=== PATIENT | female | born 1980 | race Caucasian/White ===

== ENCOUNTER 2020-03-08 01:44 | Emergency (ER) | payer MEDICARE, MEDICAID, SELFPAY ==
[2020-03-08 01:52] VITALS: BP 148/106; PULSE 117; RESP 20; TEMP 37.2; O2SAT 100; BMI 27.6
[2020-03-08 02:11] VITALS: BP 152/99; PULSE 105; RESP 18; O2SAT 98
--- NOTE | 2020-03-08 02:19 | ED.GENADULT ---
HPI - General Adult General Chief complaint: Anxiety Stated complaint: ANXIETY Time Seen by Provider: 03/08/20 02:15 Source: patient Mode of arrival: ambulatory Limitations: no limitations History of Present Illness HPI narrative: Patient comes to the emergency room complaining of anxiety. Patient was started on citalopram 3 days ago and Ativan for sleep. Patient states she has been doing well, however today she woke up clammy, feeling anxious. Patient is diabetic, checked her blood sugar and it was 80. Patient states her baseline is approximately 200. Patient drank orange juice, started feeling better and came to the emergency room. At this moment, patient states she still feels anxious, however she feels much better than at home. MD complaint: Anxiety, hypoglycemia Onset (ago): minute(s) Related Data Allergies Allergy/AdvReac Type Severity Reaction Status Date / Time No Known Allergies Allergy Verified 03/08/20 01:57 [No Known Allergies*] Review of Systems Review of Systems: Constitutional : No Weight loss, No Fever, No Chills, No Night Sweats, No Fatigue, No Malaise ENT/Mouth : No Hearing loss, No Ear Pain, No Nasal Congestion, No Sinus Pain, No Hoarseness, No sore throat, No Rhinorrhea, No Swallowing Difficulty Eyes: No Eye Pain, No Swelling, No Redness, No Foreign Body, No Discharge, No Vision Changes Cardiovascular : No Chest Pain, No SOB, No Dyspnea on Exertion, No Orthopnea, No Edema, No Palpitations Respiratory : No Cough, No Sputum, No Wheezing, No Smoke Exposure, No Dyspnea Gastrointestinal : No Nausea, No Vomiting, No Diarrhea, No Constipation, No abdominal Pain, No Hematochezia, No Melena Genitourinary : no irregular bleeding, No Dysuria, No Urinary Frequency, No Hematuria, No Urinary Incontinence, No Urgency, No Flank Pain, No Urinary Flow Changes, No Hesitancy Musculoskeletal : No joint pain, No Myalgias, No Joint Swelling Skin : No Skin Lesions, No rash Neuro : No Weakness, No Numbness, No Paresthesias, No Loss of Consciousness, No Dizziness, No Headache Psych : mild Anxiety/Panic, No Depression, No SI/HI/AH/VH, No Social Issues, Heme/Lymph: No Bruising, No Bleeding,No Lymphadenopathy Endocrine : No Polyuria, No Polydipsia, No Temperature Intolerance PMFSH Past Medical History Medical History Anxiety Depression Diabetes HTN (hypertension) Surgical History History of Hx of cholecystectomy Social History Social History Advance Directives: No Advance Directives Information Provided: No Physical Exam Vital Signs: Vital Signs: Vital Signs Temp Pulse Resp BP Pulse Ox 03/08/20 02:11 105 H 18 152/99 H 98 03/08/20 01:52 99.0 F 117 H 20 148/106 H 100 Body Mass Index 27.6 Appearance: Alert. Oriented X3. No acute distress. Eyes: Pupils equal, round and reactive to light. ENT: Pharynx normal. Neck: Normal inspection. Neck supple. No lymph nodes noted. No crepitus CVS: Normal heart rate and rhythm. Pulses normal. Normal S1 and S2 Respiratory: No respiratory distress. Breath sounds normal. No Wheezing. No rales Abdomen: Soft and nontender. No rigidity. No distention. good BS x4 Skin: Skin warm and dry. Normal skin color. Normal skin turgor. Extremities: No lower extremity edema. No lower extremity edema. No Lacerations. No Rash Neuro: Oriented X 3. No motor deficit. No sensory deficit. Moving all extermities. No slurred speech. Course Course Course Narrative: patient continues to be anxious, but doing better than at home. Patient drove herself to the emergency room, patient instructed to take 2 tablets of Ativan when she gets home. Patient was offered a prescription to replace the 2 tablets of Ativan, patient states that she will be okay, she will contact her PCP tomorrow Medical Decision Making MDM Narrative Medical decision making narrative: patient's blood glucose in the 150s, patient not having hypoglycemic symptoms. Lab Data Labs: Lab Results 03/08/20 03/08/20 Range/Units 02:46 03:06 POC Glucose 136 H 153 H (60-115) mg/dL Discharge Plan Discharge Clinical Impression: Acute anxiety Patient Disposition: Home, Self-Care Instructions: Anxiety (ED) Additional Instructions: when you get home, please take 2 mg of Ativan Please follow-up with your primary care physician tomorrow. If you have any worsening or new symptoms, please return to the emergency room or call 911
[2020-03-08 02:50] LABS: Glucose, Whole Blood 136 mg/dL (60-115)
[2020-03-08 03:11] LABS: Glucose, Whole Blood 153 mg/dL (60-115)
[2020-03-08 07:23] LABS: Glucose, Whole Blood 141 mg/dL (60-115)
[2020-03-08 07:30] LABS: Glucose, Whole Blood 141 mg/dL (60-115)
== END 2020-03-08 04:28 | disposition home or self-care (01) ==
PROVIDERS: Emergency Provider Emergency Medicine; PCP Nurse Practitioner Family
DX: F41.9 Anxiety disorder, unspecified (principal); I10 Essential (primary) hypertension; E11.9 Type 2 diabetes mellitus without complications; Z79.899 Other long term (current) drug therapy
CPT/HCPCS: 82947; 99283; 99284

== ENCOUNTER 2020-03-14 01:53 | Emergency (ER) | payer MEDICARE, MEDICAID, SELFPAY ==
[2020-03-14 02:01] VITALS: BP 135/86; PULSE 96; RESP 16; TEMP 35.9; O2SAT 100; BMI 27.9
[2020-03-14 02:11] LABS: Glucose, Whole Blood 112 mg/dL (60-115)
--- NOTE | 2020-03-14 02:45 | ED_ITS ---
HPI - General Adult General Chief complaint: General Medical Stated complaint: Low Blood Sugar Time Seen by Provider: 03/14/20 02:45 Source: patient Mode of arrival: ambulatory Limitations: no limitations History of Present Illness HPI narrative: This is a 40-year-old female who presents after awaking in the middle the night drenched in sweat and checking her sugar and finding that it was 62. she uses metformin, regular insulin, as well as Lantus for glucose control. She states she was seen here 4 days ago for panic attack and at that time had been prescribed some lorazepam. She is somewhat concerned that this medication may be contributing to her having a few episodes lower sugar levels. Otherwise, she denies any fevers, chills, sore throat, cough, GI symptoms, or symptoms. Currently, she endorses that she feels much better. Related Data Previous Rx's Medication Instructions Recorded nitrofurantoin monohyd/m-cryst 100 mg PO Q12H 5 Days #10 cap 03/14/20 [Macrobid] Allergies Allergy/AdvReac Type Severity Reaction Status Date / Time No Known Allergies Allergy Verified 03/14/20 02:00 [No Known Allergies*] Review of Systems Review of Systems: pertinent positives and negatives as stated in HPI 10 point review of systems is otherwise negative. PMFSH Past Medical History Source: nursing notes reviewed Medical History Anxiety Depression Diabetes HTN (hypertension) Surgical History History of Hx of cholecystectomy Social History Social History Smoked in Last 30 Days: No Use of substances other than those prescribed or required for medical reasons: No Advance Directives: No Advance Directives Information Provided: No Physical Exam Vital Signs: Vital Signs: Vital Signs Temp Pulse Resp BP Pulse Ox 03/14/20 02:01 96.6 F L 96 16 135/86 100 Body Mass Index 27.9 VITAL SIGNS: Reviewed. GENERAL: Well developed, well nourished, in no acute distress. HEAD: Normocephalic/atraumatic, EYES: PERRLA, EOMI intact without pain, no nystagmus/pallor/icterus noted EARS: Ext canals without abnormality, TMs non-bulging and non-erythematous NOSE: Nares patent bilateral OROPHARYNX: no oral lesions noted, posterior pharynx clear and non-erythematous without noted tonsillar enlargement/erythema/exudates NECK: Supple, no adenopathy LUNGS: Normal breath sounds. No adventitious sounds or accessory muscle use. SpO2<100> CARDIOVASCULAR: Regular rate and rhythm without noted murmurs, no JVD or lower extremity edema. ABDOMEN: Soft, non-tender, non-distended with bowel sounds. No rigidity. No guarding. No palpable masses or hernias noted MUSCULOSKELETAL: No tenderness, deformities, or effusions noted on gross inspection. EXTREMITIES: No cyanosis, clubbing or edema. SKIN: Inspection of the skin reveals no rashes, ulcerations, jaundice, pallor, or petechiae. NEUROLOGIC: Alert and oriented x 4. Strength and sensation to light touch were grossly intact x 4. Course Course Course Narrative: This is a 40-year-old female with history and clinical presentation consistent with mild episode of hypoglycemia and we will evaluate with labs as well as continuing to check her glucose levels to ascertain that they are stable prior to discharging to home with Express instructions to follow-up with her primary care provider for adjustments on her evening insulin regimen. A review of all investigations there is no systemic evidence of infection and there is a noted anemia which patient is asymptomatic for and she will be instructed to follow-up with her primary care provider. Otherwise there is no evidence of electrolyte abnormalities, DKA, HHS. Urinalysis is positive for infection and patient will receive initial antibiotics here in the emergency department and then be discharged with a prescription for the remainder. All results and findings were discussed with the patient at bedside and she was strongly encouraged to follow-up with her primary care provider by calling the office today to set up an appointment. Medical Decision Making Lab Data Result diagrams: 03/14/20 04:14 03/14/20 04:14 Labs: Lab Results 03/14/20 03/14/20 03/14/20 Range/Units 01:59 03:22 04:13 WBC (4.8-10.8) X10*3/uL RBC (4.20-5.50) X10*6/uL Hgb (12.0-16.0) g/dl Hct (37-47) % MCV (80-98) fL MCH (27.0-33.0) pg MCHC (31.0-35.0) g/dl RDW (11.0-16.0) % Plt Count (160-400) X10*3/uL MPV (9.4-12.3) fL Immature Gran % (Auto) (0.0-0.4) % Neut % (Auto) (45-73) % Lymph % (Auto) (20-40) % [place] % (Auto) (2-11) % Eos % (Auto) (0-4) % Baso % (Auto) (0-2) % Lymph # (Auto) (1.2-4.9) X10*3/uL [place] # (Auto) (0.1-1.2) X10*3/uL Eos # (Auto) (0.0-0.4) X10*3/uL Baso # (Auto) (0.0-0.2) X10*3/uL Abs Immat Gran (auto) (0.00-0.03) X10*3/uL Absolute Neuts (auto) (2.0-8.3) X10*3/uL Absolute Nucleated RBC (0.0-0.012) X10*3/uL Nucleated RBC % (auto) (0.0-0.2) /100WBC Sodium (135-145) mmol/L Potassium (3.3-5.1) mmol/l Chloride (96-108) mmol/L Carbon Dioxide (22-29) mmol/L Anion Gap (12-20) BUN (9-16) mg/dL Creatinine (0.5-1.4) mg/dL Estim Creat Clear Calc Estimated GFR POC Glucose 112 168 H (60-115) mg/dL Random Glucose (60-115) mg/dL Calcium (8.4-10.2) mg/dL Total Bilirubin (0.0-1.0) mg/dL AST (5-31) U/L ALT (0-31) U/L Alkaline Phosphatase (39-117) U/L Total Protein (6.5-8.0) g/dL Albumin (3.5-5.0) g/dL Urine Color Urine Appearance Urine pH (5.0-8.0) Ur Specific [place] (1.005-1.025) Urine Protein (NEG-TRACE) MG/DL Urine Glucose (UA) (NEG) MG/DL Urine Ketones (NEG) MG/DL Urine Blood (NEG) Urine Nitrite (NEG) Ur Leukocyte Esterase (NEG) Urine RBC (0) /HPF Urine WBC (0-4) /HPF Ur Squamous Epith Cells /LPF Urine Bacteria /LPF Urine Opiates Screen Not Detected (Not Detect) Ur Barbiturates Screen Not Detected (Not Detect) Ur Phencyclidine Scrn Not Detected (Not Detect) Ur Amphetamines Screen Not Detected (Not Detect) U Benzodiazepines Scrn POSITIVE H (Not Detect) Urine Cocaine Screen Not Detected (Not Detect) U Marijuana (THC) Screen POSITIVE H (Not Detect) Ethyl Alcohol mg/dL 03/14/20 03/14/20 03/14/20 Range/Units 04:14 04:14 04:14 WBC 10.2 (4.8-10.8) X10*3/uL RBC 4.52 (4.20-5.50) X10*6/uL Hgb 10.5 L (12.0-16.0) g/dl Hct 34.3 L (37-47) % MCV 75.9 L (80-98) fL MCH 23.2 L (27.0-33.0) pg MCHC 30.6 L (31.0-35.0) g/dl RDW 16.2 H (11.0-16.0) % Plt Count 319 (160-400) X10*3/uL MPV 9.6 (9.4-12.3) fL Immature Gran % (Auto) 0.4 (0.0-0.4) % Neut % (Auto) 72.7 (45-73) % Lymph % (Auto) 19.0 L (20-40) % [place] % (Auto) 6.8 (2-11) % Eos % (Auto) 0.9 (0-4) % Baso % (Auto) 0.2 (0-2) % Lymph # (Auto) 2.0 (1.2-4.9) X10*3/uL [place] # (Auto) 0.7 (0.1-1.2) X10*3/uL Eos # (Auto) 0.1 (0.0-0.4) X10*3/uL Baso # (Auto) 0.0 (0.0-0.2) X10*3/uL Abs Immat Gran (auto) 0.04 H (0.00-0.03) X10*3/uL Absolute Neuts (auto) 7.4 (2.0-8.3) X10*3/uL Absolute Nucleated RBC 0.000 (0.0-0.012) X10*3/uL Nucleated RBC % (auto) 0.0 (0.0-0.2) /100WBC Sodium 138 (135-145) mmol/L Potassium 3.7 (3.3-5.1) mmol/l Chloride 100 (96-108) mmol/L Carbon Dioxide 26 (22-29) mmol/L Anion Gap 16 (12-20) BUN 10 (9-16) mg/dL Creatinine 0.72 (0.5-1.4) mg/dL Estim Creat Clear Calc 125.4 Estimated GFR > 60 POC Glucose (60-115) mg/dL Random Glucose 184 H (60-115) mg/dL Calcium 9.4 (8.4-10.2) mg/dL Total Bilirubin 0.2 (0.0-1.0) mg/dL AST 45 H (5-31) U/L ALT 85 H (0-31) U/L Alkaline Phosphatase 48 (39-117) U/L Total Protein 6.8 (6.5-8.0) g/dL Albumin 4.4 (3.5-5.0) g/dL Urine Color Urine Appearance Urine pH (5.0-8.0) Ur Specific [place] (1.005-1.025) Urine Protein (NEG-TRACE) MG/DL Urine Glucose (UA) (NEG) MG/DL Urine Ketones (NEG) MG/DL Urine Blood (NEG) Urine Nitrite (NEG) Ur Leukocyte Esterase (NEG) Urine RBC (0) /HPF Urine WBC (0-4) /HPF Ur Squamous Epith Cells /LPF Urine Bacteria /LPF Urine Opiates Screen (Not Detect) Ur Barbiturates Screen (Not Detect) Ur Phencyclidine Scrn (Not Detect) Ur Amphetamines Screen (Not Detect) U Benzodiazepines Scrn (Not Detect) Urine Cocaine Screen (Not Detect) U Marijuana (THC) Screen (Not Detect) Ethyl Alcohol < 10 mg/dL 10/21/20 Range/Units 04:14 WBC (4.8-10.8) X10*3/uL RBC (4.20-5.50) X10*6/uL Hgb (12.0-16.0) g/dl Hct (37-47) % MCV (80-98) fL MCH (27.0-33.0) pg MCHC (31.0-35.0) g/dl RDW (11.0-16.0) % Plt Count (160-400) X10*3/uL MPV (9.4-12.3) fL Immature Gran % (Auto) (0.0-0.4) % Neut % (Auto) (45-73) % Lymph % (Auto) (20-40) % [place] % (Auto) (2-11) % Eos % (Auto) (0-4) % Baso % (Auto) (0-2) % Lymph # (Auto) (1.2-4.9) X10*3/uL [place] # (Auto) (0.1-1.2) X10*3/uL Eos # (Auto) (0.0-0.4) X10*3/uL Baso # (Auto) (0.0-0.2) X10*3/uL Abs Immat Gran (auto) (0.00-0.03) X10*3/uL Absolute Neuts (auto) (2.0-8.3) X10*3/uL Absolute Nucleated RBC (0.0-0.012) X10*3/uL Nucleated RBC % (auto) (0.0-0.2) /100WBC Sodium (135-145) mmol/L Potassium (3.3-5.1) mmol/l Chloride (96-108) mmol/L Carbon Dioxide (22-29) mmol/L Anion Gap (12-20) BUN (9-16) mg/dL Creatinine (0.5-1.4) mg/dL Estim Creat Clear Calc Estimated GFR POC Glucose (60-115) mg/dL Random Glucose (60-115) mg/dL Calcium (8.4-10.2) mg/dL Total Bilirubin (0.0-1.0) mg/dL AST (5-31) U/L ALT (0-31) U/L Alkaline Phosphatase (39-117) U/L Total Protein (6.5-8.0) g/dL Albumin (3.5-5.0) g/dL Urine Color YELLOW Urine Appearance CLEAR Urine pH 6.0 (5.0-8.0) Ur Specific [place] 1.010 (1.005-1.025) Urine Protein TRACE (NEG-TRACE) MG/DL Urine Glucose (UA) NEG (NEG) MG/DL Urine Ketones NEG (NEG) MG/DL Urine Blood 1+ H (NEG) Urine Nitrite NEG (NEG) Ur Leukocyte Esterase 1+ H (NEG) Urine RBC 1-4 (0) /HPF Urine WBC 15-29 H (0-4) /HPF Ur Squamous Epith Cells 1+ /LPF Urine Bacteria 2+ /LPF Urine Opiates Screen (Not Detect) Ur Barbiturates Screen (Not Detect) Ur Phencyclidine Scrn (Not Detect) Ur Amphetamines Screen (Not Detect) U Benzodiazepines Scrn (Not Detect) Urine Cocaine Screen (Not Detect) U Marijuana (THC) Screen (Not Detect) Ethyl Alcohol mg/dL Discharge Plan Discharge Clinical Impression: UTI (urinary tract infection) Qualifiers: Urinary tract infection type: acute cystitis Hematuria presence: with hematuria Qualified Code(s): N30.01 - Acute cystitis with hematuria Patient Disposition: Home, Self-Care Instructions: Urinary Tract Infection in Women (ED) Additional Instructions: 1. Increase your fluid hydration, especially water. 2. Please call the office of your primary care provider to set up an appointment today. The patient and/or family acknowledge understanding of results (as applicable), diagnosis, treatment plan, need for follow up, and symptoms that should prompt a return to the emergency room. Prescriptions: New nitrofurantoin monohyd/m-cryst [Macrobid] 100 mg capsule 100 mg PO Q12H 5 Days Qty: 10 RF: 0 Referrals: Marly Mcdaniel, LUBRICATION SUPERVISOR [Nurse Practitioner] - 2 days ( discuss adjustment of your insulin regimen)
[2020-03-14 03:25] LABS: Glucose, Whole Blood 168 mg/dL (60-115)
--- NOTE | 2020-03-14 03:40 | PC.NURSE ---
PT DENIES ANY COMPLAINTS AT THIS TIME. REPEAT BS 168. PT DENIES ANY COMPLAINTS AT THIS TIME. PT ALERT, RESPIRATIONS EASY, N/L. SKIN W/D. WILL CONTINUE TO MONITOR PT.
[2020-03-14 04:00] VITALS: BP 128/68; PULSE 81; RESP 16; O2SAT 98
[2020-03-14 04:25] LABS: MANUAL DIFF FLAG NO
[2020-03-14 04:26] LABS: Basophils Percent Auto 0.2 % (0-2); Eosinophils Absolute Auto 0.1 X10*3/uL (0.0-0.4); Eosinophils Percent Auto 0.9 % (0-4); Hematocrit 34.3 % (37-47); Hemoglobin 10.5 g/dl (12.0-16.0); Imm Gran Abs Auto 0.04 X10*3/uL (0.00-0.03); Imm Gran Pct Auto 0.4 % (0.0-0.4); Mean Corpuscular HGB Conc 30.6 g/dl (31.0-35.0); Mean Corpuscular Hemoglobin 23.2 pg (27.0-33.0); Mean Corpuscular Volume 75.9 fL (80-98); Mean Platelet Volume 9.6 fL (9.4-12.3); Monocytes Absolute Auto 0.7 X10*3/uL (0.1-1.2); Monocytes Percent Auto 6.8 % (2-11); Neutrophils Absolute Auto 7.4 X10*3/uL (2.0-8.3); Neutrophils Percent Auto 72.7 % (45-73); Platelet Count 319 X10*3/uL (160-400); Red Blood Count 4.52 X10*6/uL (4.20-5.50); Red Cell Distribution Width 16.2 % (11.0-16.0); White Blood Count 10.2 X10*3/uL (4.8-10.8)
[2020-03-14 04:30] LABS: Glucose Urine UA NEG (NEG); Leukocyte Esterase Urine 1+ (NEG); Nitrite Urine NEG (NEG); Urine Blood 1+ (NEG); Urine Ketones NEG (NEG); Urine Protein TRACE MG/DL (NEG-TRACE)
[2020-03-14 04:32] LABS: Appearance Urine CLEAR; Color Urine YELLOW
[2020-03-14 04:39] LABS: Bacteria Urine 2+ /LPF; Squamous Epithelial Cell Urine 1+ /LPF
[2020-03-14 04:52] LABS: Ethanol < 10 mg/dL
[2020-03-14 04:54] LABS: Alanine Aminotransferase 85 U/L (0-31); Albumin Level 4.4 g/dL (3.5-5.0); Alkaline Phosphatase 48 U/L (39-117); Anion Gap 16 (12-20); Aspartate Amino Transferase 45 U/L (5-31); Bilirubin Total 0.2 mg/dL (0.0-1.0); Blood Urea Nitrogen 10 mg/dL (9-16); Calcium 9.4 mg/dL (8.4-10.2); Carbon Dioxide 26 mmol/L (22-29); Chloride 100 mmol/L (96-108); Creatinine Clr Calc Pharmacy 125.4; Estimated Glomerular Filt Rate > 60; Glucose Random 184 mg/dL (60-115); Potassium 3.7 mmol/l (3.3-5.1); Sodium 138 mmol/L (135-145); Total Protein 6.8 g/dL (6.5-8.0)
[2020-03-14 05:01] LABS: Amphetamine Screen Urine Not Detected (Not Detect); Barbiturates, Urine Not Detected (Not Detect); Benzodiazepines Screen Urine POSITIVE (Not Detect); Cannabinoid Screen Urine POSITIVE (Not Detect); Cocaine Screen Urine Not Detected (Not Detect); Opiate Screen Urine Not Detected (Not Detect); Phencyclidine Screen Urine Not Detected (Not Detect)
[2020-03-14 05:14] LABS: Glucose, Whole Blood 203 mg/dL (60-115)
[2020-03-14] MEDS: Nitrofurantoin Monohyd/M-Cryst 100 MG CAPSULE PO (05:47)
== END 2020-03-14 05:50 | disposition home or self-care (01) ==
PROVIDERS: Emergency Provider Student in an Organized Health Care Education/Training Program
DX: N30.01 Acute cystitis with hematuria (principal); E11.9 Type 2 diabetes mellitus without complications; I10 Essential (primary) hypertension; Z79.4 Long term (current) use of insulin
CPT/HCPCS: 36415; 80053; 80307; 80320; 81001; 82947; 85025; 87086; 87088; 87186; 99283; 99284

== ENCOUNTER 2020-04-24 04:39 | Emergency (ER) | payer MEDICARE, MEDICAID, SELFPAY ==
[2020-04-24 04:41] VITALS: BP 144/82; PULSE 94; RESP 20; TEMP 36.3; O2SAT 100; BMI 29.0
--- NOTE | 2020-04-24 05:48 | ECG_ITS ---
Test Reason : CHEST WALL PAIN Blood Pressure : / mmHG Vent. Rate : 084 BPM Atrial Rate : 084 BPM P-R Int : 164 ms QRS Dur : 080 ms QT Int : 398 ms P-R-T Axes : 066 051 029 degrees QTc Int : 470 ms Poor data quality, interpretation may be adversely affected Normal sinus rhythm Normal ECG When compared with ECG of 03-JUN-2018 08:56, No significant change was found Referred By: Lexi Conley Electronically Signed By:ROSALINDA MEEHAN MD
[2020-04-24] MEDS: hydrOXYzine HCL 50 MG TABLET PO (05:54)
--- NOTE | 2020-04-24 05:57 | ED.ANXIETY ---
HPI - Anxiety General Chief Complaint: Anxiety Stated Complaint: Panic/anxiety attack Time Seen by Provider: 04/24/20 05:48 Source: patient Mode of arrival: ambulatory Limitations: no limitations History of Present Illness HPI narrative: This is a 40-year-old female who presents with concerns regarding persistent anxiety symptoms for the past week and half that are not new but have flared up again and she states that this evening despite using her breathing techniques she began to become very concerned regarding her glucose levels and she is feeling impending doom , clammy skin, palpitations, chest tightness with numbness and tingling in her fingertips on bilateral hands. Otherwise, she denies fevers, chills, GI symptoms, symptoms. Related Data Previous Rx's Medication Instructions Recorded nitrofurantoin monohyd/m-cryst 100 mg PO Q12H 5 Days #10 cap 03/14/20 [Macrobid] hydroxyzine HCl 25 mg PO TID PRN #10 tab 04/24/20 Allergies Allergy/AdvReac Type Severity Reaction Status Date / Time No Known Allergies Allergy Verified 04/24/20 04:46 [No Known Allergies*] Review of Systems Review of Systems: Pertinent positives and negatives as stated in HPI 10 point review of systems is otherwise negative. PMFSH Past Medical History Source: nursing notes reviewed Medical History Anxiety Depression Diabetes HTN (hypertension) Surgical History History of Hx of cholecystectomy Social History Social History Advance Directives: No Advance Directives Information Provided: No Physical Exam Vital Signs: Vital Signs: Last Vital Signs Temp 97.3 F 04/24/20 04:41 Pulse 98 04/24/20 06:50 Resp 16 04/24/20 06:50 BP 154/91 H 04/24/20 06:50 Pulse Ox 100 04/24/20 06:50 Body Mass Index 29.0 VITAL SIGNS: Reviewed. GENERAL: Well developed, well nourished, in no acute distress. HEAD: Normocephalic/atraumatic, EYES: PERRLA, EOMI intact without pain, no nystagmus/pallor/icterus noted EARS: Ext canals without abnormality, TMs non-bulging and non-erythematous NOSE: Nares patent bilateral OROPHARYNX: no oral lesions noted, posterior pharynx clear and non-erythematous without noted tonsillar enlargement/erythema/exudates NECK: Supple, no adenopathy LUNGS: Normal breath sounds. No adventitious sounds or accessory muscle use. SpO2<100> CARDIOVASCULAR: Regular rate and rhythm without noted murmurs, no JVD or lower extremity edema. ABDOMEN: Soft, non-tender, non-distended with bowel sounds. No rigidity. No guarding. No palpable masses or hernias noted MUSCULOSKELETAL: No tenderness, deformities, or effusions noted on gross inspection. EXTREMITIES: No cyanosis, clubbing or edema. SKIN: Inspection of the skin reveals no rashes, ulcerations, jaundice, pallor, or petechiae. NEUROLOGIC: Alert and oriented x 4. Strength and sensation to light touch were grossly intact x 4. Course Course Course Narrative: This is a 40-year-old female with history and clinical presentation most consistent with anxiety with mild panic attack that has overall resolved since arrival to the emergency department. On review of EKG there are no acute findings to suggest alternative etiologies and patient had improvement with hydroxyzine. All results and findings were discussed with the patient at bedside and she was strongly encouraged to follow up with primary care provider will be discharged with a prescription for hydroxyzine. MDM - Anxiety ECG Data Attestation: I personally reviewed and interpreted this ECG as follows: Interpretation: normal sinus rhythm, HR - 83, no evidence of acute ischemia, no abnormal arrhythmia, FL/QRS/ QTC are within normal limits. Discharge Plan Discharge Clinical Impression: Acute anxiety, Panic attack Patient Disposition: Home, Self-Care Instructions: Anxiety (ED), Panic Attack (ED) Additional Instructions: 1. Please follow up with the primary care provider by calling the office today and requesting further evaluation and alternative medication as indicated. The patient and/or family acknowledge understanding of results (as applicable), diagnosis, treatment plan, need for follow up, and symptoms that should prompt a return to the emergency room. Prescriptions: New hydroxyzine HCl 25 mg tablet 25 mg PO TID PRN (Reason: anxiety) Qty: 10 RF: 0 No Action nitrofurantoin monohyd/m-cryst [Macrobid] 100 mg capsule 100 mg PO Q12H 5 Days Qty: 10 RF: 0 Referrals: Viele,Marly, STAFF RESEARCH SCIENTIST [Primary Care Provider] - 2 days ( For re-evaluation management anxiety and mild panic attack.)
--- NOTE | 2020-04-24 06:49 | PC.NURSE ---
pt reports feeling increased anxiety, hot and nauseous following hydroxyzine.
[2020-04-24 06:50] VITALS: BP 154/91; PULSE 98; RESP 16; O2SAT 100
== END 2020-04-24 07:08 | disposition home or self-care (01) ==
PROVIDERS: Emergency Provider Student in an Organized Health Care Education/Training Program; PCP Nurse Practitioner Family
DX: F41.9 Anxiety disorder, unspecified (principal); F41.0 Panic disorder [episodic paroxysmal anxiety]; I10 Essential (primary) hypertension; E11.9 Type 2 diabetes mellitus without complications
CPT/HCPCS: 93005; 99283; 99284

== ENCOUNTER 2020-09-07 12:38 | Outpatient (REF) | payer MEDICARE, MEDICAID, SELFPAY | END 2020-09-07 12:39 | disposition home or self-care (01) | LOC: HO.LAB 12:38 | PROVIDERS: Visit Provider Internal Medicine | DX: Z20.822 Contact with and (suspected) exposure to COVID-19 (principal) | CPT/HCPCS: C9803; U0003; U0005 ==

== ENCOUNTER 2020-11-24 00:04 | Emergency (ER) | payer MEDICARE, MEDICAID, SELFPAY ==
--- NOTE | ~2020-11-24 | XR_ITS ---
EXAMINATION: XR CHEST, 2 VIEWS CLINICAL INFORMATION: Chest wall pain, right COMPARISON: 06/03/2018 TECHNIQUE: PA and lateral views of the chest were obtained. FINDINGS: Lungs are clear. No consolidation, pneumothorax, or pleural effusion. Cardiac and mediastinal contours are normal. Pulmonary vasculature is unremarkable. Trachea is midline. Osseous structures are unremarkable. XR/XR chest 2V IMPRESSION: Normal chest radiographs.
--- NOTE | ~2020-11-24 | CT_ITS ---
EXAMINATION: CT ABDOMEN AND PELVIS WITH CONTRAST CLINICAL INFORMATION: Bilateral flank pain. Nausea. Fever. COMPARISON: Abdominal ultrasound dated 03/14/2014. TECHNIQUE: Multidetector volumetric images were obtained from the superior aspect of the liver through the pubic symphysis following administration 85 mL of Omnipaque 350 intravenous contrast. Sagittal and coronal reformatted images were obtained on the technologist's workstation. Oral contrast: None This CT examination was performed using dose optimization techniques as appropriate, variously including the following: *Automated exposure control *Adjustment of mA and/or kV according to patient size (this includes techniques or standardized protocols for targeted exams where dose is matched to indication/reason for exam; i.e. extremities or head) *Use of iterative reconstruction technique DLP: 738 mGy-cm FINDINGS: LUNG BASES: The visualized lung bases are unremarkable. LIVER, GALLBLADDER, AND BILIARY TREE: The liver is normal in size, shape, and attenuation. Near the falciform ligament at the junction of hepatic segments 4A and 2, there is a 2.2 cm focus of hypoattenuation which likely corresponds to aberrant venous inflow or focal fatty infiltration. No biliary ductal dilatation. Surgical clips from prior cholecystectomy are evident at the gallbladder fossa. PANCREAS: Unremarkable. SPLEEN: Unremarkable. ADRENAL GLANDS: Unremarkable. KIDNEYS AND URETERS: The numerous simple appearing bilateral renal cysts are identified. The largest of these are the 5.5 cm cyst at the right lower renal pole (8 Hounsfield units) and the 3.3 cm cyst at the left upper renal pole (8 Hounsfield units). There is a 1 cm intermediate density (30 Hounsfield units) cystic focus at the lateral margin of the right lower renal pole which is indeterminate. Kidneys are normal in size, shape, and attenuation. No hydronephrosis, hydroureter, or calculi seen. No perinephric stranding. BLADDER: Unremarkable. GASTROINTESTINAL TRACT: Stomach, small bowel, and colon are normal in caliber. No bowel wall thickening or surrounding inflammatory changes. Appendix is normal. Trace intraperitoneal free fluid. No free air. ABDOMINAL WALL: No significant hernia is appreciated. LYMPH NODES: Normal. VASCULAR: Atherosclerotic calcifications are present in the abdominal aorta and iliac arteries. No aneurysmal dilatation. Retroaortic left renal vein. PELVIC VISCERA: The uterus is enlarged with a 6.5 cm fibroid at the left posterior aspect of the body. A probable 1 cm submucosal fibroid is suspected near the uterine fundus. There is a 1.5 cm right corpus luteum. No suspicious adnexal abnormalities. OSSEOUS STRUCTURES: Mild degenerative disc disease at T11-T12. No acute osseous findings. CT/CT abdomen pelvis w con IMPRESSION: 1. No acute intra-abdominal or intrapelvic abnormalities. 2. Enlarged, leiomyomatous uterus. 3. Numerous bilateral simple appearing renal cysts. There is a 1 cm intermediate density, complex renal cyst in the right lower renal pole. Consider follow-up renal mass protocol MRI with and without contrast for more definitive characterization of these cysts on a nonemergent basis. 4. Mild focal degenerative disc disease at T11-T12. No appreciable disc bulges on these images.
[2020-11-24 00:17] VITALS: BP 147/103; PULSE 123; RESP 18; TEMP 37.4; O2SAT 100; BMI 28.4
--- NOTE | 2020-11-24 01:25 | PC.NURSE ---
PT TO ROOM WITH C/O BODYACHES TO BACK AND UPPER ABD AREA. PT CHG INTO GOWN AND AWAITING FOR MD'S EVAL. URINE SENT TO LAB FOR EVAL.
--- NOTE | 2020-11-24 01:45 | PC.NURSE ---
AT BEDSIDE. IV PLACED TO LAC, LABS AND BC X 2 OBTAINED TO LAB. NS UP AND RUNNING W/O WITHOUT DIFFICULTY, SITE INTACT. PT MEDICATED FOR PAIN. WILL CONTINUE TO MONITOR PT.
[2020-11-24] MEDS: Ketorolac Tromethamine 15 MG/ML VIAL IVPUSH (01:59)
[2020-11-24] MEDS: 0.9 % Sodium Chloride 2,000 ML 999 ML IV (01:59)
--- NOTE | 2020-11-24 01:59 | ED_ITS ---
HPI - Female Genitourinary General Chief complaint: Urogenital-Female Stated complaint: flu symptoms Time Seen by Provider: 11/24/20 01:39 Source: patient Mode of arrival: ambulatory History of Present Illness HPI Narrative: 40-year-old female with history of diabetes presents with onset of fever, chills, nausea without vomiting as well as bilateral flank pain and suprapubic discomfort but denies any abdominal pain or diarrhea. In addition, patient states she has had increased coughing but denies any sore throat or ear pain. Related Data Previous Rx's Medication Instructions Recorded nitrofurantoin monohyd/m-cryst 100 mg PO Q12H 5 Days #10 cap 03/14/20 [Macrobid] hydroxyzine HCl 25 mg PO TID PRN #10 tab 04/24/20 cefixime 400 mg PO DAILY 7 Days #7 cap 11/24/20 Allergies Allergy/AdvReac Type Severity Reaction Status Date / Time Unable to Assess Allergy Verified 11/24/20 00:17 Review of Systems Review of Systems: Pertinent positives and negatives as stated in HPI 10 point review of systems is otherwise negative. PMFSH Past Medical History Source: nursing notes reviewed Medical History Anxiety Depression Diabetes HTN (hypertension) Surgical History History of Hx of cholecystectomy Social History Social History Advance Directives: No Advance Directives Information Provided: No Physical Exam Vital Signs: Vital Signs: Last Vital Signs Temp 99.3 F 11/24/20 00:17 Pulse 84 11/24/20 04:00 Resp 16 11/24/20 04:00 BP 118/74 11/24/20 04:00 Pulse Ox 98 11/24/20 04:00 Body Mass Index 28.4 VITAL SIGNS: Reviewed. GENERAL: Well developed, well nourished, in no acute distress. HEAD: Normocephalic/atraumatic EYES: PERRLA, EOMI intact without pain, no nystagmus EARS: Ext canals without abnormality, TMs non-bulging and non-erythematous NOSE: Nares patent bilateral OROPHARYNX: no oral lesions noted, posterior pharynx clear and non-erythematous without noted tonsillar enlargement/erythema/exudates NECK: Supple, no adenopathy LUNGS: Normal breath sounds. No adventitious sounds or accessory muscle use. SpO2<100> CARDIOVASCULAR: Regular rate and rhythm without noted murmurs, no JVD or lower extremity edema. ABDOMEN: Soft, tenderness and palpation over the right upper quadrant without rebound, non-distended with bowel sounds, right-sided CVA tenderness present SKIN: Inspection of the skin reveals no rashes NEUROLOGIC: Alert and oriented x 4. Course Course Course Narrative: 40-year-old female with history and clinical presentation suggestive of possible cholecystitis, pyelonephritis, but doubt pneumonia or pancreatitis. Review of all investigations consistent with UTI/pyelonephritis and patient received initial antibiotics here in the emergency room as well as IV fluid resuscitation and combination analgesics for pain control. Patient was informed of all results and will be discharged on remaining course of antibiotics. [facility] - Female Genitourinary Lab Data Result diagrams: 11/24/20 02:02 11/24/20 02:02 Labs: Lab Results 11/24/20 11/24/20 11/24/20 Range/Units 02:02 02:02 02:02 WBC 6.4 (4.8-10.8) X10*3/uL RBC 4.93 (4.20-5.50) X10*6/uL Hgb 11.4 L (12.0-16.0) g/dl Hct 36.6 L (37-47) % MCV 74.2 L (80-98) fL MCH 23.1 L (27.0-33.0) pg MCHC 31.1 (31.0-35.0) g/dl RDW 16.5 H (11.0-16.0) % Plt Count 279 (160-400) X10*3/uL MPV 10.3 (9.4-12.3) fL Immature Gran % (Auto) 0.3 (0.0-0.4) % Neut % (Auto) 74.9 H (45-73) % Lymph % (Auto) 14.2 L (20-40) % [place] % (Auto) 10.1 (2-11) % Eos % (Auto) 0.3 (0-4) % Baso % (Auto) 0.2 (0-2) % Lymph # (Auto) 0.9 L (1.2-4.9) X10*3/uL [place] # (Auto) 0.7 (0.1-1.2) X10*3/uL Eos # (Auto) 0.0 (0.0-0.4) X10*3/uL Baso # (Auto) 0.0 (0.0-0.2) X10*3/uL Abs Immat Gran (auto) 0.02 (0.00-0.03) X10*3/uL Absolute Neuts (auto) 4.8 (2.0-8.3) X10*3/uL Absolute Nucleated RBC 0.000 (0.0-0.012) X10*3/uL Nucleated RBC % (auto) 0.0 (0.0-0.2) /100WBC Sodium (135-145) mmol/L Potassium (3.3-5.1) mmol/L Chloride (96-108) mmol/L Carbon Dioxide (22-29) mmol/L Anion Gap (12-20) BUN (9-16) mg/dL Creatinine (0.5-1.4) mg/dL Estim Creat Clear Calc Estimated GFR Random Glucose (60-115) mg/dL Lactic Acid (0.5-2.0) mmol/L Calcium (8.4-10.2) mg/dL Total Bilirubin (0.0-1.0) mg/dL AST (5-31) U/L ALT (0-31) U/L Alkaline Phosphatase (39-117) U/L Total Protein (6.5-8.0) g/dL Albumin (3.5-5.0) g/dL Lipase (8-78) U/L Urine Color YELLOW Urine Appearance HAZY Urine pH 6.0 (5.0-8.0) Ur Specific [place] 1.025 (1.005-1.025) Urine Protein TRACE (NEG-TRACE) MG/DL Urine Glucose (UA) 500 H (NEG) MG/DL Urine Ketones >=80 (NEG) MG/DL Urine Blood TRACE (NEG) Urine Nitrite POS H (NEG) Ur Leukocyte Esterase 1+ H (NEG) Urine RBC 0-2 (0) /HPF Urine WBC 15-29 H (0-4) /HPF Ur Squamous Epith Cells 2+ /LPF Urine Bacteria 1+ /LPF Urine Mucus 3+ /LPF Urine Test NEGATIVE (NEGATIVE) 11/24/20 11/24/20 Range/Units 02:02 02:02 WBC (4.8-10.8) X10*3/uL RBC (4.20-5.50) X10*6/uL Hgb (12.0-16.0) g/dl Hct (37-47) % MCV (80-98) fL MCH (27.0-33.0) pg MCHC (31.0-35.0) g/dl RDW (11.0-16.0) % Plt Count (160-400) X10*3/uL MPV (9.4-12.3) fL Immature Gran % (Auto) (0.0-0.4) % Neut % (Auto) (45-73) % Lymph % (Auto) (20-40) % [place] % (Auto) (2-11) % Eos % (Auto) (0-4) % Baso % (Auto) (0-2) % Lymph # (Auto) (1.2-4.9) X10*3/uL [place] # (Auto) (0.1-1.2) X10*3/uL Eos # (Auto) (0.0-0.4) X10*3/uL Baso # (Auto) (0.0-0.2) X10*3/uL Abs Immat Gran (auto) (0.00-0.03) X10*3/uL Absolute Neuts (auto) (2.0-8.3) X10*3/uL Absolute Nucleated RBC (0.0-0.012) X10*3/uL Nucleated RBC % (auto) (0.0-0.2) /100WBC Sodium 133 L (135-145) mmol/L Potassium 3.7 (3.3-5.1) mmol/L Chloride 104 (96-108) mmol/L Carbon Dioxide 18 L (22-29) mmol/L Anion Gap 15 (12-20) BUN 10 (9-16) mg/dL Creatinine 0.81 (0.5-1.4) mg/dL Estim Creat Clear Calc 112.2 Estimated GFR > 60 Random Glucose 225 H (60-115) mg/dL Lactic Acid 1.3 (0.5-2.0) mmol/L Calcium 9.0 (8.4-10.2) mg/dL Total Bilirubin 0.4 (0.0-1.0) mg/dL AST 16 D (5-31) U/L ALT 19 (0-31) U/L Alkaline Phosphatase 62 D (39-117) U/L Total Protein 7.2 (6.5-8.0) g/dL Albumin 4.4 (3.5-5.0) g/dL Lipase 20 (8-78) U/L Urine Color Urine Appearance Urine pH (5.0-8.0) Ur Specific [place] (1.005-1.025) Urine Protein (NEG-TRACE) MG/DL Urine Glucose (UA) (NEG) MG/DL Urine Ketones (NEG) MG/DL Urine Blood (NEG) Urine Nitrite (NEG) Ur Leukocyte Esterase (NEG) Urine RBC (0) /HPF Urine WBC (0-4) /HPF Ur Squamous Epith Cells /LPF Urine Bacteria /LPF Urine Mucus /LPF Urine Test (NEGATIVE) Discharge Plan Discharge Clinical Impression: Pyelonephritis Patient Disposition: Home, Self-Care Instructions: Kidney Infection (ED) Additional Instructions: 1. Resume all home medications as prescribed. 2. Please follow-up with your primary care provider in the next 2-3 days for re- evaluation and further outpatient management. Return to the ER for acute worsening of your symptoms. Prescriptions: New cefixime 400 mg capsule 400 mg PO DAILY 7 Days Qty: 7 RF: 0 No Action nitrofurantoin monohyd/m-cryst [Macrobid] 100 mg capsule 100 mg PO Q12H 5 Days Qty: 10 RF: 0 hydroxyzine HCl 25 mg tablet 25 mg PO TID PRN (Reason: anxiety) Qty: 10 RF: 0 Referrals: Physician,Unknown [Primary Care Provider] - 2 days
[2020-11-24 02:00] VITALS: BP 120/78; PULSE 86; RESP 16; O2SAT 99
[2020-11-24 02:20] LABS: MANUAL DIFF FLAG NO
[2020-11-24 02:25] LABS: Basophils Percent Auto 0.2 % (0-2); Eosinophils Percent Auto 0.3 % (0-4); Hematocrit 36.6 % (37-47); Hemoglobin 11.4 g/dl (12.0-16.0); Imm Gran Abs Auto 0.02 X10*3/uL (0.00-0.03); Imm Gran Pct Auto 0.3 % (0.0-0.4); Lymphocytes Absolute Auto 0.9 X10*3/uL (1.2-4.9); Lymphocytes Percent Auto 14.2 % (20-40); Mean Corpuscular HGB Conc 31.1 g/dl (31.0-35.0); Mean Corpuscular Hemoglobin 23.1 pg (27.0-33.0); Mean Corpuscular Volume 74.2 fL (80-98); Mean Platelet Volume 10.3 fL (9.4-12.3); Monocytes Absolute Auto 0.7 X10*3/uL (0.1-1.2); Monocytes Percent Auto 10.1 % (2-11); Neutrophils Absolute Auto 4.8 X10*3/uL (2.0-8.3); Neutrophils Percent Auto 74.9 % (45-73); Platelet Count 279 X10*3/uL (160-400); Red Blood Count 4.93 X10*6/uL (4.20-5.50); Red Cell Distribution Width 16.5 % (11.0-16.0); White Blood Count 6.4 X10*3/uL (4.8-10.8)
[2020-11-24 02:28] LABS: Glucose Urine UA 500 MG/DL (NEG); Leukocyte Esterase Urine 1+ (NEG); Nitrite Urine POS (NEG); Specific Gravity - Urine 1.025 (1.005-1.025); UACC Culture Trigger YES; Urine Blood TRACE (NEG); Urine Ketones >=80 MG/DL (NEG); Urine Protein TRACE MG/DL (NEG-TRACE)
[2020-11-24 02:33] LABS: Appearance Urine HAZY; Color Urine YELLOW
[2020-11-24 02:39] LABS: Lactic Acid 1.3 mmol/L (0.5-2.0)
[2020-11-24 02:44] LABS: Alanine Aminotransferase 19 U/L (0-31); Albumin Level 4.4 g/dL (3.5-5.0); Alkaline Phosphatase 62 U/L (39-117); Anion Gap 15 (12-20); Aspartate Amino Transferase 16 U/L (5-31); Bacteria Urine 1+ /LPF; Bilirubin Total 0.4 mg/dL (0.0-1.0); Blood Urea Nitrogen 10 mg/dL (9-16); Carbon Dioxide 18 mmol/L (22-29); Chloride 104 mmol/L (96-108); Creatinine Clr Calc Pharmacy 112.2; Estimated Glomerular Filt Rate > 60; Glucose Random 225 mg/dL (60-115); Lipase 20 U/L (8-78); Mucus Urine 3+ /LPF; Potassium 3.7 mmol/L (3.3-5.1); RBC Urine 0-2 /HPF (0); Sodium 133 mmol/L (135-145); Squamous Epithelial Cell Urine 2+ /LPF; Total Protein 7.2 g/dL (6.5-8.0); UACC CULT YES; UPreg QC Valid YES; Urine Pregnancy NEGATIVE (NEGATIVE)
--- NOTE | 2020-11-24 03:00 | PC.NURSE ---
PT TO CT.
[2020-11-24] MEDS: cefTRIAXone sodium 1 GM in 0.9 % Sodium Chloride 50 ML IV (03:11)
[2020-11-24 04:00] VITALS: BP 118/74; PULSE 84; RESP 16; O2SAT 98
--- NOTE | 2020-11-24 04:30 | PC.NURSE ---
PT STATES IM FEELING MUCH BETTER PT UP AND AMBULATES TO RESTROOM W/O DIFFICULTY, STEADY, EVEN GAIT. PT AWAITING FOR DISPO.
== END 2020-11-24 06:37 | disposition home or self-care (01) ==
PROVIDERS: Emergency Provider Student in an Organized Health Care Education/Training Program
DX: N12 Tubulo-interstitial nephritis, not specified as acute or chronic (principal); R50.9 Fever, unspecified; E11.9 Type 2 diabetes mellitus without complications; I10 Essential (primary) hypertension; Z90.49 Acquired absence of other specified parts of digestive tract
CPT/HCPCS: 36415; 71046; 74177; 80053; 81001; 81025; 83605; 83690; 85025; 87040; 87086; 87088; 87186; 96361; 96365; 96375; 99284; J0696; J1885

== ENCOUNTER 2021-01-02 13:46 | Outpatient (REF) | payer MEDICARE, MEDICAID, SELFPAY | END 2021-01-02 13:47 | disposition home or self-care (01) | LOC: HO.LAB 13:46 | PROVIDERS: PCP Nurse Practitioner Family; Visit Provider Internal Medicine | DX: Z20.822 Contact with and (suspected) exposure to COVID-19 (principal) | CPT/HCPCS: C9803; U0003; U0005 ==

== ENCOUNTER 2021-03-16 21:19 | Emergency (ER) | payer MEDICARE, MEDICAID, SELFPAY ==
--- NOTE | 2021-03-16 | ECG_ITS ---
Test Reason : CP Blood Pressure : / mmHG Vent. Rate : 090 BPM Atrial Rate : 090 BPM P-R Int : 186 ms QRS Dur : 078 ms QT Int : 374 ms P-R-T Axes : 072 059 029 degrees QTc Int : 457 ms Normal sinus rhythm Nonspecific ST abnormality Inferior leads Borderline ECG No significant changes seen Referred By: Generic ED Physician Electronically Signed By:DIANA AVALOS MD
[2021-03-16 21:22] VITALS: BP 149/87; PULSE 93; RESP 16; TEMP 36.2; O2SAT 100; BMI 25.8
--- NOTE | 2021-03-16 21:35 | PC.NURSE ---
EKG obtained in Triage.
--- NOTE | 2021-03-16 21:45 | ED.CHESTPAIN ---
HPI - Chest Pain General Chief Complaint: Chest Pain Stated Complaint: Chest pain Time Seen by Provider: 03/16/21 21:41 Source: patient Mode of arrival: ambulatory Limitations: no limitations History of Present Illness HPI narrative: Patient comes to the emergency room complaining of chest discomfort for 3 days. It started when patient was in bed sleeping, woke up with palpitations, feeling anxious, diaphoretic. Patient states it feels like she has air bubbles on the whole chest on both sides of her back. Patient denies shortness of breath. Patient states she has been diagnosed with anxiety, states that the chest discomfort that she is feeling is not typical for her for anxiety. Patient has been taking Atarax for the last few days, states it is not helping much. Related Data Previous Rx's Medication Instructions Recorded nitrofurantoin 100 mg PO Q12H 5 Days #10 cap 03/14/20 monohydrate/macrocrystals 100 mg capsule (Macrobid) hydroxyzine HCl 25 mg tablet 25 mg PO TID PRN #10 tab 04/24/20 cefixime 400 mg capsule 400 mg PO DAILY 7 Days #7 cap 11/24/20 Allergies Allergy/AdvReac Type Severity Reaction Status Date / Time No Known Allergies Allergy Verified 03/16/21 21:29 Review of Systems Review of Systems: Constitutional : No Weight loss, No Fever, No Chills, No Night Sweats, No Fatigue, No Malaise ENT/Mouth : No Hearing loss, No Ear Pain, No Nasal Congestion, No Sinus Pain, No Hoarseness, No sore throat, No Rhinorrhea, No Swallowing Difficulty Eyes: No Eye Pain, No Swelling, No Redness, No Foreign Body, No Discharge, No Vision Changes Cardiovascular : Complaining of chest discomfort for 3 days, No SOB, No Dyspnea on Exertion, No Orthopnea, No Edema, No Palpitations Respiratory : No Cough, No Sputum, No Wheezing, No Smoke Exposure, No Dyspnea Gastrointestinal : No Nausea, No Vomiting, No Diarrhea, No Constipation, No abdominal Pain, No Hematochezia, No Melena Genitourinary : no irregular bleeding, No Dysuria, No Urinary Frequency, No Hematuria, No Urinary Incontinence, No Urgency, No Flank Pain, No Urinary Flow Changes, No Hesitancy Musculoskeletal : No joint pain, No Myalgias, No Joint Swelling Skin : No Skin Lesions, No rash Neuro : No Weakness, No Numbness, No Paresthesias, No Loss of Consciousness, No Dizziness, No Headache Psych : No Anxiety/Panic, No Depression, No SI/HI/AH/VH, No Social Issues, Heme/Lymph: No Bruising, No Bleeding,No Lymphadenopathy Endocrine : No Polyuria, No Polydipsia, No Temperature Intolerance PMFSH Past Medical History Medical History Anxiety Depression Diabetes HTN (hypertension) Surgical History History of Hx of cholecystectomy Social History Social History Advance Directives: No Advance Directives Information Provided: No Patient : No Physical Exam Vital Signs: Vital Signs: Last Vital Signs Temp 98.4 F 03/16/21 22:00 Pulse 81 03/16/21 22:00 Resp 18 03/16/21 22:00 BP 118/66 03/16/21 22:00 Pulse Ox 97 03/16/21 22:00 Body Mass Index 25.8 Const: Other: Appearance: Alert. Oriented X3. No acute distress. Eyes: Pupils equal, round and reactive to light. ENT: Pharynx normal. Neck: Normal inspection. Neck supple. No lymph nodes noted. No crepitus CVS: Normal heart rate and rhythm. Pulses normal. Normal S1 and S2 Respiratory: No respiratory distress. Breath sounds normal. No Wheezing. No rales Abdomen: Soft and nontender. No rigidity. No distention. Skin: Skin warm and dry. Normal skin color. Normal skin turgor. Extremities: No lower extremity edema. No lower extremity edema. No Lacerations. No Rash Neuro: Oriented X 3. No motor deficit. No sensory deficit. Moving all extermities. No slurred speech. Course Course Course Narrative: I discussed the labs with the patient, no acute findings. I discussed with the patient that she would likely benefit from Holter monitor evaluation. Patient states that her primary care physician has already suggested that, she will follow-up with her PCP on Thursday. MDM - Chest Pain Lab Data Result diagrams: 03/16/21 22:02 03/16/21 22:02 Labs: Lab Results 03/16/21 03/16/21 03/16/21 Range/Units 22:02 22:02 22:02 WBC 7.9 (4.8-10.8) X10*3/uL RBC 4.32 (4.20-5.50) X10*6/uL Hgb 11.8 L (12.0-16.0) g/dl Hct 35.4 L (37-47) % MCV 81.9 (80-98) fL MCH 27.3 (27.0-33.0) pg MCHC 33.3 (31.0-35.0) g/dl RDW 17.5 H (11.0-16.0) % Plt Count 281 (160-400) X10*3/uL MPV 9.2 L (9.4-12.3) fL Immature Gran % (Auto) 0.3 (0.0-0.4) % Neut % (Auto) 59.9 (45-73) % Lymph % (Auto) 30.6 (20-40) % [place] % (Auto) 6.6 (2-11) % Eos % (Auto) 2.3 (0-4) % Baso % (Auto) 0.3 (0-2) % Lymph # (Auto) 2.4 (1.2-4.9) X10*3/uL [place] # (Auto) 0.5 (0.1-1.2) X10*3/uL Eos # (Auto) 0.2 (0.0-0.4) X10*3/uL Baso # (Auto) 0.0 (0.0-0.2) X10*3/uL Abs Immat Gran (auto) 0.02 (0.00-0.03) X10*3/uL Absolute Neuts (auto) 4.8 (2.0-8.3) X10*3/uL Absolute Nucleated RBC 0.000 (0.0-0.012) X10*3/uL Nucleated RBC % (auto) 0.0 (0.0-0.2) /100WBC Sodium 137 (135-145) mmol/L Potassium 3.5 (3.3-5.1) mmol/L Chloride 105 (96-108) mmol/L Carbon Dioxide 24 (22-29) mmol/L Anion Gap 12 (12-20) BUN 20 H D (9-16) mg/dL Creatinine 0.74 (0.5-1.4) mg/dL Estim Creat Clear Calc 104.6 Estimated GFR > 60 Random Glucose 103 (60-115) mg/dL Calcium 9.4 (8.4-10.2) mg/dL Troponin I High Sens < 3.5 (<3.5-17.0) ng/L ECG Data ECG #1: Attestation: I personally reviewed and interpreted this ECG as follows: (Heart rate 90, sinus rhythm, no ST segment depression or elevation, no T-wave inversion, QTC 457) Discharge Plan Discharge Clinical Impression: Atypical chest pain Patient Disposition: Home, Self-Care Instructions: Chest Pain (ED) Additional Instructions: Please follow-up with your primary care physician tomorrow. If you have any worsening or new symptoms, please return to the emergency room or call 911 Prescriptions: No Action nitrofurantoin monohyd/m-cryst [Macrobid] 100 mg capsule 100 mg PO Q12H 5 Days Qty: 10 RF: 0 hydroxyzine HCl 25 mg tablet 25 mg PO TID PRN (Reason: anxiety) Qty: 10 RF: 0 cefixime 400 mg capsule 400 mg PO DAILY 7 Days Qty: 7 RF: 0
[2021-03-16 22:00] VITALS: BP 118/66; PULSE 81; RESP 18; TEMP 36.9; O2SAT 97
[2021-03-16 22:05] LABS: MANUAL DIFF FLAG NO
[2021-03-16 22:08] LABS: Basophils Percent Auto 0.3 % (0-2); Eosinophils Absolute Auto 0.2 X10*3/uL (0.0-0.4); Eosinophils Percent Auto 2.3 % (0-4); Hematocrit 35.4 % (37-47); Hemoglobin 11.8 g/dl (12.0-16.0); Imm Gran Abs Auto 0.02 X10*3/uL (0.00-0.03); Imm Gran Pct Auto 0.3 % (0.0-0.4); Lymphocytes Absolute Auto 2.4 X10*3/uL (1.2-4.9); Lymphocytes Percent Auto 30.6 % (20-40); Mean Corpuscular HGB Conc 33.3 g/dl (31.0-35.0); Mean Corpuscular Hemoglobin 27.3 pg (27.0-33.0); Mean Corpuscular Volume 81.9 fL (80-98); Mean Platelet Volume 9.2 fL (9.4-12.3); Monocytes Absolute Auto 0.5 X10*3/uL (0.1-1.2); Monocytes Percent Auto 6.6 % (2-11); Neutrophils Absolute Auto 4.8 X10*3/uL (2.0-8.3); Neutrophils Percent Auto 59.9 % (45-73); Platelet Count 281 X10*3/uL (160-400); Red Blood Count 4.32 X10*6/uL (4.20-5.50); Red Cell Distribution Width 17.5 % (11.0-16.0); White Blood Count 7.9 X10*3/uL (4.8-10.8)
[2021-03-16 22:26] LABS: Anion Gap 12 (12-20); Blood Urea Nitrogen 20 mg/dL (9-16); Calcium 9.4 mg/dL (8.4-10.2); Carbon Dioxide 24 mmol/L (22-29); Chloride 105 mmol/L (96-108); Creatinine Clr Calc Pharmacy 104.6; Estimated Glomerular Filt Rate > 60; Glucose Random 103 mg/dL (60-115); Potassium 3.5 mmol/L (3.3-5.1); Sodium 137 mmol/L (135-145)
[2021-03-16 22:27] LABS: Troponin-I High Sensitivity < 3.5 ng/L (<3.5-17.0)
== END 2021-03-16 23:42 | disposition home or self-care (01) ==
PROVIDERS: Emergency Provider Emergency Medicine; PCP Nurse Practitioner Family
DX: R07.89 Other chest pain (principal); Z79.899 Other long term (current) drug therapy
CPT/HCPCS: 36415; 80048; 84484; 85025; 93005; 99283; 99284

== ENCOUNTER → 2021-04-17 13:26 | Outpatient (BNVA) | payer MEDICARE, MEDICAID, SELFPAY | PROVIDERS: PCP Nurse Practitioner Family; Visit Provider Internal Medicine | DX: R07.2 Precordial pain (principal); I25.10 Atherosclerotic heart disease of native coronary artery without angina pectoris; I10 Essential (primary) hypertension; I44.1 Atrioventricular block, second degree; E11.8 Type 2 diabetes mellitus with unspecified complications | CPT/HCPCS: 99212 ==

== ENCOUNTER 2021-09-06 11:21 | Outpatient (REF) | payer MEDICARE, MEDICAID, SELFPAY ==
[2021-09-06 12:36] LABS: COVID-19 Test Negative (Negative)
== END 2021-09-06 11:22 | disposition home or self-care (01) ==
LOC: HO.LAB 11:21
PROVIDERS: Visit Provider Internal Medicine
DX: Z20.822 Contact with and (suspected) exposure to COVID-19 (principal)
CPT/HCPCS: 87635; C9803

== ENCOUNTER 2021-11-09 08:59 | Emergency (ER) | payer MEDICARE, MEDICAID, SELFPAY ==
--- NOTE | ~2021-11-09 | CT_ITS ---
EXAMINATION: CT HEAD WITHOUT CONTRAST CLINICAL INFORMATION: Left-sided weakness. Resolved. COMPARISON: CT head dated 06/30/2013. TECHNIQUE: Contiguous axial imaging was performed from the skull base to vertex without intravenous administration of contrast. This CT examination was performed using dose optimization techniques as appropriate, variously including the following: *Automated exposure control *Adjustment of mA and/or kV according to patient size (this includes techniques or standardized protocols for targeted exams where dose is matched to indication/reason for exam; i.e. extremities or head) *Use of iterative reconstruction technique DLP: 668 mGy-cm FINDINGS: There is no evidence of acute intracranial hemorrhage or territorial infarction. No abnormal mass effect or midline shift is seen. Gruber to white matter differentiation is well preserved. No extra-axial fluid collections are identified. The ventricles are normal in size. There is no abnormal attenuation within the brain parenchyma. The osseous structures and soft tissues are normal. The mastoid air cells and visualized portions of the paranasal sinuses are well aerated. CT/CT head/brain wo con IMPRESSION: No acute intracranial hemorrhage or mass effect.
[2021-11-09 09:03] VITALS: BP 183/104; PULSE 115; RESP 19; O2SAT 98; BMI 22.4
--- NOTE | 2021-11-09 09:20 | ED.GENADULT ---
HPI - General Adult General Chief complaint: General Medical Stated complaint: L hand numb/headaches/anxiety Time Seen by Provider: 11/09/21 09:20 Source: patient Mode of arrival: ambulatory Limitations: no limitations History of Present Illness HPI narrative: Patient is a 41 year old female presenting to the emergency department today with a headache. Patient states that for the last 4 days she has had a headache. Patient states that she had a brief moment of numbness and cold feeling in her left arm and lower leg. Patient denies any dizziness, lightheadedness, abdominal pain, nausea, vomiting, fever, chills, blurry vision, double vision, loss of vision, chest pain, difficulty breathing, shortness of breath, back pain, night sweats, pain with urination, increased urinary frequency, increased urinary urgency, blood in her urine or stool, syncope or a near syncopal episode, recent trauma or falls, bowel incontinence, bladder incontinence, bowel retention, bladder retention, or any other complaints at this time. Onset (ago): day(s) (4) Location: head Radiation: non-radiation Severity: mild Severity scale (1-10): 4 Quality: dull Pain Consistency: constant Relieving factors: none Exacerbating factors: none Associated symptoms: denies other symptoms Treatments prior to arrival: none Related Data Home Medications Medication Instructions Recorded Confirmed albuterol sulfate 90 mcg/actuation 2 puff PO Q4-6H PRN 04/17/21 04/17/21 aerosol inhaler (Ventolin HFA) atorvastatin 80 mg tablet 80 mg PO DAILY 04/17/21 04/17/21 cholecalciferol (vitamin D3) 50 50 mcg PO DAILY 04/17/21 04/17/21 mcg (2,000 unit) capsule dulaglutide 1.5 mg/0.5 mL mg subcut 04/17/21 04/17/21 subcutaneous pen injector (Trulicity) insulin glargine 100 unit/mL (3 45 unit subcut BEDTIME 04/17/21 04/17/21 mL) subcutaneous pen (Lantus Solostar U-100 Insulin) insulin lispro 100 unit/mL subcut 04/17/21 04/17/21 subcutaneous pen (Humalog KwikPen (U-100) Insulin) lisinopril 20 2 tab PO QAM 04/17/21 04/17/21 mg-hydrochlorothiazide 12.5 mg tablet sertraline 50 mg tablet 75 mg PO DAILY 04/17/21 04/17/21 Previous Rx's Medication Instructions Recorded hydroxyzine HCl 25 mg tablet 25 mg PO TID PRN anxiety #10 tabs 04/24/20 Allergies Allergy/AdvReac Type Severity Reaction Status Date / Time No Known Allergies Allergy Verified 04/17/21 13:38 Review of Systems Constitutional: Constitutional: Reports no additional constitutional complaints, Denies chills, Denies fever(s), Reports headache(s) and Denies night sweats Eyes: Eyes: Reports no additional eye complaints, Denies blurry vision, Denies change in vision, Denies diplopia, Denies eye discharge, Denies loss of vision and Denies eye pain ENT: Denies dizziness and Reports headache(s) Cardiovascular: Cardiovascular: Reports no additional cardiovascular complaints, Denies chest pain, Denies lightheadedness, Denies Loss of Consciousness and Denies dyspnea Respiratory: Respiratory: Reports no additional respiratory complaints and Denies dyspnea Gastrointestinal: Gastrointestinal: Reports no additional gastrointestinal complaints, Denies abdominal pain, Denies melena, Denies hematochezia, Denies change in bowel habits and Denies change in stool character Genitourinary: Genitourinary: Denies hematuria, Denies urinary frequency, Denies dysuria, Denies urinary incontinence, Denies urinary hesitancy and Denies urinary urgency Musculoskeletal: Musculoskeletal: Reports no additional musculoskeletal complaints, Denies numbness and Denies tingling Neurologic: Denies dizziness, Reports headache(s), Denies loss of vision, Denies numbness and Denies tingling Psychiatric: Psychiatric: Reports no additional psychiatric complaints Endocrine: Endocrine: Reports no additional endocrine complaints Hematologic/Lymphatic: Hematologic/Lymphatic: Reports no additional hematologic/lymphatic complaints Allergic/Immunologic: Allergic/Immunologic: Reports no additional allergic/immunologic complaints ON LICENSE OF [facility] Past Medical History Attestation statement: The following information was validated with the patient. Source: old records reviewed Medical History Anxiety Depression Diabetes HTN (hypertension) Surgical History History of Hx of cholecystectomy Social History Social History Patient Tobacco Use Status: Never used Tobacco Advance Directives: No Advance Directives Information Provided: No Physical Exam ED Vital Signs: Vital Signs - 24 hr 11/09/21 09:03 11/09/21 09:47 11/09/21 10:38 Pulse Rate 115 H 88 83 Respiratory Rate 19 18 18 Blood Pressure 183/104 H 152/98 H 139/87 Pulse Oximetry 98 100 100 Oxygen Delivery Method Room Air Room Air Room Air BMI result Body Mass Index 22.4 Const General: cooperative, no acute distress, alert and awake Nutritional Appearance: well nourished Orientation/consciousness: patient oriented x3 Limitations: no limitations HENMT Head: Yes normal to inspection and Yes atraumatic Ears: hearing grossly normal bilaterally and external ears normal General nose exam: Normal external nose present, no nasal discharge noted and no epistaxis Face and sinus: Yes normal facial exam, No abrasion and No laceration Mouth: Normal oral and palatal mucosa present, no drooling and no muffled voice Eyes General: appearance normal, both eyes and all related structures Periorbital: periorbital findings normal Eyelids: Yes eyelids normal Conjunctivae: conjunctivae normal Pupils: Equal, round and reactive pupils present EOM: EOMs intact bilaterally Neck Neck: Yes normal visual inspection, Yes full ROM and Yes no lymphadenopathy Chest Chest palpation & inspection: normal inspection of the chest Resp Effort & Inspection: normal respiratory effort and able to speak in complete sentences Auscultation: clear to auscultation bilaterally Cardio Rate: regular rate Rhythm: regular rhythm GI Inspection: Yes normal to inspection Neuro General: patient oriented x3 and moves all extremities Cranial nerves: Yes Equal, round and reactive pupils present Cognition (Neuro): normal cognition Motor exam (neuro): 5/5 motor strength present throughout Sensory Exam: Normal double simultaneous stimulation for sensation Coordination: [id number] test normal Extrem General: Yes normal to inspection, Yes full ROM and Yes capillary refill normal Psych Appearance: grossly normal Mental Status: mental status grossly normal Affect: normal affect Attitude: cooperative Thought process: Normal thought process present Thought content: Normal thought content present Insight: Good insight present (Psych) NIH Stroke Scale Internal: Initial- Upon Arrival Time: 09:20 Level of Consciousness: Alert Level of Consciousness Questions: Answers both questions correctly Level of Consciousness Commands: Performs both tasks correctly Best Gaze: Normal Visual: No visual loss Facial Palsy: Normal Motor Arm (Right): No drift Motor Arm (Left): No drift Motor Leg (Right): No drift Motor Leg (Left): No drift Limb Ataxia: Absent Sensory: Normal Best Language: No aphasia Dysarthia: Normal Extinction and Inattention: No abnormality Score: 0 Medical Decision Making MDM Narrative Medical decision making narrative: Patient is a 41 year old female with a history of migraines and diabetes presenting to the emergency department today with a headache. Patient's physical exam was unremarkable. Patient's blood work was unremarkable. Patient's urine showed no acute process. Patient's EKG was unremarkable. Patient's head CT showed no acute process. I explained my physical exam findings as well as all test results to the patient. I answered all questions asked by the patient. Patient received IM Toradol which she stated helped her symptoms significantly. I stressed the importance of the patient taking her medication as prescribed. I stressed the importance of the patient following up with her primary care provider. I stressed the importance of the patient returning to the emergency department immediately if her symptoms were to worsen or if she were to develop any dizziness, shortness of breath, difficulty breathing, chest pain, blurry vision, loss of vision, nausea, vomiting, abdominal pain, fever, chills, back pain, or any other complaints. Patient verbalized agreement and understanding with this treatment plan and discharge. Differential Diagnosis Differential Diagnosis: Complex migraine, headache Medical Records Medical records reviewed: Yes I reviewed the patient's medical records. Lab Data Lab results reviewed: Yes I reviewed the patient's lab results. Result diagrams: 11/09/21 10:00 11/09/21 10:00 Labs: Lab Results 11/09/21 11/09/21 11/09/21 Range/Units 10:00 10:00 10:00 WBC 6.1 (4.8-10.8) X10*3/uL RBC 4.42 (4.20-5.50) X10*6/uL Hgb 11.8 L (12.0-16.0) g/dl Hct 37.0 (37.0-47.0) % MCV 83.7 (80.0-98.0) fL MCH 26.7 L (27.0-33.0) pg MCHC 31.9 (31.0-35.0) g/dl RDW 15.1 (11.0-16.0) % Plt Count 284 (160-400) X10*3/uL MPV 9.6 (9.4-12.3) fL Immature Gran % (Auto) 0.3 (0.0-0.4) % Neut % (Auto) 70.6 (45-73) % Lymph % (Auto) 21.2 (20-40) % Collier % (Auto) 5.8 (2-11) % Eos % (Auto) 1.8 (0-4) % Baso % (Auto) 0.3 (0-2) % Lymph # (Auto) 1.3 (1.2-4.9) X10*3/uL Collier # (Auto) 0.4 (0.1-1.2) X10*3/uL Eos # (Auto) 0.1 (0.0-0.4) X10*3/uL Baso # (Auto) 0.0 (0.0-0.2) X10*3/uL Abs Immat Gran (auto) 0.02 (0.00-0.03) X10*3/uL Absolute Neuts (auto) 4.3 (2.0-8.3) x10*3/uL Absolute Nucleated RBC 0.000 (0.0-0.012) X10*3/uL Nucleated RBC % (auto) 0.0 (0.0-0.2) /100WBC Sodium 137 (135-145) mmol/L Potassium 4.4 D (3.3-5.1) mmol/L Chloride 107 (96-108) mmol/L Carbon Dioxide 24 (22-29) mmol/L Anion Gap 10 L (12-20) BUN 5 L (9-16) mg/dL Creatinine 0.75 (0.5-1.4) mg/dL Estim Creat Clear Calc 106.7 Estimated GFR > 60 Random Glucose 165 H (60-115) mg/dL Calcium 8.7 D (8.4-10.2) mg/dL Magnesium 1.8 (1.6-2.6) mg/dL Total Bilirubin 0.2 (0.0-1.0) mg/dL AST 12 (5-31) U/L ALT 9 (0-31) U/L Alkaline Phosphatase 53 (39-117) U/L Troponin I High Sens < 3.5 (<3.5-17.0) ng/L Total Protein 6.7 (6.5-8.0) g/dL Albumin 4.3 (3.5-5.0) g/dL Urine Color Urine Appearance Urine pH (5.0-8.0) Ur Specific [place] (1.005-1.025) Urine Protein (NEG-TRACE) MG/DL Urine Glucose (UA) (NEG) MG/DL Urine Ketones (NEG) MG/DL Urine Blood (NEG) Urine Nitrite (NEG) Ur Leukocyte Esterase (NEG) 11/09/21 Range/Units 10:00 WBC (4.8-10.8) X10*3/uL RBC (4.20-5.50) X10*6/uL Hgb (12.0-16.0) g/dl Hct (37.0-47.0) % MCV (80.0-98.0) fL MCH (27.0-33.0) pg MCHC (31.0-35.0) g/dl RDW (11.0-16.0) % Plt Count (160-400) X10*3/uL MPV (9.4-12.3) fL Immature Gran % (Auto) (0.0-0.4) % Neut % (Auto) (45-73) % Lymph % (Auto) (20-40) % Collier % (Auto) (2-11) % Eos % (Auto) (0-4) % Baso % (Auto) (0-2) % Lymph # (Auto) (1.2-4.9) X10*3/uL Collier # (Auto) (0.1-1.2) X10*3/uL Eos # (Auto) (0.0-0.4) X10*3/uL Baso # (Auto) (0.0-0.2) X10*3/uL Abs Immat Gran (auto) (0.00-0.03) X10*3/uL Absolute Neuts (auto) (2.0-8.3) x10*3/uL Absolute Nucleated RBC (0.0-0.012) X10*3/uL Nucleated RBC % (auto) (0.0-0.2) /100WBC Sodium (135-145) mmol/L Potassium (3.3-5.1) mmol/L Chloride (96-108) mmol/L Carbon Dioxide (22-29) mmol/L Anion Gap (12-20) BUN (9-16) mg/dL Creatinine (0.5-1.4) mg/dL Estim Creat Clear Calc Estimated GFR Random Glucose (60-115) mg/dL Calcium (8.4-10.2) mg/dL Magnesium (1.6-2.6) mg/dL Total Bilirubin (0.0-1.0) mg/dL AST (5-31) U/L ALT (0-31) U/L Alkaline Phosphatase (39-117) U/L Troponin I High Sens (<3.5-17.0) ng/L Total Protein (6.5-8.0) g/dL Albumin (3.5-5.0) g/dL Urine Color YELLOW Urine Appearance CLEAR Urine pH 6.0 (5.0-8.0) Ur Specific [place] 1.025 (1.005-1.025) Urine Protein TRACE (NEG-TRACE) MG/DL Urine Glucose (UA) 500 H (NEG) MG/DL Urine Ketones NEG (NEG) MG/DL Urine Blood NEG (NEG) Urine Nitrite NEG (NEG) Ur Leukocyte Esterase NEG (NEG) Imaging Data CT scan - head: Attestation: I personally reviewed and interpreted this imaging study as follows: My impression: No acute process. Radiologist's impression: EXAMINATION: CT HEAD WITHOUT CONTRAST CLINICAL INFORMATION: Left-sided weakness. Resolved.? COMPARISON: CT head dated 06/30/2013. TECHNIQUE: Contiguous axial imaging was performed from the skull base to vertex without intravenous administration of contrast. This CT examination was performed using dose optimization techniques as appropriate, variously including the following: *Automated exposure control *Adjustment of mA and/or kV according to patient size (this includes techniques or standardized protocols for targeted exams where dose is matched to indication/reason for exam; i.e. extremities or head) *Use of iterative reconstruction technique DLP: 668 mGy-cm FINDINGS: There is no evidence of acute intracranial hemorrhage or territorial infarction. No abnormal mass effect or midline shift is seen. Gruber to white matter differentiation is well preserved. No extra-axial fluid collections are identified. The ventricles are normal in size. There is no abnormal attenuation within the brain parenchyma. The osseous structures and soft tissues are normal. The mastoid air cells and visualized portions of the paranasal sinuses are well aerated. ? CT/CT head/brain wo con IMPRESSION: No acute intracranial hemorrhage or mass effect. Dictated By: Yordy Negro MD Signed By: Electronically signed by Yordy Negro MD 11/09/21 0924 ECG Data Attestation: I personally reviewed and interpreted this ECG as follows: Prior ECG tracings: available for review Interpretation: Vent. Rate: 091 BPM ? ? Atrial Rate: 091 BPM P-R Int: 174 ms? QRS Dur: 078 ms QT Int: 368 ms ? ? ? P-R-T Axes: 071 046 032 degrees QTc Int: 452 ms ? Normal sinus rhythm Normal ECG When compared with ECG of 16-MAR-2021 21:36, No significant change was found DD/ [id number] Discharge Plan Discharge Clinical Impression: Migraine Patient Disposition: Home, Self-Care Instructions: Migraine Headache (ED) Additional Instructions: Follow up with your primary care provider. Return to the emergency department immediately if your symptoms worsen or if you develop any dizziness, shortness of breath, difficulty breathing, chest pain, blurry vision, loss of vision, nausea, vomiting, abdominal pain, fever, chills, back pain, or any other complaints. Prescriptions: No Action hydroxyzine HCl 25 mg tablet 25 mg PO TID PRN (Reason: anxiety) Qty: 10 0RF Lantus Solostar U-100 Insulin 100 unit/mL (3 mL) insulin pen 45 unit subcut BEDTIME sertraline 50 mg tablet 75 mg PO DAILY insulin lispro [Humalog KwikPen Insulin] 100 unit/mL insulin pen subcut Trulicity 1.5 mg/0.5 mL pen injector subcut cholecalciferol (vitamin D3) 50 mcg (2,000 unit) capsule 50 mcg PO DAILY albuterol sulfate [Ventolin HFA] 90 mcg/actuation HFA aerosol inhaler 2 puff PO Q4-6H PRN atorvastatin 80 mg tablet 80 mg PO DAILY lisinopril-hydrochlorothiazide 20-12.5 mg tablet 2 tab PO QAM Referrals: Ember Burks MD [Primary Care Provider] - Interventions: ED Discharge Assessment Last Done: 11/09/21 10:57 Discharge Date/Time: 11/09/21 10:57 Print Language: Spanish
--- NOTE | 2021-11-09 09:27 | ECG_ITS ---
Test Reason : WEAKNESS Blood Pressure : / mmHG Vent. Rate : 091 BPM Atrial Rate : 091 BPM P-R Int : 174 ms QRS Dur : 078 ms QT Int : 368 ms P-R-T Axes : 071 046 032 degrees QTc Int : 452 ms Normal sinus rhythm Normal ECG When compared with ECG of 16-MAR-2021 21:36, No significant change was found Referred By: Desiree Cameron Electronically Signed By:Anirudh Ohara
[2021-11-09] MEDS: LORazepam 1 MG TABLET 2 MG PO (09:43)
[2021-11-09 09:47] VITALS: BP 152/98; PULSE 88; RESP 18; O2SAT 100
[2021-11-09 10:05] LABS: MANUAL DIFF FLAG NO
[2021-11-09 10:06] LABS: Appearance Urine CLEAR; Color Urine YELLOW; Glucose Urine UA 500 MG/DL (NEG); Leukocyte Esterase Urine NEG (NEG); Nitrite Urine NEG (NEG); Specific Gravity - Urine 1.025 (1.005-1.025); Urine Blood NEG (NEG); Urine Ketones NEG (NEG); Urine Protein TRACE MG/DL (NEG-TRACE)
[2021-11-09 10:07] LABS: Basophils Percent Auto 0.3 % (0-2); Eosinophils Absolute Auto 0.1 X10*3/uL (0.0-0.4); Eosinophils Percent Auto 1.8 % (0-4); Hemoglobin 11.8 g/dl (12.0-16.0); Imm Gran Abs Auto 0.02 X10*3/uL (0.00-0.03); Imm Gran Pct Auto 0.3 % (0.0-0.4); Lymphocytes Absolute Auto 1.3 X10*3/uL (1.2-4.9); Lymphocytes Percent Auto 21.2 % (20-40); Mean Corpuscular HGB Conc 31.9 g/dl (31.0-35.0); Mean Corpuscular Hemoglobin 26.7 pg (27.0-33.0); Mean Corpuscular Volume 83.7 fL (80.0-98.0); Mean Platelet Volume 9.6 fL (9.4-12.3); Monocytes Absolute Auto 0.4 X10*3/uL (0.1-1.2); Monocytes Percent Auto 5.8 % (2-11); Neutrophils Absolute Auto 4.3 x10*3/uL (2.0-8.3); Neutrophils Percent Auto 70.6 % (45-73); Platelet Count 284 X10*3/uL (160-400); Red Blood Count 4.42 X10*6/uL (4.20-5.50); Red Cell Distribution Width 15.1 % (11.0-16.0); White Blood Count 6.1 X10*3/uL (4.8-10.8)
[2021-11-09 10:21] LABS: Alanine Aminotransferase 9 U/L (0-31); Albumin Level 4.3 g/dL (3.5-5.0); Alkaline Phosphatase 53 U/L (39-117); Anion Gap 10 (12-20); Aspartate Amino Transferase 12 U/L (5-31); Bilirubin Total 0.2 mg/dL (0.0-1.0); Blood Urea Nitrogen 5 mg/dL (9-16); Calcium 8.7 mg/dL (8.4-10.2); Carbon Dioxide 24 mmol/L (22-29); Chloride 107 mmol/L (96-108); Creatinine Clr Calc Pharmacy 106.7; Estimated Glomerular Filt Rate > 60; Glucose Random 165 mg/dL (60-115); Magnesium 1.8 mg/dL (1.6-2.6); Potassium 4.4 mmol/L (3.3-5.1); Sodium 137 mmol/L (135-145); Total Protein 6.7 g/dL (6.5-8.0)
[2021-11-09 10:28] LABS: Troponin-I High Sensitivity < 3.5 ng/L (<3.5-17.0)
[2021-11-09 10:38] VITALS: BP 139/87; PULSE 83; RESP 18; O2SAT 100
[2021-11-09] MEDS: Ketorolac Tromethamine 15 MG/ML VIAL IM (10:46)
[2021-11-09] MEDS: lisinopriL 20 MG TABLET PO (10:46)
== END 2021-11-09 10:57 | disposition home or self-care (01) ==
PROVIDERS: Physician Assistant Medical; Emergency Provider Student in an Organized Health Care Education/Training Program; PCP Family Medicine
DX: G43.909 Migraine, unspecified, not intractable, without status migrainosus (principal); R53.1 Weakness; R20.0 Anesthesia of skin; M79.642 Pain in left hand; Z79.899 Other long term (current) drug therapy
CPT/HCPCS: 36415; 70450; 80053; 81003; 83735; 84484; 85025; 93005; 96372; 99284; J1885

== ENCOUNTER 2021-11-12 07:52 | Emergency (ER) | payer MEDICARE, MEDICAID, SELFPAY ==
--- NOTE | ~2021-11-12 | CT_ITS ---
EXAMINATION: CT ABDOMEN AND PELVIS WITHOUT CONTRAST CLINICAL INFORMATION: Left-sided costovertebral angle tenderness. Urinary tract infection. COMPARISON: 11/24/2020 TECHNIQUE: Multidetector volumetric imaging was performed from the superior aspect of the liver through the pubic symphysis. Sagittal and coronal reformatted images were obtained on the technologist's workstation. This CT examination was performed using dose optimization techniques as appropriate, variously including the following: *Automated exposure control *Adjustment of mA and/or kV according to patient size (this includes techniques or standardized protocols for targeted exams where dose is matched to indication/reason for exam; i.e. extremities or head) *Use of iterative reconstruction technique DLP: 491 mGy-cm FINDINGS: LUNG BASES: Normal. No pulmonary consolidation or pleural effusion at either lung base. LIVER: The liver has normal size, shape, and attenuation. No evidence of liver mass. GALLBLADDER AND BILIARY TREE: Gallbladder is without radiopaque stones, wall thickening or pericholecystic fluid. No dilated bile ducts. PANCREAS: Normal. No edema, pancreatic ductal dilatation or mass. SPLEEN: Normal. ADRENAL GLANDS: Normal. KIDNEYS AND URETERS: Kidneys are normal in size. Mild nonspecific perinephric edema anterior to the [id number] pole of the left kidney. Again noted are multiple simple cysts of both kidneys. No suspicious renal lesion is detected on this noncontrast examination. No renal imaging follow-up recommended. There is a punctate calyceal stone of the left lower pole (image 372, series 4). No large stones. No hydronephrosis. The ureters are unremarkable. BLADDER: Normal. No calculi or wall thickening. BOWEL AND PERITONEUM: Stomach is unremarkable. No dilated loops of bowel. The appendix is normal. No overt bowel wall thickening or mesenteric fat stranding. No ascites or pneumoperitoneum. ABDOMINAL WALL: Unremarkable. VASCULATURE: Atherosclerotic calcification of the abdominal aorta without aneurysm. LYMPH NODES: No pathologic sized lymph nodes in the abdomen or pelvis. No inguinal lymphadenopathy. PELVIC VISCERA: Again noted is a leiomyomatous uterus. A leiomyoma of the posterior uterine body and fundus measures up to approximately 5 cm maximum dimension. No adnexal mass. Small amount of simple appearing free fluid is present in the pelvis. This could be secondary to recent rupture of an ovarian follicle. SKELETAL: No suspicious bone lesions. Mild anterior disc space narrowing and anterior vertebral osteophyte formation at T11-T12. CT/CT abdomen pelvis wo con IMPRESSION: * Multiple bilateral renal cysts have a simple appearance on this noncontrast examination. No imaging follow-up is recommended for simple cysts. * Punctate stone of the lower pole of the left kidney. No large renal calculi. No hydroureteronephrosis. * Mild nonspecific perinephric edema is observed anterior to the upper pole of the left kidney. There is no periureteral or overt perivesical fat stranding. No imaging findings of cystitis. Since a history of urinary tract infection is provided, the perinephric edema adjacent to the left upper pole might be related to infection. A mild pyelonephritis is possible. Note that pyelonephritis might be visible on a contrast-enhanced CT exam, but can be undetected on imaging tests, particularly a noncontrast exam. There is no perirenal abscess. * Leiomyomatous uterus.
--- NOTE | ~2021-11-12 | XR_ITS ---
EXAMINATION: XR CHEST CLINICAL INFORMATION: Cough. COMPARISON: 11/24/2020 chest radiographs. TECHNIQUE: 2 views of the chest were obtained. FINDINGS: No significant abnormality is noted involving the heart, lungs, mediastinum, bony thorax or soft tissues. XR/XR chest 2V IMPRESSION: No acute cardiopulmonary process.
[2021-11-12 07:53] VITALS: BP 144/100; PULSE 102; RESP 18; TEMP 37.1; O2SAT 100; BMI 20.9
[2021-11-12 08:23] VITALS: BP 146/88; PULSE 98; RESP 16; TEMP 37.3; O2SAT 99
[2021-11-12 08:24] LABS: IDNOW Serial# 9DB6401D; Influenza A Negative (Negative); Influenza B2 Negative (Negative)
[2021-11-12 08:25] LABS: COVID-19 Test Negative (Negative)
[2021-11-12] MEDS: diphenhydrAMINE HCL 25 MG TABLET PO (09:14)
[2021-11-12] MEDS: Ketorolac Tromethamine 30 MG/ML VIAL IM (09:14)
[2021-11-12] MEDS: Metoclopramide HCl 10 MG TABLET PO (09:14)
[2021-11-12] MEDS: Ondansetron ODT 4 MG TAB.RAPDIS TRANSLINGU (09:14)
[2021-11-12 09:16] LABS: MANUAL DIFF FLAG NO
[2021-11-12 09:18] LABS: Appearance Urine HAZY; Color Urine YELLOW; Glucose Urine UA NEG (NEG); Leukocyte Esterase Urine TRACE (NEG); Nitrite Urine POS (NEG); UACC Culture Trigger YES; Urine Blood 2+ (NEG); Urine Ketones NEG (NEG); Urine Protein NEG (NEG-TRACE)
[2021-11-12 09:28] LABS: Bacteria Urine 3+ /LPF; Basophils Percent Auto 0.2 % (0-2); Eosinophils Percent Auto 0.3 % (0-4); Hematocrit 38.5 % (37.0-47.0); Hemoglobin 12.5 g/dl (12.0-16.0); Imm Gran Abs Auto 0.07 X10*3/uL (0.00-0.03); Imm Gran Pct Auto 0.5 % (0.0-0.4); Lymphocytes Absolute Auto 0.8 X10*3/uL (1.2-4.9); Lymphocytes Percent Auto 5.2 % (20-40); Mean Corpuscular HGB Conc 32.5 g/dl (31.0-35.0); Mean Corpuscular Hemoglobin 26.6 pg (27.0-33.0); Mean Corpuscular Volume 81.9 fL (80.0-98.0); Mean Platelet Volume 10.2 fL (9.4-12.3); Monocytes Percent Auto 6.9 % (2-11); Mucus Urine 2+ /LPF; Neutrophils Absolute Auto 12.8 x10*3/uL (2.0-8.3); Neutrophils Percent Auto 86.9 % (45-73); Platelet Count 285 X10*3/uL (160-400); Red Cell Distribution Width 15.1 % (11.0-16.0); Squamous Epithelial Cell Urine 2+ /LPF; White Blood Count 14.7 X10*3/uL (4.8-10.8)
[2021-11-12] MEDS: Albuterol Sulfate 90 MCG 8 GM INHALER 2 PUFF INHALE (09:31)
[2021-11-12 09:33] VITALS: PULSE 96; RESP 13; O2SAT 100
[2021-11-12 09:35] LABS: Alanine Aminotransferase 9 U/L (0-31); Albumin Level 4.4 g/dL (3.5-5.0); Alkaline Phosphatase 56 U/L (39-117); Anion Gap 11 (12-20); Aspartate Amino Transferase 11 U/L (5-31); Bilirubin Total 0.5 mg/dL (0.0-1.0); Blood Urea Nitrogen 9 mg/dL (9-16); Carbon Dioxide 24 mmol/L (22-29); Chloride 105 mmol/L (96-108); Creatinine Clr Calc Pharmacy 100.6; Estimated Glomerular Filt Rate > 60; Glucose Random 145 mg/dL (60-115); Potassium 3.7 mmol/L (3.3-5.1); Sodium 136 mmol/L (135-145); Total Protein 7.1 g/dL (6.5-8.0)
--- NOTE | 2021-11-12 10:05 | ED.GENADULT ---
HPI - General Adult General Chief complaint: General Medical Stated complaint: HIGH FEVER, HEADACHE Time Seen by Provider: 11/12/21 08:20 Source: patient Mode of arrival: ambulatory Limitations: no limitations History of Present Illness HPI narrative: 41-year-old female presents for a fever last night, headache on the left side of her face, nausea, increased urinary frequency, and a dry cough that started today. Patient is being treated for AA dental crown, and last week she went to have the cap put on, but she had a headache on the left side of her head, they tooth that is her in her left lower jaw, and the dentist found she had an infection, and put her on amoxicillin, and delayed crown placement. Patient was seen November 09 for migraine here in the emergency room, she had a negative head CT at that time. At that time patient endorsed left arm numbness and left leg tingling, that is since resolved. Starting yesterday, patient has had worsening body aches, with back pain, a fever last night of 99.9. Patient still has a gradual onset headache on the left side of her face, with pain behind her eye. She is photophobic, the pain is a 7/10, she is nauseous. Patient does have a history of migraines. Patient has not had dysuria, but endorses urinary frequency, she has a past history of frequent UTIs. Related Data Home Medications Medication Instructions Recorded Confirmed albuterol sulfate 90 mcg/actuation 2 puff PO Q4-6H PRN 04/17/21 04/17/21 aerosol inhaler (Ventolin HFA) atorvastatin 80 mg tablet 80 mg PO DAILY 04/17/21 04/17/21 cholecalciferol (vitamin D3) 50 50 mcg PO DAILY 04/17/21 04/17/21 mcg (2,000 unit) capsule dulaglutide 1.5 mg/0.5 mL mg subcut 04/17/21 04/17/21 subcutaneous pen injector (Trulicity) insulin glargine 100 unit/mL (3 45 unit subcut BEDTIME 04/17/21 04/17/21 mL) subcutaneous pen (Lantus Solostar U-100 Insulin) insulin lispro 100 unit/mL subcut 04/17/21 04/17/21 subcutaneous pen (Humalog KwikPen (U-100) Insulin) lisinopril 20 2 tab PO QAM 04/17/21 04/17/21 mg-hydrochlorothiazide 12.5 mg tablet sertraline 50 mg tablet 75 mg PO DAILY 04/17/21 04/17/21 Previous Rx's Medication Instructions Recorded hydroxyzine HCl 25 mg tablet 25 mg PO TID PRN anxiety #10 tabs 04/24/20 ciprofloxacin HCl 500 mg tablet 500 mg PO BID 7 days #14 tabs 11/12/21 (Cipro) dexamethasone 6 mg tablet 6 mg PO DAILY 3 days #3 tabs 11/12/21 ketorolac 10 mg tablet 10 mg PO TID 3 days #9 tabs 11/12/21 Allergies Allergy/AdvReac Type Severity Reaction Status Date / Time No Known Allergies Allergy Verified 04/17/21 13:38 Review of Systems Constitutional: Constitutional: Reports body ache(s), Denies chills, Reports fatigue, Reports fever(s), Reports headache(s), Denies malaise and Denies weakness Eyes: Eyes: Denies blurry vision, Denies change in vision, Denies diplopia, Denies loss of vision, Reports photophobia, Denies spots in vision and Denies tunnel vision ENT: Reports Normal hearing present, Reports dental pain, Denies vertigo, Denies dizziness, Denies otalgia, Reports headache(s), Denies mouth pain, Denies post nasal drip, Denies sinus pain, Denies sinus pressure, Denies sore throat and Denies throat swelling Cardiovascular: Cardiovascular: Denies chest pain, Denies syncope, Denies leg edema, Denies lightheadedness, Denies Loss of Consciousness, Denies palpitations and Denies dyspnea Respiratory: Respiratory: Denies chest congestion, Reports cough and Denies dyspnea Gastrointestinal: Gastrointestinal: Denies abdominal pain, Denies hematochezia, Denies constipation, Denies diarrhea, Reports nausea and Denies vomiting Musculoskeletal: Musculoskeletal: Reports back pain, Reports myalgias, Denies numbness and Denies tingling Integumentary/Breasts: Skin/Breast: Denies rash Neurologic: Reports Normal hearing present, Denies Abnormal speech present, Denies confusion, Denies vertigo, Denies dizziness, Denies syncope, Reports headache(s), Denies loss of vision, Denies numbness, Denies Sensory deficit (Neuro), Denies tingling, Denies paresthesias and Denies weakness Psychiatric: Psychiatric: Denies anxiety, Denies confusion and Denies depression Endocrine: Endocrine: Reports fatigue and Denies palpitations Allergic/Immunologic: Allergic/Immunologic: Denies throat swelling PMFSH Past Medical History Medical History Anxiety Depression Diabetes HTN (hypertension) Surgical History History of Hx of cholecystectomy Social History Social History Patient Tobacco Use Status: Never used Tobacco Advance Directives: No Advance Directives Information Provided: No Physical Exam ED Vital Signs: Vital Signs - 24 hr 11/12/21 07:53 11/12/21 08:23 11/12/21 09:33 Temperature 98.7 F 99.2 F Pulse Rate 102 H 98 96 Respiratory Rate 18 16 13 Blood Pressure 144/100 H 146/88 H Pulse Oximetry 100 99 Oxygen Delivery Method Room Air Room Air 11/12/21 10:09 11/12/21 10:39 Temperature 98.9 F Pulse Rate 91 98 Respiratory Rate 15 18 Blood Pressure 131/81 126/80 Pulse Oximetry 100 98 Oxygen Delivery Method Room Air Room Air BMI result Body Mass Index 20.9 Const General: No confusion Nutritional Appearance: well nourished Orientation/consciousness: patient oriented x3 and No confusion Limitations: no limitations HENMT Head: Yes normal to inspection, Yes normocephalic and Yes atraumatic Ears: hearing grossly normal bilaterally, external ears normal, TM's normal bilaterally and EAC's normal General nose exam: Normal external nose present Face and sinus: Yes normal facial exam and Yes sinuses nontender Mouth: Normal oral and palatal mucosa present Teeth image: 1. crown preparation, nub of tooth Throat: Yes posterior oropharynx normal Eyes Conjunctivae: conjunctivae normal Pupils: Equal, round and reactive pupils present EOM: EOMs intact bilaterally Direct Ophthalmoscopy: photophobia Neck Neck: Yes full ROM, Yes no lymphadenopathy, Yes no meningeal signs and Yes supple Resp Effort & Inspection: normal respiratory effort and able to speak in complete sentences Auscultation: clear to auscultation bilaterally, no crackles, no rales, no rhonchi and no wheezes Cardio Rate: regular rate Rhythm: regular rhythm Heart sounds: S1 normal heart sound present and S2 normal heart sound present GI Inspection: Yes normal to inspection Palpation (GI): Soft to palpation, nontender, no guarding and not rigid Percussion: Yes normal to percussion Auscultation: normal bowel sounds General: Yes CVA tenderness on the left Back/Spine/Pelvis Back: CVA tenderness Skin General skin exam: no rashes or lesions noted Neuro General: patient oriented x3, gait normal, tone normal, Normal light touch and pain sensation, no meningeal signs, no focal motor deficits and No confusion Cranial nerves: Yes CN's II-XII intact bilaterally, Yes Facial sensation intact/muscles of mastication intact, Yes Equal, round and reactive pupils present, Yes Bilaterally intact EOM present, Yes Nystagmus not present, Yes Normal facial strength present, Yes Midline tongue present, Yes Normal hearing present, Yes Ability to bilaterally rotate head present and Yes Ability to bilaterally elevate shoulders present Cognition (Neuro): normal cognition Speech: No Abnormal speech present Gait exam (Neuro): Normal gait present Motor exam (neuro): 5/5 motor strength present throughout and Pronator motor function not present Sensory Exam: No Sensory deficit (Neuro) Deep tendon reflexes (DTR's): Right patellar reflex intensity grade: 1+ and Left patellar reflex intensity grade: 1+ Coordination: [id number] test normal and [id number] test normal Romberg Test: Negative Pupils: Normal pupillary reactivity/response: bilateral Extrem General: Yes normal to inspection and Yes full ROM Psych Appearance: grossly normal Affect: normal affect Attitude: cooperative Thought process: Normal thought process present Course Course Course Narrative: 41-year-old female presents with symptoms of fever, increased urinary frequency, left-sided headache, and left-sided toothache, and body aches On exam, patient has normal vitals, is afebrile. Normotensive, satting 100% on room air, not tachycardic patient has of normal neurological exam, she had a negative head CT just 3 days ago. She has a history of migraines. Oropharynx shows tooth nub on left lower jaw, patient is not tender, there is no abscess inside the patient's mouth, no gingival erythema or cellulitis patient has suprapubic tenderness, and left-sided CVA tenderness ordered urine, chest x-ray, COVID, flu, labs. Will get CT abdomen to rule out pyelonephritis, patient has history. Patient has left CVA tenderness and fever, increased urinary frequency. Will give albuterol, ketorolac, Reglan, Zofran, to treat headache Reevaluation(s) Reevaluation #1: patient is COVID and influenza negative. Patient has an elevated white blood cell count of 14.7. Patient has infected urine with positive nitrites, trace leukocyte esterase, and 10-14 white blood cells. Patient's headache is mostly resolved now, states she feels much better, headache is 2/10. Will get CT abdomen pelvis to rule out pyelonephritis. Will get blood cultures and lactate. Will give dexamethasone so patient does not have rebound headache. Anticipate discharge home with antibiotics lactate 1.1. CT abdomen pelvis shows mild pyelonephritis. Will treat with fluoroquinolone. Will have patient follow-up for fibroid uterus and bilateral renal cysts with PCP will treat migraine with ketorolac and dexamethasone to patient's pharmacy gave return precautions of worsening fever, worsening back pain, nausea vomiting, return to emergency room Reevaluation #2: CXR FINDINGS: No significant abnormality is noted involving the heart, lungs, mediastinum, bony thorax or soft tissues. XR/XR chest 2V IMPRESSION: No acute cardiopulmonary process. CT/CT abdomen pelvis wo con IMPRESSION: *? Multiple bilateral renal cysts have a simple appearance on this noncontrast examination. No imaging follow-up is recommended for simple cysts. *? Punctate stone of the lower pole of the left kidney. No large renal calculi. No hydroureteronephrosis. *? Mild nonspecific perinephric edema is observed anterior to the upper pole of the left kidney. There is no periureteral or overt perivesical fat stranding. No imaging findings of cystitis. Since a history of urinary tract infection is provided, the perinephric edema adjacent to the left upper pole might be related to infection. A mild pyelonephritis is possible. Note that pyelonephritis might be visible on a contrast-enhanced CT exam, but can be undetected on imaging tests, particularly a noncontrast exam. There is no perirenal abscess. *? Leiomyomatous uterus. Medical Decision Making Lab Data Result diagrams: 11/12/21 09:10 11/12/21 09:10 Labs: Lab Results 11/12/21 11/12/21 11/12/21 Range/Units 07:57 07:57 09:10 WBC 14.7 H (4.8-10.8) X10*3/uL RBC 4.70 (4.20-5.50) X10*6/uL Hgb 12.5 (12.0-16.0) g/dl Hct 38.5 (37.0-47.0) % MCV 81.9 (80.0-98.0) fL MCH 26.6 L (27.0-33.0) pg MCHC 32.5 (31.0-35.0) g/dl RDW 15.1 (11.0-16.0) % Plt Count 285 (160-400) X10*3/uL MPV 10.2 (9.4-12.3) fL Immature Gran % (Auto) 0.5 H (0.0-0.4) % Neut % (Auto) 86.9 H (45-73) % Lymph % (Auto) 5.2 L (20-40) % Oliver % (Auto) 6.9 (2-11) % Eos % (Auto) 0.3 (0-4) % Baso % (Auto) 0.2 (0-2) % Lymph # (Auto) 0.8 L (1.2-4.9) X10*3/uL Oliver # (Auto) 1.0 (0.1-1.2) X10*3/uL Eos # (Auto) 0.0 (0.0-0.4) X10*3/uL Baso # (Auto) 0.0 (0.0-0.2) X10*3/uL Abs Immat Gran (auto) 0.07 H (0.00-0.03) X10*3/uL Absolute Neuts (auto) 12.8 H (2.0-8.3) x10*3/uL Absolute Nucleated RBC 0.000 (0.0-0.012) X10*3/uL Nucleated RBC % (auto) 0.0 (0.0-0.2) /100WBC Sodium (135-145) mmol/L Potassium (3.3-5.1) mmol/L Chloride (96-108) mmol/L Carbon Dioxide (22-29) mmol/L Anion Gap (12-20) BUN (9-16) mg/dL Creatinine (0.5-1.4) mg/dL Estim Creat Clear Calc Estimated GFR Random Glucose (60-115) mg/dL Lactic Acid (0.5-2.0) mmol/L Calcium (8.4-10.2) mg/dL Total Bilirubin (0.0-1.0) mg/dL AST (5-31) U/L ALT (0-31) U/L Alkaline Phosphatase (39-117) U/L Total Protein (6.5-8.0) g/dL Albumin (3.5-5.0) g/dL Urine Color Urine Appearance Urine pH (5.0-8.0) Ur Specific [place] (1.005-1.025) Urine Protein (NEG-TRACE) MG/DL Urine Glucose (UA) (NEG) MG/DL Urine Ketones (NEG) MG/DL Urine Blood (NEG) Urine Nitrite (NEG) Ur Leukocyte Esterase (NEG) Urine RBC (0) /HPF Urine WBC (0-4) /HPF Ur Squamous Epith Cells /LPF Urine Bacteria /LPF Urine Mucus /LPF Urine Test (NEGATIVE) COVID-19 (NENA) Negative (Negative) COVID-19 Clin Com See Note Influenza Type A (EMIR) Negative (Negative) Influenza Type B (EMIR) Negative (Negative) Influenza A & B Note See Note 11/12/21 11/12/21 11/12/21 Range/Units 09:10 09:10 09:10 WBC (4.8-10.8) X10*3/uL RBC (4.20-5.50) X10*6/uL Hgb (12.0-16.0) g/dl Hct (37.0-47.0) % MCV (80.0-98.0) fL MCH (27.0-33.0) pg MCHC (31.0-35.0) g/dl RDW (11.0-16.0) % Plt Count (160-400) X10*3/uL MPV (9.4-12.3) fL Immature Gran % (Auto) (0.0-0.4) % Neut % (Auto) (45-73) % Lymph % (Auto) (20-40) % Oliver % (Auto) (2-11) % Eos % (Auto) (0-4) % Baso % (Auto) (0-2) % Lymph # (Auto) (1.2-4.9) X10*3/uL Oliver # (Auto) (0.1-1.2) X10*3/uL Eos # (Auto) (0.0-0.4) X10*3/uL Baso # (Auto) (0.0-0.2) X10*3/uL Abs Immat Gran (auto) (0.00-0.03) X10*3/uL Absolute Neuts (auto) (2.0-8.3) x10*3/uL Absolute Nucleated RBC (0.0-0.012) X10*3/uL Nucleated RBC % (auto) (0.0-0.2) /100WBC Sodium 136 (135-145) mmol/L Potassium 3.7 (3.3-5.1) mmol/L Chloride 105 (96-108) mmol/L Carbon Dioxide 24 (22-29) mmol/L Anion Gap 11 L (12-20) BUN 9 D (9-16) mg/dL Creatinine 0.79 (0.5-1.4) mg/dL Estim Creat Clear Calc 100.6 Estimated GFR > 60 Random Glucose 145 H (60-115) mg/dL Lactic Acid (0.5-2.0) mmol/L Calcium 9.0 (8.4-10.2) mg/dL Total Bilirubin 0.5 (0.0-1.0) mg/dL AST 11 (5-31) U/L ALT 9 (0-31) U/L Alkaline Phosphatase 56 (39-117) U/L Total Protein 7.1 (6.5-8.0) g/dL Albumin 4.4 (3.5-5.0) g/dL Urine Color YELLOW Urine Appearance HAZY Urine pH 6.0 (5.0-8.0) Ur Specific [place] 1.020 (1.005-1.025) Urine Protein NEG (NEG-TRACE) MG/DL Urine Glucose (UA) NEG (NEG) MG/DL Urine Ketones NEG (NEG) MG/DL Urine Blood 2+ H (NEG) Urine Nitrite POS H (NEG) Ur Leukocyte Esterase TRACE H (NEG) Urine RBC 15-29 H (0) /HPF Urine WBC 10-14 H (0-4) /HPF Ur Squamous Epith Cells 2+ /LPF Urine Bacteria 3+ /LPF Urine Mucus 2+ /LPF Urine Test NEGATIVE (NEGATIVE) COVID-19 (NENA) (Negative) COVID-19 Clin Com Influenza Type A (EMIR) (Negative) Influenza Type B (EMIR) (Negative) Influenza A & B Note 11/12/21 Range/Units 10:32 WBC (4.8-10.8) X10*3/uL RBC (4.20-5.50) X10*6/uL Hgb (12.0-16.0) g/dl Hct (37.0-47.0) % MCV (80.0-98.0) fL MCH (27.0-33.0) pg MCHC (31.0-35.0) g/dl RDW (11.0-16.0) % Plt Count (160-400) X10*3/uL MPV (9.4-12.3) fL Immature Gran % (Auto) (0.0-0.4) % Neut % (Auto) (45-73) % Lymph % (Auto) (20-40) % Oliver % (Auto) (2-11) % Eos % (Auto) (0-4) % Baso % (Auto) (0-2) % Lymph # (Auto) (1.2-4.9) X10*3/uL Oliver # (Auto) (0.1-1.2) X10*3/uL Eos # (Auto) (0.0-0.4) X10*3/uL Baso # (Auto) (0.0-0.2) X10*3/uL Abs Immat Gran (auto) (0.00-0.03) X10*3/uL Absolute Neuts (auto) (2.0-8.3) x10*3/uL Absolute Nucleated RBC (0.0-0.012) X10*3/uL Nucleated RBC % (auto) (0.0-0.2) /100WBC Sodium (135-145) mmol/L Potassium (3.3-5.1) mmol/L Chloride (96-108) mmol/L Carbon Dioxide (22-29) mmol/L Anion Gap (12-20) BUN (9-16) mg/dL Creatinine (0.5-1.4) mg/dL Estim Creat Clear Calc Estimated GFR Random Glucose (60-115) mg/dL Lactic Acid 1.1 (0.5-2.0) mmol/L Calcium (8.4-10.2) mg/dL Total Bilirubin (0.0-1.0) mg/dL AST (5-31) U/L ALT (0-31) U/L Alkaline Phosphatase (39-117) U/L Total Protein (6.5-8.0) g/dL Albumin (3.5-5.0) g/dL Urine Color Urine Appearance Urine pH (5.0-8.0) Ur Specific [place] (1.005-1.025) Urine Protein (NEG-TRACE) MG/DL Urine Glucose (UA) (NEG) MG/DL Urine Ketones (NEG) MG/DL Urine Blood (NEG) Urine Nitrite (NEG) Ur Leukocyte Esterase (NEG) Urine RBC (0) /HPF Urine WBC (0-4) /HPF Ur Squamous Epith Cells /LPF Urine Bacteria /LPF Urine Mucus /LPF Urine Test (NEGATIVE) COVID-19 (NENA) (Negative) COVID-19 Clin Com Influenza Type A (EMIR) (Negative) Influenza Type B (EMIR) (Negative) Influenza A & B Note Discharge Plan Discharge Clinical Impression: Pyelonephritis, Migraine Patient Disposition: Home, Self-Care Additional Instructions: please take ciprofloxacin twice a day for the next 7 days. This will treat your urinary tract infection and your mild kidney infection. Please do not take any hydroxyzine wire taking this medication. For your migraine, we will continue ketorolac for 3 days. Do not take any ibuprofen containing products while you are taking this medication. You may take Tylenol, but nothing containing ibuprofen. I have also prescribed dexamethasone, this is to stop your headache from rebounding now that it is better. Start the dexamethasone tomorrow, your given your dose today. Please follow-up with your primary care provider for the fibroid in her uterus and for your bilateral kidney cysts. Please return to emergency room if you have worsening fever, worsening back pain, nausea, vomiting. Prescriptions: New ciprofloxacin HCl [Cipro] 500 mg tablet 500 mg PO BID 7 Days Qty: 14 0RF dexamethasone 6 mg tablet 6 mg PO DAILY 3 Days Qty: 3 0RF ketorolac 10 mg tablet 10 mg PO TID 3 Days Qty: 9 0RF No Action hydroxyzine HCl 25 mg tablet 25 mg PO TID PRN (Reason: anxiety) Qty: 10 0RF Lantus Solostar U-100 Insulin 100 unit/mL (3 mL) insulin pen 45 unit subcut BEDTIME sertraline 50 mg tablet 75 mg PO DAILY insulin lispro [Humalog KwikPen Insulin] 100 unit/mL insulin pen subcut Trulicity 1.5 mg/0.5 mL pen injector subcut cholecalciferol (vitamin D3) 50 mcg (2,000 unit) capsule 50 mcg PO DAILY albuterol sulfate [Ventolin HFA] 90 mcg/actuation HFA aerosol inhaler 2 puff PO Q4-6H PRN atorvastatin 80 mg tablet 80 mg PO DAILY lisinopril-hydrochlorothiazide 20-12.5 mg tablet 2 tab PO QAM
[2021-11-12 10:09] VITALS: BP 131/81; PULSE 91; RESP 15; TEMP 37.2; O2SAT 100
[2021-11-12 10:32] LABS: UPreg QC Valid YES; Urine Pregnancy NEGATIVE (NEGATIVE)
[2021-11-12 10:39] VITALS: BP 126/80; PULSE 98; RESP 18; O2SAT 98
[2021-11-12] MEDS: dexAMETHasone 6 MG TABLET PO (10:39)
[2021-11-12 10:54] LABS: Lactic Acid 1.1 mmol/L (0.5-2.0)
== END 2021-11-12 13:08 | disposition home or self-care (01) ==
PROVIDERS: Physician Assistant; Emergency Provider Emergency Medicine
DX: N12 Tubulo-interstitial nephritis, not specified as acute or chronic (principal); G43.909 Migraine, unspecified, not intractable, without status migrainosus; R05.9 Cough, unspecified; R50.9 Fever, unspecified; R35.0 Frequency of micturition; Z20.822 Contact with and (suspected) exposure to COVID-19; Z79.899 Other long term (current) drug therapy
CPT/HCPCS: 36415; 71046; 74176; 80053; 81001; 81025; 83605; 85025; 87040; 87086; 87088; 87186; 87502; 87635; 94640; 96372; 99284; J1885; J8540; Q0163

== ENCOUNTER → 2022-04-21 09:09 | Outpatient (BNVA) | payer MEDICARE, MEDICAID, SELFPAY | PROVIDERS: Visit Provider Internal Medicine | DX: R07.2 Precordial pain (principal); I25.10 Atherosclerotic heart disease of native coronary artery without angina pectoris; I10 Essential (primary) hypertension; E11.8 Type 2 diabetes mellitus with unspecified complications | CPT/HCPCS: 93005; 99212 ==

== ENCOUNTER 2022-06-28 10:26 | Outpatient (REF) | payer MEDICARE, MEDICAID, SELFPAY ==
[2022-06-28 12:31] LABS: Anion Gap 15 (12-20); Blood Urea Nitrogen 13 mg/dL (9-16); Calcium 9.4 mg/dL (8.4-10.2); Carbon Dioxide 23 mmol/L (22-29); Chloride 107 mmol/L (96-108); Estimated Glomerular Filt Rate > 60; Glucose Random 169 mg/dL (60-115); Potassium 4.5 mmol/L (3.3-5.1); Sodium 140 mmol/L (135-145)
== END 2022-06-28 10:27 | disposition home or self-care (01) ==
LOC: HO.LAB 10:26
PROVIDERS: Visit Provider Internal Medicine
DX: R07.2 Precordial pain (principal)
CPT/HCPCS: 36415; 80048

== ENCOUNTER 2022-08-25 12:08 | Outpatient (REF) | payer MEDICARE, MEDICAID, SELFPAY ==
[2022-08-25 14:33] LABS: Anion Gap 13 (12-20); Blood Urea Nitrogen 9 mg/dL (9-16); Calcium 8.8 mg/dL (8.4-10.2); Carbon Dioxide 23 mmol/L (22-29); Chloride 106 mmol/L (96-108); Estimated Glomerular Filt Rate > 60; Glucose Random 121 mg/dL (60-115); Potassium 4.3 mmol/L (3.3-5.1); Sodium 138 mmol/L (135-145)
== END 2022-08-25 12:09 | disposition home or self-care (01) ==
LOC: HO.LAB 12:08
PROVIDERS: Visit Provider Internal Medicine
DX: Z01.812 Encounter for preprocedural laboratory examination (principal)
CPT/HCPCS: 36415; 80048

== ENCOUNTER 2024-01-13 06:30 | Inpatient (IN) | payer MEDICARE, MEDICAID, SELFPAY ==
[2024-01-13] VITALS (7 sets, daily range): BP systolic 125–149; BP diastolic 76–106; PULSE 87–130; RESP 16–20; TEMP 36.4–37.1; O2SAT 98–100; BMI 21.8; BMI 22.3
--- NOTE | 2024-01-13 | ECG_ITS ---
Test Reason : CHEST PAIN Blood Pressure : / mmHG Vent. Rate : 134 BPM Atrial Rate : 134 BPM P-R Int : 112 ms QRS Dur : 068 ms QT Int : 390 ms P-R-T Axes : 081 059 137 degrees QTc Int : 582 ms Sinus tachycardia Marked ST abnormality, possible inferior subendocardial injury Marked ST abnormality, possible anterolateral subendocardial injury Abnormal ECG When compared with ECG of 09-NOV-2021 09:34, ST now depressed in Inferior leads ST now depressed in Anterolateral leads T wave inversion now evident in Anterolateral leads Referred By: Generic ED Physician Electronically Signed By:PAT AVILA
--- NOTE | ~2024-01-13 | XR_ITS ---
EXAMINATION: XR CHEST CLINICAL INFORMATION: Inspiratory chest pain COMPARISON: None available. TECHNIQUE: Frontal view of the chest was obtained. FINDINGS: HEART & VASCULARITY: There are normal cardiac size and pulmonary vascularity. LUNGS: Lungs are clear. No pneumothorax is seen. BONES: Bony skeleton is intact. XR/XR chest 1V IMPRESSION: Unchanged Normal chest x-ray. Electronically signed by: Josselin Bishop MD 01/13/2024 08:05 AM EDT
--- NOTE | 2024-01-13 06:45 | ED_ITS ---
HPI - General Adult General Chief complaint: Chest Pain Stated complaint: chest pain Time Seen by Provider: 01/13/24 06:45 History of Present Illness ED Provider: Cherrie ORTIZ narrative: The patient is a 44-year-old female who has a history of type 2 diabetes and hypertension who has felt unwell with chest discomfort and left arm discomfort for 3 or 4 days. Two days ago on Thursday she went to an urgent care center where she was found to have an abnormal EKG. She was sent to [facility] emergency room where she was evaluated and discharged. Yesterday she follow up with the primary care doctor at [facility] and was advised to return to an emergency room if she felt significantly worse. Related Data Home Medications ?Medication ?Instructions ?Recorded ?Confirmed albuterol sulfate 90 mcg/actuation 2 puff PO Q4-6H PRN Shortness Of 04/17/21 01/13/24 aerosol inhaler (Ventolin HFA) Breath Or Wheezing dulaglutide 1.5 mg/0.5 mL 1.5 mg subcut TU 04/21/22 01/13/24 subcutaneous pen injector (Trulicity) insulin glargine 100 unit/mL (3 15 unit subcut BEDTIME 04/21/22 01/13/24 mL) subcutaneous pen (Lantus Solostar U-100 Insulin) hydroxyzine HCl 25 mg tablet 50 mg PO TID PRN anxiety 01/13/24 01/13/24 insulin lispro 100 unit/mL 10 unit subcut TIDAC 01/13/24 01/13/24 subcutaneous pen (Humalog KwikPen (U-100) Insulin) lisinopril 20 2 tab PO DAILY 01/13/24 01/13/24 mg-hydrochlorothiazide 12.5 mg tablet omega 0-zrz-[id number]-fish oil 1,000 mg 1 cap PO DAILY 01/13/24 01/13/24 (120 mg-180 mg) capsule (Fish Oil) Allergies Allergy/AdvReac Type Severity Reaction Status Date / Time No Known Allergies Allergy Verified 01/13/24 06:49 Review of Systems 2 Review of Systems: Yes all other systems are reviewed and are negative PMFSH Past Medical History Medical History Anxiety Atherosclerotic cardiovascular disease Depression Diabetes HTN (hypertension) Surgical History History of Hx of cholecystectomy Social History Social History Patient Tobacco Use Status: Never used Tobacco Smoked in Last 30 Days: No Use of substances other than those prescribed or required for medical reasons: No Advance Directives: No Do you have a plan to hurt others: No Plan Physical Exam ED Vital Signs: Vital Signs - 24 hr 01/13/24 06:46 01/13/24 07:33 01/13/24 10:00 Temperature 97.5 F Pulse Rate 130 H 113 H 100 Respiratory Rate 19 18 20 Blood Pressure 149/106 H 135/94 H 143/94 H Pulse Oximetry 98 100 100 Oxygen Delivery Method Room Air Room Air Room Air 01/13/24 12:00 Temperature 97.5 F Pulse Rate 99 Respiratory Rate 16 Blood Pressure 142/89 H Pulse Oximetry 99 Oxygen Delivery Method Room Air BMI result Body Mass Index 21.8 Const Other: The patient is awake and alert. She is pleasant and cooperative. She appeared somewhat anxious but not in acute distress. No obvious increased work of breathing. She does not appear obviously uncomfortable. She looked apprehensive. HENMT Other: Face is symmetrical. Mucous membranes moist. Posterior pharynx is normal. Eyes Other: Pupils are round equal, conjunctivae are clear, extraocular movements intact General: appearance normal, both eyes and all related structures Neck Neck: Yes full ROM, Yes no lymphadenopathy, Yes supple and Yes no JVD Chest Other: There was some chest wall tenderness present Resp Effort & Inspection: normal respiratory effort Auscultation: clear to auscultation bilaterally Cardio Rate: tachycardic Rhythm: regular rhythm Heart sounds: S1 normal heart sound present and S2 normal heart sound present GI Other: Abdomen was flat, soft, and without significant tenderness. Skin General skin exam: no rashes or lesions noted Neuro Other: The patient is awake and alert. Cranial nerves are grossly intact. She moves her extremities normally. She seems grossly neurologically intact. Extrem Other: No calf swelling or tenderness, conjunctivae are clear, extraocular movements are intact Medications Administered Generic Name Dose Route Start Last Admin Trade Name Freq PRN Reason Stop Dose Admin Enoxaparin Sodium 40 mg 01/13/24 14:00 01/13/24 14:25 Enoxaparin Sodium 40 Mg/0.4 Ml Syringe SUBCUT 40 mg Q24H GENEVA Administration Metoprolol Tartrate 25 mg 01/13/24 10:15 01/13/24 10:40 Metoprolol Tartrate 25 Mg Tablet PO 25 mg BID GENEVA Administration Protocol Discontinued Medications Generic Name Dose Route Start Last Admin Trade Name Phill PRN Reason Stop Dose Admin Diphenhydramine HCl 12.5 mg 01/13/24 08:02 01/13/24 08:19 Diphenhydramine Hcl 50 Mg/Ml Vial IVPUSH 01/13/24 08:03 12.5 mg ONCE ONE Administration Famotidine 20 mg 01/13/24 08:02 01/13/24 08:19 Famotidine/Pf 20 Mg/2 Ml Vial IVPUSH 01/13/24 08:03 20 mg ONCE ONE Administration Lactated Ringer's 1,000 mls @ 999 mls/hr 01/13/24 07:30 01/13/24 09:09 Lr IV 01/13/24 08:30 Infused .Q1H1M GENEVA Infusion Lactated Ringer's 1,000 mls @ 999 mls/hr 01/13/24 08:45 01/13/24 11:11 Lr IV 01/13/24 09:45 Infused .Q1H1M GENEVA Infusion Lactated Ringer's 1,000 mls @ 999 mls/hr 01/13/24 11:30 01/13/24 14:03 Lr IV 01/13/24 12:30 Infused .Q1H1M GENEVA Infusion Metoclopramide HCl 10 mg 01/13/24 08:05 01/13/24 08:20 Metoclopramide Hcl 10 Mg/2 Ml Vial IVPUSH 01/13/24 08:06 10 mg ONCE ONE Administration Medical Decision Making Medical Decision Making [facility] Narrative: The patient is a 44-year-old woman with a history of hypertension and type 2 diabetes who presents with chest discomfort and shortness of breath as well as arm discomfort. She was quite tachycardic. An initial EKG showed a heart rate in the 130s with a lot of ST segment depressions in the chest leads. It was an ischemic looking EKG. The patient's oxygenation level was good. She does not appear acutely uncomfortable and her history was not entirely consistent with an acute coronary syndrome. She was observed and labs were done. Her hemoglobin is significantly higher than when last checked suggesting dehydration and hemo concentration. Her initial troponin was 16. His 2nd troponin was 23. Her heart rate improved with hydration. Ultimately a 2nd EKG was done as a screening EKG. She was actually feeling better. The 2nd EKG showed a better heart rate, she was no longer tachycardic, however her T-wave inversions seemed more pronounced on the 2nd EKG. At that point a 3rd troponin was ordered and this came back at 24.6. The lack of any significant troponin elevation would argue against an acute coronary syndrome but the patient is very ischemic looking EKGs are very concerning. Cardiology was consulted and the patient will be admitted for further evaluation. Lab Data 01/13/24 06:56 01/13/24 06:56 Labs: Lab Results 01/13/24 01/13/24 01/13/24 Range/Units 06:56 08:33 09:50 WBC 10.0 (4.8-10.8) X10*3/uL RBC 5.82 H D (4.20-5.50) X10*6/uL Hgb 14.8 (12.0-16.0) g/dl Hct 45.8 (37.0-47.0) % MCV 78.7 L (80.0-98.0) fL MCH 25.4 L (27.0-33.0) pg MCHC 32.3 (31.0-35.0) g/dl RDW 16.9 H (11.0-16.0) % Plt Count 549 H D (160-400) X10*3/uL MPV 9.9 (9.4-12.3) fL Immature Gran % (Auto) 0.3 (0.0-0.4) % Neut % (Auto) 59.6 (45-73) % Lymph % (Auto) 29.6 (20-40) % [place] % (Auto) 9.2 (2-11) % Eos % (Auto) 0.9 (0-4) % Baso % (Auto) 0.4 (0-2) % Lymph # (Auto) 3.0 (1.2-4.9) X10*3/uL [place] # (Auto) 0.9 (0.1-1.2) X10*3/uL Eos # (Auto) 0.1 (0.0-0.4) X10*3/uL Baso # (Auto) 0.0 (0.0-0.2) X10*3/uL Abs Immat Gran (auto) 0.03 (0.00-0.03) X10*3/uL Absolute Neuts (auto) 6.0 (2.0-8.3) x10*3/uL Absolute Nucleated RBC 0.000 (0.0-0.012) X10*3/uL Nucleated RBC % (auto) 0.0 (0.0-0.2) /100WBC D-Dimer High Sensitivty < 150 NG/ML Sodium 137 (135-145) mmol/L Potassium 4.2 (3.3-5.1) mmol/L Chloride 101 (96-108) mmol/L Carbon Dioxide 19 L (22-29) mmol/L Anion Gap 21 H (12-20) BUN 15 (9-16) mg/dL Creatinine 1.05 (0.5-1.4) mg/dL Estim Creat Clear Calc 73.9 Estimated GFR 57 Random Glucose 199 H (60-115) mg/dL Calcium 10.6 H D (8.4-10.2) mg/dL Magnesium 2.0 (1.6-2.6) mg/dL Total Bilirubin 0.6 (0.0-1.0) mg/dL Direct Bilirubin 0.2 (0.0-0.5) mg/dL AST 19 (5-31) U/L ALT 17 (0-31) U/L Alkaline Phosphatase 72 (39-117) U/L Troponin I High Sens 16.3 23.1 H (<3.5-17.0) ng/L C-Reactive Protein 0.23 (< or = 0.50) mg/dL B-Natriuretic Peptide 22 (<100) pg/mL Total Protein 9.0 H (6.5-8.0) g/dL Albumin 5.2 H (3.5-5.0) g/dL Lipase 27 (8-78) U/L TSH 0.64 (0.32-4.0) uIU/mL Beta HCG, Quant < 2 mIU/mL Urine Color Yellow Urine Appearance Clear Urine pH 5.5 (5.0-9.0) Ur Specific [place] 1.020 (1.005-1.025) Urine Protein 30 (1+) H (Neg-Trace) mg/dL Urine Glucose (UA) 100 H (Negative) mg/dL Urine Ketones >=160 (Negative) mg/dL Urine Blood Large (3+) H (Negative) Urine Nitrite Negative (Negative) Ur Leukocyte Esterase Negative (Negative) Urine RBC 3-5 H (0-2) /HPF Urine WBC 0-5 (0-5) /HPF Ur Squamous Epith Cells 3-5 (0-2) /HPF Urine Bacteria None Seen (None Seen) Hyaline Casts 3-5 (0-2) /LPF 01/13/24 Range/Units 11:41 WBC (4.8-10.8) X10*3/uL RBC (4.20-5.50) X10*6/uL Hgb (12.0-16.0) g/dl Hct (37.0-47.0) % MCV (80.0-98.0) fL MCH (27.0-33.0) pg MCHC (31.0-35.0) g/dl RDW (11.0-16.0) % Plt Count (160-400) X10*3/uL MPV (9.4-12.3) fL Immature Gran % (Auto) (0.0-0.4) % Neut % (Auto) (45-73) % Lymph % (Auto) (20-40) % [place] % (Auto) (2-11) % Eos % (Auto) (0-4) % Baso % (Auto) (0-2) % Lymph # (Auto) (1.2-4.9) X10*3/uL [place] # (Auto) (0.1-1.2) X10*3/uL Eos # (Auto) (0.0-0.4) X10*3/uL Baso # (Auto) (0.0-0.2) X10*3/uL Abs Immat Gran (auto) (0.00-0.03) X10*3/uL Absolute Neuts (auto) (2.0-8.3) x10*3/uL Absolute Nucleated RBC (0.0-0.012) X10*3/uL Nucleated RBC % (auto) (0.0-0.2) /100WBC D-Dimer High Sensitivty NG/ML Sodium (135-145) mmol/L Potassium (3.3-5.1) mmol/L Chloride (96-108) mmol/L Carbon Dioxide (22-29) mmol/L Anion Gap (12-20) BUN (9-16) mg/dL Creatinine (0.5-1.4) mg/dL Estim Creat Clear Calc Estimated GFR Random Glucose (60-115) mg/dL Calcium (8.4-10.2) mg/dL Magnesium (1.6-2.6) mg/dL Total Bilirubin (0.0-1.0) mg/dL Direct Bilirubin (0.0-0.5) mg/dL AST (5-31) U/L ALT (0-31) U/L Alkaline Phosphatase (39-117) U/L Troponin I High Sens 24.6 H (<3.5-17.0) ng/L C-Reactive Protein (< or = 0.50) mg/dL B-Natriuretic Peptide (<100) pg/mL Total Protein (6.5-8.0) g/dL Albumin (3.5-5.0) g/dL Lipase (8-78) U/L TSH (0.32-4.0) uIU/mL Beta HCG, Quant mIU/mL Urine Color Urine Appearance Urine pH (5.0-9.0) Ur Specific [place] (1.005-1.025) Urine Protein (Neg-Trace) mg/dL Urine Glucose (UA) (Negative) mg/dL Urine Ketones (Negative) mg/dL Urine Blood (Negative) Urine Nitrite (Negative) Ur Leukocyte Esterase (Negative) Urine RBC (0-2) /HPF Urine WBC (0-5) /HPF Ur Squamous Epith Cells (0-2) /HPF Urine Bacteria (None Seen) Hyaline Casts (0-2) /LPF Discharge Plan Discharge Clinical Impression: Chest pain, Abnormal EKG, Tachycardia, Dehydration Patient Disposition: Admitted As Inpatient
--- NOTE | 2024-01-13 07:00 | CA_ITS ---
Transthoracic Echocardiogram Patient (Last, First, Middle): Christine Shah, Gender: Female Date of : 1980 Age: 44 Procedure Date: 01/13/2024 Procedure Type: Transthoracic Echocardiogram Location: ER Height: 177.8 cm Weight: 68.95 kg BSA: 1.86 m2 Heart Rate: bpm BP: 129 / 89 mmHg Agriculture Consultant: SB Referring MD: Wally Grier MD Symptoms: Tachycardia, abnormal EKG Study Quality: Adequate Conclusions: - Normal left ventricular size and systolic function. There is mildly increased left ventricular wall thickness. The visually estimated ejection fraction is between 60-65%. There is no evidence of regional wall motion abnormalities. Diastolic function is normal for age. - Normal right ventricular cavity size and systolic function. Findings Left Ventricle Normal left ventricular size and systolic function. There is mildly increased left ventricular wall thickness. The visually estimated ejection fraction is between 60-65%. There is no evidence of regional wall motion abnormalities. Diastolic function is normal for age. Right Ventricle Normal right ventricular cavity size and systolic function. Atria The left atrium is normal in size. Aortic Valve Normal aortic valve structure and function. There is no aortic valve stenosis. There is no aortic valve regurgitation. Mitral Valve The mitral valve appears normal. There is no mitral valve regurgitation. There is no mitral valve stenosis. Pulmonic Valve The pulmonic valve is normal. There is trace pulmonic valve regurgitation. Tricuspid Valve Normal tricuspid valve structure. There is no tricuspid valve regurgitation. Tricuspid regurgitation envelope is inadequate for calculation of right ventricular systolic pressure. Normal right atrial pressure. Great Vessels The visualized portions of the pulmonary artery and branches are normal. Venous The inferior vena cava is normal in size and collapses greater than 50% with inspiration. Pericardium/Pleural There is no evidence of pericardial effusion. Prior Study Comparison No significant change compared to prior study dated: 06/07/2018. Measurements 2D Linear Measurements IVSd: 1.34 0.6-0.9/0.6-1.0 cm LVIDd: 4.27 3.9-5.3/4.2-5.9 cm LVIDd Index: 2.30 2.4-3.2/2.2-3.1 cm/m2 LVIDs: 2.83 2.0-3.6 cm LVPWd: 1.08 0.7-1.1 cm LA Diam: 3.20 2.7-3.8/3.0-4.0 cm LAIDs Index: 1.72 1.5-2.3 cm/m2 LV Mass: 230.43 67-162/88-224 g LV Mass Index: 123.89 43-95/49-115 g/m2 LVOT Diam: 2.00 3.0+(-)1.3 cm 2D Systolic Function EF 4C: 59.30 >55% EF 2C: 52.20 >55% EF BiP: 54.90 >55% Mitral Valve MV Pk E: 0.59 MV PK A: 0.75 MV Decel Time: 171.00 E/A: 0.80 E'Lateral: 9.24 E'Medial: 5.56 E/E' Med: 10.70 E/E' Lat: 6.40 PHT: 50.00 MVA PHT: 4.40 Decel [place]: 3.48 Aortic Valve AoV Pk Carmelo: 1.36 AoV Pk Grad: 7.00 LVOT LVOT Pk Carmelo: 1.03 LVOT Mn Carmelo: 0.67 LVOT VTI: 0.17 LVOT Pk Grad: 4.00 LVOT Mn Grad: 2.00 LVOT Diam: 2.00 LVOT Area: 3.14 Diastolic Function MV Pk E: 0.59 MV Pk A: 0.75 E/A: 0.80 E'Medial: 5.56 E/E' Med: 10.70 E' Laterial: 9.24 E/E' Lat: 6.40 Right Ventricle TAPSE (mm): 16.30 TVS' Carmelo: 10.90 Great Vessels Aorta Sinus of Valsalva: 2.60 2.0-3.5 cm Ao Asc: 2.40 2.1-3.4 cm Pulmonary Valve PV Pk Carmelo: 0.86 Peak PV Grad: 3.00 Updated in Other Vendor System with Status of Final Anirudh Ohara MD electronically signed on 01/13/2024 3:35:32 PM with status of Final
[2024-01-13 07:04] LABS: MANUAL DIFF FLAG NO
[2024-01-13 07:08] LABS: Basophils Percent Auto 0.4 % (0-2); Eosinophils Absolute Auto 0.1 X10*3/uL (0.0-0.4); Eosinophils Percent Auto 0.9 % (0-4); Hematocrit 45.8 % (37.0-47.0); Hemoglobin 14.8 g/dl (12.0-16.0); Imm Gran Abs Auto 0.03 X10*3/uL (0.00-0.03); Imm Gran Pct Auto 0.3 % (0.0-0.4); Lymphocytes Percent Auto 29.6 % (20-40); Mean Corpuscular HGB Conc 32.3 g/dl (31.0-35.0); Mean Corpuscular Hemoglobin 25.4 pg (27.0-33.0); Mean Corpuscular Volume 78.7 fL (80.0-98.0); Mean Platelet Volume 9.9 fL (9.4-12.3); Monocytes Absolute Auto 0.9 X10*3/uL (0.1-1.2); Monocytes Percent Auto 9.2 % (2-11); Neutrophils Percent Auto 59.6 % (45-73); Platelet Count 549 X10*3/uL (160-400); Red Blood Count 5.82 X10*6/uL (4.20-5.50); Red Cell Distribution Width 16.9 % (11.0-16.0)
[2024-01-13 07:25] LABS: D Dimer High Sensitivity < 150 NG/ML
[2024-01-13] MEDS: Lactated Ringers 1,000 ML 999 ML IV ×3 (07:28→12:10)
[2024-01-13 07:32] LABS: B Type Natriuretic Peptide 22 pg/mL (<100)
[2024-01-13 07:35] LABS: Anion Gap 21 (12-20); Blood Urea Nitrogen 15 mg/dL (9-16); Calcium 10.6 mg/dL (8.4-10.2); Carbon Dioxide 19 mmol/L (22-29); Chloride 101 mmol/L (96-108); Creatinine Clr Calc Pharmacy 73.9; Estimated Glomerular Filt Rate 57; Glucose Random 199 mg/dL (60-115); Potassium 4.2 mmol/L (3.3-5.1); Sodium 137 mmol/L (135-145)
[2024-01-13 07:38] LABS: Alanine Aminotransferase 17 U/L (0-31); Albumin Level 5.2 g/dL (3.5-5.0); Alkaline Phosphatase 72 U/L (39-117); Aspartate Amino Transferase 19 U/L (5-31); Bilirubin Direct 0.2 mg/dL (0.0-0.5); Bilirubin Total 0.6 mg/dL (0.0-1.0); C Reactive Protein 0.23 mg/dL (< or = 0.50); Lipase 27 U/L (8-78)
[2024-01-13 07:39] LABS: Troponin-I High Sensitivity 16.3 ng/L (<3.5-17.0)
[2024-01-13 07:40] LABS: HCG Quantitative < 2 mIU/mL
[2024-01-13] MEDS: diphenhydrAMINE HCL 50 MG/ML VIAL 12.5 MG IVPUSH (08:19)
[2024-01-13] MEDS: Famotidine/PF 20 MG/2 ML VIAL IVPUSH (08:19)
[2024-01-13] MEDS: Metoclopramide HCl 10 MG/2 ML VIAL IVPUSH (08:20)
--- OUTSIDE RECORDS SUMMARY | 2024-01-13 08:24 | XMS_ITS | Continuity of Care Document ---
Author Organization [facility] Address [address] [place] [address]- Care Team Providers Care Reception Centre Manager Name Role Phone Brigida Sellers Primary Care Physician [place] [facility] [place] 12/09/22 - 01/08/23 [facility] [address] [place], [place] [address] Allergies, Adverse Reactions, Alerts No Known Medication Allergies Medications Fish Oil 1000 mg oral capsule 1 capsule = 1,000 mg, By Mouth, 2 times a day, 0 Refills, Maintenance, 10/22/18 7:41:03 EDT Start Date: 10/22/18 Status: Ordered glipiZIDE 5 mg oral tablet 5 mg, 1, tablet, By Mouth, 2 times a day, # 90 tablet, Refills 0, Maintenance, 10/22/18 7:40:51 EDT Start Date: 10/22/18 Status: Ordered hydrochlorothiazide-lisinopril 12.5 mg-20 mg oral tablet 1 tablet, By Mouth, Daily, # 30 tablet, 0 Refills, Maintenance, 10/22/18 7:40:30 EDT, Tablet Start Date: 10/22/18 Status: Ordered metFORMIN 500 mg oral tablet 2 tablet = 1,000 mg, By Mouth, 2 times a day, # 180 tablet, 0 Refills, Maintenance, 10/22/18 7:39:28 EDT, Tablet Start Date: 10/22/18 Status: Ordered simvastatin 40 mg oral tablet 40 mg, 1, tablet, By Mouth, Daily at bedtime, # 30 tablet, Refills 0, Maintenance, 10/22/18 7:40:39EDT Start Date: 10/22/18 Status: Ordered Trulicity Pen 0.75 mg/0.5 mL subcutaneous solution 0.5 mL = 0.75 mg, Subcutaneous Injection, Every week, rotate injection sites, # 2 mL, 0 Refills, Maintenance, 08/27/22 6:15:00 EDT, Solution, Partial fill upon patient request if the prescription is for a schedule II opioid drug. Start Date: 08/27/22 Status: Ordered Patient Care team information Care Team Personnel Name: Brigida Sellers Position: Reference Physician Member Role: PCP Address: Address: [address] [place] [address]- Care Team Related Persons Name: ZEINA PIEDRA Address: home [address] [place] [id number]
--- OUTSIDE RECORDS SUMMARY | 2024-01-13 08:24 | XMS_ITS | Continuity of Care Document ---
Author Organization [facility] Address [address] [place] [address]- Care Team Providers Care Spud Driller Name Role Phone Violeta CUMMINGS, Marly Primary Care Physician [phone] [place] [facility] [place] - 08/15/[address] [address] Attending Physician: Petar Lucero MD Admitting Physician: Petar Lucero MD Referring Physician: Petar Lucero MD Medications Fish Oil 1000 mg oral capsule [...] 10/22/18 7:40:39EDT Start Date: 10/22/18 Status: Ordered Patient Care team information Care Team Personnel Name: Marly Mcdaniel NP Position: [facility] Outreach Member Role: PCP Address: Address: [address] [place] [address]- Care Team Related Persons Name: ZEINA PIEDRA Address: home [address] [place] [id number]
--- OUTSIDE RECORDS SUMMARY | 2024-01-13 08:24 | XMS_ITS | Continuity of Care Document ---
Author Organization [facility] Address [address], [address], [place] [address]- Care Team Providers Care Die Press Operator Name Role Phone Brigida Sellers Primary Care Physician [place] [facility] [place] 07/[place]/23 [facility] [address], [address] [place], [place] [address] Attending Physician: Rosette Marie Admitting Physician: Rosette Marie Referring Physician: AdmtrRosette Allergies, Adverse Reactions, Alerts No Known Medication Allergies Medications Fish Oil 1000 mg oral capsule 1 capsule = 1,000 mg, By Mouth, 2 times a day, 0 Refills, Maintenance, 10/22/18 7:41:03 EDT Start Date: 10/22/18 Status: Ordered fluconazole 150 mg oral tablet 1 tablet = 150 mg, By Mouth, Once, 1 tablet by mouth post intercourse as needed, # 30 tablet, 1 Refills, Soft Stop, 04/15/23 9:56:00 EST, Tablet, [id number], Partial fill upon patient request if the prescription is for a schedule II o... Start Date: 04/15/23 Status: Ordered hydrochlorothiazide-lisinopril 12.5 mg-20 mg oral tablet 1 tablet, By Mouth, Daily, # 30 tablet, 0 Refills, Maintenance, 10/22/18 7:40:30 EDT, Tablet Start Date: 10/22/18 Status: Ordered metFORMIN 500 mg oral tablet 2 tablet = 1,000 mg, By Mouth, 2 times a day, # 180 tablet, 0 Refills, Maintenance, 10/22/18 7:39:28 EDT, Tablet Start Date: 10/22/18 Status: Ordered nitrofurantoin macrocrystals 100 mg oral capsule See Instructions, 1 capsule By Mouth post coital as needed, # 30 capsule, 1 Refills, Maintenance, 04/10/23 13:41:00 EST, Capsule, [id number], Partial fill upon patient request if the prescription is for a schedule II opioid drug., 72, kg, 03/25... Start Date: 04/10/23 Status: Ordered simvastatin 40 mg oral tablet [...] opioid drug. Start Date: 08/27/22 Status: Ordered Problem List Condition Confirmation Course Effective Dates Status Health St atus Informant Anxiety Confirmed Active Depression Confirmed Active Diabetes Confirmed Active High cholesterol Confirmed Active High blood pressure Confirmed Active Migraines Confirmed Active Social History Social History Type Response Smoking Status Never (less than 100 in lifetime) entered on: 04/10/23 Sex Patient Care team information Care Team Personnel Name: Brigida Sellers Position: Reference Physician Member Role: PCP Address: Address: [address] [place] [address]- Care Team Related Persons Name: ZEINA PIEDRA Address: home [address] [place] [id number]
--- OUTSIDE RECORDS SUMMARY | 2024-01-13 08:24 | XMS_ITS | Continuity of Care Document ---
Author Organization [facility] Address [address] [place] [address]- Care Team Providers Care Concrete Spreader Name Role Phone Brigida Sellers Primary Care Physician [place] [facility] [place] [id number] Date(s): 04/10/23 - 05/10/23 [facility] [address] [place], [place] [address] Attending Physician: Rosette Marie Admitting Physician: [...] Refills, Soft Stop, 04/15/23 9:56:00 EST, Tablet, [facility][id number], Partial fill upon patient request if the [...] Reference Physician Member Role: PCP Address: Address: [address] [place] [address]- Care Team Related Persons Name: ZEINA PIEDRA Address: home [address] [place] [id number]
--- OUTSIDE RECORDS SUMMARY | 2024-01-13 08:24 | XMS_ITS | Continuity of Care Document ---
Author Organization [facility] Address [address] [place] [address]- Care Team Providers Care Sports Writer Name Role Phone Brigida Sellers [id number] 04/17/23 [facility] [address] [place] [address]- Attending Physician: Chayito Us NP Referring Physician: Brigida Sellers Allergies, Adverse Reactions, Alerts No Known Medication [...] Refills, Soft Stop, 04/15/23 9:56:00 EST, Tablet, [id number], Partial fill upon patient request if the [...] Refills, Maintenance, 04/10/23 13:41:00 EST, Capsule, [id number], Partial fill upon patient request if the [...] blood pressure Confirmed Active Migraines Confirmed Active Procedures Procedure Date Related Diagnosis Body Site Status Cholecystectomy 05/25/18 Completed section 05/25/02 Complete d section 05/25/99 Complete d Vital Signs Most recent to oldest [Reference Range]: 1 Weight 72.0 kg (04/10/23 1:17 PM) Blood Pressure [90-138/55-84 mm Hg] 132/ 74mm Hg (04/10/23 1:17 PM) Blood pressure sites Arm, left (04/10/23 1:17 PM) Dry Weight 72.0 kg (04/10/23 1:17 PM) Weight Obtained Via Standing scale (04/10/23 1:17 PM) Dry Weight Obtained Via Standing scale (04/10/23 1:17 PM) Social History Social History Type Response Smoking Status Never (less than 100 in lifetime) entered on: 04/10/23 Sex Patient Care team information Care Team Personnel Name: Brigida Sellers Position: Reference Physician Member Role: PCP Address: Address: [address] [place] [address] Care Team Related Persons Name: ZEINA PIEDRA Address: home [address] [place] [address]
--- OUTSIDE RECORDS SUMMARY | 2024-01-13 08:24 | XMS_ITS | Continuity of Care Document ---
[facility] Address [address] [facility], [address] [place] [address]- Care Team Providers Care Kaiawhina Name Role Phone Brigida Sellers Primary Care Physician [place] [facility] [place] [facility] [address] [facility] [place], [place] [address] Attending Physician: Lorin Son MD Referring Physician: Brigida Sellers Allergies, Adverse Reactions, [...] Refills, Soft Stop, 04/15/23 9:56:00 EST, Tablet, [facility][id number], Partial fill upon patient request if the [...] Reference Physician Member Role: PCP Address: Address: [address] [place] [address]- Care Team Related Persons Name: ZEINA PIEDRA Address: home [address] [place] [id number]
--- OUTSIDE RECORDS SUMMARY | 2024-01-13 08:24 | XMS_ITS | Continuity of Care Document ---
Author Organization [facility] Address [address] [place] [address]- Care Team Providers Care Principal Mechanical Engineer Name Role Phone Brigida Sellers Primary Care Physician Encounter [facility] Date(s): 04/13/23 - 05/13/23 [facility] [address] [place], [place] [address] Allergies, Adverse Reactions, Alerts No Known Medication [...] Refills, Soft Stop, 04/15/23 9:56:00 EST, Tablet, [facility] #[id number], Partial fill upon patient request if the [...] Reference Physician Member Role: PCP Address: Address: [address] [place] [id number]- Care Team Related Persons Name: ZEINA PIEDRA Address: home [address] [place] [id number]
[2024-01-13 09:17] LABS: Troponin-I High Sensitivity 23.1 ng/L (<3.5-17.0)
[2024-01-13 09:59] LABS: Appearance Urine Clear; Color Urine Yellow; Glucose Urine UA 100 mg/dL (Negative); Leukocyte Esterase Urine Negative (Negative); Nitrite Urine Negative (Negative); PH 5.5 (5.0-9.0); UMIC TRIGGER UACC YES; Urine Blood Large (3+) (Negative); Urine Ketones >=160 mg/dL (Negative); Urine Protein 30 (1+) mg/dL (Neg-Trace)
--- NOTE | 2024-01-13 10:05 | PM.CNCAR ---
History of Present Illness History of Present Illness Date of Service: 01/13/24 Requesting physician: Wally Grier Chief complaint: Chest discomfort, EKG changes Narrative: [age] year female presenting with pressure-like feeling in her chest off and on. She is a diabetic and has background of hypertension. She previously had coronary CTA done sometime ago which showed mild coronary disease. She has seen our office in the past 2. She is saying she is feeling somewhat hot/sweaty and was also quite tachycardic when she came to the emergency department. Her ECG showed diffuse ST depressions. She was felt to be little dehydrated and was given IV fluids and was also given some beta-blockers to slow the heart as her blood pressure was elevated. Subsequent EKGs showing diffuse precordial T-wave inversions. She had echocardiography already done which we will review. She is a diabetic. No bleeding concerns currently. She has been started on a heparin drip at this stage. [facility] Past Medical History Medical History Anxiety Atherosclerotic cardiovascular disease Depression Diabetes HTN (hypertension) Surgical History Surgical History History of Hx of cholecystectomy Social History Social History Patient Tobacco Use Status: Never used Tobacco Smoked in Last 30 Days: No Use of substances other than those prescribed or required for medical reasons: No Advance Directives: No Do you have a plan to hurt others: No Plan Meds Allergies Allergy/AdvReac Type Severity Reaction Status Date / Time No Known Allergies Allergy Verified 01/13/24 06:49 Home Medications ?Medication ?Instructions ?Recorded ?Confirmed ?Last Taken ?Type albuterol sulfate 90 mcg/actuation 2 puff PO Q4-6H PRN Shortness Of 04/17/21 01/13/24 01/12/24 History aerosol inhaler (Ventolin HFA) Breath Or Wheezing dulaglutide 1.5 mg/0.5 mL 1.5 mg subcut TU 04/21/22 01/13/24 01/05/24 History subcutaneous pen injector (Trulicity) insulin glargine 100 unit/mL (3 15 unit subcut BEDTIME 04/21/22 01/13/24 01/12/24 History mL) subcutaneous pen (Lantus Solostar U-100 Insulin) hydroxyzine HCl 25 mg tablet 50 mg PO TID PRN anxiety 01/13/24 01/13/24 01/12/24 History insulin lispro 100 unit/mL 10 unit subcut TIDAC 01/13/24 01/13/24 01/12/24 History subcutaneous pen (Humalog KwikPen (U-100) Insulin) lisinopril 20 2 tab PO DAILY 01/13/24 01/13/24 01/12/24 History mg-hydrochlorothiazide 12.5 mg tablet omega 4-kaa-cqq-fish oil 1,000 mg 1 cap PO DAILY 01/13/24 01/13/24 01/12/24 History (120 mg-180 mg) capsule (Fish Oil) Physical Exam Vital Signs: Vital Signs: Last Vital Signs Temp 97.5 F 01/13/24 06:46 Pulse 113 H 01/13/24 07:33 Resp 18 01/13/24 07:33 BP 135/94 H 01/13/24 07:33 Pulse Ox 100 01/13/24 07:33 O2 Del Method Room Air 01/13/24 07:33 BMI result Body Mass Index 21.8 GENERAL APPEARANCE: in no acute distress, pleasant. NECK: no carotid bruit, no jugular venous distention. SKIN: no suspicious lesions, warm and dry. HEART: no murmurs, regular rate and rhythm. LUNGS: clear to auscultation bilaterally. ABDOMEN: soft, nontender. EXTREMITIES: no edema. PERIPHERAL PULSES: equal. NEUROLOGIC: No gross deficits, AAO X 3 Objective Labs and Meds 01/13/24 06:56 01/13/24 06:56 Lab results: Laboratory Results - last 24 hr 01/13/24 01/13/24 01/13/24 06:56 08:33 09:50 WBC 10.0 RBC 5.82 H D Hgb 14.8 Hct 45.8 MCV 78.7 L MCH 25.4 L MCHC 32.3 RDW 16.9 H Plt Count 549 H D MPV 9.9 Immature Gran % (Auto) 0.3 Neut % (Auto) 59.6 Lymph % (Auto) 29.6 [place] % (Auto) 9.2 Eos % (Auto) 0.9 Baso % (Auto) 0.4 Lymph # (Auto) 3.0 [place] # (Auto) 0.9 Eos # (Auto) 0.1 Baso # (Auto) 0.0 Abs Immat Gran (auto) 0.03 Absolute Neuts (auto) 6.0 Absolute Nucleated RBC 0.000 Nucleated RBC % (auto) 0.0 D-Dimer High Sensitivty < 150 Sodium 137 Potassium 4.2 Chloride 101 Carbon Dioxide 19 L Anion Gap 21 H BUN 15 Creatinine 1.05 Estim Creat Clear Calc 73.9 Estimated GFR 57 Random Glucose 199 H Calcium 10.6 H D Magnesium 2.0 Total Bilirubin 0.6 Direct Bilirubin 0.2 AST 19 ALT 17 Alkaline Phosphatase 72 Troponin I High Sens 16.3 23.1 H C-Reactive Protein 0.23 B-Natriuretic Peptide 22 Total Protein 9.0 H Albumin 5.2 H Lipase 27 Beta HCG, Quant < 2 Urine Color Yellow Urine Appearance Clear Urine pH 5.5 Ur Specific [place] 1.020 Urine Protein 30 (1+) H Urine Glucose (UA) 100 H Urine Ketones >=160 Urine Blood Large (3+) H Urine Nitrite Negative Ur Leukocyte Esterase Negative Imaging Radiologist's impression: Impressions Chest X-Ray 01/13/24 06:35 IMPRESSION: Unchanged Normal chest x-ray. Electronically signed by: Josselin Bishop MD 01/13/2024 08:05 AM EDT RP Assessment and Plan (1) NSTEMI (non-ST elevated myocardial infarction): Status: Acute Plan Very pleasant 44-year-old female with background history of diabetes and hypertension presenting with pressure-like feeling in her chest and dynamic EKG changes. ECG had sinus tachycardia with diffuse ST depressions. Initially she was felt to be dehydrated and was given IV fluids and beta-blockers but her ECG has evolved into diffuse T-wave inversions in the precordial leads. This is quite concerning for ischemia until proven otherwise. She is a known diabetic. Continue metoprolol 25 mg twice a day. She should be on baby aspirin. Atorvastatin 80 mg daily. Heparin drip. We will transfer to [facility] for potential cardiac catheterization tomorrow. If she has worsening chest discomfort then she may need cardiac catheterization tonight. Thank you for allowing me to participate in the care of your patient. Please feel free to contact me if you have any questions. Procedures Date of Service Date of Service: 01/13/24
[2024-01-13 10:11] LABS: Bacteria Urine None Seen (None Seen); WBC Urine 0-5 /HPF (0-5)
--- NOTE | 2024-01-13 10:35 | PHA.MEDREC ---
Addendum entered by Kimberly Heck [facility] 01/13/24 11:34: reviewed Original Note: Pharmacy Consult ? Medication Reconciliation Pharmacy has completed the medication reconciliation. Spoke to patient at bedside, she was able to tell me which meds she takes. Confirmed that she takes the dulaglutide on Tuesdays and did not take it yesterday. States she takes 15 units of insulin glargine at bedtime, not 20. Also states she is still taking the Lisinopril-HCTZ 20 mg - 12.5mg 2 tablets daily despite no fill history since 2022. Will add to med list with updated insulin dose.
[2024-01-13] MEDS: Metoprolol Tartrate 25 MG TABLET PO (10:40)
[2024-01-13 11:15] LABS: Thyroid Stimulating Hormone 0.64 uIU/mL (0.32-4.0)
--- NOTE | 2024-01-13 11:20 | ECG_ITS ---
Test Reason : TACHYCARDIA Blood Pressure : / mmHG Vent. Rate : 095 BPM Atrial Rate : 095 BPM P-R Int : 148 ms QRS Dur : 074 ms QT Int : 402 ms P-R-T Axes : 076 044 241 degrees QTc Int : 505 ms Normal sinus rhythm ST & T wave abnormality, consider inferior ischemia ST & T wave abnormality, consider anterolateral ischemia Prolonged QT Abnormal ECG When compared with ECG of 13-JAN-2024 06:33, ST no longer depressed in Inferior leads ST no longer depressed in Lateral leads T wave inversion now evident in Inferior leads Referred By: Wally Grier Electronically Signed By:PAT AVILA
--- NOTE | 2024-01-13 11:56 | PM.IMHP ---
History of Present Illness Date of Service: 01/13/24 Attending physician on admission: Chandana Booker Chief Complaint: Chest Pain Pt is a 44-year-old female with a PMH significant for?HTN, insulin-dependent type 2 diabetes, mild intermittent asthma, and anxiety who presents to the ED with?chest discomfort x3 days. Pt reports symptoms began on Thursday when she experienced chest discomfort that she denies is a pain, but reports feels more like ?there is something there in her chest. Describes it as a tightness and central, substernal pressure that comes and goes. Will last a few minutes at a time and occur a couple of times every hour. Yesterday experienced numbness and tingling in her right arm that began in the thumb and radiate up to elbow, as well as numbness and tingling on face and forehead. Has also been having nausea, vomiting, and loose stools x1 daily. Limited p.o. intake. No abdominal pain. Patient initially presented on Thursday to an urgent care where she was noted to have an abnormal EKG and sent to [facility] ED where she was eventually discharged after negative workup. Saw her PCP yesterday who told her to come to the emergency room if she felt worse. Today patient felt short of breath, weak, hot/sweaty, and with palpitations which prompted her visit to the ED today. Of note, patient reports paternal cardiac history on her father and 2 of his brothers all having heart attacks. Mother with hx of CVA. Patient previously has had coronary CTA which coronary disease. In the ED pt was tachycardic up to 180 and hypertensive to 149/106. Labs were significant for elevated creatinine of 1.05 (up from 0.68 on 08/25/2022), and initial troponin 16.3 with repeat flat at 23.1. D-dimer negative. No leukocytosis. Stable H&H. No significant electrolyte abnormalities. Hepatic function WNL. BNP negative. TSH WNL. UA negative for UTI. CXR was negative for acute cardiopulmonary disease. Initial EKG showed sinus tachycardia of [address] depressions in inferior and anterior lateral leads, with T-wave inversions in the anterior lateral leads. Repeat EKG with normal sinus rhythm with prolonged QTc of 505 and T-wave inversions in anterior lateral and inferior leads, and improved ST depressions anterior leads. Pt was treated with 2L IVF, famotidine, diphenhydramine, metoclopramide, and metoprolol 25 mg p.o. Pt will be admitted to the hospital for treatment and further evaluation of chest discomfort/pressure with EKG ischemic changes concerning for NSTEMI. Review of Systems Review of Systems: Chest discomfort, tightness, pressure Left arm and face numbness and tingling Palpitations SOB N/V/D Weakness No abd pain PMFSH Medical History Atherosclerotic cardiovascular disease Depression Anxiety HTN (hypertension) Diabetes Surgical History History of Hx of cholecystectomy Social History Patient Tobacco Use Status: Never used Tobacco Meds Allergies Allergy/AdvReac Type Severity Reaction Status Date / Time No Known Allergies Allergy Verified 01/13/24 06:49 Active Medications: Current Medications Lactated Ringer's (Lr) 1,000 mls @ 999 mls/hr IV .Q1H1M GENEVA Stop: 01/13/24 12:30 Metoprolol Tartrate (Metoprolol Tartrate 25 Mg Tablet) 25 mg PO BID GENEVA; Protocol Last Admin: 01/13/24 10:40 Dose: 25 mg Home Medications ?Medication ?Instructions ?Recorded ?Confirmed ?Last Taken ?Type albuterol sulfate 90 mcg/actuation 2 puff PO Q4-6H PRN Shortness Of 04/17/21 01/13/24 01/12/24 History aerosol inhaler (Ventolin HFA) Breath Or Wheezing dulaglutide 1.5 mg/0.5 mL 1.5 mg subcut TU 04/21/22 01/13/24 01/05/24 History subcutaneous pen injector (Trulicity) insulin glargine 100 unit/mL (3 15 unit subcut BEDTIME 04/21/22 01/13/24 01/12/24 History mL) subcutaneous pen (Lantus Solostar U-100 Insulin) hydroxyzine HCl 25 mg tablet 50 mg PO TID PRN anxiety 01/13/24 01/13/24 01/12/24 History insulin lispro 100 unit/mL 10 unit subcut TIDAC 01/13/24 01/13/24 01/12/24 History subcutaneous pen (Humalog KwikPen (U-100) Insulin) lisinopril 20 2 tab PO DAILY 01/13/24 01/13/24 01/12/24 History mg-hydrochlorothiazide 12.5 mg tablet omega 6-loh-pvv-fish oil 1,000 mg 1 cap PO DAILY 01/13/24 01/13/24 01/12/24 History (120 mg-180 mg) capsule (Fish Oil) Physical Exam Vital Signs and Narrative: Vital Signs: Last Vital Signs Temp 97.5 F 01/13/24 06:46 Pulse 100 01/13/24 10:00 Resp 20 01/13/24 10:00 BP 143/94 H 01/13/24 10:00 Pulse Ox 100 01/13/24 10:00 O2 Del Method Room Air 01/13/24 10:00 BMI result Body Mass Index 21.8 Constitutional: Alert, in no acute distress. Mental Status: Oriented to person, place and time. Eyes: Pupils are equal, round, and reactive to light. Ear, Nose, and Throat: Oropharynx clear, mucous membranes moist. Ears and nose without deformities. Trachea midline. Respiratory: Clear to auscultation bilaterally. No wheezing, rales, or rhonchi. Cardiovascular: S1, S2 regular. No murmurs, rubs, or gallops. Gastrointestinal: Abdomen soft, non-tender, non-distended. Normal bowel sounds. Neurologic: Cranial nerves II-XII are grossly intact bilaterally. No focal neurological deficits. Moves all extremities spontaneously. Skin: Warm, dry. Musculoskeletal: No cyanosis or clubbing. Extremities: No edema. Psychiatric: Normal mood and affect. Results Labs 01/13/24 06:56 01/13/24 06:56 Labs: Laboratory Results - last 24 hr 01/13/24 01/13/24 01/13/24 06:56 08:33 09:50 MCV 78.7 L MCH 25.4 L MCHC 32.3 RDW 16.9 H Plt Count 549 H D MPV 9.9 Immature Gran % (Auto) 0.3 Neut % (Auto) 59.6 Lymph % (Auto) 29.6 [place] % (Auto) 9.2 Eos % (Auto) 0.9 Baso % (Auto) 0.4 Lymph # (Auto) 3.0 [place] # (Auto) 0.9 Eos # (Auto) 0.1 Baso # (Auto) 0.0 Abs Immat Gran (auto) 0.03 Absolute Neuts (auto) 6.0 Absolute Nucleated RBC 0.000 Nucleated RBC % (auto) 0.0 D-Dimer High Sensitivty < 150 Anion Gap 21 H Estim Creat Clear Calc 73.9 Estimated GFR 57 Random Glucose 199 H Calcium 10.6 H D Magnesium 2.0 Total Bilirubin 0.6 Direct Bilirubin 0.2 AST 19 ALT 17 Alkaline Phosphatase 72 Troponin I High Sens 16.3 23.1 H C-Reactive Protein 0.23 B-Natriuretic Peptide 22 Total Protein 9.0 H Albumin 5.2 H Lipase 27 TSH 0.64 Beta HCG, Quant < 2 Urine Color Yellow Urine Appearance Clear Urine pH 5.5 Ur Specific [place] 1.020 Urine Protein 30 (1+) H Urine Glucose (UA) 100 H Urine Ketones >=160 Urine Blood Large (3+) H Urine Nitrite Negative Ur Leukocyte Esterase Negative Urine RBC 3-5 H Urine WBC 0-5 Ur Squamous Epith Cells 3-5 Urine Bacteria None Seen Hyaline Casts 3-5 Imaging Radiologist's Impressions: Impressions Chest X-Ray 01/13/24 06:35 IMPRESSION: Unchanged Normal chest x-ray. Electronically signed by: Josselin Bishop MD 01/13/2024 08:05 AM EDT RP Assessment and Plan (1) NSTEMI (non-ST elevated myocardial infarction): Status: Acute (2) SHIV (acute kidney injury): Status: Acute Plan Pt is a 44-year-old female with a PMH significant for?HTN, insulin-dependent type 2 diabetes, mild intermittent asthma, and anxiety who presents to the ED with?chest discomfort x3 days. Pt will be admitted to the hospital for treatment and further evaluation of chest discomfort/pressure with EKG ischemic changes concerning for NSTEMI. Chest discomfort/pressure Initial EKG showing sinus tachycardia with diffuse ST depressions with repeat evolve into diffuse T-wave inversions in precordial leads Concerning for ischemia until proven otherwise Troponins flat at 16.3 -> 23.1 -> 24.6 Patient given metoprolol 25 mg p.o. b.i.d. for tachycardia We will give aspirin 324 mg x1 dose, then start on aspirin 81 mg daily Atorvastatin 80 mg bedtime Will start on heparin drip Patient will be transferred to [facility] tomorrow for cardiac catheterization If patient's symptoms worsen, consider transfer to [facility] tonight Monitor on telemetry SHIV Creatinine 1.05 at time of presentation, up from 0.68 on 08/25/2022 Likely secondary to dehydration from GI losses Patient given 2 L IVF in the ED Follow BMP HTN Hold lisinopril due to SHIV Continue hydrochlorothiazide, metoprolol Insulin-dependent type 2 diabetes Sliding-scale insulin, Lantus Diabetic diet Mild intermittent asthma In acute exacerbation Continue home inhalers Anxiety Continue hydroxyzine Full Code Attending:?Dr. Booker DVT Prophylaxis: Lovenox Pt will require a hospitalization of at least two nights for treatment of?chest discomfort/pressure concerning for NSTEMI that requires continuous cardiac monitoring and being placed on a heparin drip. Patient will be stabilized and monitored until she can be transferred to [facility] for coronary catheterization in the morning. Quality Stroke Does the patient have a stroke diagnosis?: No VTE Prior VTE?: No VTE Risk Level:: Medical - moderate - high VTE Device Contraindication: Treatment Not Indicated VTE Drug Contraindication: N/A - Med Ordered
[2024-01-13 12:05] LABS: Troponin-I High Sensitivity 24.6 ng/L (<3.5-17.0)
[2024-01-13] MEDS: Enoxaparin Sodium 40 MG/0.4 ML SYRINGE SUBCUT (14:25)
[2024-01-13] MEDS: Aspirin 81 MG TAB.CHEW 324 MG PO (16:29)
[2024-01-13] MEDS: Nitroglycerin 2 % Oint 1 GM Packet 0.5 INCH TRANSDERMA (16:30)
[2024-01-13 17:32] LABS: INTERNATIONAL NORM RATIO 1.1 (0.9-1.1); Prothrombin Time 13.2 SEC (11.1-13.3)
[2024-01-13 17:34] LABS: PTT Heparin Drip 37.9 SEC (53-77.9)
--- NOTE | 2024-01-13 17:56 | PC.NURSE ---
per Jesus Pharmacist, heparin drip is to start at 2200 due to Lovenox admin earlier this afternoon. No bolus when heparin drip is started.
[2024-01-13] MEDS: 0.9 % Sodium Chloride Flush 3 ML SYRINGE IVFLUSH (17:57)
[2024-01-13 18:20] LABS: Glucose, Whole Blood 122 mg/dL (60-115)
--- NOTE | 2024-01-13 18:56 | PC.NURSE ---
pt reporting little to no chest pain. she describes it as pressure when it is there, but at rest she is not having any pain.
--- NOTE | 2024-01-13 20:33 | PC.NURSE ---
report given to Laura BARBER at [place] [id number]
--- NOTE | 2024-01-13 21:08 | PC.NURSE ---
per David Nunes, pt is Oked for transfer to [facility]. pt departed with [facility] after report was given
--- NOTE | 2024-01-14 11:29 | P.DS_ITS ---
DS: Providers Provider Date of Service: 01/13/24 Date of admission: 01/13/24 12:58 Primary care physician: ALEJO Villatoro Consults: 01/13/24 13:03 Consult to Cardiology Routine Consulting Provider: [facility] Reason for consultation: Chest discomfort, tachycardia, EKG changes DS: Transfer Hospital Acceptance Reason for Transfer: Patient needs higher level acute care. Patient will undergo cardiac catheterization at [facility] which is unavailable here at our facility. Name of Facility: [facility] DS: Diagnosis Discharge Diagnosis (1) NSTEMI (non-ST elevated myocardial infarction): Status: Acute (2) SHIV (acute kidney injury): Status: Acute DS: Summary Hospital Course Hospital Course: From admission H&P: Pt is a 44-year-old female with a PMH significant for?HTN, insulin-dependent type 2 diabetes, mild intermittent asthma, and anxiety who presents to the ED with?chest discomfort x3 days. Pt reports symptoms began on Thursday when she experienced chest discomfort that she denies is a pain, but reports feels more like ?there is something there in her chest. Describes it as a tightness and central, substernal pressure that comes and goes. Will last a few minutes at a time and occur a couple of times every hour. Yesterday experienced numbness and tingling in her right arm that began in the thumb and radiate up to elbow, as well as numbness and tingling on face and forehead. Has also been having nausea, vomiting, and loose stools x1 daily. Limited p.o. intake. No abdominal pain. Patient initially presented on Thursday to an urgent care where she was noted to have an abnormal EKG and sent to [facility] ED where she was eventually discharged after negative workup. Saw her PCP yesterday who told her to come to the emergency room if she felt worse. Today patient felt short of breath, weak, hot/sweaty, and with palpitations which prompted her visit to the ED today. Of note, patient reports paternal cardiac history on her father and 2 of his brothers all having heart attacks. Mother with hx of CVA. Patient previously has had coronary CTA which coronary disease. In the ED pt was tachycardic up to 180 and hypertensive to 149/106. Labs were significant for elevated creatinine of 1.05 (up from 0.68 on 08/25/2022), and initial troponin 16.3 with repeat flat at 23.1. D-dimer negative. No leukocytosis. Stable H&H. No significant electrolyte abnormalities. Hepatic function WNL. BNP negative. TSH WNL. UA negative for UTI. CXR was negative for acute cardiopulmonary disease. Initial EKG showed sinus tachycardia of [address] depressions in inferior and anterior lateral leads, with T-wave inversions in the anterior lateral leads. Repeat EKG with normal sinus rhythm with prolonged QTc of 505 and T-wave inversions in anterior lateral and inferior leads, and improved ST depressions anterior leads. Pt was treated with 2L IVF, famotidine, diphenhydramine, metoclopramide, and metoprolol 25 mg p.o. Pt will be admitted to the hospital for treatment and further evaluation of chest discomfort/pressure with EKG ischemic changes concerning for NSTEMI. Patient was seen and evaluated by Cardiology who felt that despite negative troponins the ischemic changes on her EKGs were concerning enough for transfer to [facility] for cardiac catheterization. Patient was given full-dose aspirin 324 mg x 1 dose, then started on aspirin 81 mg daily. Also started on atorvastatin 80 mg at bedtime and metoprolol 25 mg p.o. b.i.d.. Patient was given nitro paste 0.5 in for chest discomfort/pain. Patient was given enoxaparin 40 mg subQ at 14:25. Cardiology wish to place patient on a heparin drip, which was set to be started 22:00 per pharmacy recommendations given previous Lovenox dose. Patient herself reported feeling better prior to transfer. Patient originally intended for transferred to [facility] on morning of 01/14/2024, however contacted by [facility] that patient had a room on 01/13/2024 and she was discharged there at approximately 21:00. For asthma patient has albuterol inhaler was continued. For insulin- dependent diabetes home medications were continued, for hypertension her lisinopril-hydrochlorothiazide as was held due to SHIV and set to resume once kidney function improved. Time Attestation Discharge Coordination Time (in mins): 36 Quality: Safe Use of Opioids Does Pt have an Active Cancer Diagnosis on the Problem List?: No Quality: Stroke Does the patient have a stroke diagnosis?: No Physical Exam Vital Signs: Vital Signs: Last Vital Signs Temp 97.9 F 01/13/24 20:47 Pulse 87 01/13/24 20:47 Resp 16 01/13/24 20:47 BP 125/76 01/13/24 20:47 Pulse Ox 99 01/13/24 20:47 O2 Del Method Room Air 01/13/24 20:47 BMI result Body Mass Index 22.3 General: AOx3, no acute distress Resp: CTA bilaterally CVS: S1, S2, RRR GI: +BS, NT, no distention Skin: Warm, dry Neuro: Cranial nerves II-XII grossly intact bilaterally. Motor grossly intact bilaterally Extremities: No edema Psych: Appropriate affect DS: Data Data Completed and Pending Labs on day of discharge: Laboratory Results - last 24 hr 01/13/24 01/13/24 01/13/24 11:41 17:17 18:16 PT 13.2 INR 1.1 aPTT Heparin Protocol 37.9 L POC Glucose 122 H Troponin I High Sens 24.6 H Discharge Plan Discharge Anticipated Discharge Date/Time: 01/13/24 21:00 Patient Disposition: Xfer Acute Care Hospital Discharge Diagnosis: NSTEMI Referrals: Brigida Webb PA [Primary Care Provider] - 1 Week Discharge Medications: Continued insulin lispro [Humalog KwikPen Insulin] 100 unit/mL insulin pen 10 unit subcut TIDAC hydroxyzine HCl 25 mg tablet 50 mg PO TID PRN (Reason: anxiety) lisinopril-hydrochlorothiazide 20-12.5 mg tablet 2 tab PO DAILY omega 2-vyz-csw-fish oil [Fish Oil] 1,000 mg (120 mg-180 mg) Capsule 1 cap PO DAILY albuterol sulfate [Ventolin HFA] 90 mcg/actuation HFA aerosol inhaler 2 puff PO Q4-6H PRN (Reason: Shortness Of Breath Or Wheezing) Trulicity 1.5 mg/0.5 mL pen injector 1.5 mg subcut Rx Instructions: patient takes on Tuesdays Lantus Solostar U-100 Insulin 100 unit/mL (3 mL) insulin pen 15 unit subcut BEDTIME Discharge Orders: Discharge Order (Routine); Ordered 01/14/24 Ordered By: David Hamilton Activity on Discharge: As tolerated Stand Alone Forms: Patient Portal Discharge page Print Language: Slovenian Care Plan Goals: Pt will be transferred to [facility] for cardiac catheterization in the morning Health Concerns: Worsening NSTEMI Monitor for chest pain, SOB Plan of Treatment: Pt received Lovenox 40mg at 14:25, was set to start heparin drip at 22:00 per pharmacy Continue nitropaste Continue atorvastatin 80mg daily, aspirin 81mg daily, and metoprolol 25 mg bid Assessment: See discharge summary
== END 2024-01-14 12:11 | disposition short-term general hospital (02) | DRG 281 ==
LOC: HO.ED 10:05 → HO.EDOVER 13:06
PROVIDERS: Admitting Provider Student in an Organized Health Care Education/Training Program; Emergency Provider Emergency Medicine; PCP Physician Assistant; Visit Provider Family Medicine
DX: I21.4 Non-ST elevation (NSTEMI) myocardial infarction (principal); N17.9 Acute kidney failure, unspecified; I25.10 Atherosclerotic heart disease of native coronary artery without angina pectoris; J45.20 Mild intermittent asthma, uncomplicated; E86.0 Dehydration; R00.0 Tachycardia, unspecified; F41.9 Anxiety disorder, unspecified; I10 Essential (primary) hypertension; E11.9 Type 2 diabetes mellitus without complications; Z79.4 Long term (current) use of insulin; Z79.85 Long-term (current) use of injectable non-insulin antidiabetic drugs; Z79.899 Other long term (current) drug therapy
CPT/HCPCS: 36415; 71045; 80048; 80076; 81001; 82947; 83690; 83735; 83880; 84443; 84484; 84702; 85025; 85379; 85610; 85730; 86140; 93005; 93306; 96361; 96372; 96374; 96375; 99285; J1200; J1650; J2765; J7120

== ENCOUNTER → 2024-01-13 12:58 | Outpatient (BNV) | payer MEDICARE, MEDICAID, SELFPAY | PROVIDERS: Admitting Provider Student in an Organized Health Care Education/Training Program; Emergency Provider Emergency Medicine; PCP Physician Assistant; Visit Provider Internal Medicine Cardiovascular Disease | DX: I21.4 Non-ST elevation (NSTEMI) myocardial infarction (principal); R94.31 Abnormal electrocardiogram [ECG] [EKG] | CPT/HCPCS: 93306; 99223 ==

== ENCOUNTER → 2024-01-13 12:58 | Outpatient (BNV) | payer MEDICARE, MEDICAID, SELFPAY | PROVIDERS: Admitting Provider Student in an Organized Health Care Education/Training Program; Emergency Provider Emergency Medicine; PCP Physician Assistant; Visit Provider Student in an Organized Health Care Education/Training Program | DX: I21.4 Non-ST elevation (NSTEMI) myocardial infarction (principal); N17.9 Acute kidney failure, unspecified | CPT/HCPCS: 99223; 99239 ==

== ENCOUNTER → 2024-01-14 23:59 | Outpatient (BNV) | payer MEDICARE, MEDICAID, SELFPAY | PROVIDERS: PCP Physician Assistant; Visit Provider Internal Medicine Cardiovascular Disease | DX: R93.1 Abnormal findings on diagnostic imaging of heart and coronary circulation (principal) | CPT/HCPCS: 93458; 99152 ==

== ENCOUNTER 2024-01-25 13:52 | Emergency (ER) | payer MEDICARE, MEDICAID, SELFPAY ==
--- NOTE | ~2024-01-25 | XR_ITS ---
EXAMINATION: XR CHEST CLINICAL INFORMATION: Right-sided chest pain COMPARISON: Chest x-ray on 01/13/2024 TECHNIQUE: 2 views of the chest were obtained. FINDINGS: No significant abnormality is noted involving the heart, lungs, mediastinum, bony thorax or soft tissues. XR/XR chest 2V IMPRESSION: Unremarkable examination. Electronically signed by: Effie Hanna MD 01/25/2024 02:23 PM EDT RP
--- NOTE | 2024-01-25 13:53 | ECG_ITS ---
Test Reason : CHEST PAIN Blood Pressure : / mmHG Vent. Rate : 119 BPM Atrial Rate : 119 BPM P-R Int : 132 ms QRS Dur : 076 ms QT Int : 334 ms P-R-T Axes : 069 037 017 degrees QTc Int : 469 ms Sinus tachycardia Nonspecific ST abnormality Abnormal ECG When compared with ECG of 13-JAN-2024 11:27, T wave inversion less evident in Inferior leads T wave inversion no longer evident in Anterolateral leads QT has shortened Heart rate has increased Referred By: Jo Ann Santiago Electronically Signed By:PAT AVILA
[2024-01-25 14:01] VITALS: BP 180/119; PULSE 129; RESP 18; TEMP 37.1; O2SAT 100; BMI 22.1
--- NOTE | 2024-01-25 14:02 | ED.CHESTPAIN ---
HPI - Chest Pain General Chief Complaint: Chest Pain Stated Complaint: Chest discomfort L arm numbness Time Seen by Provider: 01/25/24 19:54 History of Present Illness ED Provider: Cherrie ORTIZ narrative: The patient is a 44-year-old woman with a history of type 2 diabetes. She was seen here 2 weeks ago with chest pain. She had an ischemic looking EKG and some mildly abnormal troponins. She was hospitalized. She had an echocardiogram that did not show wall motion abnormalities but given her EKG changes she ultimately transferred to [facility] where she underwent a cardiac catheterization. Cardiac catheterization showed no evidence of coronary artery disease. Following the cardiac catheterization a CT pulmonary angiogram was done which was negative. She was discharged on metoprolol. The patient says that since then she continues to have chest pain and also back pain. Today she had some numbness in her left arm that made her anxious and she came to the emergency room. She has pain across her mid back that she says is worse with movements. No fever, sweats, chills. Related Data Home Medications ?Medication ?Instructions ?Recorded ?Confirmed albuterol sulfate 90 mcg/actuation 2 puff PO Q4-6H PRN Shortness Of 04/17/21 01/13/24 aerosol inhaler (Ventolin HFA) Breath Or Wheezing dulaglutide 1.5 mg/0.5 mL 1.5 mg subcut TU 04/21/22 01/13/24 subcutaneous pen injector (Trulicity) insulin glargine 100 unit/mL (3 15 unit subcut BEDTIME 04/21/22 01/13/24 mL) subcutaneous pen (Lantus Solostar U-100 Insulin) hydroxyzine HCl 25 mg tablet 50 mg PO TID PRN anxiety 01/13/24 01/13/24 insulin lispro 100 unit/mL 10 unit subcut TIDAC 01/13/24 01/13/24 subcutaneous pen (Humalog KwikPen (U-100) Insulin) lisinopril 20 2 tab PO DAILY 01/13/24 01/13/24 mg-hydrochlorothiazide 12.5 mg tablet omega 8-qhj-yim-fish oil 1,000 mg 1 cap PO DAILY 01/13/24 01/13/24 (120 mg-180 mg) capsule (Fish Oil) Allergies Allergy/AdvReac Type Severity Reaction Status Date / Time No Known Allergies Allergy Verified 01/25/24 14:05 Review of Systems Review of Systems: Yes all other systems are reviewed and are negative [facility] Past Medical History Medical History Atherosclerotic cardiovascular disease Depression Anxiety HTN (hypertension) Diabetes Surgical History History of Hx of cholecystectomy Social History Social History Patient Tobacco Use Status: Never used Tobacco Smoked in Last 30 Days: No Use of substances other than those prescribed or required for medical reasons: No Advance Directives: Yes Advance Directives Information Provided: No Advance Directives on File: No Do you have a plan to hurt others: No Plan Patient : No Physical Exam Vital Signs: Vital Signs: Last Vital Signs Temp 98.8 F 01/25/24 21:32 Pulse 93 01/25/24 21:32 Resp 14 01/25/24 21:32 BP 152/99 H 01/25/24 21:32 Pulse Ox 97 01/25/24 21:32 O2 Del Method Room Air 01/25/24 21:32 BMI result Body Mass Index 22.1 Const: Other: The patient is awake and alert. A triage the patient has been tachycardic with a heart rate of 129. When I saw the patient her heart rate was around 100. She was awake, alert, and did not appear in obvious distress or seem obviously acutely ill. She was pleasant and cooperative.. HEENT: Other: Face is symmetrical. Mucous membranes moist. Eyes: Other: Pupils are round equal, conjunctivae clear Neck: Neck: Yes no JVD Resp: Effort & Inspection: normal respiratory effort Auscultation: clear to auscultation bilaterally Cardio: Rate: regular rate Rhythm: regular rhythm Heart sounds: S1 normal heart sound present and S2 normal heart sound present GI: Other: The abdomen is soft and nontender. There is no upper abdominal tenderness. No Tsang's sign. Back/Spine/Pelvis: Other: The patient has paraspinous tenderness bilaterally at around the level of T10-T12. Skin: Other: Skin is dry and unremarkable Neuro: Other: The patient is awake and alert with a normal mental status. Cranial nerves are grossly intact. She moves her extremities normally and appropriately. She seems grossly neurologically intact Extrem: Other: No peripheral edema. Course Course Course Narrative: This is a Rapid Medical Examination (RME) performed by Joshua Santiago PA-C in triage. Full HPI, ROS, assessment and treatment plan per primary provider in the Main ED. 44 yo female hx DM, HTN, and NSTEMI (01/13/24) here with chest discomfort, fatigue, sob x yesterday. reports numbness/ discomfort down left arm. recently seen at [facility] on 01/13/24, ekg w/ diffuse st depressions, transfered to [facility] for cardiac cath. patient reports being discharged home with minimal resolution of symptoms up until yest. Took 1 nitro this morning with minimal relief. + hypertensive and tachy. not diaporetic Plan: labs, ekg, cxr, dimer Medications Administered Discontinued Medications Generic Name Dose Route Start Last Admin Trade Name Freq PRN Reason Stop Dose Admin Acetaminophen 650 mg 01/25/24 18:01 01/25/24 18:03 Acetaminophen 325 Mg Tablet PO 01/25/24 18:02 650 mg ONCE ONE Administration Ketorolac Tromethamine 30 mg 01/25/24 20:09 01/25/24 20:16 Ketorolac Tromethamine 30 Mg/Ml Vial IM 01/25/24 20:10 30 mg ONCE ONE Administration Medical Decision Making Medical Decision Making [facility] Narrative: The patient is a 44-year-old woman with a history of type 2 diabetes who was seen here a little over a week ago for chest discomfort and an abnormal EKG. She had some minimally abnormal troponins that were difficult to explain. Ultimately she was sent to [facility] and had a negative cardiac catheterization and also a negative CT pulmonary angiogram. She has been started on metoprolol. She returns today because she had a sense of numbness in her left arm that frightened her. She arrived tachycardic and hypertensive. Clinically she did not look particularly unwell. Her EKG did not look as abnormal as her last EKG when she was here a little over a week ago. Given that she had a cardiac catheterization that showed clean coronaries only and that she had negative CT pulmonary angiogram my suspicion for an acute process today was low. Her troponins are negative today. Her D-dimer remains undetectable. Chest x-ray is negative. Clinically I think her back pain is musculoskeletal back pain. She was given a dose of ketorolac IM. She was observed. She seemed to be feeling better. Her tachycardia resolved. Her blood pressure improved. I think she may be discharged to follow up with the regular providers. Lab Data 01/25/24 15:10 01/25/24 15:10 Labs: Lab Results 01/25/24 01/25/24 01/25/24 Range/Units 15:10 20:15 21:24 WBC 6.4 (4.8-10.8) X10*3/uL RBC 4.47 D (4.20-5.50) X10*6/uL Hgb 11.5 L D (12.0-16.0) g/dl Hct 35.2 L D (37.0-47.0) % MCV 78.7 L (80.0-98.0) fL MCH 25.7 L (27.0-33.0) pg MCHC 32.7 (31.0-35.0) g/dl RDW 15.4 (11.0-16.0) % Plt Count 281 D (160-400) X10*3/uL MPV 10.0 (9.4-12.3) fL Immature Gran % (Auto) 0.5 H (0.0-0.4) % Neut % (Auto) 78.3 H (45-73) % Lymph % (Auto) 9.7 L (20-40) % [place] % (Auto) 10.6 (2-11) % Eos % (Auto) 0.6 (0-4) % Baso % (Auto) 0.3 (0-2) % Lymph # (Auto) 0.6 L (1.2-4.9) X10*3/uL [place] # (Auto) 0.7 (0.1-1.2) X10*3/uL Eos # (Auto) 0.0 (0.0-0.4) X10*3/uL Baso # (Auto) 0.0 (0.0-0.2) X10*3/uL Abs Immat Gran (auto) 0.03 (0.00-0.03) X10*3/uL Absolute Neuts (auto) 5.0 (2.0-8.3) x10*3/uL Absolute Nucleated RBC 0.000 (0.0-0.012) X10*3/uL Nucleated RBC % (auto) 0.0 (0.0-0.2) /100WBC D-Dimer High Sensitivty < 150 NG/ML Sodium 139 (135-145) mmol/L Potassium 3.6 (3.3-5.1) mmol/L Chloride 108 (96-108) mmol/L Carbon Dioxide 22 (22-29) mmol/L Anion Gap 13 (12-20) BUN 10 (9-16) mg/dL Creatinine 0.80 (0.5-1.4) mg/dL Estim Creat Clear Calc 97.0 Estimated GFR > 60 Random Glucose 149 H (60-115) mg/dL Calcium 9.7 D (8.4-10.2) mg/dL Magnesium 2.0 (1.6-2.6) mg/dL Total Bilirubin 0.2 (0.0-1.0) mg/dL AST 15 (5-31) U/L ALT 13 (0-31) U/L Alkaline Phosphatase 58 (39-117) U/L Troponin I High Sens < 2.7 D < 2.7 (<3.5-17.0) ng/L Total Protein 7.7 (6.5-8.0) g/dL Albumin 4.7 (3.5-5.0) g/dL Urine Color Yellow Urine Appearance Clear Urine pH 6.0 (5.0-9.0) Ur Specific [place] 1.015 (1.005-1.025) Urine Protein Negative (Neg-Trace) mg/dL Urine Glucose (UA) 500 H (Negative) mg/dL Urine Ketones Negative (Negative) mg/dL Urine Blood Trace H (Negative) Urine Nitrite Positive H (Negative) Ur Leukocyte Esterase Trace H (Negative) Urine RBC 0-2 (0-2) /HPF Urine WBC 0-5 (0-5) /HPF Ur Squamous Epith Cells 3-5 (0-2) /HPF Urine Bacteria 4+ (None Seen) Hyaline Casts 0-2 (0-2) /LPF Urine Opiates Screen Not Detected (Not Detect) Ur Buprenorphine Scrn Not Detected (Not Detect) ng/mL Ur Oxycodone Screen Not Detected (Not Detect) ng/mL Urine Methadone Screen Not Detected (Not Detect) ng/mL Urine Fentanyl Screen Not Detected (Not Detect) Ur Barbiturates Screen Not Detected (Not Detect) Ur Phencyclidine Scrn Not Detected (Not Detect) Ur Amphetamines Screen Not Detected (Not Detect) U Benzodiazepines Scrn Not Detected (Not Detect) Urine Cocaine Screen Not Detected (Not Detect) U Marijuana (THC) Screen POSITIVE H (Not Detect) Independent Interpretation I performed an independent interpretation of an: EKG Interpretation: EKG at 13:51 shows sinus tachycardia at 119 beats per minute. Nonspecific ST and T-wave changes in multiple leads. EKG appears less ischemic than her last EKG. Discharge Plan Discharge Clinical Impression: Chest pain, Tachycardia, Back pain, Hypertension Patient Disposition: Home, Self-Care Additional Instructions: Your testing in the emergency room today is reassuring. Please continue your regular medications including her metoprolol. You may use acetaminophen and ibuprofen as needed for pain. Please follow up soon with both your regular doctor and your senior clinical data analyst. Return to the emergency room if worse. Prescriptions: No Action insulin lispro [Humalog KwikPen Insulin] 100 unit/mL insulin pen 10 unit subcut TIDAC hydroxyzine HCl 25 mg tablet 50 mg PO TID PRN (Reason: anxiety) lisinopril-hydrochlorothiazide 20-12.5 mg tablet 2 tab PO DAILY omega 8-qno-roh-fish oil [Fish Oil] 1,000 mg (120 mg-180 mg) Capsule 1 cap PO DAILY albuterol sulfate [Ventolin HFA] 90 mcg/actuation HFA aerosol inhaler 2 puff PO Q4-6H PRN (Reason: Shortness Of Breath Or Wheezing) Trulicity 1.5 mg/0.5 mL pen injector 1.5 mg subcut Rx Instructions: patient takes on Tuesdays Lantus Solostar U-100 Insulin 100 unit/mL (3 mL) insulin pen 15 unit subcut BEDTIME Referrals: Anirudh Ohara MD [Physician] - Maggie Garcia MD [Physician] - Interventions: ED Discharge Assessment Last Done: 01/25/24 21:32 Discharge Date/Time: 01/25/24 21:33 Print Language: Danish
[2024-01-25 15:31] LABS: Basophils Percent Auto 0.3 % (0-2); Eosinophils Percent Auto 0.6 % (0-4); Hematocrit 35.2 % (37.0-47.0); Hemoglobin 11.5 g/dl (12.0-16.0); Imm Gran Abs Auto 0.03 X10*3/uL (0.00-0.03); Imm Gran Pct Auto 0.5 % (0.0-0.4); Lymphocytes Absolute Auto 0.6 X10*3/uL (1.2-4.9); Lymphocytes Percent Auto 9.7 % (20-40); MANUAL DIFF FLAG NO; Mean Corpuscular HGB Conc 32.7 g/dl (31.0-35.0); Mean Corpuscular Hemoglobin 25.7 pg (27.0-33.0); Mean Corpuscular Volume 78.7 fL (80.0-98.0); Monocytes Absolute Auto 0.7 X10*3/uL (0.1-1.2); Monocytes Percent Auto 10.6 % (2-11); Neutrophils Percent Auto 78.3 % (45-73); Platelet Count 281 X10*3/uL (160-400); Red Blood Count 4.47 X10*6/uL (4.20-5.50); Red Cell Distribution Width 15.4 % (11.0-16.0); White Blood Count 6.4 X10*3/uL (4.8-10.8)
[2024-01-25 15:59] LABS: Alanine Aminotransferase 13 U/L (0-31); Albumin Level 4.7 g/dL (3.5-5.0); Alkaline Phosphatase 58 U/L (39-117); Anion Gap 13 (12-20); Aspartate Amino Transferase 15 U/L (5-31); Bilirubin Total 0.2 mg/dL (0.0-1.0); Blood Urea Nitrogen 10 mg/dL (9-16); Calcium 9.7 mg/dL (8.4-10.2); Carbon Dioxide 22 mmol/L (22-29); Chloride 108 mmol/L (96-108); Estimated Glomerular Filt Rate > 60; Glucose Random 149 mg/dL (60-115); Potassium 3.6 mmol/L (3.3-5.1); Sodium 139 mmol/L (135-145); Total Protein 7.7 g/dL (6.5-8.0)
[2024-01-25 16:19] LABS: Troponin-I High Sensitivity < 2.7 ng/L (<3.5-17.0)
[2024-01-25 16:30] LABS: D Dimer High Sensitivity < 150 NG/ML
[2024-01-25 17:57] VITALS: BP 166/99; PULSE 121; RESP 18; TEMP 37.4; O2SAT 100
[2024-01-25] MEDS: Acetaminophen 325 MG TABLET 650 MG PO (18:03)
[2024-01-25 19:50] VITALS: BP 177/104; PULSE 96; RESP 12; TEMP 37.1; O2SAT 97
[2024-01-25 19:51] VITALS: BP 163/104; PULSE 93; RESP 14; O2SAT 97
[2024-01-25 19:56] VITALS: PULSE 105
[2024-01-25] MEDS: Ketorolac Tromethamine 30 MG/ML VIAL IM (20:16)
--- OUTSIDE RECORDS SUMMARY | 2024-01-25 20:21 | XMS_ITS | Continuity of Care Document ---
Author Organization [facility] ter Address [address] [place] [id number]- Care Team Providers Care Rehanger Name Role Phone Brigida Sellers Primary Care Physician Encounter [facility] Date(s): 01/13/24 - 01/15/[address] [id number] Discharge Disposition: A-D/C Home Attending Physician: Kuldeep Keating MD Admitting Physician: Dale Spear MD Referring Physician: Not on Staff, Referring MD Allergies, Adverse Reactions, Alerts No Known Medication Allergies Medications Albuterol (Eqv-Ventolin HFA) 90 mcg/inh inhalation aerosol 2 puffs, Inhalation, Every 6 hours, 0 Refills, Maintenance, 01/13/24 22:46:00 EDT, Partial fill upon patient request if the prescription is for a schedule II opioid drug. Start Date: 01/13/24 Status: Ordered aspirin 81 mg oral delayed release tablet 81 mg, By Mouth, Daily, # 30 tablet, Refills 0, Tot. Refills 0, Maintenance, 01/15/24 12:54:00 EDT,Route to Pharmacy Electronically, [facility], Partial fill upon patient request if the prescription is for a schedule II opioid drug., 17... Start Date: 01/15/24 Status: Ordered Humalog 100 u/ml subcutaneous injection See Instructions, Subcutaneous Injection, Use as directed for Diabetes mellitus type 1. (Max Dose =50 units/day). 10 mL vials, 5 Refills, Maintenance, 01/13/24 22:46:00 EDT, Partial fill upon patient request if the prescription is for a schedule II... Start Date: 01/13/24 Stop Date: 02/12/24 Status: Ordered lisinopril 20 mg oral tablet 20 mg, By Mouth, Daily, # 30 tablet, Refills 0, Tot. Refills 0, Maintenance, 01/15/24 12:54:00 EDT,Route to Pharmacy Electronically, [facility], Partial fill upon patient request if the prescription is for a schedule II opioid drug., 17... Start Date: 01/15/24 Status: Ordered lisinopril 20 mg oral tablet 20 mg, Tablet, By Mouth, 01/15/24 9:00:00 EDT Start Date: 01/15/24 Stop Date: 01/15/24 Status: Completed metoprolol 25 mg oral tablet 25 mg, By Mouth, 2 times a day, # 60 tablet, Refills 0, Tot. Refills 0, Maintenance, 01/15/24 21:00:00 EDT, Route to Pharmacy Electronically, [facility], Partial fill upon patient request if the prescription is for a schedule II opioid d... Start Date: 01/15/24 Status: Ordered metoprolol 25 mg oral tablet 25 mg, Tablet, By Mouth, 01/15/24 9:00:00 EDT Start Date: 01/15/24 Stop Date: 01/15/24 Status: Completed Nitroglycerin 2% Topical 1 inches, Ointment, Topically, Apply to Chest, 01/15/24 9:00:00 EDT Start Date: 01/15/24 Stop Date: 01/15/24 Status: Completed simvastatin 40 mg oral tablet 40 mg, 1, tablet, By Mouth, Daily at bedtime, # 30 tablet, Refills 0, Maintenance, 10/22/18 7:40:39EDT Start Date: 10/22/18 Status: Ordered Problem List Condition Confirmation Course Effective Dates Status [facility] Anxiety Confirmed Active Depression Confirmed Active Diabetes Confirmed Active High cholesterol Confirmed Active High blood pressure Confirmed Active Migraines Confirmed Active Results Radiology Reports * Exam Date Time Procedure Performing Provider Status 01/15/24 9:[address] Angio Chest Vangie Diaz; Au th (Verified) Notes: (CT Angio Chest) Reason For Exam: Pulmonary Embolsim;Other: RESULT: CT Angio Chest EXAMINATION: CT Angio Chest INDICATION: Reason: Other:; Pulmonary Embolsim; Clinical Question(s): Pulmonary Embolism; Order Comment: TECHNIQUE: Spiral CTA of the chest was performed after rapid IV contrast administration without cardiac gating, triggered by an PHILOMENA on the main pulmonary artery. Images are formatted in multiple planes using 2-D multiplanar and 3-D maximum intensity projection. 65 cc of Omnipaque 300 was administered intravenously. Weight-based protocol using automatic tube modulation was used to optimize exposure parameters. CTDIvol Body: 8.27 mGy, DLP Body: 485 mGy*cm. COMPARISONS: None. ANGIOGRAPHIC FINDINGS: No pulmonary embolism to the subsegmental level. Normal caliber pulmonary arteries. No acute aortic abnormality seen on this study performed without cardiac gating. 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 Trachea and Airways: Patent without evidence of tracheal or endobronchial lesion. Lungs and Pleura: Clear lungs. No effusion or pneumothorax. Mediastinum and harish: No mass or hematoma. No mediastinal or hilar lymphadenopathy. No esophageal abnormality. Partially imaged thyroid is unremarkable. Heart: Heart is normal in size. No pericardial effusion. Mild coronary artery calcification. This has been further evaluated with additional cardiac testing. Chest Wall Soft Tissues: Normal. Diaphragm and upper abdomen: No significant abnormality. Bones: No acute abnormality. IMPRESSION: No evidence of pulmonary embolism. WSN: [id number] Ordering Physician: Kuldeep Keating Dictated By: Christie Wilson MD Dictated Date/Time: 01/15/24 10:30 a Reviewed By: Christie Wilson MD Signed By: Christie Wilson MD Signed Date/Time: 01/15/24 10:30 am Transcribed By: KEN Transcribed Date/Time: 01/15/24 10:10 am Vital Signs Most recent to oldest [Reference Range]: 1 2 3 4 Height 177 cm (01/15/24 10:37 AM) 177 cm (01/14/24 3:59 PM) 177 cm (01/14/24 10:36 AM) Weight 69.6 kg (01/13/24 9:32 PM) 69.6 kg (01/13/24 9:22 PM) Oxygen Saturation [94-100 %] 100 % (01/15/24 10:37 AM) 98 % (01/15/24 3:00 AM) 98 % (01/14/24 10:00 PM) Pulse Rate [55-90 bpm] 74 bpm (01/15/24 10:37 AM) 81 bpm (01/15/24 8:22 AM) 77 bpm (01/15/24 3:00 AM) Body Mass Index [18.5-24.99 kg/m2] 22.22 kg/m2 (01/13/24 9:32 PM) Blood Pressure [90-138/55-84 mm Hg] 145/89mm Hg *H* (01/15/24 10:37 AM) 139/84mm Hg *H* (01/15/24 8:22 AM) 139/84mm Hg *H* (01/15/24 8:22 AM) 139/84mm Hg *H* (01/15/24 8:22 AM) Respiratory Rate [16-30 br/min] 18 br/min (01/15/24 10:37 AM) 18 br/min (01/15/24 3:00 AM) 18 br/min (01/14/24 10:00 PM) Temperature [96.8-100.4 DegF] 98.3 DegF (01/15/24 10:37 AM) 98.2 DegF (01/15/24 3:00 AM) 97.9 DegF (01/14/24 10:00 PM) Mode of Delivery (Oxygen) Room air (01/15/24 10:37 AM) Room air (01/15/24 3:00 AM) Room air (01/14/24 10:00 PM) Blood pressure sites Arm, left (01/15/24 10:37 AM) Arm, left (01/15/24 3:00 AM) Arm, left (01/14/24 10:00 PM) Temperature Route Oral (01/15/24 10:37 AM) Oral (01/15/24 3:00 AM) Oral (01/14/24 10:00 PM) Dry Weight 69.6 kg (01/13/24 9:32 PM) 69.6 kg (01/13/24 9:22 PM) Weight Obtained Via Bed scale (01/13/24 9:32 PM) Bed scale (01/13/24 9:22 PM) Dry Weight Obtained Via Bed scale (01/13/24 9:32 PM) Bed scale (01/13/24 9:22 PM) Social History Social History Type Response Smoking Status Never (less than 100 in lifetime) entered on: 04/10/23 Sex Note * Geno Deutsch: PERFORM, SIGN, VERIFY Event Display: Cardiac Rehab Note Authored Date: Patient: MAYE ERICKSON Age: 44 years Sex: Female : 1980 Associated Diagnoses: None Author: Geno Deutsch Diagnosis Cardiac Rehab Diagnosis: NSTEMI. Pre-exercise Vitals Vital Signs Comment: Reviewed in [facility]. Pre-exercise Physical Examination Neurologic: alert & oriented, oriented to (time, person, place). Activity Transfers: independent. Ambulate: independent. Stairs: independent. Activity comment: per RN, pt has been ambulating independently. Patient Education Education: Patient alone, Written material included, Post procedure guidelines. Education topic Teachback comprehension 75% Topic: Medication education, Role of exercise, Home activity guidelines/limits. Reinforcement needed: Medication education, Role of exercise, Stress management, Home activity guidelines/limits, Hypertension. Recommendation and Plan Ambulate: 3-4 times/day. Patient may benefit from: ADLs, All education with family present. Outpatient follow up recommended: [facility], appointment scheduled for 02/17/24 @ 10:30am. Cardiac Rehab: Will sign off at this time. Recommendation comment: RN notified of plan. * Scott Teran RN: PERFORM Event Display: Discharge/Transfer Note Hospital Authored Date: [id number] Nursing Discharge Note Entered On: 01/15/2024 13:55 EDT Performed On: 01/15/2024 13:54 EDT by Scott Teran RN Nursing Discharge Note 2 Discharge Time : 01/15/2024 13:53 EDT Discharge Level of Care at Discharge : Home/Senior Living/Foster Care Patient Left Unit Via : Ambulatory Patient Accompanied Off Unit with : Significant other, Responsible adult DC Instructions Provided & Signed by Pt : Yes Patient Understands D/C Instructions : Yes Patient Instructions Discharge Signed : Yes Discharge Comments : Pt discharged, instructions provided. IV pulled per protocol, site stable. Script available at [facility]. Did Pt have Specialty Bed or Wound Vac : No Scott Teran RN - 01/15/2024 13:54 EDT * Kuldeep Keating MD H: PERFORM Event Display: Discharge/Transfer Note Hospital Authored Date: Patient: ??MAYE ERICKSON ? Age:??44 Years?Sex:??Female?:??1980?? Patient Information Discharge Location: Primary Care Physician: Brigida Sellers Admit Date/Time: 01/13/24 21:17 Discharge Disposition Discharge Disposition: Home: No Services Discharge Diagnosis NSTEMI (non-ST elevated myocardial infarction) (I21.4) Type 2 diabetes mellitus (E11.9) Hypertension (I10) Hyperlipidemia (E78.5) ECG abnormality (R94.31) _ Discharge Medications Albuterol (Albuterol (Eqv-Ventolin HFA) 90 mcg/inh inhalation aerosol)?2?puff(s)?Inhalation?Every 6 hours Aspirin (aspirin 81 mg oral delayed release tablet)?81?Milligram?By Mouth?Daily Insulin Lispro (Humalog 100 u/ml subcutaneous injection)?See Instructions?Subcutaneous Injection?for 30?Days?Use as directed for Diabetes mellitus type 1. (Max Dose = 50 units/day). ??10 mL vials Lisinopril (lisinopril 20 mg oral tablet)?20?Milligram?By Mouth?Daily Metoprolol (metoprolol 25 mg oral tablet)?25?Milligram?By Mouth?2 times a day Simvastatin (simvastatin 40 mg oral tablet)?40?Milligram?1?tablet?By Mouth?Daily at bedtime ? Quality Measures Chest Pain, AMI Quality Measures:?ACEI or ARB for LVSD:??ACEI has been prescribed ?Beta-Blake Prescribed at Discharge:??Beta-Blake Prescibed ?Aspirin Prescribed at Discharge:??Aspirin Prescribed ? Hospital Course ? 44-year-old female with history of type 2 diabetes, hypertension coming as a transfer from [facility] where she presented with chest pain, EKG showing??ST depressions, T wave inversions??and troponin elevated to 23.??Transferred for??here for a??cardiac catheterization for NSTEMI. No evidence of coronary artery disease,??CT was done to rule out pulmonary embolism as well. Remained chest pain-free After clearance from cardiology was discharged in stable condition??with some medication changes ?? NSTEMI (non-ST elevated myocardial infarction) (I21.4):??Initially came to [place] after having??3 to 4 days of intermittent chest pain EKG with??ST depression, T wave inversion. Initial troponin of??16 -->23--->24 Echo obtained over there did not show wall motion abnormalities, EF 60 to 65% Cardiac catheterization 01/13 done??did not reveal any coronary artery disease Given dynamic EKG changes, cardiology team??was concerned about??pulmonary embolism CTA chest complete 01/14: No evidence of any pulmonary embolism Discussed with Dr. 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 Type 2 diabetes mellitus (E11.9):??Home regimen: Patient says she was previously on Lantus 15 unitshowever for the last 2 weeks she is made dietary changes and has not been taking his Lantus.??On Humalog as well Did not require much insulin use, she will continue her lifestyle changes ?? Hyperlipidemia (E78.5):?? Continue simvastatin ?? Hypertension (I10):??Continue home lisinopril Combo HCTZ stopped and Metoprolol prescribed per cardiology recs ? Objective Measurements?? Height: 177 cm (01/15/24) Weight: 69.6 kg (01/13/24) Dry Weight: 69.6 kg (01/13/24) Body Mass Index: 22.22 kg/m2 (01/13/24) ? Vital Signs?? Temperature: 98.3 DegF (01/15/24 10:37:00) Temperature Route: Oral (01/15/24 10:37:00) Pulse Rate: 74 bpm (01/15/24 10:37:00) Respiratory Rate: 18 br/min (01/15/24 10:37:00) Systolic Blood Pressure:??145 mm Hg??High (01/15/24 10:37:00) Diastolic Blood Pressure:??89 mm Hg??High (01/15/24 10:37:00) Blood pressure sites: Arm, left (01/15/24 10:37:00) Mean Arterial Pressure: 108 mm Hg (01/15/24 10:37:00) Pulse Pressure: 56 mm Hg (01/15/24 10:37:00) Oxygen Saturation: 100 % (01/15/24 10:37:00) Mode of Delivery (Oxygen): Room air (01/15/24 10:37:00) Early Warning Score: 0 (01/15/24 12:02:00) ? . Physical Exam ?? Constitutional: Alert, in no acute distress. Mental Status: Oriented to person, place and time. Respiratory: Clear to auscultation and percussion. No wheezing, rales or rhonchi. Cardiovascular: S1 S2 regular. No murmurs, rubs or gallops. Gastrointestinal: Abdomen soft, non-tender, non-distended. Normal bowel sounds. No pulsatile mass. No hepatosplenomegaly. Genitourinary: No costovertebral angle tenderness. Neurologic: Cranial nerves II-XII grossly intact. No focal neurological deficits. ? Pending Results No Pending Results Follow-Up Appointments Added Follow Up ?Time Frame ?Comments [facility] cardiac rehab?02/17/2024 10:30?Please call [phone] if you need to reschedule Brigida Webb Patient Instructions ?? -You were??admitted to the hospital??with concerns of possible??coronary artery disease and blockages of your heart vessels -Cardiac catheterization showed??no concerning blockages in your heart vessels -The cardiology doctors also recommended??a CT scan to rule out blood clots??in the vessels of yourlungs,??this was a negative test as well with no evidence of any blood clots -Cardiology recommended some medication changes and you are stable for discharge -Please follow-up closely with your primary care physician ?? Post Discharge Care Diet: ??Cardiac diet ?? Activity: ??As tolerated ?? Condition: ??Stable ?? Discharge ?01/15/24 12:58:00 EDT Discharge Prescriptions ?ePrescribed, 01/15/24 12:58:00 EDT Home Health Face to Face ^HomeHealthFTF Results Discharge Labs BLOOD COUNT & DIFF WBC 7.5 k/mm3 ()?? 01/15/2024 04:24 RBC 3.81 m/mm3 (Low)?? 01/15/2024 04:24 Hgb 9.6 Gm/dL (Low)?? 01/15/2024 04:24 Hct 29.7 % (Low)?? 01/15/2024 04:24 MCV 78.0 femtoliters (Low)?? 01/15/2024 04:24 MCH 25.2 pg (Low)?? 01/15/2024 04:24 MCHC 32.3 g/dL (Low)?? 01/15/2024 04:24 Platelet Count 250 k/mm3 ()?? 01/15/2024 04:24 RDW-SD 45.4 femtoliters ()?? 01/15/2024 04:24 MPV 9.8 femtoliters ()?? 01/15/2024 04:24 Nucleated RBC (Automated) 0.0 #/100 WBC'S ()?? 01/15/2024 04:24 Abs. NRBC 0.0 k/mm3 ()?? 01/15/2024 04:24 ?? CARDIAC High Sensitivity Troponin (HSTnT) 12 ng/L ()?? 01/13/2024 23:06 ? CHEM GENERAL Sodium 139 mmol/L ()?? 01/15/2024 04:24 Potassium 3.8 mmol/L ()?? 01/15/2024 04:24 Chloride 107 mmol/L ()?? 01/15/2024 04:24 Bicarbonate Level 24 mmol/L ()?? 01/15/2024 04:24 Anion Gap 8 ()?? 01/15/2024 04:24 Glucose Level 109 mg/dL (High)?? 01/15/2024 04:24 Glucose, POC 159 mg/dL (High)?? 01/15/2024 11:59 BUN 10 mg/dL ()?? 01/15/2024 04:24 Creatinine-Blood 0.64 mg/dL ()?? 01/15/2024 04:24 Estimated GFR Creatinine 112 ML/MIN/1.73 M2 ()?? 01/15/2024 04:24 Calcium 8.9 mg/dL ()?? 01/14/2024 05:09 ? COAG APTT 41.9 seconds (High)?? 01/15/2024 04:24 ? URINE OTHER Est Creatinine Clearance 120.02 mL/min ()?? 01/15/2024 05:13 ? 42_ minutes spent on discharge * Jeffry BARBER, Scott: PERFORM Event Display: Patient Education/Instruction Authored Date: [id number] Inpatient Adult Discharge Instructions. [address] [address] Name: MAYE ERICKSON : 1980?? Visit: 01/13/2024 21:17?? Current Date: 01/15/2024 13:24 ?? Account: [id number]?? Inpatient Adult Discharge Instructions We would like to thank you for allowing us to assist you with your healthcare needs. The following includes patient education materials and information regarding your injury/illness. Our entire staffstrives to provide an excellent experience for our patients and their families. PLEASE ENSURE YOU FOLLOW-UP PER THE INSTRUCTIONS BELOW! ?? YOUR OPINION IS IMPORTANT TO US! Please complete the survey you may receive by mail or email. Your feedback will be used to make improvements to the healthcare experiences of our patients and their families. Surveys are administered by [employer] ?? If further treatment with your primary care physician or another doctor is recommended, it is important for you to keep the appointment. Call your primary care physician or return to the Emergency Department immediately if your condition worsens, fails to improve, or new symptoms develop. If you need to find a doctor, you can call [facility] [employer] [facility] for a referral at [phone] or toll free at [phone] or log in to [email or web address].. ?? [facility], in keeping with [facility] guidance, no longer requires face masks for staff, patientsor visitors in most situations. Similiar to time spent indoors at other locations, there is the chance that you were exposed to repiratory viruses during your time with us (such as flu or COVID-19). If you develop symptoms concerning for a viral respiratory infection, please seek testing (and treatment if indicated) from your medical provider or home test kit. ?? You can view and manage your care through the patient portal or by using a health care deandre of your choosing. [employer] is a website that allows you to securely view your medical information including your hospital discharge summary, office visit summaries, medications and follow-up visits. You can also request appointments, renew medications, and request access to your medical information using a health care deandre of your choosing, or just ask a question. You can enroll at [email or web address] or register during your next office visit. You have been discharged from [facility], Patient Care Unit: M5??. If you have any questions regarding these instructions, including results of studies pending, afteryou leave, please call us and we will be happy to assist you 15/12. [facility] Your Care Team Attending Physician Kuldeep Keating MD?? Consulting Providers Kuldeep Keating MD?? Discharging Providers Kuldeep Keating MD Your Diagnosis ECG abnormality Hyperlipidemia Hypertension NSTEMI (non-ST elevated myocardial infarction) NSTEMI (non-ST elevated myocardial infarction) Type 2 diabetes mellitus Tests Performed Below is a partial list of the tests performed during your hospitalization. You may have had other tests and procedures not included in this list. Please discuss all test results with your provider. Basic Metabolic Panel BUN CBC Creatinine Electrolytes Glucose Level GLUCOSE POC PTT Troponin T, High Sensitivity CT Angio Chest BUN?? Basic Metabolic Panel?? CBC?? CT Angio Chest?? Creatinine?? Electrolytes?? Glucose Level?? Glucose POC?? High??Sensitivity??Troponin T (Troponin T, High Sensitivity)?? PTT?? Primary Care Provider Jon DHILLON, Brigida Meyer? Advance Directive Health Care Proxy on File Yes - Health Care Proxy Discharge Vitals Temperature: 98.3 DegF Height: 177 cm Pulse Rate: 74 bpm Weight: 69.6 kg Respiratory Rate: 18 br/min Body Mass Index: 22.22 kg/m2 Systolic Blood Pressure:??145 mm Hg??High Body surface area: 1.85 Diastolic Blood Pressure:??89 mm Hg??High ?? Oxygen Saturation: 100 % ?? Studies Pending All studies ordered during this hospital stay have been completed unless listed below. Please discuss all pending results with your provider listed above in these instructions. ?? No incomplete studies found?? What to do next Instructions From Your Doctor ?? -You were??admitted to the hospital??with concerns of possible??coronary artery disease and blockages of your heart vessels -Cardiac catheterization showed??no concerning blockages in your heart vessels -The cardiology doctors also recommended??a CT scan to rule out blood clots??in the vessels of yourlungs,??this was a negative test as well with no evidence of any blood clots -Cardiology recommended some medication changes and you are stable for discharge -Please follow-up closely with your primary care physician ? Orders??:Cardiac diet :As tolerated :Stable? 01/15/24 12:58:00 EDT?? Prescriptions??, ??01/15/24 12:58:00 EDT?? You Need to Schedule the Following Appointments Follow Up with??[facility] cardiac rehab When:??02/17/2024 10:30 AM EDT Why: Please call [phone] if you need to reschedule Where: [address] [place] [phone] Follow Up with??Brigida Webb When:??In 0 days Where: [address] [place] [address] Business (1) Discharge Medications MAYE ERICKSON :1980 Visit Date:01/13/2024 Medications: Please continue your medications until treatment is completed or stopped by your provider. Medications not listed below should be discontinued. Discuss any questions related to medications with your provider. What How Much When Instructions Next Dose New Aspirin (aspirin 81 mg oral delayed release tablet) 81 Milligram Oral Daily Pickup at [facility] Tomorrow New Lisinopril (lisinopril 20 mg oral tablet) 20 Milligram Oral Daily Pickup at [place] [address] Tomorrow New Metoprolol (metoprolol 25 mg oral tablet) 25 Milligram Oral Twice a day Pickup at [facility] Tonight Unchanged Albuterol (Albuterol (Eqv-Ventolin HFA) 90 mcg/ inh inhalation aerosol) 2 puff(s) Inhalation Every 6 hours Resume Unchanged Insulin Lispro (Humalog 100 u/ ml subcutaneous injection) See Instructions Subcutaneous Injection Duration: 30 Days Use as directed for Diabetes mellitus type 1. (Max Dose = 50 units/ day). ??10 mL vials ?? Resume Unchanged Simvastatin (simvastatin 40 mg oral tablet) 1 tab(s) Oral Daily at Bedtime Resume Pharmacy Information [facility]: [address], [place] [id number] [phone] ?? What How Much When Comments Stop Taking dulaglutide (dulaglutide 0.75 mg/ 0.5 mL subcutaneous solution) 0.5 Milliliter Subcutaneous Injection Every week rotate injection sites ?? Stop Taking dulaglutide (Trulicity Pen 0.75 mg/ 0.5 mL subcutaneous solution) 0.5 Milliliter Subcutaneous Injection Every week rotate injection sites ?? Stop Taking Fluconazole (fluconazole 150 mg oral tablet) 1 tab(s) Oral Once 1 tablet by mouth post intercourse as needed ?? Stop Taking Hydrochlorothiazide-Lisinopril (hydrochlorothiazide-lisinopril 12.5 mg-20 mg oral tablet) 1 tab(s) Oral Daily 20/ 12.5 ?? Stop Taking Insulin Glargine (Lantus Solostar Pen 100 units/ mL subcutaneous solution) 15 unit(s) ADMINISTER 20 UNITS UNDER THE SKIN AT BEDTIME. INCREASE BY 2 UNITS A DAY FOR AM BLOOD SUGARS GREATER THAN 150 ?? Stop Taking Metformin (metFORMIN 500 mg oral tablet) 2 tab(s) Oral Twice a day Stop Taking Nitrofurantoin (nitrofurantoin macrocrystals 100 mg oral capsule) See instructions 1 capsule By Mouth post coital as needed ?? Stop Taking Valley-3 Polyunsaturated Fatty Acids (Fish Oil 1000 mg oral capsule) 1 capsule Oral Twice a day Prescription Given During Visit Aspirin (aspirin 81 mg oral delayed release tablet) - 81 mg, By Mouth, Daily, # 30 tablet, 0 Refills, [place] [address] [phone]?? Lisinopril (lisinopril 20 mg oral tablet) - 20 mg, By Mouth, Daily, # 30 tablet, 0 Refills, [place] [address] [phone]?? Metoprolol (metoprolol 25 mg oral tablet) - 25 mg, By Mouth, 2 times a day, # 60 tablet, 0 Refills,[place] [phone]?? Laboratory Results Below is a partial list of the most recent Laboratory test results done prior to this discharge. You may have had other tests and procedures not included in this list. Please discuss all test resultswith your provider. Est Creatinine Clearance - 120.02 mL/min (01/15/2024) Basic Metabolic Panel (01/14/2024) ???Sodium - 141 mmol/L???Potassium - 3.8 mmol/L???Chloride - 105 mmol/L???Bicarbonate Level - 23 mmol/L???Anion Gap - 13???Glucose Level - 113 mg/dL???BUN - 12 mg/dL???Creatinine-Blood - 0.71 mg/dL???Estimated GFR Creatinine - 107 ML/MIN/1.73 M2???Calcium - 8.9 mg/dL BUN (01/15/2024) ???BUN - 10 mg/dL CBC (01/15/2024) ???WBC - 7.5 k/mm3???RBC - 3.81 m/mm3???Hgb - 9.6 Gm/dL???Hct - 29.7 %???MCV - 78.0 femtoliters???MCH - 25.2 pg???MCHC - 32.3 g/dL???Platelet Count - 250 k/mm3???RDW-SD - 45.4 femtoliters???MPV - 9.8femtoliters???Nucleated RBC (Automated) - 0.0 #/100 WBC'S???Abs. NRBC - 0.0 k/mm3 Creatinine (01/15/2024) ???Creatinine-Blood - 0.64 mg/dL???Estimated GFR Creatinine - 112 ML/MIN/1.73 M2 Electrolytes (01/15/2024) ???Sodium - 139 mmol/L???Potassium - 3.8 mmol/L???Chloride - 107 mmol/L???Bicarbonate Level - 24 mmol/L???Anion Gap - 8 Glucose Level (01/15/2024) ???Glucose Level - 109 mg/dL GLUCOSE POC (01/15/2024) ???Glucose, POC - 159 mg/dL PTT (01/15/2024) ???APTT - 41.9 seconds Troponin T, High Sensitivity (01/13/2024) ???High Sensitivity Troponin (HSTnT) - 12 ng/L You will be contacted within 72 hours with your results. Allergies (NKA means No Known Allergies) No Known Medication Allergies Problems Active Problems??(6) Anxiety?? Depression?? Diabetes?? High blood pressure?? High cholesterol?? Migraines?? Education Materials Below is the list of Educational Leaflet Providered with your Discharge Instructions. Web[employer] Patient Education - Lisinopril?? [employer] Patient Education - Metoprolol?? Web[employer] Patient Education - Understanding Transradial Cardiac Catheterization?? Web[employer]ite Patient Education - Discharge Instructions for Cardiac Catheterization?? Valuables and Belongings I fully understand and agree that [facility] accepts no responsibility for all my personal property including clothing, toilet articles, radios, jewelry, dentures, hearing aids, rings, money, or any other property that is in my possession or is brought to me after admission. I understand certain valuables may be placed in a hospital safe for a short period of time. I understand that the hospital is not liable for loss or damage due to accident, fire, or other natural occurrence while said property is in the safe. I accept full responsibility for any personal property that I keep with me, and will not hold the hospital responsible in case of loss or disappearance. I acknowledge that i have been encouraged to send valuables and belongings home. ?? Date for Pt to Sign Valuables/Belongings: 01/13/24 21:22:00 ?? Other Discharge Information ? Pulmonary Rehab Status?? Pulmonary Rehab Discharge Status?? Respiratory Rate: 18 br/min ? Cardiac Rehab Assessment?? Cardiac Rehab Inpatient Assessment?? Comments-Education: [place] handbook, home activity guidelines Comments-Exercise Activity: progressive activity as tolerated Comments-Nutrition: per RD Comments-Stress Management: healthy coping mechanisms Comments-Lipids: exercise, medications, and diet per MD Comments-Other plan of care: encourage phase 2 cardiac rehab Common Emergency Awareness Tips IS IT A STROKE? Act FAST and Check for these signs: FACE Does the face look uneven? ARM Does one arm drift down? SPEECH Does their speech sound strange? TIME Call at any sign of stroke ?? Heart Attack Signs Chest discomfort: Most heart attacks involve discomfort in the center of the chest and lasts more than a few minutes, or goes away and comes back. It can feel like uncomfortable pressure, squeezing, fullness or pain. Discomfort in upper body: Symptoms can include pain or discomfort in one or both arms, back, neck, jaw or stomach. Shortness of breath: With or without discomfort. Other signs: Breaking out in a cold sweat, nausea, or lightheaded. Remember, MINUTES DO MATTER. If you experience any of these heart attack warning signs, call to get immediate medical attention! ?? Smoking can increase your chances of developing chronic health problems and can cause harmful effects to other family members in your house. If you smoke, you are strongly encouraged to quit. Please call [facility] at [phone] or [phone]) or log in to [email or web address] for referrals to smoking cessation programs. ?? 988 Suicide & Crisis Lifeline is available 15/12 if you or someone you know needs to find a reason to keep living. By calling 988 you'll be connected to a skilled, trained counselor at a crisis center in your area. INPATIENT DISCHARGE INSTRUCTIONS SIGNATURE PAGE MAYE ERICKSON Location:[facility] Registration Date and Time:01/13/2024 21:17 EDT Primary Care Physician: Brigida Sellers, Attending Physician: Rishabh THOMPSON, Kuldeep Morales, I MAYE ERICKSON, have received the above patient education materials/instructions and have verbalized understanding. If ambulance or transport services are being used I further acknowledge being given a choice of service. ?? If you need to contact me, please call me at this number: . Patient/Dictaphone Technician Name: Patient/Dictaphone Technician Signature: Relationship to Patient: Witness Name/Signature: Date: * Geno Deutsch: PERFORM, SIGN, VERIFY Event Display: Patient Education Handout Authored Date: * Jeffry BARBER, Scott: PERFORM Event Display: Patient Education Leaflets Authored Date: Lisinopril ?? [id number] Lisinopril Brand Name(s): Prinivil??, Qbrelis??, Zestril??, Zestoretic?? (containing Hydrochlorothiazide, Lisinopril); also available generically IMPORTANT WARNING: Do not take lisinopril if you are . If you become while taking lisinopril, call your doctor immediately. Lisinopril may harm the fetus. WHY is this medicine prescribed? Lisinopril is used alone or in combination with other medications to treat high blood pressure in adults and children 6 years of age and older. It is used in combination with other medications to treat heart failure. Lisinopril is also used to improve survival after a heart attack. Lisinopril is matt class of medications called angiotensin-converting enzyme (SHEYLA) inhibitors. It works by decreasing certain chemicals that tighten the blood vessels, so blood flows more smoothly and the heart can pump blood more efficiently. High blood pressure is a common condition and when not treated, can cause damage to the brain, heart, blood vessels, kidneys, and other parts of the body. Damage to these organs may cause heart disease, a heart attack, heart failure, stroke, kidney failure, loss of vision, and other problems. In addition to taking medication, making lifestyle changes will also help to control your blood pressure.These changes include eating a diet that is low in fat and salt, maintaining a healthy weight, exercising at least 30 minutes most days, not smoking, and using alcohol in moderation. HOW should this medicine be used? Lisinopril comes as a tablet and a solution (liquid) to take by mouth. It is usually taken once a day. To help you remember to take lisinopril, take it around the same time every day. Follow the directions on your prescription label carefully, and ask your doctor or pharmacist to explain any part you do not understand. Take lisinopril exactly as directed. Do not take more or less of it or take itmore often than prescribed by your doctor. If you are taking the solution, do not use a household spoon to measure your dose. Use an oral syringe made especially for measuring liquid medication. Your doctor will probably start you on a low dose of lisinopril and gradually increase your dose. Lisinopril controls your condition, but it is not a cure. Continue to take lisinopril even if you feel well. Do not stop taking lisinopril without talking to your doctor. Are there OTHER USES for this medicine? This medication may be prescribed for other uses; ask your doctor or pharmacist for more information. What SPECIAL PRECAUTIONS should I follow? Before taking lisinopril, ??? tell your doctor and pharmacist if you are allergic to lisinopril; other SHEYLA inhibitors such asenalapril (Vasotec, in Vaseretic), benazepril (Lotensin, in Lotrel), captopril (Capoten), fosinopril (Monopril), moexipril (Univasc, in Uniretic), perindopril (Aceon), quinapril (Accupril, in Accuretic, in Quinaretic), ramipril (Altace), and trandolapril (Mavik, in Tarka); any other medications; orany ingredients in lisinopril tablets and solution. Ask your pharmacist for a list of the ingredients. ??? tell your doctor or pharmacist if you are taking valsartan and sacubitril (Entresto) or if you have stopped taking it within the last 36 hours. Your doctor will probably tell you not to take li sinopril, if you are also taking valsartan and sacubitril. Also, tell your doctor if you have diabetes and you are taking aliskiren (Tekturna, in Amturnide, Tekamlo, Tekturna HCT). Your doctor will probably tell you not to take lisinopril if you have diabetes and you are also taking aliskiren. ??? tell your doctor and pharmacist what prescription and nonprescription medications, vitamins, nutritional supplements, and herbal products you are taking. Be sure to mention any of the following: aspirin and other nonsteroidal anti- inflammatory drugs (NSAIDs) such as diuretics ('water pills'); everolimus (Zortress); gold compounds; indomethacin (Indocin, Tivorbex); insulin or other medications to treat diabetes; lithium (Lithobid); potassium supplements; sirolimus (Rapamune); and temsirolimus (Torisel). Your doctor may need to change the doses of your medications or monitor you carefully for side effects. ??? tell your doctor if you have or have had certain types of angioedema (a condition that causes difficulty swallowing or breathing and painful swelling of the face, throat, tongue, lips,eyes, hands, feet, ankles, or lower legs). Your doctor will probably tell you not to take lisinopril. ??? tell your doctor if you have or have ever had heart or kidney disease or diabetes. ??? tell your doctor if you are . ??? if you are having surgery, including dental surgery, tell the doctor or dentist that you are taking lisinopril. ??? you should know that diarrhea, vomiting, not drinking enough fluids, and sweating a lot can cause a drop in blood pressure, which may cause lightheadedness and fainting. What SPECIAL DIETARY instructions should I follow? Talk to your doctor before using salt substitutes containing potassium. If your doctor prescribes alow-salt or low-sodium diet, follow these directions carefully. What should I do IF I FORGET to take a dose? Take the missed dose as soon as you remember it. However, if it is almost time for the next dose, skip the missed dose and continue your regular dosing schedule. Do not take a double dose to make up for a missed one. What SIDE EFFECTS can this medicine cause? Lisinopril may cause side effects. Tell your doctor if any of these symptoms are severe or do not go away: ??? cough ??? dizziness ??? headache ??? excessive tiredness ??? nausea ??? diarrhea ??? weakness ??? sneezing ??? runny nose ??? decrease in sexual ability ??? rash ??? Some side effects can be serious. If you experience any of these symptoms, call your doctor immediately: ??? swelling of the face, throat, tongue, lips, eyes, hands, feet, ankles, or lower legs ??? hoarseness ??? difficulty breathing or swallowing ??? fever, sore throat, chills, and other signs of infection ??? yellowing of theskin or eyes ??? lightheadedness ??? fainting ??? chest pain Lisinopril may cause other side effects. Call your doctor if you have any unusual problems while taking this medication. If you experience a serious side effect, you or your doctor may send a report to the Food and Drug Administration's (FDA) MedWatch Adverse Event Reporting program online (http://www.fda.gov/Safety/MedWatch) or by phone ( ). What should I know about STORAGE and DISPOSAL of this medication? Keep this medication in the container it came in, tightly closed, and out of reach of children. Store it at room temperature and away from excess heat and moisture (not in the bathroom). It is important to keep all medication out of sight and reach of children as many containers (such as weekly pill minders and those for eye drops, creams, patches, and inhalers) are not child-resistant and young children can open them easily. To protect young children from poisoning, always lock safety caps and immediately place the medication in a safe location ??? one that is up and away and out of their sight and reach. http://www.upandaway.org Unneeded medications should be disposed of in special ways to ensure that pets, children, and otherpeople cannot consume them. However, you should not flush this medication down the toilet. Instead,the best way to dispose of your medication is through a medicine take-back program. Talk to your pharmacist or contact your local garbage/recycling department to learn about take-back programs in your community. See the FDA's Safe Disposal of Medicines website (http://goo.gl/c4Rm4p) for more information if you do not have access to a take- back program. What should I do in case of OVERDOSE? In case of overdose, call the poison control helpline at . Information is also available online at https://www.poisonhelp.org/help. If the victim has collapsed, had a seizure, has trouble breathing, or can't be awakened, immediately call emergency services at 911. Symptoms of overdose may include the following: ??? lightheadedness ??? fainting What OTHER INFORMATION should I know? Keep all appointments with your doctor and the laboratory. Your blood pressure should be checked regularly to determine your response to lisinopril. Your doctor may order certain lab tests to check your body's response to lisinopril. Do not let anyone else take your medication. Ask your pharmacist any questions you have about refilling your prescription. It is important for you to keep a written list of all of the prescription and nonprescription ([id number]) medicines you are taking, as well as any products such as vitamins, minerals, or otherdietary supplements. You should bring this list with you each time you visit a doctor or if you areadmitted to a hospital. It is also important information to carry with you in case of emergencies. This report on medications is for your information only, and is not considered individual patient advice. Because of the changing nature of drug information, please consult your physician or pharmacist about specific clinical use. The [place] [employer] represents that the information provided hereunder was formulated with a reasonable standard of care, and in conformity with professional standards in the field. The [place] [employer] makes no representations or warranties, express or implied, including, but not limited to, any implied warranty of merchantability and/or fitness for a particular purpose, with respect to such information and specifically disclaims all such warranties. Users are advised that decisions regarding drug therapy are complex medical decisions requiring the independent, informed decision of an appropriate health customer care professional, and the information is provided for informational purposes only. The entire monograph for a drug should be reviewed for a thorough understanding of the drug's actions, uses and side effects. The [place] [employer] does not endorse or recommend the use of any drug.The information is not a substitute for medical care. AHFS?? Patient Medication Information???. ?? Copyright, 2023. The [employer] [place] [employer]??, [address], [address], [place], [place]. All Rights Reserved. Duplication for commercial use must be authorized by [facility]. Selected Revisions: July 09, 2020. AHFS?? Patient Medication Information???. ?? Copyright, 2023 ?? * Scott Teran RN: PERFORM Event Display: Patient Education Leaflets Authored Date: [id number] Metoprolol ?? [id number] Metoprolol Brand Name(s): Kapspargo Sprinkle??, Lopressor??, Toprol??, Toprol?? XL, Dutoprol?? (as a combination product containing Metoprolol, Hydrochlorothiazide), Lopressidone?? (as a combination product containing Chlorthalidone, Metoprolol), Lopressor?? HCT (as a combination product containing Metoprolol, Hydrochlorothiazide); also available generically WHY is this medicine prescribed? Metoprolol is used alone or in combination with other medications to treat high blood pressure. It also is used to treat chronic (long-term) angina (chest pain). Metoprolol is also used to improve survival after a heart attack. Metoprolol also is used in combination with other medications to treat heart failure. Metoprolol is in a class of medications called beta blockers. It works by relaxing blood vessels and slowing heart rate to improve blood flow and decrease blood pressure. High blood pressure is a common condition and when not treated, can cause damage to the brain, heart, blood vessels, kidneys and other parts of the body. Damage to these organs may cause heart disease, a heart attack, heart failure, stroke, kidney failure, loss of vision, and other problems. In addition to taking medication, making lifestyle changes will also help to control your blood pressure. These changes include eating a diet that is low in fat and salt, maintaining a healthy weight, exercising at least 30 minutes most days, not smoking, and using alcohol in moderation. HOW should this medicine be used? Metoprolol comes as a tablet, an extended-release (long-acting) tablet, and an extended-release capsule to take by mouth. The regular tablet is usually taken once or twice a day with meals or immediately after meals. The extended-release tablet and extended-release capsule are usually taken once a day. To help you remember to take metoprolol, take it around the same time(s) every day. Follow the directions on your prescription label carefully, and ask your doctor or pharmacist to explain any part you do not understand. Take metoprolol exactly as directed. Do not take more or less of it or take it more often than prescribed by your doctor. The extended-release tablet may be split. Swallow the whole or half extended- release tablets whole;do not chew or crush them. Swallow the extended-release capsules whole; do not split, chew, or crush them. If you are unable to swallow the capsules, you may open the capsule and sprinkle the contents over a spoonful of soft food, such as applesauce, pudding, or yogurt and swallow the mixture immediately. Do not swallow the mixture more than 60 minutes after you sprinkle the contents of the capsule. Your doctor may start you on a low dose of metoprolol and gradually increase your dose. Metoprolol helps to control your condition but will not cure it. Continue to take metoprolol even if you feel well. Do not stop taking metoprolol without talking to your doctor. If you suddenly stop taking metoprolol you may experience serious heart problems such as severe chest pain, a heart attack, or an irregular heartbeat. Your doctor will probably want to decrease your dose gradually over 1 to 2 weeks and will monitor you closely. Are there OTHER USES for this medicine? Metoprolol is also used sometimes to treat certain types of irregular heartbeats. Talk to your doctor about the possible risks of using this medication for your condition. This medication may be prescribed for other uses; ask your doctor or pharmacist for more information. What SPECIAL PRECAUTIONS should I follow? Before taking metoprolol, ??? tell your doctor and pharmacist if you are allergic to metoprolol, any other medications, or any of the ingredients in metoprolol tablets, extended-release tablets, or extended-release capsules. Ask your pharmacist for a list of the ingredients. ??? tell your doctor and pharmacist what prescription and nonprescription medications, vitamins, nutritional supplements, and herbal products you aretaking or plan to take. Your doctor may need to change the doses of your medications or monitor youcarefully for side effects. ??? tell your doctor if you have a slow or irregular heartbeat or heartfailure. Your doctor may tell you not to take metoprolol. ??? tell your doctor if you have or have e trent had asthma or other lung diseases; problems with blood circulation; pheochromocytoma (a tumor that develops on a gland near the kidneys and may cause high blood pressure and fast heartbeat); heart or liver disease;diabetes; or hyperthyroidism (an overactive thyroid gland). Also tell your doctorif you have ever had a serious allergic reaction to a food or any other substance. ??? tell your doctor if you are , plan to become , or are . If you become while taking metoprolol, call your doctor. ??? if you are having surgery, including dental surgery, tellthe doctor or dentist that you are taking metoprolol. ??? you should know that metoprolol may make you drowsy. Do not drive a car or operate machinery until you know how this medication affects you. ??? do not drink any alcoholic drinks or take any prescription or nonprescription medications that contain alcohol if you are taking metoprolol extended-release capsules. Ask your doctor or pharmacistif you do not know if a medication that you plan to take contains alcohol. ??? you should know thatmetoprolol may increase the risk of hypoglycemia (low blood sugar) and prevent the warning signs and symptoms that would tell you that your blood sugar is low. Let your doctor know if you are unable to eat or drink normally or are vomiting while you are taking metoprolol. You should know the symptoms of low blood sugar and what to do if you have these symptoms. ??? you should know that if you have allergic reactions to different substances, your reactions may be worse while you are using metoprolol, and your allergic reactions may not respond to the usual doses of injectable epinephrine. What SPECIAL DIETARY instructions should I follow? IUnless your doctor tells you otherwise, continue your normal diet. What should I do IF I FORGET to take a dose? Skip the missed dose and continue your regular dosing schedule. Do not take a double dose to make up for a missed one. What SIDE EFFECTS can this medicine cause? Metoprolol may cause side effects. Tell your doctor if any of these symptoms are severe or do not go away: ??? dizziness or lightheadedness ??? tiredness ??? depression ??? diarrhea ??? nausea ??? dry mouth??? stomach pain ??? vomiting ??? gas or bloating ??? heartburn ??? constipation ??? rash or itching ??? cold hands and feet ??? runny nose ??? Some side effects can be serious. The following symptoms are uncommon, but if you experience any of them, call your doctor immediately: ??? shortness of breath or difficulty breathing ??? wheezing ??? swelling of the hands, feet, ankles, or lower legs ???weight gain ??? fainting ??? rapid, pounding, or irregular heartbeat Metoprolol may cause other side effects. Call your doctor if you have any unusual problems while taking this medication. If you experience a serious side effect, you or your doctor may send a report to the Food and Drug Administration's (FDA) MedWatch Adverse Event Reporting program online (http://www.fda.gov/Safety/MedWatch) or by phone ( ). What should I know about STORAGE and DISPOSAL of this medication? Keep this medication in the container it came in, tightly closed, and out of reach of children. Store it at room temperature and away from excess heat and moisture (not in the bathroom). It is important to keep all medication out of sight and reach of children as many containers (such as weekly pill minders and those for eye drops, creams, patches, and inhalers) are not child-resistant and young children can open them easily. To protect young children from poisoning, always lock safety caps and immediately place the medication in a safe location ??? one that is up and away and out of their sight and reach. http://www.upandaway.org Unneeded medications should be disposed of in special ways to ensure that pets, children, and otherpeople cannot consume them. However, you should not flush this medication down the toilet. Instead,the best way to dispose of your medication is through a medicine take-back program. Talk to your pharmacist or contact your local garbage/recycling department to learn about take-back programs in your community. See the FDA's Safe Disposal of Medicines website (http://goo.gl/c4Rm4p) for more information if you do not have access to a take- back program. What should I do in case of OVERDOSE? In case of overdose, call the poison control helpline at . Information is also available online at https://www.poisonhelp.org/help. If the victim has collapsed, had a seizure, has trouble breathing, or can't be awakened, immediately call emergency services at 911. Symptoms of overdose may include the following: ??? nausea ??? vomiting ??? decreased consciousness or loss of consciousness (coma) ??? irregular, fast, or slow heartbeat ??? chest pain ??? dizziness ??? fatigue or weakness ??? fainting ??? difficulty breathing ??? cough or wheezing ??? swelling of the hands, feet, ankles, or lower legs What OTHER INFORMATION should I know? Keep all appointments with your doctor. Your blood pressure should be checked regularly to determine your response to metoprolol. Your doctor may ask you to check your pulse (heart rate). Ask your pharmacist or doctor to teach you how to take your pulse. If your pulse is faster or slower than it should be, call your doctor. Do not let anyone else take your medication. Ask your pharmacist any questions you have about refilling your prescription. It is important for you to keep a written list of all of the prescription and nonprescription ([id number]) medicines you are taking, as well as any products such as vitamins, minerals, or otherdietary supplements. You should bring this list with you each time you visit a doctor or if you areadmitted to a hospital. It is also important information to carry with you in case of emergencies. This report on medications is for your information only, and is not considered individual patient advice. Because of the changing nature of drug information, please consult your physician or pharmacist about specific clinical use. The [place] [employer] represents that the information provided hereunder was formulated with a reasonable standard of care, and in conformity with professional standards in the field. The [place] [employer] makes no representations or warranties, express or implied, including, but not limited to, any implied warranty of merchantability and/or fitness for a particular purpose, with respect to such information and specifically disclaims all such warranties. Users are advised that decisions regarding drug therapy are complex medical decisions requiring the independent, informed decision of an appropriate health customer care professional, and the information is provided for informational purposes only. The entire monograph for a drug should be reviewed for a thorough understanding of the drug's actions, uses and side effects. The [place] [employer] does not endorse or recommend the use of any drug.The information is not a substitute for medical care. AHFS?? Patient Medication Information???. ?? Copyright, 2023. The [place] [employer]??, [address], [address], [place], [place]. All Rights Reserved. Duplication for commercial use must be authorized by [facility]. Selected Revisions: February 06, 2023. AHFS?? Patient Medication Information???. ?? Copyright, 2023 ?? * Scott Teran RN: PERFORM Event Display: Patient Education Leaflets Authored Date: [id number] Understanding Transradial Cardiac Catheterization ?? [id number] ??Qu?? es la cateterizaci??n card??wilbur transradial? La cateterizaci??n card??wilbur es un procedimiento com??n no quir??rgico. Brittaney el procedimiento, lin m??dico le insertar?? un tubo black y tee (llamado cat??ter) en bart arteria y lo llevar?? hasta lin coraz??n. Transradial significa que el cat??ter se inserta en bart arteria de la mu??eca (la arteria radial) en lugar de la mikel (la arteria femoral). Jami procedimiento se puede usar para diagnosticar y tratar ciertos problemas de coraz??n. ??Por qu?? necesito bart cateterizaci??n card??wilbur transradial? Puede necesitar bart cateterizaci??n card??wilbur si tiene signos que indican un problema con lin coraz??n. Por ejemplo: ??? S??ntomas de dolor, opresi??n o pesadez en el pecho (conocido jimmie angina). Jami es un s??ntomacom??n cuando las arterias del coraz??n est??n obstruidas. Fries se conoce jimmie arteriopat??a coronaria. ??? S??ntomas de debilidad, mareos, dificultad para respirar o piernas o pies hinchados. Estos pueden ser s??ntomas de un problema con bart v??lvula del coraz??n o con el m??sculo card??aco. ??? Lo s resultados de otras pruebas muestran problemas en el coraz??n. Pueden incluir pruebas de esfuerzo, exploraciones del coraz??n y ecocardiograf??as. Brittaney bart cateterizaci??n card??wilbur, lin m??dico puede trent el estado de las arterias coronarias y las v??lvulas card??acas. Tambi??n puede comprobar cu??n jono bombea el coraz??n y cu??n jono circula la jennifer por el coraz??n. Lin m??dico tambi??n puede medirle la presi??n y tomarle muestras de jennifer. De ser necesario, tambi??n puede abrir las arterias bloqueadas. Eso puede ayudar a reducir los s??ntomas de la angina. La cateterizaci??n card??wilbur suele hacerse insertando un cat??ter en bart arteria de la entrepierna.Brittaney la cateterizaci??n card??wilbur transradial, el cat??ter se inserta en bart arteria de lin mu??eca. Fries puede implicar menos sangrado y bart recuperaci??n m??s r??pida. Algunas personas pueden tener bloqueos en las arterias de la mikel y del coraz??n, lo que dificulta la llegada al coraz??n. El m??todo transradial puede usarse para sortear jami problema.?Qu?? sucede brittaney bart cateterizaci??n card??wilbur transradial? Jami procedimiento se lleva a cabo en un hospital o centro quir??rgico. Daniel, le colocar??n bart l??maria esther intravenosa en la mano o el brazo para administrarle l??quidos y medicamentos. Probablemente le administrar??n medicamentos para que se relaje y se adormezca. Cuando comience el procedimiento: ??? Estar?? recostado sobre bart saba para radiograf??as. ??? Le adormecer??n la piel de la mu??eca, en el sitio donde le insertar??n el cat??ter. ??? El m??dico le marvin?? bart huan??a punci??n o incisi??n en la arteria de la mu??eca. Luego, insertar?? el cat??ter y lo pasar?? por el vaso sangu??michael hasta llegar al coraz??n. ? El m??dico puede inyectarle un l??quido de contraste en las arterias a chencho??s del cat??ter. Jami l??quido hace que las arterias se vean mejor en las radiograf??as. ??? Pueden hacerle pruebas para trent el estado de lin coraz??n y amado arterias. De ser necesario, el m??dico puede quitar los bloqueos que haya en las arterias o hacer otras reparaciones. ??? Cuando el m??dico haya terminado, quitar?? el cat??ter y marvin?? presi??n sobre el sitio para evitar que jennifer. Podr??a usar un dispositivo especial para reducir la cantidad de tiempo que se necesita la presi??n.O podr??a usar bart henderson inflable para mantener la presi??n en el lugar. El personal de enfermer??asuele reducir la presi??n en la henderson despu??s del procedimiento. ??? Se quedar?? all?? un tiempo para recuperarse, y luego se ir?? a casa. Si fue un procedimiento de emergencia, es probable que se quede en el hospital bart noche, jimmie m??barbara. ?Cu??les son los riesgos de bart cateterizaci??n card??wilbur transradial? Por ejemplo: ??? Sangrado, moretones, infecci??n o co??gulos de jennifer ??? Da??o en la arteria radial que puede causar lesiones en la mano ??? Da??o en los nervios de la mano ??? Reacci??n al??rgica al medio de contraste ??? Ritmo card??aco anormal (arritmia) ??? Da??o en los vasos sangu??neos o tejidos ??? Da??o en los ri??ones o insuficiencia renal ??? Necesidad de bart cirug??a card??wilbur de emergencia ??? Ataque al coraz??n, ataque cerebral o muerte ?? Last Reviewed Date: 2021 ?? [id number] [employer]. All rights reserved. This information is not intended as a substitute for professional medical care. Always follow your healthcare professional's instructions. ?? * Event Display: Hemodynamic Procedure Report Authored Date: History and physical note * Event Display: History and Physical Hospital Authored Date: Admission evaluation note * Prema Keating MD: PERFORM Event Display: Admission Note Authored Date: Patient: ??GEORGINA MAYE ? Age:??44 Years?Sex:??Female?:??1980?? History of Present Illness This is a 44-year-old female with past medical history of type 2 diabetes, hypertension coming in initially to the [facility] for evaluation of chest pain. ?? Per the patient she has had intermittent ongoing chest discomfort for the last 3 to 4 days.?? She says that it feels like a pressure/discomfort which radiates all the way to her back her arm.?? Is not associated nausea, vomiting diaphoresis.?? She initially went to an urgent care center where she was found to have an abnormal EKG and then sent to [facility] ED where she was evaluated workupdone and then eventually discharged.?? She then followed up with her primary care doctor at [facility] in [place] advised to return to the ED which prompted her to come to the [facility] because she continued to have ongoing chest pain.?? Upon arrival there she was found to be tachycardic to the 130s they would ST segment depressions especially in the anterior leads initial troponin of 16 and the second troponin of 23.?? Subsequent EKG showing improvement in heart rate however T wave inversions seem more pronounced.?? Third troponin came back at 24.6.?? In terms of patient's lab workup she was found to have a hemoglobin of 14.8 no leukocytosis.?? Troponin is mentioned initially of 16.3 then 23.1 and another repeat of 24.?? Creatinine of 1.05, normal LFTs, UA without any evidence of infection. ?? Echo done showing normal left ventricular size and systolic function.?? EF of 60 to 65% no evidenceof regional wall motion abnormalities diastolic function is normal for age. ?? Cardiology was consulted at [place] who said that the EKG did show diffuse T wave inversions, some ST depressions concerning for ischemia until proven otherwise.?? Transferred to [facility] for cardiaccatheterization and continue to monitor for recurrence of symptoms. ?? On presentation to [facility] she is comfortable appearing however did endorse a recurrence of chest pain that she has been having for a few seconds.?? EKG obtained with no ischemia, will obtain repeat labs and troponin.?? The chest pain has resolved upon my presentation we will continue to monitor very very closely.?? Increase Nitropaste to 1 inch. Review of Systems Full review of systems conducted, negative unless mentioned in the HPI Objective Vital Signs?? Temperature: 98.5 DegF (01/13/24 21:32:00) Temperature Route: Oral (01/13/24 21:32:00) Pulse Rate: 83 bpm (01/13/24 22:45:00) Respiratory Rate: 16 br/min (01/13/24 21:32:00) Systolic Blood Pressure:??147 mm Hg??High (01/13/24 22:45:00) Diastolic Blood Pressure:??92 mm Hg??High (01/13/24 22:45:00) Blood pressure sites: Arm, right (01/13/24:32:00) Mean Arterial Pressure: 110 mm Hg (01/13/24:32:00) Pulse Pressure: 55 mm Hg (01/13/24:32:00) Oxygen Saturation: 100 % (01/13/24:22:00) Mode of Delivery (Oxygen): Room air (01/13/24 21:22:00) Early Warning Score: 0 (01/13/24 23:36:46) ? Physical Exam ?? General Appearance: no acute distress Eyes: ROHAN. No scleral icterus. ENT:?? MM moist. Cardiovascular: RRR S1 and S2 heard with no M/R/G. Respiratory: Clear to auscultation, no wheeze or crackles GI: Soft. Nontender and nondistended. Normal bowel sounds present. no guarding, rigidity MSK:?? No edema or erythema in the lower extremities. Skin: No rashes seen Neuro:?? No slurred speech. Moving upper and lower extremities independently Psych: oriented x3. Lines: Peripheral IV in place. Assessment/Plan Assessment:??44-year-old female with history of type 2 diabetes, hypertension coming as a transfer from [facility] where she presented with chest pain, EKG showing??ST depressions, T wave inversions??and troponin elevated to 23.??Transferred for??here for a??cardiac catheterization for NSTEMI. ?? NSTEMI (non-ST elevated myocardial infarction) (I21.4):??Initially came to [facility] after having??3 to 4 days of intermittent chest pain EKG with??ST depression, T wave inversion. Initial troponin of??16 -->23--->24 Echo obtained over there did not show wall motion abnormalities, EF 60 to 65% ?? She received prophylaxis dose of Lovenox hence heparin had not been started up until she came??to [facility].??Spoke to pharmacy regarding heparin dosing, will be started without a bolus dose ?? Plan ??? Start heparin drip ?N.p.o. after midnight ?Continue aspirin ??? Continue metoprolol ??? Continue atorvastatin 80 ??? youth nutritional monitor ??? Trend troponin ??? Continue monitor for recurrence of symptoms ?Continue Nitropaste 1 inch ?ACEI or ARB for LVSD:??ACEI has been ordered ?Beta-Blake Ordered:??Beta-Blake Ordered ?Aspirin Ordered:??Aspirin Ordered ?Statin Ordered:??Statin Ordered ?? Type 2 diabetes mellitus (E11.9):??Home regimen: Patient says she was previously on Lantus 15 unitshowever for the last 2 weeks she is made dietary changes and has not been taking his Lantus.??On Humalog as well ?? Plan ??? Continue insulin sliding scale and POC glucose checks ??? Will hold home Lantus as the patient has not been taking at home.??Will monitor kgvdy-vb-[id number]'sand??order if needed ? Hyperlipidemia (E78.5):??Discontinue home simvastatin, patient has been switched to atorvastatin here ?? Hypertension (I10):??Continue home lisinopril, hold HCTZ ? Quality measures code: Full Diet:: NPO after MN VTE prophylaxis: heparin drip Prema Keating [id number] ? Histories Allergies Allergies ?(Active and Proposed Allergies Only) No Known Medication Allergies? (Severity: Unknown severity, Onset: Unknown) ? Past Medical History/Problem List Active Problems(6) Anxiety Depression Diabetes High blood pressure High cholesterol Migraines ? Past Surgical History Cholecystectomy: 05/25/18 section: 05/25/02 section: 05/25/99 ? Social History Alcohol Details:??Use: Never. Exercise Details:??Self assessment: Fair condition. Sexual Details:??Sexually involved in last 6 months: Yes. ??Self described orientation: Straight or heterosexual. ??Ever been sexually involved? Yes. ??Gender of partner(s): Male. Substance Abuse Details:??Use: Never. Tobacco Details:??Use: Never (less than 100 in lifetime). Electronic Cigarette/Vaping Details:??Electronic Cigarette Use: Never. ? Family History Mother: High cholesterol; Hypertension Father: Diabetes mellitus; High cholesterol; Hypertension ? Medications Home Medications Albuterol (Albuterol (Eqv-Ventolin HFA) 90 mcg/inh inhalation aerosol)?2?puff(s)?Inhalation?Every 6 hours dulaglutide (dulaglutide 0.75 mg/0.5 mL subcutaneous solution)?0.5?Milliliter?0.75?Milligram?Subcutaneous Injection?Every week?rotate injection sites Hydrochlorothiazide-Lisinopril (hydrochlorothiazide-lisinopril 12.5 mg-20 mg oral tablet)?1?tab(s)?By Mouth?Daily?20/12.5 Insulin Glargine (Lantus Solostar Pen 100 units/mL subcutaneous solution)?15?unit(s)?ADMINISTER 20 UNITS UNDER THE SKIN AT BEDTIME. INCREASE BY 2 UNITS A DAY FOR AM BLOOD SUGARS GREATER [id number] Insulin Lispro (Humalog 100 u/ml subcutaneous injection)?See Instructions?Subcutaneous Injection?for 30?Days?Use as directed for Diabetes mellitus type 1. (Max Dose = 50 units/day). ??10 mL vials Simvastatin (simvastatin 40 mg oral tablet)?40?Milligram?1?tablet?By Mouth?Daily at bedtime ? Results Recent Labs BLOOD COUNT & DIFF WBC 5.9 k/mm3 ()?? 01/13/2024 23:06 RBC 4.31 m/mm3 ()?? 01/13/2024 23:06 Hgb 10.8 Gm/dL (Low)?? 01/13/2024 23:06 Hct 34.0 % (Low)?? 01/13/2024 23:06 MCV 78.9 femtoliters (Low)?? 01/13/2024 23:06 MCH 25.1 pg (Low)?? 01/13/2024 23:06 MCHC 31.8 g/dL (Low)?? 01/13/2024 23:06 Platelet Count 314 k/mm3 ()?? 01/13/2024 23:06 RDW-SD 45.1 femtoliters ()?? 01/13/2024 23:06 MPV 10.2 femtoliters ()?? 01/13/2024 23:06 Nucleated RBC (Automated) 0.0 #/100 WBC'S ()?? 01/13/2024 23:06 Abs. NRBC 0.0 k/mm3 ()?? 01/13/2024 23:06 ? EKG study * Event Display: ECG 12-Lead Authored Date: Please click on pdf link to open report * Event Display: ECG 12-Lead Authored Date: Ventricular Rate: 76 BPM Atrial Rate: 76 BPM P-R Interval: 180 ms QRS Duration: 84 ms Q-T Interval: 432 ms QTC Calculation(Bazett): 486 ms P [place]: 80 degrees R [place]: 40 degrees T [place]: 0 degrees Normal sinus rhythm ST and T wave abnormality, consider anterolateral ischemia Abnormal ECG When compared with ECG of 13-JAN-2024 22:09, No significant change Confirmed by SON LOREDO ([id number]) on 01/14/2024 4:47:03 PM [place]: SON LOREDO * Event Display: ECG 12-Lead Authored Date: Please click on pdf link to open report * Event Display: ECG 12-Lead Authored Date: Ventricular Rate: 79 BPM Atrial Rate: 79 BPM P-R Interval: 150 ms QRS Duration: 76 ms Q-T Interval: 448 ms QTC Calculation(Bazett): 513 ms P [place]: 75 degrees R [place]: 44 degrees T [place]: 233 degrees Normal sinus rhythm ST and T wave abnormality, consider inferior ischemia ST and T wave abnormality, consider anterolateral ischemia Prolonged QT Abnormal ECG No previous ECGs available Confirmed by ANGEL HENRIQUEZ MD ([id number]) on 01/14/2024 6:20:41 PM [place]: ANGEL HENRIQUEZ MD Cardiology * Event Display: Cardiac Rhythm Strips Authored Date: Hospital Progress note * Scott Teran RN: PERFORM, SIGN, VERIFY, MODIFY, SIGN Event Display: Progress Note Hospital Authored Date: Patient: MAYE ERICKSON Age: 44 years Sex: Female : 1980 Associated Diagnoses: None Author: Scott Teran RN Findings Problem Related to Alteration in Cardiac Function (new) : Alteration in Cardiac Function/new 01/15/2024 12:00 EDT Alteration in Cardiac Status Related to Cardiac Procedure, Other: NSTEMI Goals & Outcomes, Cardiac Status Pt will resume/maintain adequate cardiac output, Pt will resume/maintain adequate hemodynamic status, Pt will resume/maintain adequate respiratory function, Pt will resume/maintain intact neuro function, Pt will maintain adequate GI/ function appropriate for pt, Pt will maintain adequate nutrition status, Pt/caregiver will state understanding of diagnosis, Pt/caregiver will state strategies to reduce risk factors Cardiac Interventions Implemented Assess/monitor cardiac status, Assess/monitor neuro status, Assess/monitor respiratory status, Assess for tolerance of IV infusions; verify rate & dose, If no bowel movement in 3 days activate bowel regime, Monitor anticoagulation values, Prep pt for treatments& procedures, Teach/encourage deep breath & cough exercises Goals/Interventions, Cardiac Yes Cardiac, Problem Start 01/14/2024 19:00 Reviewed Plan with, Cardiac Status Patient Patient Progression, Cardiac Status Patient progressing according to plan . Evaluation Pt A&Ox4. Denies CP, SOB, dizziness, N/V. NS 70s on tele. Lungs clear. R wrist dressing intact,no signs of bleeding or bruising noted. Steady gait noted when OOB. Vitals taken per protocol, bed in the lowest position, call bazan within reach, hourly rounds maintained. . * Joaquin BARBER, Naima: PERFORM, SIGN, VERIFY Event Display: Progress Note Hospital Authored Date: [id number] Patient: MAYE ERICKSON [facility]: [id number] Age: 44 years Sex: Female : 1980 Associated Diagnoses: None Author: Naima Nuñez RN Findings Problem Related to Alteration in Cardiac Function (new) : Alteration in Cardiac Function/new 01/15/2024 1:00 EDT Alteration in Cardiac Status Related to Cardiac Procedure, Other: NSTEMI Goals & Outcomes, Cardiac Status Pt will resume/maintain adequate cardiac output, Pt will resume/maintain adequate hemodynamic status, Pt will resume/maintain adequate respiratory function, Pt will resume/maintain intact neuro function, Pt will maintain adequate GI/ function appropriate for pt, Pt will maintain adequate nutrition status, Pt/caregiver will state understanding of diagnosis, Pt/caregiver will state strategies to reduce risk factors Cardiac Interventions Implemented Assess/monitor cardiac status, Assess/monitor neuro status, Assess/monitor respiratory status, Assess for tolerance of IV infusions; verify rate & dose, Call/Report variances in ECG to provider, Document & Monitor O2 Sats; Administer O2 as ordered, Ensure adequate caloric intake, If no bowel movement in 3 days activate bowel regime, Monitor & document daily weight, Monitor anticoagulation values, Monitor ECG w/administration of antiarrhythmics (CO 13.420), Obtain 12 Lead ECG and CXR as ordered, Prep pt for treatments & procedures, Teach/encourage deep breath & cough exercises, Teach/encourage use of incentive spirometer, Team conversation regarding appropriate level of care, Turn & reposition Q2 hours per activity restrictions, Useadjunctive therapies per Standards of Practice Goals/Interventions, Cardiac Yes Cardiac, Problem Start 01/14/2024 19:00 Reviewed Plan with, Cardiac Status Patient Patient Progression, Cardiac Status Patient progressing according to plan . Pt. is A&O x4. Denies chest pain, palpitations, SOB, dizziness or N/V. Is on tele. Is on RA. S/p cath via Rt radial 01/14/24. CDI with +CMS, +pulse, no oozing or bruising a little soreness gettingbetter with tylenol. Heparin gtt restarted per tip Person. Awaiting CT scan today. Ambulates independently in room with steady gait. Safety maintained with bed locked in lowest position and call bazan in reach. * Rishabh THOMPSON, Kuldeep Morales: PERFORM Event Display: Progress Note Hospital Authored Date: [id number] Patient: ??MAYE ERICKOSN ? Age:??44 Years?Sex:??Female?:??1980?? Subjective ? -Seen and examined at bedside, resting comfortably, chest pain-free during my evaluation -N.p.o. for cardiac catheterization, maintenance IV fluids ?? Review of Systems Other than those positives as noted above, the remaining comprehensive 14-point review of systems is negative. Objective Vital Signs?? Temperature: 97.8 DegF (01/14/24 10:36:00) Temperature Route: Oral (01/14/24 10:36:00) Pulse Rate: 72 bpm (01/14/24 10:36:00) Respiratory Rate: 18 br/min (01/14/24 10:36:00) Systolic Blood Pressure: 124 mm Hg (01/14/24 10:36:00) Diastolic Blood Pressure:??85 mm Hg??High (01/14/24 10:36:00) Blood pressure sites: Arm, right (01/14/24 10:36:00) Mean Arterial Pressure: 98 mm Hg (01/14/24 10:36:00) Pulse Pressure: 39 mm Hg (01/14/24 10:36:00) Oxygen Saturation: 100 % (01/14/24 10:36:00) Mode of Delivery (Oxygen): Room air (01/14/24 10:36:00) Early Warning Score: 2 (01/14/24 10:36:57) ? Intake/Output? No Data Available ? Physical Exam Constitutional: Alert, in no acute distress. Mental Status: Oriented to person, place and time. Respiratory: Clear to auscultation and percussion. No wheezing, rales or rhonchi. Cardiovascular: S1 S2 regular. No murmurs, rubs or gallops. Gastrointestinal: Abdomen soft, non-tender, non-distended. Normal bowel sounds. No pulsatile mass. No hepatosplenomegaly. Genitourinary: No costovertebral angle tenderness. Neurologic: Cranial nerves II-XII grossly intact. No focal neurological deficits. ?? _ Home Medications Albuterol (Albuterol (Eqv-Ventolin HFA) 90 mcg/inh inhalation aerosol)?2?puff(s)?Inhalation?Every 6 hours dulaglutide (dulaglutide 0.75 mg/0.5 mL subcutaneous solution)?0.5?Milliliter?0.75?Milligram?Subcutaneous Injection?Every week?rotate injection sites Hydrochlorothiazide-Lisinopril (hydrochlorothiazide-lisinopril 12.5 mg-20 mg oral tablet)?1?tab(s)?By Mouth?Daily?20/12.5 Insulin Glargine (Lantus Solostar Pen 100 units/mL subcutaneous solution)?15?unit(s)?ADMINISTER 20 UNITS UNDER THE SKIN AT BEDTIME. INCREASE BY 2 UNITS A DAY FOR AM BLOOD SUGARS GREATER [id number] Insulin Lispro (Humalog 100 u/ml subcutaneous injection)?See Instructions?Subcutaneous Injection?for 30?Days?Use as directed for Diabetes mellitus type 1. (Max Dose = 50 units/day). ??10 mL vials Simvastatin (simvastatin 40 mg oral tablet)?40?Milligram?1?tablet?By Mouth?Daily at bedtime ? Inpatient Medications Medications (21) Active SCHEDULED: (8) Aspirin 81 mg EC Tablet (aspirin 81 mg oral delayed release tablet) ??81 mg, By Mouth, Daily Atorvastatin 80 mg Tablet (atorvastatin 80 mg oral tablet) ??80 mg, By Mouth, Daily at bedtime Insulin Lispro 100 units/mL Inj (Insulin LISPRO Sliding Scale) ??2-10 units, Subcutaneous Injection, Every 6 hours Lisinopril 20 mg Tablet (lisinopril 20 mg oral tablet) ??20 mg, By Mouth, Daily Metoprolol 25mg Tablet (metoprolol 25 mg oral tablet) ??25 mg, By Mouth, 2 times a day NaCl 0.9% Flush 3ml (NaCL 0.9% Flush) ??3 mL, IV Push, Every 8 hours NaCl 0.9% Flush 3ml (NaCL 0.9% Flush) ??3 mL, IV Push, Every 8 hours Nitroglycerin 2% Oint UD (Nitroglycerin 2% Topical) ??1 inches, Topically, Daily CONTINUOUS: (2) Heparin 25,000 units / 250 mL D5W premix 25,000 units [16 units/kg/hr] + D5%W Premixed IV 250 mL (Heparin 25,000 units in 250 mL Premix 25,000 units [16 units/kg/hr] + D5%W Premixed IV 250 mL) ??250 mL, IV Infusion, 11.14 mL/hr Lactated Ringers (1000 mL) Cont IV 1,000 mL (LR 1,000 mL) ??1,000 mL, IV Infusion, 75 mL/hr PRN: (11) Acetaminophen 325 mg Tablet (Acetaminophen Tablet) ??650 mg, By Mouth, Every 4 hours Dextromethorphan-Guaifenesin 20 mg-200 mg/10 mL Liqu UD (Robitussin DM Liquid) ??10 mL, By Mouth, Every 4 hours Docusate Sodium 100 mg Capsule (Docusate Sodium Capsule) ??100 mg 1 capsule, By Mouth, 2 times a day Heparin 5000 units/mL Inj (1 mL) (Heparin Inj) ??4,000 units 0.8 mL, IV Push, Every 6 hours Heparin 5000 units/mL Inj (1 mL) (Heparin Inj) ??2,000 units 0.4 mL, IV Push, Every 6 hours Melatonin 3 mg Tablet (Melatonin Tablet) ??3 mg, By Mouth, Daily at bedtime NaCl 0.9% Flush 3ml (NaCL 0.9% Flush) ??3 mL, IV Push, Every 8 hours NaCl 0.9% Flush 3ml (NaCL 0.9% Flush) ??3 mL, IV Push, Every 8 hours Polyethylene Glycol 17 Gm Powder (MiraLax Powder) ??17 Gm 1 pack/packet, By Mouth, Daily Senna Tablet ??8.6 mg 1 tablet, By Mouth, 2 times a day Simethicone 80 mg Chewable Tablet (Simethicone Tablet) ??80 mg, Chew, 3 times a day ? IV Titrations (Last 24 hrs) Most Recent Infusions (Max of 3)? 01/13 07:00 01/13 06:00 01/13 05:00 Heparin 25,000 units in 250 mL Premix 25,000 units [16 units/kg/hr] + D5%W Premixed IV 250 mL 16 units/kg/hr 12 units/kg/hr 12 units/kg/hr ? Results Abnormal Labs ?? BLOOD COUNT & DIFF Abs. NRBC?0.0 k/mm3 ()?01/14/2024 05:09 Hct?34.0 % (Low)?01/14/2024 05:09 Hgb?10.8 Gm/dL (Low)?01/14/2024 05:09 MCH?25.2 pg (Low)?01/14/2024 05:09 MCHC?31.8 g/dL (Low)?01/14/2024 05:09 MCV?79.3 femtoliters (Low)?01/14/2024 05:09 Nucleated RBC (Automated)?0.0 #/100 WBC'S ()?01/14/2024 05:09 RDW-SD?45.1 femtoliters ()?01/14/2024 05:09 ?? CARDIAC High Sensitivity Troponin (HSTnT)?12 ng/L () ?01/13/2024 23:06 ?? CHEM GENERAL Estimated GFR Creatinine?107 ML/MIN/1.73 M2 ()?01/14/2024 05:09 Glucose Level?113 mg/dL (High)?01/14/2024 05:09 Glucose, POC?120 mg/dL (High)?01/14/2024 07:37 ?? COAG APTT?35.3 seconds (High)?01/14/2024 05:09 ?? Note: Critical results are displayed in red. ? Assessment/Plan ?? 44-year-old female with history of type 2 diabetes, hypertension coming as a transfer from [facility] where she presented with chest pain, EKG showing??ST depressions, T wave inversions??and troponin elevated to 23.??Transferred for??here for a??cardiac catheterization for NSTEMI. ?? NSTEMI (non-ST elevated myocardial infarction) (I21.4):??Initially came to [place] after having??3 to 4 days of intermittent chest pain EKG with??ST depression, T wave inversion. Initial troponin of??16 -->23--->24 Echo obtained over there did not show wall motion abnormalities, EF 60 to 65% ?? Plan ? heparin drip ?N.p.o. for cath ?Continue aspirin ??? Continue metoprolol ??? Continue atorvastatin 80 ??? youth nutritional monitor ??? Trend troponin ??? Continue monitor for recurrence of symptoms ?Continue Nitropaste 1 inch ? Type 2 diabetes mellitus (E11.9):??Home regimen: Patient says she was previously on Lantus 15 unitshowever for the last 2 weeks she is made dietary changes and has not been taking his Lantus.??On Humalog as well ??? Continue insulin sliding scale and POC glucose checks ??? Will hold home Lantus as the patient has not been taking at home.??Will monitor [id number]??order if needed ? Hyperlipidemia (E78.5):??Discontinue home simvastatin, patient has been switched to atorvastatin here ?? Hypertension (I10):??Continue home lisinopril, hold HCTZ ? Quality measures code: Full Diet:: NPO for cath ? Patient Care team information Care Team Personnel Name: Luz Marina Tsai RN Position: S RN Member Role: Primary Care Nurse Name: Naima Nuñez RN Position: S RN Member Role: Primary Care Nurse Name: Laura Dye RN Position: S RN Member Role: Primary Care Nurse Name: Edilberto Carolina RN Position: S RN Member Role: Primary Care Nurse Name: Brigida Sellers Position: Reference Physician Member Role: PCP Address: Address: [address] [place] [id number]- Care Team Related Persons Name: ZEINA PIEDRA Address: home [address] [place] [id number]
[2024-01-25 20:40] LABS: Troponin-I High Sensitivity < 2.7 ng/L (<3.5-17.0)
[2024-01-25 21:32] VITALS: BP 152/99; PULSE 93; RESP 14; TEMP 37.1; O2SAT 97
[2024-01-25 21:45] LABS: Appearance Urine Clear; Color Urine Yellow; Glucose Urine UA 500 mg/dL (Negative); Leukocyte Esterase Urine Trace (Negative); Nitrite Urine Positive (Negative); Specific Gravity - Urine 1.015 (1.005-1.025); UMIC TRIGGER UACC YES; Urine Blood Trace (Negative); Urine Ketones Negative (Negative); Urine Protein Negative (Neg-Trace)
[2024-01-25 21:51] LABS: Bacteria Urine 4+ (None Seen); Hyaline Casts Urine 0-2 /LPF (0-2); RBC Urine 0-2 /HPF (0-2); UACC Culture Trigger YES; WBC Urine 0-5 /HPF (0-5)
[2024-01-25 21:52] LABS: Amphetamine Screen Urine Not Detected (Not Detect); Barbiturates, Urine Not Detected (Not Detect); Benzodiazepines Screen Urine Not Detected (Not Detect); Buprenorphine Scr Not Detected (Not Detect); Cannabinoid Screen Urine POSITIVE (Not Detect); Cocaine Screen Urine Not Detected (Not Detect); Fentanyl, urine Not Detected (Not Detect); Methadone Screen, Urine Not Detected (Not Detect); Opiate Screen Urine Not Detected (Not Detect); Oxycodone Screen Urine Not Detected (Not Detect); Phencyclidine Screen Urine Not Detected (Not Detect)
== END 2024-01-25 21:33 | disposition home or self-care (01) ==
PROVIDERS: Physician Assistant Medical; Emergency Provider Emergency Medicine
DX: R00.0 Tachycardia, unspecified (principal); R07.9 Chest pain, unspecified; M54.9 Dorsalgia, unspecified; I10 Essential (primary) hypertension; E11.9 Type 2 diabetes mellitus without complications; Z79.899 Other long term (current) drug therapy; Z79.4 Long term (current) use of insulin
CPT/HCPCS: 36415; 71046; 80053; 80307; 81001; 83735; 84484; 85025; 85379; 87086; 87088; 87186; 93005; 96372; 99285; J1885

== ENCOUNTER → 2024-01-29 10:30 | Outpatient (REF) | payer MEDICARE, MEDICAID, SELFPAY | LOC: HO.CARD 10:30 | PROVIDERS: PCP Nurse Practitioner; Visit Provider Nurse Practitioner | DX: Z13.89 Encounter for screening for other disorder (principal) ==

== ENCOUNTER 2024-02-03 09:05 | Outpatient (AMB) | payer MEDICARE, MEDICAID, SELFPAY ==
--- NOTE | 2024-02-03 09:23 | MHC.OFFVIS ---
Vital Signs 02/03/24 09:24 Height 5 ft 10 in Weight 157 lb 13.616 oz BMI 22.6 BP 146/78 H Blood Pressure Location Lt brachial Position Sitting Pulse 73 Pulse Source Pulse Oximeter Intake Visit Reasons: F/u after Cardiac Cath Psychiatric Technician Assistant Required: No Accompanied by: Self / Same As Patient Allergies No Known Allergies Allergy (Verified 01/25/24 14:05) Medication List - Last Reconciled 02/03/24 by Petar Lucero MD albuterol sulfate 90 mcg/actuation (Ventolin HFA) 2 puffs PO Q4-6H PRN aspirin (Adult Low Dose Aspirin) 81 mg PO DAILY dulaglutide (Trulicity) 1.5 mg subcut TU hydroxyzine HCl 50 mg PO TID PRN insulin glargine (Lantus Solostar U-100 Insulin) 15 units subcut BEDTIME insulin lispro (Humalog KwikPen (U-100) Insulin) 10 units subcut TIDAC lisinopril-hydrochlorothiazide 20-12.5 mg 2 tabs PO DAILY metoprolol tartrate 50 mg PO BID omega 4-[id number]-xpq-fish oil 1,000 mg (120 mg-180 mg) (Fish Oil) 1 cap PO DAILY HPI Comments Details: Christine returns for follow-up. In the past, she underwent cardiac workup with coronary CTA that showed mild CAD. She has got type 2 diabetes on insulin. Also has hypertension on medications. More recently, she was seen as an inpatient with chest pressure and EKG changes and that led to a diagnostic catheterization. However, no interventions performed. She states she still gets some vague pressure off and on but not as much. Otherwise, getting along fine. [facility] Medical History Atherosclerotic cardiovascular disease Depression Anxiety HTN (hypertension) Diabetes Surgical History History of Hx of cholecystectomy Family History (Updated 02/03/24 @ 09:33 by Luciana Baeza CMA) Mother HTN (hypertension) Stroke Father HTN (hypertension) Cancer DM2 (diabetes mellitus, type 2) Social History (Updated 02/03/24 @ 09:29 by Luciana Baeza CMA) Alcohol intake: never Patient Tobacco Use Status: Never used Tobacco Review of Systems Const Denies chills, Denies fatigue, Denies fever(s), Denies weight gain and Denies weight loss ENT Denies dizziness Card Denies chest pain, Denies leg edema, Denies lightheadedness, Denies palpitations, Reports dyspnea on exertion, Denies orthopnea and Denies other Resp Denies cough and Reports dyspnea on exertion GI Denies hematochezia and Denies change in stool character Musc Denies abnormal gait, Denies muscle weakness, Denies numbness, Denies radiating pain into limb and Denies tingling Neuro Denies abnormal gait, Denies dizziness, Denies numbness and Denies tingling Endo Denies fatigue and Denies palpitations Physical Exam Vital Signs: Last Vital Signs Pulse 73 02/03/24 09:24 BP 146/78 H 02/03/24 09:24 BMI result Body Mass Index 22.6 Const General: comfortable and no acute distress Orientation/consciousness: patient oriented x3 HEENT Other: Unremarkable Head: Yes normal to inspection Neck Neck: Yes normal visual inspection Chest Chest palpation & inspection: normal inspection of the chest Resp Auscultation: clear to auscultation bilaterally Cardio Palpation: normal PMI Heart sounds: S1 normal heart sound present, S2 normal heart sound present, no gallops, no murmurs and no rubs GI Palpation (GI): Soft to palpation Back/Spine/Pelvis Other: unremarkable Skin General skin exam: no rashes or lesions noted Neuro General: patient oriented x3 Extrem General: Yes normal to inspection Psych Mental Status: mental status grossly normal Assessment & Plan Assessment & Plan (1) Atherosclerotic cardiovascular disease: Code(s): I25.10 - Atherosclerotic heart disease of [place] coronary artery without angina pectoris Category: Medical Plan: Cardiac studies reviewed. In the EKG, she had sinus tachycardia with diffuse ST depression. Slight elevation of troponins. Echocardiogram with preserved LVEF and no overt wall motion abnormalities. Cardiac catheterization from 01/12/2024-normal left main; LAD with minimal irregularities; circumflex with minimal irregularity; OM1-40-50% stenosis; RCA with minimal irregularities. Overall, symptoms could be related to microvascular disease. She states beta-justina dose has been increased recently. We can add long-acting nitrates especially as the blood pressure is also higher side. Next option would be to add some amlodipine. Otherwise, sublingual nitroglycerin as needed. Cardiac rehabilitation. Check lipids. (2) Type 2 diabetes mellitus with unspecified complications: Code(s): E11.8 - Type 2 diabetes mellitus with unspecified complications Category: Medical Plan: She is on insulin, Trulicity. There is no recent hemoglobin A1c. Random sugar is 149. (3) Essential hypertension: Code(s): I10 - Essential (primary) hypertension Category: Medical Plan: On lisinopril/hydrochlorothiazide. Still slightly increased. Long-acting nitrates may help. On beta-blockers. Next dose would be adding amlodipine. Will follow. Orders: Orders Lipid Panel Today E78.5 - Hyperlipidemia, unspecified, I21.4 - Non-ST elevation (NSTEMI) myocardial infarction LDL Cholesterol Direct Today E78.2 - Mixed hyperlipidemia, I21.4 - Non-ST elevation (NSTEMI) myocardial infarction Cardiac Rehab Today I21.4 - Non-ST elevation (NSTEMI) myocardial infarction Medications: New isosorbide mononitrate ER 30 mg PO DAILY 90 tabs 3RF nitroglycerin do not exceed 3 doses per episode 0.4 mg sublingual Q5M PRN 30 tabs 5RF chest pain R07.2 - Precordial pain Coding Level of Care Code Est Pt Level 4 (20229) Diagnoses Atherosclerotic cardiovascular disease I25.10 Type 2 diabetes mellitus with unspecified complications E11.8 Essential hypertension I10
[2024-02-03 09:24] VITALS: BP 146/78; PULSE 73; BMI 22.6
== END 2024-02-03 09:47 | disposition home or self-care (01) ==
PROVIDERS: PCP Physician Assistant; Visit Provider Internal Medicine
DX: I25.10 Atherosclerotic heart disease of native coronary artery without angina pectoris (principal); E11.8 Type 2 diabetes mellitus with unspecified complications; I10 Essential (primary) hypertension
CPT/HCPCS: 99214

== ENCOUNTER → 2024-02-03 09:05 | Outpatient (BNVA) | payer MEDICARE, MEDICAID, SELFPAY | PROVIDERS: PCP Physician Assistant; Visit Provider Internal Medicine | DX: I25.10 Atherosclerotic heart disease of native coronary artery without angina pectoris (principal); I10 Essential (primary) hypertension; E11.8 Type 2 diabetes mellitus with unspecified complications | CPT/HCPCS: 99212 ==

== ENCOUNTER 2024-03-11 08:30 | Outpatient (RCR) | payer MEDICARE, MEDICAID, SELFPAY | END 2024-04-08 06:08 | disposition home or self-care (01) | LOC: HO.CR 08:30 | PROVIDERS: PCP Physician Assistant; Visit Provider Internal Medicine | DX: I21.4 Non-ST elevation (NSTEMI) myocardial infarction (principal) | CPT/HCPCS: 93798 ==

== ENCOUNTER 2024-03-31 06:06 | Emergency (ER) | payer MEDICARE, MEDICAID, SELFPAY ==
--- NOTE | ~2024-03-31 | XR_ITS ---
EXAMINATION: XR CHEST CLINICAL INFORMATION: Off, chest tightness COMPARISON: Chest x-ray on 01/25/2024 TECHNIQUE: Frontal view of the chest was obtained. FINDINGS: No significant abnormality is noted involving the heart, lungs, mediastinum, bony thorax or soft tissues. XR/XR chest 1V IMPRESSION: Unremarkable examination. Electronically signed by: Effie Hanna MD 03/31/2024 08:48 AM [facility]
--- NOTE | 2024-03-31 06:09 | ECG_ITS ---
Test Reason : CHEST TIGHTNESS Blood Pressure : / mmHG Vent. Rate : 091 BPM Atrial Rate : 091 BPM P-R Int : 148 ms QRS Dur : 076 ms QT Int : 396 ms P-R-T Axes : 073 041 035 degrees QTc Int : 487 ms Normal sinus rhythm Possible Left atrial enlargement Prolonged QT Abnormal ECG When compared with ECG of 25-JAN-2024 13:51, No significant change was found Referred By: Generic ED Physician Electronically Signed By:ROSALINDA MEEHAN MD
[2024-03-31 06:26] LABS: Basophils Percent Auto 0.4 % (0-2); Eosinophils Absolute Auto 0.3 X10*3/uL (0.0-0.4); Eosinophils Percent Auto 3.9 % (0-4); Imm Gran Abs Auto 0.02 X10*3/uL (0.00-0.03); Imm Gran Pct Auto 0.3 % (0.0-0.4); Lymphocytes Absolute Auto 1.7 X10*3/uL (1.2-4.9); Lymphocytes Percent Auto 21.6 % (20-40); MANUAL DIFF FLAG NO; Mean Corpuscular HGB Conc 31.4 g/dl (31.0-35.0); Mean Corpuscular Hemoglobin 24.5 pg (27.0-33.0); Mean Platelet Volume 9.2 fL (9.4-12.3); Monocytes Absolute Auto 0.6 X10*3/uL (0.1-1.2); Monocytes Percent Auto 7.6 % (2-11); Neutrophils Absolute Auto 5.1 x10*3/uL (2.0-8.3); Neutrophils Percent Auto 66.2 % (45-73); Platelet Count 332 X10*3/uL (160-400); Red Blood Count 4.49 X10*6/uL (4.20-5.50); Red Cell Distribution Width 14.9 % (11.0-16.0); White Blood Count 7.7 X10*3/uL (4.8-10.8)
[2024-03-31 06:39] LABS: Anion Gap 13 (12-20); Blood Urea Nitrogen 12 mg/dL (9-16); Calcium 9.2 mg/dL (8.4-10.2); Carbon Dioxide 21 mmol/L (22-29); Chloride 110 mmol/L (96-108); Estimated Glomerular Filt Rate > 60; Glucose Random 133 mg/dL (60-115); Potassium 3.9 mmol/L (3.3-5.1); Sodium 140 mmol/L (135-145)
--- NOTE | 2024-03-31 06:42 | ED_ITS ---
HPI - General Adult General Chief complaint: Chest Pain Stated complaint: chest tightness, fatigue Time Seen by Provider: 03/31/24 06:40 Source: patient Mode of arrival: ambulatory Limitations: no limitations History of Present Illness ED Provider: Desiree Cameron PA-C HPI narrative: 44-year-old female witha PMH of NSTEMI, SHIV, TIIDM, 2nd degree heart block and HTN presents to the ED today with a chief complaint of chest tightness for the past few days. What brought her in today is that this morning she woke up with a terrible headache and the chest tightness was worse upon waking up. Patient states that her chest discomfort is worse with deep breathes and she also experiences some left sided mid-lower back pain with deep breaths. Denies SOB, cough, fevers, chills. The pain she is experiencing is reproducible when pressing on the mid-left chest wall. Patient also endorses some numbness along the ulnar aspect of her left hand. Denies vision changes, N/V, or abd pain. Relieving factors: none Exacerbating factors: none Associated symptoms: chest pain Treatments prior to arrival: none Related Data Home Medications ?Medication ?Instructions ?Recorded ?Confirmed albuterol sulfate 90 mcg/actuation 2 puff PO Q4-6H PRN Shortness Of 04/17/21 02/03/24 aerosol inhaler (Ventolin HFA) Breath Or Wheezing dulaglutide 1.5 mg/0.5 mL 1.5 mg subcut TU 04/21/22 02/03/24 subcutaneous pen injector (Trulicity) insulin glargine 100 unit/mL (3 15 unit subcut BEDTIME 04/21/22 02/03/24 mL) subcutaneous pen (Lantus Solostar U-100 Insulin) hydroxyzine HCl 25 mg tablet 50 mg PO TID PRN anxiety 01/13/24 02/03/24 insulin lispro 100 unit/mL 10 unit subcut TIDAC 01/13/24 02/03/24 subcutaneous pen (Humalog KwikPen (U-100) Insulin) lisinopril 20 2 tab PO DAILY 01/13/24 02/03/24 mg-hydrochlorothiazide 12.5 mg tablet omega 1-afh-cyc-fish oil 1,000 mg 1 cap PO DAILY 08/21/24 09/11/24 (120 mg-180 mg) capsule (Fish Oil) aspirin 81 mg tablet,delayed 81 mg PO DAILY 02/03/24 02/03/24 release (Adult Low Dose Aspirin) Previous Rx's ?Medication ?Instructions ?Recorded isosorbide mononitrate 30 mg 30 mg PO DAILY #90 tabs 02/03/24 tablet,extended release 24 hr nitroglycerin 0.4 mg sublingual 0.4 mg sublingual Q5M PRN chest 02/03/24 tablet pain #30 tabs metoprolol tartrate 50 mg tablet 100 mg (2 x 50 mg) PO BID 60 days 03/02/24 #120 tabs Allergies Allergy/AdvReac Type Severity Reaction Status Date / Time No Known Allergies Allergy Verified 03/31/24 07:10 Review of Systems 2 Constitutional: Constitutional: Denies chills, Reports fatigue, Denies fever(s), Reports headache(s) and Denies night sweats Eyes: Eyes: Reports no additional eye complaints, Denies blurry vision, Denies change in vision, Denies diplopia, Denies eye discharge, Denies loss of vision and Denies eye pain ENT: Denies dizziness and Reports headache(s) Cardiovascular: Cardiovascular: Reports no additional cardiovascular complaints, Reports chest pain, Denies lightheadedness, Denies Loss of Consciousness and Denies dyspnea Respiratory: Respiratory: Reports no additional respiratory complaints, Denies cough, Denies dyspnea and Denies wheezing Gastrointestinal: Gastrointestinal: Reports no additional gastrointestinal complaints, Denies abdominal pain, Denies melena, Denies hematochezia, Denies change in bowel habits and Denies change in stool character Genitourinary: Genitourinary: Denies hematuria, Denies urinary frequency, Denies dysuria, Denies urinary incontinence, Denies urinary hesitancy and Denies urinary urgency Musculoskeletal: Musculoskeletal: Reports no additional musculoskeletal complaints, Denies numbness and Denies tingling Neurologic: Denies dizziness, Reports headache(s), Denies loss of vision, Denies numbness and Denies tingling Psychiatric: Psychiatric: Reports no additional psychiatric complaints Endocrine: Endocrine: Reports no additional endocrine complaints and Reports fatigue Hematologic/Lymphatic: Hematologic/Lymphatic: Reports no additional hematologic/lymphatic complaints Allergic/Immunologic: Allergic/Immunologic: Reports no additional allergic/immunologic complaints and Denies wheezing PMFSH Past Medical History Attestation statement: The following information was validated with the patient. Source: old records reviewed and nursing notes reviewed Medical History Atherosclerotic cardiovascular disease Depression Anxiety HTN (hypertension) Diabetes Surgical History History of Hx of cholecystectomy Family History Family History Mother HTN (hypertension) Stroke Father HTN (hypertension) Cancer DM2 (diabetes mellitus, type 2) Social History Social History Alcohol intake: never Patient Tobacco Use Status: Never used Tobacco Advance Directives: No Advance Directives Information Provided: Yes Do you have a plan to hurt others: No Plan Physical Exam ED Vital Signs: Vital Signs - 24 hr 03/31/24 07:08 03/31/24 08:15 Temperature 98.2 F Pulse Rate 82 89 Respiratory Rate 16 12 Blood Pressure 145/89 H 153/93 H Pulse Oximetry 100 100 Oxygen Delivery Method Room Air Room Air BMI result Body Mass Index 22.5 Const General: cooperative, no acute distress, alert and awake Nutritional Appearance: well nourished Orientation/consciousness: patient oriented x3 Limitations: no limitations HENMT Head: Yes normal to inspection and Yes atraumatic Ears: hearing grossly normal bilaterally and external ears normal General nose exam: Normal external nose present, no nasal discharge noted and no epistaxis Face and sinus: Yes normal facial exam, No abrasion and No laceration Mouth: Normal oral and palatal mucosa present, no drooling and no muffled voice Eyes General: appearance normal, both eyes and all related structures Periorbital: periorbital findings normal Eyelids: Yes eyelids normal Conjunctivae: conjunctivae normal Pupils: Equal, round and reactive pupils present EOM: EOMs intact bilaterally Neck Neck: Yes normal visual inspection, Yes full ROM and Yes no lymphadenopathy Chest Chest palpation & inspection: normal inspection of the chest and tenderness (left side) sternum Resp Effort & Inspection: normal respiratory effort and able to speak in complete sentences Auscultation: no rhonchi and no wheezes Cardio Rate: regular rate Rhythm: regular rhythm Heart sounds: no gallops, no murmurs and no rubs GI Inspection: Yes normal to inspection Neuro General: patient oriented x3 and moves all extremities Cranial nerves: Yes Equal, round and reactive pupils present Cognition (Neuro): normal cognition Extrem General: Yes normal to inspection, Yes full ROM and Yes capillary refill normal Psych Appearance: grossly normal Mental Status: mental status grossly normal Affect: normal affect Attitude: cooperative Thought process: Normal thought process present Thought content: Normal thought content present Insight: Good insight present (Psych) Medical Decision Making Medical Decision Making [facility] Narrative: Patient is a 44 year old assigned female at with a history of NSTEMI, HTN, DM, CAD, and 2nd degree heart block presenting to the emergency department today with chest tightness and a headache. Patient's physical exam was unremarkable. Patient's blood work was unremarkable. Patient's EKG was unremarkable. Patient's chest x-ray showed no acute process. I explained my physical exam findings as well as all test results to the patient. I answered all questions asked by the patient. I stressed the importance of the patient taking her medication as directed (either prescribed or as the over the counter packaging recommends). I stressed the importance of the patient following up with her primary care provider. I stressed the importance of the patient returning to the emergency department immediately if her symptoms were to worsen or if she were to develop any dizziness, shortness of breath, difficulty breathing, chest pain, blurry vision, loss of vision, nausea, vomiting, abdominal pain, fever, chills, back pain, or any other complaints. Patient verbalized agreement and understanding with this treatment plan and discharge. Differential Diagnosis Differential Diagnoses: The differential diagnosis associated with the presentation includes NSTEMI STEMI Atypical chest pain Viral illness Admission/Observation Consideration of admission/observation: Escalation of care including admission/observation considered Patient would have been admitted to the hospital had her work up had any findings where hospital admission was appropriate and her clinical presentation warranted hospital admission. Lab Data [facility] Lab Attestation statement: I reviewed the patient's lab results. My interpretation of these results are in the [facility] Rationale portion of this note. 03/31/24 06:22 03/31/24 06:22 Labs: Lab Results 03/31/24 Range/Units 06:22 WBC 7.7 (4.8-10.8) X10*3/uL RBC 4.49 (4.20-5.50) X10*6/uL Hgb 11.0 L (12.0-16.0) g/dl Hct 35.0 L (37.0-47.0) % MCV 78.0 L (80.0-98.0) fL MCH 24.5 L (27.0-33.0) pg MCHC 31.4 (31.0-35.0) g/dl RDW 14.9 (11.0-16.0) % Plt Count 332 (160-400) X10*3/uL MPV 9.2 L (9.4-12.3) fL Immature Gran % (Auto) 0.3 (0.0-0.4) % Neut % (Auto) 66.2 (45-73) % Lymph % (Auto) 21.6 (20-40) % [place] % (Auto) 7.6 (2-11) % Eos % (Auto) 3.9 (0-4) % Baso % (Auto) 0.4 (0-2) % Lymph # (Auto) 1.7 (1.2-4.9) X10*3/uL [place] # (Auto) 0.6 (0.1-1.2) X10*3/uL Eos # (Auto) 0.3 (0.0-0.4) X10*3/uL Baso # (Auto) 0.0 (0.0-0.2) X10*3/uL Abs Immat Gran (auto) 0.02 (0.00-0.03) X10*3/uL Absolute Neuts (auto) 5.1 (2.0-8.3) x10*3/uL Absolute Nucleated RBC 0.000 (0.0-0.012) X10*3/uL Nucleated RBC % (auto) 0.0 (0.0-0.2) /100WBC Sodium 140 (135-145) mmol/L Potassium 3.9 (3.3-5.1) mmol/L Chloride 110 H (96-108) mmol/L Carbon Dioxide 21 L (22-29) mmol/L Anion Gap 13 (12-20) BUN 12 (9-16) mg/dL Creatinine 0.70 (0.5-1.4) mg/dL Estim Creat Clear Calc TNP Estimated GFR > 60 Random Glucose 133 H (60-115) mg/dL Calcium 9.2 (8.4-10.2) mg/dL Troponin I High Sens < 2.7 (<3.5-17.0) ng/L Independent Interpretation I performed an independent interpretation of an: EKG and Plain X-Ray Interpretation: My interpretation is in agreement with the radiologist's impression of this imaging study. L EXAMINATION: XR CHEST CLINICAL INFORMATION: Off, chest tightness COMPARISON: Chest x-ray on 01/25/2024 TECHNIQUE: Frontal view of the chest was obtained. FINDINGS: No significant abnormality is noted involving the heart, lungs, mediastinum, bony thorax or soft tissues. XR/XR chest 1V IMPRESSION: Unremarkable examination. Electronically signed by: Effie Hanna MD 03/31/2024 08:48 AM EST Dictated By: Effie Hanna MD Signed By: Electronically signed by Effie Hanna MD 03/31/24 0848 Vent. Rate: 091 BPM Atrial Rate: 091 BPM P-R Int: 148 ms QRS Dur: 076 ms QT Int: 396 ms P-R-T Axes: 073 041 035 degrees QTc Int: 487 ms Normal sinus rhythm Possible Left atrial enlargement Prolonged QT When compared with ECG of 25-JAN-2024 13:51, No significant change was found Referred By: Generic ED Physician Electronically Signed By:HOWARD MEEHAN MD Dictated By: Howard Meehan MD Signed By: Electronically signed by Howard Meehan MD 03/31/24 0847 Radiology Impression Discussion of test interpretation with radiology: I have reviewed the radiologist's reading. Discharge Plan Discharge Clinical Impression: Atypical chest pain Patient Disposition: Home, Self-Care Instructions: Chest Pain (DC) Additional Instructions: Follow up with your primary care provider. Return to the emergency department immediately if your symptoms worsen or if you develop any dizziness, shortness of breath, difficulty breathing, chest pain, blurry vision, loss of vision, nausea, vomiting, abdominal pain, fever, chills, back pain, or any other complaints. Prescriptions: No Action metoprolol tartrate 50 mg tablet 100 mg PO BID 60 Days Qty: 120 3RF Rx Instructions: dose increase insulin lispro [Humalog KwikPen Insulin] 100 unit/mL insulin pen 10 unit subcut TIDAC hydroxyzine HCl 25 mg tablet 50 mg PO TID PRN (Reason: anxiety) lisinopril-hydrochlorothiazide 20-12.5 mg tablet 2 tab PO DAILY omega 6-mwv-dbc-fish oil [Fish Oil] 1,000 mg (120 mg-180 mg) Capsule 1 cap PO DAILY albuterol sulfate [Ventolin HFA] 90 mcg/actuation HFA aerosol inhaler 2 puff PO Q4-6H PRN (Reason: Shortness Of Breath Or Wheezing) Trulicity 1.5 mg/0.5 mL pen injector 1.5 mg subcut Rx Instructions: patient takes on Tuesdays Lantus Solostar U-100 Insulin 100 unit/mL (3 mL) insulin pen 15 unit subcut BEDTIME aspirin [Adult Low Dose Aspirin] 81 mg tablet,delayed release (DR/EC) 81 mg PO DAILY isosorbide mononitrate 30 mg tablet extended release 24 hr 30 mg PO DAILY Qty: 90 3RF nitroglycerin 0.4 mg tablet, sublingual 0.4 mg sublingual Q5M PRN (Reason: chest pain) Qty: 30 5RF Rx Instructions: do not exceed 3 doses per episode Referrals: Brigida Webb PA [Primary Care Provider] - Print Language: Macedonian
[2024-03-31 06:47] LABS: Troponin-I High Sensitivity < 2.7 ng/L (<3.5-17.0)
[2024-03-31 07:08] VITALS: BP 145/89; PULSE 82; RESP 16; TEMP 36.8; O2SAT 100; BMI 22.5
--- NOTE | 2024-03-31 07:13 | PC.NURSE ---
pt was directed bed to room 18 after ekg and labs obtained, rn was made aware and no triage was entered till this rn completed it.
[2024-03-31 08:15] VITALS: BP 153/93; PULSE 89; RESP 12; O2SAT 100
[2024-03-31 10:06] VITALS: BP 152/97; PULSE 83; RESP 17; TEMP 37; O2SAT 100
== END 2024-03-31 10:06 | disposition home or self-care (01) ==
PROVIDERS: Emergency Provider Emergency Medicine; PCP Physician Assistant
DX: R07.89 Other chest pain (principal); R53.83 Other fatigue; I10 Essential (primary) hypertension; Z79.899 Other long term (current) drug therapy
CPT/HCPCS: 36415; 71045; 80048; 84484; 85025; 93005; 99283; 99284

== ENCOUNTER → 2024-03-31 06:09 | Outpatient (BNV) | payer MEDICARE, MEDICAID, SELFPAY | PROVIDERS: Emergency Provider Emergency Medicine; PCP Physician Assistant; Visit Provider Internal Medicine Cardiovascular Disease | DX: R94.31 Abnormal electrocardiogram [ECG] [EKG] (principal) | CPT/HCPCS: 93010 ==

== ENCOUNTER 2024-04-28 06:47 | Emergency (ER) | payer MEDICARE, MEDICAID, SELFPAY ==
--- NOTE | 2024-04-28 06:50 | ECG_ITS ---
Test Reason : CHEST PAIN Blood Pressure : / mmHG Vent. Rate : 063 BPM Atrial Rate : 063 BPM P-R Int : 188 ms QRS Dur : 092 ms QT Int : 436 ms P-R-T Axes : 078 060 040 degrees QTc Int : 446 ms Normal sinus rhythm Normal ECG When compared with ECG of 31-MAR-2024 06:14, No significant change was found Referred By: Generic ED Physician Electronically Signed By:Anirudh Ohara
[2024-04-28 07:00] VITALS: BP 136/80; BP 139/85; PULSE 66; PULSE 70; RESP 18; TEMP 36.3; O2SAT 100; O2SAT 99; BMI 23.3
[2024-04-28 07:05] LABS: MANUAL DIFF FLAG NO
[2024-04-28 07:07] LABS: Basophils Percent Auto 0.2 % (0-2); Eosinophils Absolute Auto 0.2 X10*3/uL (0.0-0.4); Eosinophils Percent Auto 1.8 % (0-4); Hematocrit 33.3 % (37.0-47.0); Hemoglobin 10.2 g/dl (12.0-16.0); Imm Gran Abs Auto 0.05 X10*3/uL (0.00-0.03); Imm Gran Pct Auto 0.5 % (0.0-0.4); Lymphocytes Absolute Auto 1.5 X10*3/uL (1.2-4.9); Lymphocytes Percent Auto 13.7 % (20-40); Mean Corpuscular HGB Conc 30.6 g/dl (31.0-35.0); Mean Corpuscular Hemoglobin 24.2 pg (27.0-33.0); Mean Corpuscular Volume 79.1 fL (80.0-98.0); Mean Platelet Volume 9.4 fL (9.4-12.3); Monocytes Absolute Auto 0.7 X10*3/uL (0.1-1.2); Monocytes Percent Auto 6.3 % (2-11); Neutrophils Absolute Auto 8.2 x10*3/uL (2.0-8.3); Neutrophils Percent Auto 77.5 % (45-73); Platelet Count 327 X10*3/uL (160-400); Red Blood Count 4.21 X10*6/uL (4.20-5.50); White Blood Count 10.6 X10*3/uL (4.8-10.8)
[2024-04-28 07:24] LABS: Anion Gap 13 (12-20); Blood Urea Nitrogen 11 mg/dL (9-16); Calcium 9.2 mg/dL (8.4-10.2); Carbon Dioxide 24 mmol/L (22-29); Chloride 109 mmol/L (96-108); Creatinine Clr Calc Pharmacy 112.5; Estimated Glomerular Filt Rate > 60; Glucose Random 124 mg/dL (60-115); Potassium 3.7 mmol/L (3.3-5.1); Sodium 142 mmol/L (135-145)
[2024-04-28 07:34] LABS: Troponin-I High Sensitivity < 2.7 ng/L (<3.5-17.0)
--- NOTE | 2024-04-28 07:39 | ED.CHESTPAIN ---
HPI - Chest Pain General Chief Complaint: Chest Pain Stated Complaint: Heavy CP palpitations, daiphoresis 12lead unremark Time Seen by Provider: 04/28/24 07:18 Source: patient Mode of arrival: EMS History of Present Illness ED Provider: SUHAS ORTIZ narrative: 44-year-old female presents with complaints of waking up diaphoretic, palpitations with some mild chest discomfort. She reports that 2 months ago she was transferred over to [facility] for workup of an NSTEMI, she had a cardiac catheterization which they reported to her was within normal limits. She does have significant risk factors such as diabetes and high blood pressure. Related Data Home Medications ?Medication ?Instructions ?Recorded ?Confirmed albuterol sulfate 90 mcg/actuation 2 puff PO Q4-6H PRN Shortness Of 04/17/21 02/03/24 aerosol inhaler (Ventolin HFA) Breath Or Wheezing dulaglutide 1.5 mg/0.5 mL 1.5 mg subcut TU 04/21/22 02/03/24 subcutaneous pen injector (Trulicity) insulin glargine 100 unit/mL (3 15 unit subcut BEDTIME 04/21/22 02/03/24 mL) subcutaneous pen (Lantus Solostar U-100 Insulin) hydroxyzine HCl 25 mg tablet 50 mg PO TID PRN anxiety 01/13/24 02/03/24 insulin lispro 100 unit/mL 10 unit subcut TIDAC 01/13/24 02/03/24 subcutaneous pen (Humalog KwikPen (U-100) Insulin) lisinopril 20 2 tab PO DAILY 01/13/24 02/03/24 mg-hydrochlorothiazide 12.5 mg tablet omega 8-bxc-zac-fish oil 1,000 mg 1 cap PO DAILY 01/13/24 02/03/24 (120 mg-180 mg) capsule (Fish Oil) aspirin 81 mg tablet,delayed 81 mg PO DAILY 02/03/24 02/03/24 release (Adult Low Dose Aspirin) Previous Rx's ?Medication ?Instructions ?Recorded isosorbide mononitrate 30 mg 30 mg PO DAILY #90 tabs 02/03/24 tablet,extended release 24 hr nitroglycerin 0.4 mg sublingual 0.4 mg sublingual Q5M PRN chest 02/03/24 tablet pain #30 tabs metoprolol tartrate 50 mg tablet 100 mg (2 x 50 mg) PO BID 60 days 03/02/24 #120 tabs Allergies Allergy/AdvReac Type Severity Reaction Status Date / Time No Known Allergies Allergy Verified 04/28/24 07:06 Review of Systems Review of Systems: Pertinent positives and negatives as stated in [facility] Past Medical History Medical History Atherosclerotic cardiovascular disease Depression Anxiety HTN (hypertension) Diabetes Surgical History History of Hx of cholecystectomy Family History Family History Mother HTN (hypertension) Stroke Father HTN (hypertension) Cancer DM2 (diabetes mellitus, type 2) Social History Social History Alcohol intake: never Patient Tobacco Use Status: Never used Tobacco Advance Directives: No Advance Directives Information Provided: Yes Do you have a plan to hurt others: No Plan Physical Exam Vital Signs: Vital Signs: Last Vital Signs Temp 97.3 F 04/28/24 07:00 Pulse 66 04/28/24 07:00 Resp 18 04/28/24 07:00 BP 139/85 04/28/24 07:00 Pulse Ox 99 04/28/24 07:00 O2 Del Method Room Air 04/28/24 07:00 BMI result Body Mass Index 23.3 VITAL SIGNS: Reviewed. GENERAL: Well developed, well nourished, in no acute distress. HEAD: Normocephalic/atraumatic EYES: PERRLA, EOMI EARS: Ext canals without abnormality NOSE: Nares patent bilateral OROPHARYNX: no oral lesions noted, posterior pharynx clear NECK: Supple, no adenopathy LUNGS: Normal breath sounds. No adventitious sounds or accessory muscle use. SpO2<99> CARDIOVASCULAR: Regular rate and rhythm without noted murmurs ABDOMEN: Soft, non-tender, non-distended with bowel sounds. MUSCULOSKELETAL: No tenderness, deformities, or effusions noted on gross inspection. EXTREMITIES: No cyanosis, clubbing or edema. SKIN: Inspection of the skin reveals no rashes NEUROLOGIC: Alert and oriented x 4. Strength and sensation to light touch were grossly intact x 4. Medical Decision Making Medical Decision Making MDM Narrative: 44-year-old female with history and clinical presentation, DX: Anxiety, costochondritis/ musculoskeletal pain, palpitations not captured on EKG but patient did take her home dose of metoprolol prior to transport to the emergency room. EKG: Normal sinus rhythm, HR - 63, no STEMI, KS /QRS / QTC is within normal limits. I reviewed interpreted all investigations and there is no evidence of infectious leukocytosis, anemia, or thrombocytopenia. There is no demonstrate SHIV /electrolyte or liver enzyme derangements. High sensitivity troponins, completed serially are undetectable and no evidence of any rise and this is in light of a nonischemic EKG, no symptoms to suggest a bruising pneumonia or viral infection. My interpretation given the diaphoresis and heart palpitations is that patient may have been experiencing an acute anxiety attack, she is otherwise feeling well and stable for discharge to home instructed follow-up with your primary care doctor. Differential Diagnosis Differential Diagnoses: The differential diagnosis associated with the presentation includes See the discussion above Admission/Observation Consideration of admission/observation: Escalation of care including admission/observation considered patient does not meet inpatient level of care Lab Data [facility] Lab Attestation statement: I reviewed the patient's lab results. see above 04/28/24 07:00 04/28/24 07:00 Labs: Lab Results 04/28/24 04/28/24 Range/Units 07:00 08:29 WBC 10.6 (4.8-10.8) X10*3/uL RBC 4.21 (4.20-5.50) X10*6/uL Hgb 10.2 L (12.0-16.0) g/dl Hct 33.3 L (37.0-47.0) % MCV 79.1 L (80.0-98.0) fL MCH 24.2 L (27.0-33.0) pg MCHC 30.6 L (31.0-35.0) g/dl RDW 15.0 (11.0-16.0) % Plt Count 327 (160-400) X10*3/uL MPV 9.4 (9.4-12.3) fL Immature Gran % (Auto) 0.5 H (0.0-0.4) % Neut % (Auto) 77.5 H (45-73) % Lymph % (Auto) 13.7 L (20-40) % [place] % (Auto) 6.3 (2-11) % Eos % (Auto) 1.8 (0-4) % Baso % (Auto) 0.2 (0-2) % Lymph # (Auto) 1.5 (1.2-4.9) X10*3/uL [place] # (Auto) 0.7 (0.1-1.2) X10*3/uL Eos # (Auto) 0.2 (0.0-0.4) X10*3/uL Baso # (Auto) 0.0 (0.0-0.2) X10*3/uL Abs Immat Gran (auto) 0.05 H (0.00-0.03) X10*3/uL Absolute Neuts (auto) 8.2 (2.0-8.3) x10*3/uL Absolute Nucleated RBC 0.000 (0.0-0.012) X10*3/uL Nucleated RBC % (auto) 0.0 (0.0-0.2) /100WBC Sodium 142 (135-145) mmol/L Potassium 3.7 (3.3-5.1) mmol/L Chloride 109 H (96-108) mmol/L Carbon Dioxide 24 (22-29) mmol/L Anion Gap 13 (12-20) BUN 11 (9-16) mg/dL Creatinine 0.69 (0.5-1.4) mg/dL Estim Creat Clear Calc 112.5 Estimated GFR > 60 Random Glucose 124 H (60-115) mg/dL Calcium 9.2 (8.4-10.2) mg/dL Troponin I High Sens < 2.7 < 2.7 (<3.5-17.0) ng/L Independent Interpretation I performed an independent interpretation of an: EKG Interpretation: see above External Record Review External record reviewed: Inpatient record, Prior outpatient labs and Prior outpatient radiology Chronic Conditions Patient?s care impacted by: Diabetes and Hypertension Discharge Plan Discharge Clinical Impression: Anxiety attack, Chest pain Patient Disposition: Home, Self-Care Instructions: Anxiety (ED), Chest Pain (ED) Additional Instructions: Resume all home medications as prescribed. Your workup today was reassuring, however given your history and your underlying medical conditions do not hesitate to return to the emergency room for any recurrence of your symptoms. I do recommend that you follow-up with your primary care doctor within the next week. Prescriptions: No Action metoprolol tartrate 50 mg tablet 100 mg PO BID 60 Days Qty: 120 3RF Rx Instructions: dose increase insulin lispro [Humalog KwikPen Insulin] 100 unit/mL insulin pen 10 unit subcut TIDAC hydroxyzine HCl 25 mg tablet 50 mg PO TID PRN (Reason: anxiety) lisinopril-hydrochlorothiazide 20-12.5 mg tablet 2 tab PO DAILY omega 9-iyr-sdt-fish oil [Fish Oil] 1,000 mg (120 mg-180 mg) Capsule 1 cap PO DAILY albuterol sulfate [Ventolin HFA] 90 mcg/actuation HFA aerosol inhaler 2 puff PO Q4-6H PRN (Reason: Shortness Of Breath Or Wheezing) Trulicity 1.5 mg/0.5 mL pen injector 1.5 mg subcut Rx Instructions: patient takes on Tuesdays Lantus Solostar U-100 Insulin 100 unit/mL (3 mL) insulin pen 15 unit subcut BEDTIME aspirin [Adult Low Dose Aspirin] 81 mg tablet,delayed release (DR/EC) 81 mg PO DAILY isosorbide mononitrate 30 mg tablet extended release 24 hr 30 mg PO DAILY Qty: 90 3RF nitroglycerin 0.4 mg tablet, sublingual 0.4 mg sublingual Q5M PRN (Reason: chest pain) Qty: 30 5RF Rx Instructions: do not exceed 3 doses per episode Referrals: Norma Ortiz NP [Primary Care Provider] - Print Language: Iranian
[2024-04-28 09:03] LABS: Troponin-I High Sensitivity < 2.7 ng/L (<3.5-17.0)
[2024-04-28 10:22] VITALS: BP 142/74; PULSE 68; RESP 16; TEMP 36.7; O2SAT 100
== END 2024-04-28 10:23 | disposition home or self-care (01) ==
PROVIDERS: Emergency Provider Student in an Organized Health Care Education/Training Program; PCP Nurse Practitioner
DX: R07.89 Other chest pain (principal); R00.2 Palpitations; F41.9 Anxiety disorder, unspecified; Z79.899 Other long term (current) drug therapy
CPT/HCPCS: 36415; 80048; 84484; 85025; 93005; 99283

== ENCOUNTER → 2024-04-28 06:50 | Outpatient (BNV) | payer MEDICARE, MEDICAID, SELFPAY | PROVIDERS: Emergency Provider Student in an Organized Health Care Education/Training Program; PCP Nurse Practitioner; Visit Provider Internal Medicine Cardiovascular Disease | DX: R07.9 Chest pain, unspecified (principal) | CPT/HCPCS: 93010 ==

== ENCOUNTER 2024-06-06 08:03 | Outpatient (AMB) | payer MEDICARE, MEDICAID, SELFPAY ==
--- NOTE | 2024-06-06 08:27 | MHC.OFFVIS ---
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 Accompanied by: Spouse Allergies No Known Allergies Allergy (Verified 04/28/24 07:06) Medication List - Last Reconciled 06/06/24 by Petar Lucero MD albuterol sulfate 90 mcg/actuation (Ventolin HFA) 2 puffs PO Q4-6H PRN aspirin (Adult Low Dose Aspirin) 81 mg PO DAILY dulaglutide (Trulicity) 3 mg subcut TU hydroxyzine HCl 50 mg PO TID PRN insulin lispro (Humalog KwikPen (U-100) Insulin) 10 units subcut TIDAC isosorbide mononitrate ER 30 mg PO DAILY lisinopril-hydrochlorothiazide 20-12.5 mg 2 tabs PO DAILY metoprolol tartrate 100 mg PO DAILY nitroglycerin 0.4 mg sublingual Q5M PRN omega 7-cah-jwr-fish oil 1,000 (120-180) mg (Fish Oil) 1 cap PO DAILY HPI Comments Details: Christine returns for follow-up. In the past, she underwent cardiac workup with coronary CTA that showed mild CAD. She has got type 2 diabetes on insulin. Also has hypertension on medications. In 12/2023, she was seen as an inpatient with chest pressure and EKG changes and that led to a diagnostic catheterization. However, no interventions performed. Since last seen, she is mostly doing well. Has not really used any sublingual nitroglycerin. [facility] Medical History Atherosclerotic cardiovascular disease Depression Anxiety HTN (hypertension) Diabetes Surgical History History of Hx of cholecystectomy Family History Mother HTN (hypertension) Stroke Father HTN (hypertension) Cancer DM2 (diabetes mellitus, type 2) Social History Alcohol intake: never Patient Tobacco Use Status: Never used Tobacco Review of Systems Const Denies chills, Reports fatigue, Denies fever(s), Denies weight gain and Denies weight loss ENT Denies dizziness Card Denies chest pain, Denies leg edema, Denies lightheadedness, Denies palpitations, Reports dyspnea on exertion, Denies orthopnea and Denies other Resp Denies cough and Reports dyspnea on exertion GI Denies hematochezia and Denies change in stool character Musc Denies abnormal gait, Denies muscle weakness, Denies numbness, Denies radiating pain into limb and Denies tingling Neuro Denies abnormal gait, Denies dizziness, Denies numbness and Denies tingling Endo Reports fatigue and Denies palpitations Physical Exam Vital Signs: Last Vital Signs Pulse 70 06/06/24 08:28 BP 138/72 06/06/24 08:28 BMI result Body Mass Index 23.5 Const General: comfortable and no acute distress Orientation/consciousness: patient oriented x3 HEENT Other: Unremarkable Head: Yes normal to inspection Neck Neck: Yes normal visual inspection Chest Chest palpation & inspection: normal inspection of the chest Resp Auscultation: clear to auscultation bilaterally Cardio Palpation: normal PMI Heart sounds: S1 normal heart sound present, S2 normal heart sound present, no gallops, no murmurs and no rubs GI Palpation (GI): Soft to palpation Back/Spine/Pelvis Other: unremarkable Skin General skin exam: no rashes or lesions noted Neuro General: patient oriented x3 Extrem General: Yes normal to inspection Psych Mental Status: mental status grossly normal Assessment & Plan Assessment & Plan (1) Atherosclerotic cardiovascular disease: Code(s): I25.10 - Atherosclerotic heart disease of [place] coronary artery without angina pectoris Category: Medical Plan: Cardiac studies reviewed. In the EKG, she had sinus tachycardia with diffuse ST depression. Slight elevation of troponins. Echocardiogram with preserved LVEF and no overt wall motion abnormalities. Cardiac catheterization from 12/2023-normal left main; LAD with minimal irregularities; circumflex with minimal irregularity; OM1-40-50% stenosis; RCA with minimal irregularities. Overall, symptoms could be related to microvascular disease. On ASA, beta blockers, long acting nitrates. Sublingual nitroglycerin as needed. We will get lipids from PCP. Atorvastatin 80 mg and Simvastatin 40mg listed in different notes but not in today's list. Will need to check that as well with PCP med list. (2) Type 2 diabetes mellitus with unspecified complications: Code(s): E11.8 - Type 2 diabetes mellitus with unspecified complications Category: Medical Plan: She is on insulin, Trulicity. There is no recent hemoglobin A1c. We will request that from PCP. Random sugar is 124. (3) Essential hypertension: Code(s): I10 - Essential (primary) hypertension Category: Medical Plan: On lisinopril/hydrochlorothiazide. Borderline high BPs. According to patient, home blood pressures are in the 120s-130s systolic. She does not remember exactly. Seems reasonable. To be followed. Coding Level of Care Code Est Pt Level 4 (94497) Diagnoses Atherosclerotic cardiovascular disease I25.10 Type 2 diabetes mellitus with unspecified complications E11.8 Essential hypertension I10
[2024-06-06 08:28] VITALS: BP 138/72; PULSE 70; BMI 23.5
== END 2024-06-06 08:48 | disposition home or self-care (01) ==
PROVIDERS: PCP Nurse Practitioner; Visit Provider Internal Medicine
DX: I25.10 Atherosclerotic heart disease of native coronary artery without angina pectoris (principal); E11.8 Type 2 diabetes mellitus with unspecified complications; I10 Essential (primary) hypertension
CPT/HCPCS: 99214

== ENCOUNTER → 2024-06-06 08:03 | Outpatient (BNVA) | payer MEDICARE, MEDICAID, SELFPAY | PROVIDERS: PCP Nurse Practitioner; Visit Provider Internal Medicine | DX: I25.10 Atherosclerotic heart disease of native coronary artery without angina pectoris (principal); I10 Essential (primary) hypertension; E11.8 Type 2 diabetes mellitus with unspecified complications | CPT/HCPCS: 99212 ==

== ENCOUNTER 2024-06-15 09:07 | Outpatient (REF) | payer MEDICARE, MEDICAID, SELFPAY | END 2024-06-15 09:08 | disposition home or self-care (01) | LOC: HO.LAB 09:07 | PROVIDERS: PCP Nurse Practitioner; Visit Provider Internal Medicine | DX: Z13.89 Encounter for screening for other disorder (principal) ==

== ENCOUNTER 2024-06-20 09:31 | Outpatient (REF) | payer MEDICARE, MEDICAID, SELFPAY ==
[2024-06-20 11:16] LABS: Cholesterol 123 mg/dL (<200); HDL Cholesterol 39 mg/dL (>40); LDL Cholesterol Calculated 59 mg/dL (<100); Triglycerides 125 mg/dL (<150)
[2024-06-21 21:09] LABS: LDL Cholesterol Direct 74 mg/dL (<100)
== END 2024-06-20 09:32 | disposition home or self-care (01) ==
LOC: HO.LAB 09:31
PROVIDERS: PCP Nurse Practitioner; Visit Provider Internal Medicine
DX: E78.2 Mixed hyperlipidemia (principal); I21.4 Non-ST elevation (NSTEMI) myocardial infarction; E78.5 Hyperlipidemia, unspecified
CPT/HCPCS: 36415; 80061; 83721

== ENCOUNTER 2024-06-26 08:23 | Emergency (ER) | payer MEDICARE, MEDICAID, SELFPAY ==
--- NOTE | ~2024-06-26 | CT_ITS ---
CLINICAL HISTORY: right posterolateral rib lung pain CT chest without contrast Comparison: None Findings: There is no cardiomegaly. There is no atherosclerotic disease of the coronary arteries. No pericardial effusion or mediastinal adenopathy. No discrete thyroid lesion. The lungs demonstrate no focal consolidation or effusion. No pneumothorax. No rib fracture. Reformatted imaging of the thoracic spine demonstrates no fracture or malalignment. Mild degenerative changes are present. Visualized upper abdomen discussed on abdominal CT. Impression: No acute process in the chest. This document has been electronically signed by: Jake Sheldon MD on 06/26/2024 11:40:30
--- NOTE | ~2024-06-26 | CT_ITS ---
CLINICAL HISTORY: right flank, lower abd pain CT abdomen and pelvis without contrast Comparison: None Findings: The lung bases are clear. The unenhanced liver, spleen, adrenal glands and pancreas are unremarkable. The gallbladder is surgically absent. Kidneys again demonstrates several variable sized cysts. The largest on the right measures 4.8 cm in the largest on the left measures 3.5 cm. There is no hydronephrosis or hydroureter. The bladder is partially distended without focal abnormality. No bowel obstruction. The appendix is normal. Mild fecal retention within the colon. Diverticulosis without evidence of diverticulitis. The uterus is enlarged with multiple fibroids suggested, the largest along the left uterine body measuring up to 5.6 cm. Septated left adnexal cysts. There is a small volume of free fluid within the cul-de-sac. Impression: Several variable sized renal cysts. No current obstructive uropathy or urinary calculus. Small volume free fluid within the cul-de-sac. Prominent uterine fibroid. Septated left adnexal cyst, similar to prior. Mild diffuse fecal retention. Diverticulosis without diverticulitis. This document has been electronically signed by: Jake Sheldon MD on 06/26/2024 11:39:23
[2024-06-26 08:25] VITALS: BP 159/100; PULSE 87; RESP 16; TEMP 36.4; O2SAT 100; BMI 22.8
--- NOTE | 2024-06-26 08:29 | ECG_ITS ---
Test Reason : CHEST PAIN Blood Pressure : */* mmHG Vent. Rate : 86 BPM Atrial Rate : 86 BPM P-R Int : 160 ms QRS Dur : 76 ms QT Int : 380 ms P-R-T Axes : 76 46 40 degrees QTcB Int : 454 ms Normal sinus rhythm Possible Left atrial enlargement Low voltage QRS Borderline ECG When compared with ECG of 28-Apr-2024 06:44, No significant changes seen Referred By: Generic ED Physician Electronically Signed By: MARI GRANGER
[2024-06-26 09:05] LABS: MANUAL DIFF FLAG NO
[2024-06-26 09:06] LABS: Basophils Absolute Auto 0.1 X10*3/uL (0.0-0.2); Basophils Percent Auto 0.6 % (0-2); Eosinophils Absolute Auto 0.2 X10*3/uL (0.0-0.4); Eosinophils Percent Auto 2.6 % (0-4); Hematocrit 36.8 % (37.0-47.0); Hemoglobin 11.4 g/dl (12.0-16.0); Imm Gran Abs Auto 0.02 X10*3/uL (0.00-0.03); Imm Gran Pct Auto 0.3 % (0.0-0.4); Lymphocytes Absolute Auto 1.8 X10*3/uL (1.2-4.9); Lymphocytes Percent Auto 22.4 % (20-40); Mean Corpuscular Hemoglobin 23.4 pg (27.0-33.0); Mean Corpuscular Volume 75.6 fL (80.0-98.0); Mean Platelet Volume 10.1 fL (9.4-12.3); Monocytes Absolute Auto 0.6 X10*3/uL (0.1-1.2); Monocytes Percent Auto 7.5 % (2-11); Neutrophils Absolute Auto 5.3 x10*3/uL (2.0-8.3); Neutrophils Percent Auto 66.6 % (45-73); Platelet Count 347 X10*3/uL (160-400); Red Blood Count 4.87 X10*6/uL (4.20-5.50); Red Cell Distribution Width 16.1 % (11.0-16.0)
--- NOTE | 2024-06-26 09:13 | PC.NURSE ---
Pt presents to ED from home, reporting she was dx with UTI on 06/21, taking Macrobid (has one more dose). Reporting worsening in symptoms and bilat flank pain for past few days. Alert and oriented, breathing even and unlabored, skin warm and dry. NSR on bedside oracle obiee developer. Pain 11/01.
[2024-06-26 09:14] LABS: Appearance Urine Cloudy; Color Urine Yellow; Glucose Urine UA 500 mg/dL (Negative); Leukocyte Esterase Urine Negative (Negative); Nitrite Urine Negative (Negative); Urine Blood Negative (Negative); Urine Ketones Negative (Negative); Urine Protein Negative (Neg-Trace)
[2024-06-26 09:15] LABS: Alanine Aminotransferase 18 U/L (0-31); Albumin Level 4.5 g/dL (3.5-5.0); Alkaline Phosphatase 59 U/L (39-117); Anion Gap 14 (12-20); Aspartate Amino Transferase 29 U/L (5-31); Bilirubin Total 0.3 mg/dL (0.0-1.0); Blood Urea Nitrogen 12 mg/dL (9-16); Calcium 9.1 mg/dL (8.4-10.2); Carbon Dioxide 18 mmol/L (22-29); Chloride 108 mmol/L (96-108); Creatinine Clr Calc Pharmacy 103.4; Estimated Glomerular Filt Rate > 60; Glucose Random 243 mg/dL (60-115); Magnesium 1.9 mg/dL (1.6-2.6); Potassium 4.4 mmol/L (3.3-5.1); Sodium 136 mmol/L (135-145); Total Protein 8.1 g/dL (6.5-8.0)
[2024-06-26 09:16] LABS: Prothrombin Time 11.9 SEC (10.9-12.4)
[2024-06-26 09:22] LABS: Troponin-I High Sensitivity < 2.7 ng/L (<3.5-17.0)
--- NOTE | 2024-06-26 09:50 | ED.GENADULT ---
HPI - General Adult General Chief complaint: General Medical Stated complaint: uti Time Seen by Provider: 06/26/24 09:07 Source: patient, RN notes reviewed and old records reviewed Mode of arrival: ambulatory Limitations: no limitations History of Present Illness ED Provider: JO ANN SANTIAGO PA-C HPI narrative: 44 year old female with pmhx significant for NSTEMI, SHIV, T2DM, 2nd degree heart block, and HTN presents to the ED today for evaluation of right flank pain x2-3 days. She reports hx of recurrent UTIs. She recently saw her PCP regarding dysuria and pelvic pain where she was diagnosed with UTI on urine dipstick and started on macrobic. 2 days ago she began to develop right flank pain which radiates up into her right rib area and across her upper abdomen. She has not trialed any OTC analgesics at home. Endorses hx of pyelonephritis however this feels different. No hx of renal stones. Admits to constipation which is typical for her as she is on chronic iron supplementation. Her last BM was 2 days ago. She is passing flatus. Denies fever, chills, chest pain, sob, wheezing, cough/ hemoptysis, orthopnea, N/V/D, hematuria, vaginal bleeding or discharge. Related Data Home Medications ?Medication ?Instructions ?Recorded ?Confirmed albuterol sulfate 90 mcg/actuation 2 puff PO Q4-6H PRN Shortness Of 04/17/21 06/06/24 aerosol inhaler (Ventolin HFA) Breath Or Wheezing hydroxyzine HCl 25 mg tablet 50 mg PO TID PRN anxiety 01/13/24 06/06/24 insulin lispro 100 unit/mL 10 unit subcut TIDAC 01/13/24 06/06/24 subcutaneous pen (Humalog KwikPen (U-100) Insulin) lisinopril 20 2 tab PO DAILY 01/13/24 06/06/24 mg-hydrochlorothiazide 12.5 mg tablet omega 3-qwh-woi-fish oil 1,000 mg 1 cap PO DAILY 01/13/24 06/06/24 (120 mg-180 mg) capsule (Fish Oil) aspirin 81 mg tablet,delayed 81 mg PO DAILY 02/03/24 06/06/24 release (Adult Low Dose Aspirin) atorvastatin 80 mg tablet 80 mg PO DAILY 06/06/24 dulaglutide 1.5 mg/0.5 mL 3 mg subcut TU 06/06/24 06/06/24 subcutaneous pen injector (Trulicity) ferrous sulfate 325 mg (65 mg 325 mg PO DAILY 06/06/24 iron) tablet (FeroSul) gabapentin 100 mg capsule 100 mg PO DAILY PRN 06/06/24 ibuprofen 800 mg tablet 800 mg PO Q8H PRN 06/06/24 metoprolol tartrate 100 mg tablet 100 mg PO DAILY 06/06/24 06/06/24 paroxetine HCl 20 mg tablet 20 mg PO DAILY 06/06/24 Previous Rx's ?Medication ?Instructions ?Recorded isosorbide mononitrate 30 mg 30 mg PO DAILY #90 tabs 02/03/24 tablet,extended release 24 hr nitroglycerin 0.4 mg sublingual 0.4 mg sublingual Q5M PRN chest 02/03/24 tablet pain #30 tabs naproxen 500 mg tablet 500 mg PO BID 7 days #14 tabs 06/28/24 Allergies Allergy/AdvReac Type Severity Reaction Status Date / Time No Known Allergies Allergy Verified 06/26/24 08:26 [facility] Past Medical History Attestation statement: The following information was validated with the patient. Source: old records reviewed and nursing notes reviewed Medical History Atherosclerotic cardiovascular disease Depression Anxiety HTN (hypertension) Diabetes Surgical History History of Hx of cholecystectomy Family History Family History Mother HTN (hypertension) Stroke Father HTN (hypertension) Cancer DM2 (diabetes mellitus, type 2) Social History Social History Alcohol intake: never Patient Tobacco Use Status: Never used Tobacco Physical Exam ED Vital Signs: Vital Signs - 24 hr 06/26/24 08:25 06/26/24 10:03 Temperature 97.6 F Pulse Rate 87 84 Respiratory Rate 16 16 Blood Pressure 159/100 H 134/89 Pulse Oximetry 100 96 Oxygen Delivery Method Room Air Room Air BMI result Body Mass Index 22.8 hypertensive, vitals otherwise wnl General: Well appearing, in no acute distress. Skin: Warm, dry, intact. No rashes or lesions. Head: Normocephalic, atraumatic. EENT: Hearing is intact b/l. Conjunctiva clear. PERRLA. EOM intact. Moist mucous membranes.? Neck: Supple without LAD Cardiac: Chest wall symmetric. RRR. Lungs: Normal respiratory effort without accessory muscle use. CTA bilaterally. No rales, rhonchi, or wheezes.? Abdomen: Soft, non-tender, non-distended. No rebound tenderness or guarding. Positive BS x4. no cvat. Back: No midline spinous or paraspinal tenderness. No step off deformity. Ext: Upper and lower extremities atraumatic, without tenderness, deformity, swelling or erythema. Full ROM throughout. Neuro: AOx3. Normal speech. Ambulating with steady gait. Psych: Appropriate mood and affect. Responds appropriately to questions. Course Course Course Narrative: 1300 -- CBC without leukocytosis or left shift. Microcytic anemia, chronic when compared to priors. H&H above transfusion threshold. chemistry without acute electrolyte abnormality requiring intervention. no shiv. random glucose 243. no gap. initial troponin undetectable. delta trop flat. ekg showing normal sinus rhythm with a rate of 86 beats per minute, QT 380, QTC 434, no acute ischemic changes or ST elevations, no change when compared to priors. urine does not demonstrate infection or blood. ct scan of chest is unremarkable. there is no pneumonia or pleural effusion. ct scan of abdomen does not demonstrate renal infection or stones. it does demonstrate multiple cysts on both kidneys, ovarian cyst, uterine fibroid and constipation. > on re-evaluation, patient reports almost complete resolution of pain after receiving toradol. pain is currently 1/10 (improved from 7-9/10). i discussed all work up result with patient. she states she is aware of her renal cysts and has appropriate follow up with urology/ nephrology in 1 week. she also follows with her OBGYN for fibroids/ ovarian cysts which are likely contributing to her pelvic pain. will send naproxen for pain. advised to continue macrobid to completion. advised to take miralax/ colace to help move her bowels. advisde to keep outpatient follow up appointments. Patient has remained stable throughout ED visit today. Discussed worrisome signs and symptoms and when to return to the ED. All questions answered at this time. Patient is agreeable with disposition and stable for discharge. Medications Administered Discontinued Medications Generic Name Dose Route Start Last Admin Trade Name Freq PRN Reason Stop Dose Admin Ketorolac Tromethamine 15 mg 06/26/24 10:45 06/26/24 10:51 Ketorolac Tromethamine 15 Mg/Ml Vial IVPUSH 06/26/24 10:46 15 mg ONCE ONE Administration Medical Decision Making Medical Decision Making [facility] Narrative: 44 year old female with pmhx significant for NSTEMI, SHIV, T2DM, 2nd degree heart block, and HTN presents to the ED today for evaluation of right flank pain x2-3 days. hypertensive on arrival, vitals are otherwise wnl. physical exam is quite unremarkable. PERC 0 - PE unlikely. Differential diagnosis includes anemia, electrolyte abnormality, pneumonia, biliary colic, renal colic, nephrolithiasis, UTI. Abdominal exam without peritoneal signs. No evidence of acute abdomen at this time. Well appearing. Moderate suspicion for acute hepatobiliary disease (including acute cholecystitis). Less likely to represent acute pancreatitis, PUD (including perforation), acute infectious processes (pneumonia, hepatitis, pyelonephritis), atypical appendicitis, vascular catastrophe, bowel obstruction or viscus perforation. Presentation not consistent with other acute, emergent causes of abdominal pain at this time. Plan: labs, UA, pain control, imaging, serial reassessment Differential Diagnosis Differential Diagnoses: The differential diagnosis associated with the presentation includes as above. Admission/Observation not indicated. Lab Data [facility] Lab Attestation statement: I reviewed the patient's lab results. as above. 06/26/24 08:45 06/26/24 08:45 Labs: Lab Results 06/26/24 06/26/24 Range/Units 08:45 11:16 WBC 8.0 (4.8-10.8) X10*3/uL RBC 4.87 (4.20-5.50) X10*6/uL Hgb 11.4 L (12.0-16.0) g/dl Hct 36.8 L (37.0-47.0) % MCV 75.6 L (80.0-98.0) fL MCH 23.4 L (27.0-33.0) pg MCHC 31.0 (31.0-35.0) g/dl RDW 16.1 H (11.0-16.0) % Plt Count 347 (160-400) X10*3/uL MPV 10.1 (9.4-12.3) fL Immature Gran % (Auto) 0.3 (0.0-0.4) % Neut % (Auto) 66.6 (45-73) % Lymph % (Auto) 22.4 (20-40) % Morton % (Auto) 7.5 (2-11) % Eos % (Auto) 2.6 (0-4) % Baso % (Auto) 0.6 (0-2) % Lymph # (Auto) 1.8 (1.2-4.9) X10*3/uL Morton # (Auto) 0.6 (0.1-1.2) X10*3/uL Eos # (Auto) 0.2 (0.0-0.4) X10*3/uL Baso # (Auto) 0.1 (0.0-0.2) X10*3/uL Abs Immat Gran (auto) 0.02 (0.00-0.03) X10*3/uL Absolute Neuts (auto) 5.3 (2.0-8.3) x10*3/uL Absolute Nucleated RBC 0.000 (0.0-0.012) X10*3/uL Nucleated RBC % (auto) 0.0 (0.0-0.2) /100WBC PT 11.9 (10.9-12.4) SEC INR 1.0 (0.9-1.1) Sodium 136 (135-145) mmol/L Potassium 4.4 (3.3-5.1) mmol/L Chloride 108 (96-108) mmol/L Carbon Dioxide 18 L (22-29) mmol/L Anion Gap 14 (12-20) BUN 12 (9-16) mg/dL Creatinine 0.75 (0.5-1.4) mg/dL Estim Creat Clear Calc 103.4 Estimated GFR > 60 Random Glucose 243 H (60-115) mg/dL Calcium 9.1 (8.4-10.2) mg/dL Magnesium 1.9 (1.6-2.6) mg/dL Total Bilirubin 0.3 (0.0-1.0) mg/dL AST 29 (5-31) U/L ALT 18 (0-31) U/L Alkaline Phosphatase 59 (39-117) U/L Troponin I High Sens < 2.7 < 2.7 (<3.5-17.0) ng/L Total Protein 8.1 H (6.5-8.0) g/dL Albumin 4.5 (3.5-5.0) g/dL Urine Color Yellow Urine Appearance Cloudy Urine pH 5.0 (5.0-9.0) Ur Specific Mcfarlan 1.020 (1.005-1.025) Urine Protein Negative (Neg-Trace) mg/dL Urine Glucose (UA) 500 H (Negative) mg/dL Urine Ketones Negative (Negative) mg/dL Urine Blood Negative (Negative) Urine Nitrite Negative (Negative) Ur Leukocyte Esterase Negative (Negative) Independent Interpretation I performed an independent interpretation of an: CT Scan Interpretation: CT chest CT a/p Radiology Impression Discussion of test interpretation with radiology: I have reviewed the radiologist's reading. Radiologist Impression: Procedure(s): CT abdomen pelvis wo IV con Accession Number(s): [id number] cc: Norma Ortiz NP; Jo Ann Santiago~ Report Number: [id number]: Total DLP = 693.00 mGy-cm CLINICAL HISTORY: right flank, lower abd pain CT abdomen and pelvis without contrast Comparison: None Findings: The lung bases are clear. The unenhanced liver, spleen, adrenal glands and pancreas are unremarkable. The gallbladder is surgically absent. Kidneys again demonstrates several variable sized cysts. The largest on the right measures 4.8 cm in the largest on the left measures 3.5 cm. There is no hydronephrosis or hydroureter. The bladder is partially distended without focal abnormality. No bowel obstruction. The appendix is normal. Mild fecal retention within the colon. Diverticulosis without evidence of diverticulitis. The uterus is enlarged with multiple fibroids suggested, the largest along the left uterine body measuring up to 5.6 cm. Septated left adnexal cysts. There is a small volume of free fluid within the cul-de-sac. Impression: Several variable sized renal cysts. No current obstructive uropathy or urinary calculus. Small volume free fluid within the cul-de-sac. Prominent uterine fibroid. Septated left adnexal cyst, similar to prior. Mild diffuse fecal retention. Diverticulosis without diverticulitis. This document has been electronically signed by: Jake Sheldon MD on 06/26/2024 11:39:23 Procedure(s): CT chest wo IV con Accession Number(s): [id number] cc: Norma Ortiz NP; Jo Ann Santiago~ Report Number: [id number]: Total DLP = 693.00 mGy-cm CLINICAL HISTORY: right posterolateral rib lung pain CT chest without contrast Comparison: None Findings: There is no cardiomegaly. There is no atherosclerotic disease of the coronary arteries. No pericardial effusion or mediastinal adenopathy. No discrete thyroid lesion. The lungs demonstrate no focal consolidation or effusion. No pneumothorax. No rib fracture. Reformatted imaging of the thoracic spine demonstrates no fracture or malalignment. Mild degenerative changes are present. Visualized upper abdomen discussed on abdominal CT. Impression: No acute process in the chest. This document has been electronically signed by: Jake Sheldon MD on 06/26/2024 11:40:30 External Record Review External record reviewed: Inpatient record, Office record, Outpatient record, Prior outpatient labs, Prior outpatient radiology, Primary care record and Outside ED record Prescription Management I considered prescription management with: Pain Medication Chronic Conditions Patient?s care impacted by: Other (recurrent UTIs) Social Determinants Patient?s care significantly limited by Social Determinants of Health including: Other Social Determinant of Health Critical Care Time Critical Care Time Critical Care Time: No Discharge Plan Discharge Clinical Impression: Bilateral renal cysts, Uterine fibroid, Constipation Patient Disposition: Home, Self-Care Instructions: Constipation (ED), Kidney Cyst (ED) Additional Instructions: Your blood work today is reassuring. Your heart enzyme is normal x2. Your EKG is reassuring. Your urine does not demonstrate infection however I advise you to continue your macrobid script to completion. The CT scan of your chest is normal. As discussed, there were a few incidental findings on the CT scan of your abdomen/pelvis. The scan shows a various cyst to both of your kidneys that are evident on prior scans. You are aware of this and have follow-up in the next week and a half. There is no evidence of kidney infection or kidney stone. It also shows fibroids within your uterus. Please follow with your OBGYN as scheduled. It also shows mild fecal retention in your colon. No evidence of bowel obstruction. I recommend using stool softeners such as colace 100mg twice daily. You may also try over the counter laxatives like miralax. You reported improvement in symptoms with an anti-inflammatory in ED. I advise tylenol/ motrin. Return with new or worsening symptoms. In the case of an emergency call 911. Prescriptions: New naproxen 500 mg tablet 500 mg PO BID 7 Days Qty: 14 0RF No Action atorvastatin 80 mg tablet 80 mg PO DAILY paroxetine HCl 20 mg tablet 20 mg PO DAILY ferrous sulfate [FeroSul] 325 mg (65 mg iron) tablet 325 mg PO DAILY gabapentin 100 mg capsule 100 mg PO DAILY PRN ibuprofen 800 mg tablet 800 mg PO Q8H PRN insulin lispro [Humalog KwikPen Insulin] 100 unit/mL insulin pen 10 unit subcut TIDAC hydroxyzine HCl 25 mg tablet 50 mg PO TID PRN (Reason: anxiety) lisinopril-hydrochlorothiazide 20-12.5 mg tablet 2 tab PO DAILY omega 1-ebl-mih-fish oil [Fish Oil] 1,000 mg (120 mg-180 mg) Capsule 1 cap PO DAILY albuterol sulfate [Ventolin HFA] 90 mcg/actuation HFA aerosol inhaler 2 puff PO Q4-6H PRN (Reason: Shortness Of Breath Or Wheezing) Trulicity 1.5 mg/0.5 mL pen injector 3 mg subcut TU Rx Instructions: patient takes on Tuesdays aspirin [Adult Low Dose Aspirin] 81 mg tablet,delayed release (DR/EC) 81 mg PO DAILY isosorbide mononitrate 30 mg tablet extended release 24 hr 30 mg PO DAILY Qty: 90 3RF nitroglycerin 0.4 mg tablet, sublingual 0.4 mg sublingual Q5M PRN (Reason: chest pain) Qty: 30 5RF Rx Instructions: do not exceed 3 doses per episode metoprolol tartrate 100 mg tablet 100 mg PO DAILY Referrals: [facility] [place] Urology Services [Provider Group] Norma Ortiz NP [Primary Care Provider] - Bhupinder Montano MD [Physician] - Interventions: ED Discharge Assessment Last Done: 06/26/24 13:21 Discharge Date/Time: 06/26/24 13:22 Print Language: Sami
[2024-06-26 10:03] VITALS: BP 134/89; PULSE 84; RESP 16; O2SAT 96
[2024-06-26] MEDS: Ketorolac Tromethamine 15 MG/ML VIAL IVPUSH (10:51)
[2024-06-26 12:19] LABS: Troponin-I High Sensitivity < 2.7 ng/L (<3.5-17.0)
[2024-06-26 13:21] VITALS: BP 134/89; PULSE 84; RESP 16; TEMP 36.6; O2SAT 96
== END 2024-06-26 13:22 | disposition home or self-care (01) ==
PROVIDERS: Physician Assistant Medical; Emergency Provider Emergency Medicine; PCP Nurse Practitioner
DX: N39.0 Urinary tract infection, site not specified (principal); D25.9 Leiomyoma of uterus, unspecified; N28.1 Cyst of kidney, acquired; R07.81 Pleurodynia; K59.00 Constipation, unspecified; R10.2 Pelvic and perineal pain; R07.89 Other chest pain; E11.9 Type 2 diabetes mellitus without complications; I10 Essential (primary) hypertension; Z79.4 Long term (current) use of insulin; Z79.899 Other long term (current) drug therapy
CPT/HCPCS: 36415; 71250; 74176; 80053; 81003; 83735; 84484; 85025; 85610; 93005; 96374; 99284; 99285; J1885

== ENCOUNTER → 2024-06-26 08:29 | Outpatient (BNV) | payer MEDICARE, MEDICAID, SELFPAY | PROVIDERS: Emergency Provider Emergency Medicine; PCP Nurse Practitioner; Visit Provider Internal Medicine | DX: R07.9 Chest pain, unspecified (principal) | CPT/HCPCS: 93010 ==

== ENCOUNTER → 2024-06-26 10:18 | Outpatient (BNV) | payer MEDICARE, MEDICAID, SELFPAY | PROVIDERS: Emergency Provider Emergency Medicine; PCP Nurse Practitioner; Visit Provider Radiology Vascular & Interventional Radiology | DX: K57.90 Diverticulosis of intestine, part unspecified, without perforation or abscess without bleeding (principal); N28.1 Cyst of kidney, acquired; D25.9 Leiomyoma of uterus, unspecified; N83.8 Other noninflammatory disorders of ovary, fallopian tube and broad ligament; R07.81 Pleurodynia | CPT/HCPCS: 71250; 74176 ==

== ENCOUNTER 2024-08-19 09:04 | Emergency (ER) | payer MEDICARE, MEDICAID, SELFPAY ==
--- NOTE | ~2024-08-19 | CT_ITS ---
EXAMINATION: CTA NECK WITH CONTRAST (STROKE) CTA BRAIN WITH CONTRAST (STROKE) CLINICAL INFORMATION: Left-sided headache COMPARISON: Correlated to CT head dated November 09, 2021. TECHNIQUE: CTA of the head and neck was performed in the axial plane from the mediastinum to the skull vertex using 70 mL Omnipaque 350 intravenous contrast. Additional reformatted multiplanar images including maximum intensity projection MIP images are generated on the CT workstation. This CT examination was performed using dose optimization techniques as appropriate, variously including the following: *Automated exposure control *Adjustment of mA and/or kV according to patient size (this includes techniques or standardized protocols for targeted exams where dose is matched to indication/reason for exam; i.e. extremities or head) *Use of iterative reconstruction technique DLP: 1531 mGY centimeter. FINDINGS: The degree of stenosis determined by criteria similar to NASCET. Brain: No acute intracranial hemorrhage, mass effect, midline shift, hydrocephalus or herniation. Gruber-white matter differentiation is normal. Posterior cranial fossa contents demonstrated no acute intracranial hemorrhage or mass effect. Tympanic cavities and mastoid air cells are aerated. No air-fluid levels in the paranasal sinuses. Chest CTA: No aneurysm or dissection or focal stenosis, included aortic arch. Neck CTA: Right CCA: Normal patency. No focal stenosis. No intimal flap. Right ICA: Punctate calcification. Normal patency. No focal stenosis. No intimal flap. Left CCA: Normal patency. No focal stenosis. No intimal flap. Left ICA: Normal patency. No focal stenosis. No intimal flap. V1/V2 segments: Normal patency. No focal stenosis. No intimal flap. Left vertebral artery is slightly dominant. Both-origin from the subclavian artery. Brain CTA: Anterior cerebral circulation: ICAs: Focal calcifications in the supraclinoid segment left ICA. Normal patency. No focal stenosis. No abrupt cut off. MCA's: Normal patency. No focal stenosis. No abrupt cut off. Bifurcation/trifurcation demonstrated no vascular irregularity. ACAs: Normal patency. No focal stenosis. No abrupt cut off. Anterior communicating artery is patent. Posterior communicating arteries are patent. Ophthalmic arteries are patent without vascular irregularity at the origin. Posterior cerebral circulation: V3/V4 segments: Normal patency. No focal stenosis. No intimal flap. Left vertebral artery is dominant. Left posterior inferior cerebral artery has an extradural origin no focal stenosis or intimal flap. Normal patency. Right anterior inferior cerebral arteries patent with intradural origin. Basilar artery: Normal patency. No focal stenosis. No intimal flap. Anterior inferior cerebellar arteries are patent. Superior cerebellar arteries are patent. [employer] scout: Normal patency. No focal stenosis. No abrupt cut off. Ancillary findings: Main cerebral venous sinuses are patent without intraluminal filling defect. Marginal osteophyte formation and endplate sclerosis and decreased intervertebral disc height C5-6 and C6-7 levels. Poor dentition.. CT/CT angio head neck IMPRESSION: No high degree stenosis or dissection. No main cerebral artery occlusion or embolus. No gross cerebral aneurysm. Electronically signed by: Jimmie Harris MD 08/19/2024 11:32 AM EDT
[2024-08-19 09:07] VITALS: BP 150/96; PULSE 97; RESP 18; TEMP 36.6; O2SAT 100; BMI 23.8
--- NOTE | 2024-08-19 09:12 | ECG_ITS ---
Test Reason : left side weakness Blood Pressure : */* mmHG Vent. Rate : 100 BPM Atrial Rate : 100 BPM P-R Int : 152 ms QRS Dur : 74 ms QT Int : 356 ms P-R-T Axes : 59 34 12 degrees QTcB Int : 459 ms Normal sinus rhythm Normal ECG When compared with ECG of 26-Jun-2024 08:34, Nonspecific T wave abnormality no longer evident in Anterior leads Referred By: Generic ED Physician Electronically Signed By: ROSALINDA MEEHAN MD
--- NOTE | 2024-08-19 09:40 | ED.HA ---
HPI - Headache General Chief Complaint: Headache Stated Complaint: headache Time Seen by Provider: 08/19/24 09:23 Source: patient and old records reviewed Mode of arrival: ambulatory Limitations: no limitations History of Present Illness ED Provider: PENNY OTRIZ Narrative: 44 yo female with PMH of SHIV, NSTEMI, CAD, DM, HTN, 2nd degree heart block who presents with c/o 2 weeks of intermittent L sided headache then feels her face goes a little tingly on L cheek, her eye twitches and she has some intermittent blurred vision when trying to focus on things closely out of L eye, heaving to L arm. She denies recent trauma, chiropractor, thinner use. She has not had a migraine since she was very young. She was referred here by her PCP for possible stroke work up. She has fam hx of this in her mom. No preceding URI, dental work, sinus infection. MD elicited complaint: headache Onset (ago): week(s) (2) Onset description: gradually and while at rest Location: left, temporal and occipital Severity: moderate Quality & Timing: dull and intermittent Exacerbating factors: none Relieving factors: nothing Context: occurred at rest Associated symptoms: tingling and numbness Treatments prior to arrival: none Related Data Home Medications ?Medication ?Instructions ?Recorded ?Confirmed albuterol sulfate 90 mcg/actuation 2 puff PO Q4-6H PRN Shortness Of 04/17/21 06/06/24 aerosol inhaler (Ventolin HFA) Breath Or Wheezing hydroxyzine HCl 25 mg tablet 50 mg PO TID PRN anxiety 01/13/24 06/06/24 insulin lispro 100 unit/mL 10 unit subcut TIDAC 01/13/24 06/06/24 subcutaneous pen (Humalog KwikPen (U-100) Insulin) lisinopril 20 2 tab PO DAILY 01/13/24 06/06/24 mg-hydrochlorothiazide 12.5 mg tablet omega 8-hob-ocr-fish oil 1,000 mg 1 cap PO DAILY 01/13/24 06/06/24 (120 mg-180 mg) capsule (Fish Oil) aspirin 81 mg tablet,delayed 81 mg PO DAILY 02/03/24 06/06/24 release (Adult Low Dose Aspirin) atorvastatin 80 mg tablet 80 mg PO DAILY 06/06/24 dulaglutide 1.5 mg/0.5 mL 3 mg subcut TU 06/06/24 06/06/24 subcutaneous pen injector (Trulicity) ferrous sulfate 325 mg (65 mg 325 mg PO DAILY 06/06/24 iron) tablet (FeroSul) gabapentin 100 mg capsule 100 mg PO DAILY PRN 06/06/24 ibuprofen 800 mg tablet 800 mg PO Q8H PRN 06/06/24 metoprolol tartrate 100 mg tablet 100 mg PO DAILY 06/06/24 06/06/24 paroxetine HCl 20 mg tablet 20 mg PO DAILY 06/06/24 Previous Rx's ?Medication ?Instructions ?Recorded isosorbide mononitrate 30 mg 30 mg PO DAILY #90 tabs 02/03/24 tablet,extended release 24 hr nitroglycerin 0.4 mg sublingual 0.4 mg sublingual Q5M PRN chest 02/03/24 tablet pain #30 tabs naproxen 500 mg tablet 500 mg PO BID 7 days #14 tabs 06/28/24 Allergies Allergy/AdvReac Type Severity Reaction Status Date / Time No Known Allergies Allergy Verified 08/19/24 09:11 Review of Systems Review of Systems: Constitutional : No Fever, No Chills, No Fatigue ENT/Mouth : No sore throat, No Rhinorrhea Eyes: No Eye Pain, No Swelling, No Redness Cardiovascular : No Chest Pain, No SOB, No Dyspnea on Exertion Respiratory : No Cough, No Sputum Gastrointestinal : No Nausea, No Vomiting, No Diarrhea, No abdominal Pain Genitourinary : No Dysuria, No Urinary Frequency, No Hematuria, Musculoskeletal : No joint pain, No Myalgias, No Joint Swelling Skin : No Skin Lesions, No rash Neuro : pos Weakness, pos Numbness, No Dizziness, positive Headache Psych : No Anxiety/Panic, No Depression Heme/Lymph: No Bruising, No Bleeding,No Lymphadenopathy Endocrine : No Polyuria, No Polydipsia All other systems reviewed and are negative [facility] Past Medical History Attestation statement: The following information was validated with the patient. Source: old records reviewed Medical History Atherosclerotic cardiovascular disease Depression Anxiety HTN (hypertension) Diabetes Surgical History History of Hx of cholecystectomy Family History Family History Mother HTN (hypertension) Stroke Father HTN (hypertension) Cancer DM2 (diabetes mellitus, type 2) Social History Social History Alcohol intake: never Patient Tobacco Use Status: Never used Tobacco Smoked in Last 30 Days: No Use of substances other than those prescribed or required for medical reasons: No Advance Directives: No Advance Directives Information Provided: Yes Patient : No Physical Exam Vital Signs: Vital Signs: Last Vital Signs Temp 97.9 F 08/19/24 11:51 Pulse 94 08/19/24 11:51 Resp 16 08/19/24 11:51 BP 148/99 H 08/19/24 11:51 Pulse Ox 100 08/19/24 11:51 O2 Del Method Room Air 08/19/24 11:51 BMI result Body Mass Index 23.8 Appearance: Alert. Oriented X3. No acute distress. Eyes: Pupils equal, round and reactive to light. ENT: Pharynx normal. TMs normal Neck: Normal inspection. Neck supple. CVS: Normal heart rate and rhythm. Pulses normal. Respiratory: No respiratory distress. Breath sounds normal. Abdomen: Soft and nontender. Skin: Skin warm and dry. Normal skin color. Normal skin turgor. Extremities: No lower extremity edema. No calf ttp Neuro: Oriented X 3. No motor deficit. No sensory deficit. CN2-12 intact NIH Stroke Scale Internal: Initial- Upon Arrival Level of Consciousness: Alert Level of Consciousness Questions: Answers both questions correctly Level of Consciousness Commands: Performs both tasks correctly Best Gaze: Normal Visual: No visual loss Facial Palsy: Normal Motor Arm (Right): No drift Motor Arm (Left): No drift Motor Leg (Right): No drift Motor Leg (Left): No drift Limb Ataxia: Absent Sensory: Normal Best Language: No aphasia Dysarthia: Normal Extinction and Inattention: No abnormality Score: 0 Medications Administered Discontinued Medications Generic Name Dose Route Start Last Admin Trade Name Freq PRN Reason Stop Dose Admin Iohexol 100 ml 08/19/24 11:12 08/19/24 11:13 Iohexol 350 Mg/Ml 100 Ml Infus..Btl IV 08/19/24 11:13 70 ml ONCE ONE Administration Medical Decision Making Medical Decision Making MDM Narrative: 44 yo female with PMH of SHIV, NSTEMI, CAD, DM, HTN, 2nd degree heart block who presents with c/o intermittent 2 weeks of L sided headache, numbness, L arm weakness, some intermittent visual changes right now no symptoms present she could have migraine, tension headache, CVA, vascular dissection - at this time given the duration she is not a candidate for TNK she has no deficits on exam, her NIH is 0. Will obtain EKG, lytes and CTA head and neck. She also c/o mild tightness in chest when walking but no pain - EKG and trop ordered Differential Diagnosis Differential Diagnoses: The differential diagnosis associated with the presentation includes migraine, TIA, CVA, tension headache Admission/Observation Consideration of admission/observation: Escalation of care including admission/observation considered 1-2 weeks of symptoms at this time NIH o CTA negative can continue aspirin and follow up with PCP Lab Data MDM Lab Attestation statement: I reviewed the patient's lab results. 08/19/24 10:07 08/19/24 10:07 Labs: Lab Results 08/19/24 Range/Units 10:07 WBC 5.3 (4.8-10.8) X10*3/uL RBC 4.35 (4.20-5.50) X10*6/uL Hgb 10.5 L (12.0-16.0) g/dl Hct 32.8 L (37.0-47.0) % MCV 75.4 L (80.0-98.0) fL MCH 24.1 L (27.0-33.0) pg MCHC 32.0 (31.0-35.0) g/dl RDW 15.9 (11.0-16.0) % Plt Count 301 (160-400) X10*3/uL MPV 9.3 L (9.4-12.3) fL Immature Gran % (Auto) 0.4 (0.0-0.4) % Neut % (Auto) 69.2 (45-73) % Lymph % (Auto) 20.3 (20-40) % [place] % (Auto) 7.4 (2-11) % Eos % (Auto) 2.3 (0-4) % Baso % (Auto) 0.4 (0-2) % Lymph # (Auto) 1.1 L (1.2-4.9) X10*3/uL [place] # (Auto) 0.4 (0.1-1.2) X10*3/uL Eos # (Auto) 0.1 (0.0-0.4) X10*3/uL Baso # (Auto) 0.0 (0.0-0.2) X10*3/uL Abs Immat Gran (auto) 0.02 (0.00-0.03) X10*3/uL Absolute Neuts (auto) 3.7 (2.0-8.3) x10*3/uL Absolute Nucleated RBC 0.000 (0.0-0.012) X10*3/uL Nucleated RBC % (auto) 0.0 (0.0-0.2) /100WBC Sodium 139 (135-145) mmol/L Potassium 4.5 (3.3-5.1) mmol/L Chloride 110 H (96-108) mmol/L Carbon Dioxide 22 (22-29) mmol/L Anion Gap 12 (12-20) BUN 14 (9-16) mg/dL Creatinine 0.75 (0.5-1.4) mg/dL Estim Creat Clear Calc 103.4 Estimated GFR > 60 Random Glucose 204 H (60-115) mg/dL Calcium 8.9 (8.4-10.2) mg/dL Magnesium 1.7 (1.6-2.6) mg/dL Total Bilirubin 0.3 (0.0-1.0) mg/dL AST 16 (5-31) U/L ALT 14 (0-31) U/L Alkaline Phosphatase 54 (39-117) U/L Troponin I High Sens < 2.7 (<3.5-17.0) ng/L Total Protein 6.8 (6.5-8.0) g/dL Albumin 4.1 (3.5-5.0) g/dL Beta HCG, Quant < 2 mIU/mL Independent Interpretation I performed an independent interpretation of an: EKG and CT Scan (normal ) Interpretation: Rate: 100 Rhythm: NSR [place]: normal Normal P waves. Normal LORI. Normal QRS complex. ST T wave : normal no MARLYN qTC: 459 prior studies: no acute ischemia The study has been interpreted contemporaneously by me. . Radiology Impression Discussion of test interpretation with radiology: I have reviewed the radiologist's reading. External Record Review External record reviewed: Outpatient record Discharge Plan Discharge Clinical Impression: Left-sided headache Patient Disposition: Home, Self-Care Instructions: Acute Headache (DC) Additional Instructions: labs reassuring EKG reassuring CTA of the head and neck normal no signs of abnormal brain imaging and anterior and posterior vessels are open and patent please continue your aspirin and follow up with your doctor you may need outpatient MRI/holter monitor/ECHO return for any worsening symptoms or concerns. Prescriptions: No Action atorvastatin 80 mg tablet 80 mg PO DAILY paroxetine HCl 20 mg tablet 20 mg PO DAILY ferrous sulfate [FeroSul] 325 mg (65 mg iron) tablet 325 mg PO DAILY gabapentin 100 mg capsule 100 mg PO DAILY PRN ibuprofen 800 mg tablet 800 mg PO Q8H PRN insulin lispro [Humalog KwikPen Insulin] 100 unit/mL insulin pen 10 unit subcut TIDAC hydroxyzine HCl 25 mg tablet 50 mg PO TID PRN (Reason: anxiety) lisinopril-hydrochlorothiazide 20-12.5 mg tablet 2 tab PO DAILY omega 0-kop-mqa-fish oil [Fish Oil] 1,000 mg (120 mg-180 mg) Capsule 1 cap PO DAILY naproxen 500 mg tablet 500 mg PO BID 7 Days Qty: 14 0RF albuterol sulfate [Ventolin HFA] 90 mcg/actuation HFA aerosol inhaler 2 puff PO Q4-6H PRN (Reason: Shortness Of Breath Or Wheezing) Trulicity 1.5 mg/0.5 mL pen injector 3 mg subcut Rx Instructions: patient takes on Tuesdays aspirin [Adult Low Dose Aspirin] 81 mg tablet,delayed release (DR/EC) 81 mg PO DAILY isosorbide mononitrate 30 mg tablet extended release 24 hr 30 mg PO DAILY Qty: 90 3RF nitroglycerin 0.4 mg tablet, sublingual 0.4 mg sublingual Q5M PRN (Reason: chest pain) Qty: 30 5RF Rx Instructions: do not exceed 3 doses per episode metoprolol tartrate 100 mg tablet 100 mg PO DAILY Stand Alone Forms: Work/School Release Interventions: ED Discharge Assessment Last Done: 08/19/24 11:51 Discharge Date/Time: 08/19/24 11:53 Print Language: Greek
[2024-08-19 10:07] VITALS: BP 129/87; PULSE 91; RESP 16; O2SAT 100
[2024-08-19 10:11] LABS: MANUAL DIFF FLAG NO
[2024-08-19 10:14] LABS: Basophils Percent Auto 0.4 % (0-2); Eosinophils Absolute Auto 0.1 X10*3/uL (0.0-0.4); Eosinophils Percent Auto 2.3 % (0-4); Hematocrit 32.8 % (37.0-47.0); Hemoglobin 10.5 g/dl (12.0-16.0); Imm Gran Abs Auto 0.02 X10*3/uL (0.00-0.03); Imm Gran Pct Auto 0.4 % (0.0-0.4); Lymphocytes Absolute Auto 1.1 X10*3/uL (1.2-4.9); Lymphocytes Percent Auto 20.3 % (20-40); Mean Corpuscular Hemoglobin 24.1 pg (27.0-33.0); Mean Corpuscular Volume 75.4 fL (80.0-98.0); Mean Platelet Volume 9.3 fL (9.4-12.3); Monocytes Absolute Auto 0.4 X10*3/uL (0.1-1.2); Monocytes Percent Auto 7.4 % (2-11); Neutrophils Absolute Auto 3.7 x10*3/uL (2.0-8.3); Neutrophils Percent Auto 69.2 % (45-73); Platelet Count 301 X10*3/uL (160-400); Red Blood Count 4.35 X10*6/uL (4.20-5.50); Red Cell Distribution Width 15.9 % (11.0-16.0); White Blood Count 5.3 X10*3/uL (4.8-10.8)
[2024-08-19 10:29] LABS: Alanine Aminotransferase 14 U/L (0-31); Albumin Level 4.1 g/dL (3.5-5.0); Alkaline Phosphatase 54 U/L (39-117); Anion Gap 12 (12-20); Aspartate Amino Transferase 16 U/L (5-31); Bilirubin Total 0.3 mg/dL (0.0-1.0); Blood Urea Nitrogen 14 mg/dL (9-16); Calcium 8.9 mg/dL (8.4-10.2); Carbon Dioxide 22 mmol/L (22-29); Chloride 110 mmol/L (96-108); Creatinine Clr Calc Pharmacy 103.4; Estimated Glomerular Filt Rate > 60; Glucose Random 204 mg/dL (60-115); Magnesium 1.7 mg/dL (1.6-2.6); Potassium 4.5 mmol/L (3.3-5.1); Sodium 139 mmol/L (135-145); Total Protein 6.8 g/dL (6.5-8.0)
[2024-08-19 10:37] LABS: HCG Quantitative < 2 mIU/mL; Troponin-I High Sensitivity < 2.7 ng/L (<3.5-17.0)
[2024-08-19] MEDS: iohexoL 350 MG/ML 100 ML INFUS..BTL IV (11:13)
[2024-08-19 11:47] VITALS: BP 148/99; PULSE 94; RESP 16; O2SAT 100
[2024-08-19 11:51] VITALS: BP 148/99; PULSE 94; RESP 16; TEMP 36.6; O2SAT 100
== END 2024-08-19 11:53 | disposition home or self-care (01) ==
PROVIDERS: Emergency Provider Emergency Medicine; PCP Nurse Practitioner
DX: R51.9 Headache, unspecified (principal); R29.700 NIHSS score 0; I10 Essential (primary) hypertension; E11.9 Type 2 diabetes mellitus without complications; I44.1 Atrioventricular block, second degree; Z79.02 Long term (current) use of antithrombotics/antiplatelets; Z79.899 Other long term (current) drug therapy; Z79.4 Long term (current) use of insulin; Z79.85 Long-term (current) use of injectable non-insulin antidiabetic drugs
CPT/HCPCS: 36415; 70496; 70498; 80053; 83735; 84484; 84702; 85025; 93005; 99284; 99285; Q9967

== ENCOUNTER → 2024-08-19 09:12 | Outpatient (BNV) | payer MEDICARE, MEDICAID, SELFPAY | PROVIDERS: Emergency Provider Emergency Medicine; PCP Nurse Practitioner; Visit Provider Internal Medicine Cardiovascular Disease | DX: R53.1 Weakness (principal) | CPT/HCPCS: 93010 ==

== ENCOUNTER → 2024-08-19 09:50 | Outpatient (BNV) | payer MEDICARE, MEDICAID, SELFPAY | PROVIDERS: Emergency Provider Emergency Medicine; PCP Nurse Practitioner; Visit Provider Radiology Diagnostic Radiology | DX: R51.9 Headache, unspecified (principal) | CPT/HCPCS: 70496; 70498 ==

== ENCOUNTER 2024-09-18 16:02 | Outpatient (REF) | payer MEDICARE, MEDICAID, SELFPAY ==
--- NOTE | ~2024-09-18 | MR_ITS ---
EXAMINATION: MR BRAIN WITHOUT AND WITH CONTRAST CLINICAL INFORMATION: Headache. COMPARISON: August 29, 2006. TECHNIQUE: Multiplanar, multisequence MRI of the brain was obtained before and after the intravenous administration of 7.5 mL gadolinium based without reported immediate complications.. FINDINGS: No restricted diffusion. No acute intracranial hemorrhage, mass effect, midline shift, hydrocephalus or herniation. Gruber-white matter differentiation is normal. Posterior cranial fossa contents demonstrated no acute intracranial hemorrhage or mass effect. There is a focal hyperintense T2 no restricted diffusion and intermediate T1 signal in the right petrous apex. Flow-void signal within the main cerebral vessels is normal. Sellar/suprasellar region demonstrated no gross masses or signal abnormality. Craniocervical junction is intact and normal No abnormal enhancement within the intra-axial or the extra-axial compartment.. MR/MR head/brain wo/w con IMPRESSION: No enhancing mass/lesion. No acute brain abnormality. Questionable mucocele versus atypical cholesterol granuloma, right petrous apex. Electronically signed by: Jimmie Harris MD 09/21/2024 12:09 PM EDT
[2024-09-18] MEDS: gadobutroL 7.5 ML VIAL IVPUSH (16:40)
== END 2024-09-18 16:03 | disposition home or self-care (01) ==
LOC: HO.MRI 16:02
PROVIDERS: PCP Physician Assistant; Visit Provider Physician Assistant
DX: R20.0 Anesthesia of skin (principal)
CPT/HCPCS: 70553; A9585

== ENCOUNTER → 2024-09-18 16:23 | Outpatient (BNV) | payer MEDICARE, MEDICAID, SELFPAY | PROVIDERS: PCP Physician Assistant; Visit Provider Radiology Diagnostic Radiology | DX: R51.9 Headache, unspecified (principal) | CPT/HCPCS: 70553 ==

== ENCOUNTER 2024-09-21 21:38 | Emergency (ER) | payer MEDICARE, MEDICAID, SELFPAY ==
--- NOTE | 2024-09-21 | ECG_ITS ---
Test Reason : CP Blood Pressure : */* mmHG Vent. Rate : 88 BPM Atrial Rate : 88 BPM P-R Int : 160 ms QRS Dur : 70 ms QT Int : 370 ms P-R-T Axes : 76 46 22 degrees QTcB Int : 447 ms Normal sinus rhythm Nonspecific ST abnormality Abnormal ECG When compared with ECG of 19-Aug-2024 09:15, No significant change was found Referred By: Generic ED Physician Electronically Signed By: Anirudh Ohara
--- NOTE | ~2024-09-21 | XR_ITS ---
CLINICAL HISTORY: cp 2 view chest x-ray Comparison: Chest x-ray from 03/31/2024 Findings: No consolidation, pneumothorax, or pleural effusion. Heart size is normal. Mild degenerative changes of the imaged AC joints. IMPRESSION: No consolidation. This document has been electronically signed by: Zain Lenug MD on 09/21/2024 23:22:57
[2024-09-21 21:45] VITALS: BP 154/94; PULSE 95; RESP 17; TEMP 36.9; O2SAT 100; BMI 24.1
[2024-09-21 21:56] LABS: MANUAL DIFF FLAG NO
[2024-09-21 21:58] LABS: Basophils Percent Auto 0.4 % (0-2); Eosinophils Absolute Auto 0.2 X10*3/uL (0.0-0.4); Eosinophils Percent Auto 3.1 % (0-4); Hematocrit 32.5 % (37.0-47.0); Hemoglobin 10.2 g/dl (12.0-16.0); Imm Gran Abs Auto 0.01 X10*3/uL (0.00-0.03); Imm Gran Pct Auto 0.1 % (0.0-0.4); Lymphocytes Absolute Auto 1.9 X10*3/uL (1.2-4.9); Lymphocytes Percent Auto 27.1 % (20-40); Mean Corpuscular HGB Conc 31.4 g/dl (31.0-35.0); Mean Corpuscular Hemoglobin 23.4 pg (27.0-33.0); Mean Corpuscular Volume 74.7 fL (80.0-98.0); Mean Platelet Volume 9.4 fL (9.4-12.3); Monocytes Absolute Auto 0.5 X10*3/uL (0.1-1.2); Monocytes Percent Auto 7.3 % (2-11); Neutrophils Absolute Auto 4.3 x10*3/uL (2.0-8.3); Platelet Count 334 X10*3/uL (160-400); Red Blood Count 4.35 X10*6/uL (4.20-5.50); White Blood Count 6.9 X10*3/uL (4.8-10.8)
[2024-09-21 22:15] LABS: Alanine Aminotransferase 18 U/L (0-31); Albumin Level 4.2 g/dL (3.5-5.0); Alkaline Phosphatase 52 U/L (39-117); Aspartate Amino Transferase 20 U/L (5-31); Bilirubin Total 0.1 mg/dL (0.0-1.0); Blood Urea Nitrogen 14 mg/dL (9-16); Calcium 9.6 mg/dL (8.4-10.2); Creatinine Clr Calc Pharmacy 103.4; Estimated Glomerular Filt Rate > 60; Glucose Random 123 mg/dL (60-115); Total Protein 7.2 g/dL (6.5-8.0)
[2024-09-21 22:19] LABS: Troponin-I High Sensitivity < 2.7 ng/L (<3.5-17.0)
[2024-09-21 22:24] LABS: Anion Gap 15 (12-20); Carbon Dioxide 24 mmol/L (22-29); Chloride 107 mmol/L (96-108); Potassium 3.6 mmol/L (3.3-5.1); Sodium 142 mmol/L (135-145)
[2024-09-22 00:09] VITALS: BP 120/79; PULSE 88; RESP 18; TEMP 36.8; O2SAT 100
--- NOTE | 2024-09-22 00:25 | ED.CHESTPAIN ---
HPI - Chest Pain General Chief Complaint: Chest Pain Stated Complaint: cp radiating in back; hx heart attack Time Seen by Provider: 09/22/24 00:24 Source: patient Mode of arrival: ambulatory Limitations: no limitations History of Present Illness ED Provider: Dr. Juan Roger HPI narrative: 44-year-old female with a history anxiety, diabetes mellitus, hypertension, CTA with mild CAD, EKG changes 12/2023 which led to a diagnostic catheterization with no intervention, who presents emergency department for evaluation of chest pain x3 days. The patient states that the pain came on gradually, has been constant but waxes and wanes in intensity. She describes the pain as a sharp/pressure-like pain which is 8/10 at its worse. The pain was 4/10 at the time of her evaluation in the emergency department. Pain does radiate to her left back. It is associated with shortness of breath, dyspnea on exertion. She states the pain is worse with certain movements of her arm and chest in his worse with breathing. She states that the pain is different than the pain she was having in 12/2023 She denied fever, chills, cough, nausea, vomiting, diaphoresis. Related Data Home Medications ?Medication ?Instructions ?Recorded ?Confirmed albuterol sulfate 90 mcg/actuation 2 puff PO Q4-6H PRN Shortness Of 04/17/21 06/06/24 aerosol inhaler (Ventolin HFA) Breath Or Wheezing hydroxyzine HCl 25 mg tablet 50 mg PO TID PRN anxiety 01/13/24 06/06/24 insulin lispro 100 unit/mL 10 unit subcut TIDAC 01/13/24 06/06/24 subcutaneous pen (Humalog KwikPen (U-100) Insulin) lisinopril 20 2 tab PO DAILY 01/13/24 06/06/24 mg-hydrochlorothiazide 12.5 mg tablet omega 4-sby-acq-fish oil 1,000 mg 1 cap PO DAILY 01/13/24 06/06/24 (120 mg-180 mg) capsule (Fish Oil) aspirin 81 mg tablet,delayed 81 mg PO DAILY 02/03/24 06/06/24 release (Adult Low Dose Aspirin) atorvastatin 80 mg tablet 80 mg PO DAILY 06/06/24 dulaglutide 1.5 mg/0.5 mL 3 mg subcut TU 06/06/24 06/06/24 subcutaneous pen injector (Trulicity) ferrous sulfate 325 mg (65 mg 325 mg PO DAILY 06/06/24 iron) tablet (FeroSul) gabapentin 100 mg capsule 100 mg PO DAILY PRN 06/06/24 ibuprofen 800 mg tablet 800 mg PO Q8H PRN 06/06/24 metoprolol tartrate 100 mg tablet 100 mg PO DAILY 06/06/24 06/06/24 paroxetine HCl 20 mg tablet 20 mg PO DAILY 06/06/24 Previous Rx's ?Medication ?Instructions ?Recorded isosorbide mononitrate 30 mg 30 mg PO DAILY #90 tabs 02/03/24 tablet,extended release 24 hr nitroglycerin 0.4 mg sublingual 0.4 mg sublingual Q5M PRN chest 02/03/24 tablet pain #30 tabs naproxen 500 mg tablet 500 mg PO BID 7 days #14 tabs 06/28/24 Allergies Allergy/AdvReac Type Severity Reaction Status Date / Time No Known Allergies Allergy Verified 09/21/24 21:47 Review of Systems Review of Systems: Yes all other systems are reviewed and are negative [facility] Past Medical History [facility] Narrative: Social history: She denies tobacco, alcohol and drug use. Medical History Atherosclerotic cardiovascular disease Depression Anxiety HTN (hypertension) Diabetes Surgical History History of Hx of cholecystectomy Family History Family History Mother HTN (hypertension) Stroke Father HTN (hypertension) Cancer DM2 (diabetes mellitus, type 2) Social History Social History Alcohol intake: never Patient Tobacco Use Status: Never used Tobacco Advance Directives: No Advance Directives Information Provided: Yes Do you have a plan to hurt others: No Plan Physical Exam Vital Signs: Vital Signs: Last Vital Signs Temp 98.2 F 09/22/24 00:09 Pulse 88 09/22/24 00:09 Resp 18 09/22/24 00:09 BP 120/79 09/22/24 00:09 Pulse Ox 100 09/22/24 00:09 O2 Del Method Room Air 09/22/24 00:09 BMI result Body Mass Index 24.1 Vital signs were normal Exam: General: Awake, alert in no distress Head: Normocephalic, atraumatic EENT: PERRL, Lids normal, sclera normal, conjunctiva normal, nose normal , ears normal, throat without erythema or exudates Neck: Supple, no adenopathy Lung: breath sounds symmetric, no wheezing, rales or rhonchi Chest: symmetric movement, mild to moderate left anterior chest wall tenderness Heart: regular rate and rhythm, normal S1, S2 no murmurs or rubs Abdomen: soft, non-tender, nondistended, normal bowel sounds Back: no vertebral tenderness, no CVAT Extremities: no deformities, moves all extremities symmetrically Neuro: Awake, alert, oriented, normal speech, cranial nerves intact, moves all extremities symmetrically Psych: Pleasant, cooperative Medical Decision Making Medical Decision Making MDM Narrative: 44-year-old female with a history anxiety, diabetes mellitus, hypertension, CTA with mild CAD, EKG changes 12/2023 which led to a diagnostic catheterization with no intervention, who presents emergency department for evaluation of constant, waxing and waning pressure/sharp left anterior chest pain x3 days. Pain is associated with shortness of breath and dyspnea on exertion, exacerbated by movement of her arm and chest as well as taking deep breaths in and out. Patient was pain was 8/10 at its worse and 4/10 at the time my evaluation in the emergency department. Vital signs were normal. Physical examination did reveal left anterior chest wall tenderness otherwise unremarkable. Differential diagnosis: ?Includes but is not limited to myocardial infarction, myocardial ischemia, costochondritis, musculoskeletal pain, pulmonary embolism, pleuritic pain, anemia, electrolyte abnormalities Course: 00:58 My interpretation patient's laboratory evaluation is as follows: Microcytic anemia with an H&H of 10.2 and 32.5 that MCV of 74-she was had this before in the past. Patient most likely has iron deficient anemia and I did discuss this with her. Patient's CMP revealed an elevated glucose of 123 otherwise unremarkable. High sensitive troponin I was below detectable limits. Chest x-ray revealed no acute disease. Twelve EKG was unchanged from previous 1 and no evidence for myocardial infarction or myocardial ischemia. It was time I do not think the patient's pain is caused by myocardial injury or pulmonary embolism. Patient did have chest wall tenderness in her pain is most likely musculoskeletal in origin. I did discuss this with her. Patient was advised to take Tylenol and ibuprofen for pain. She was given printed and verbal instructions and discharged home. Admission/Observation Consideration of admission/observation: Escalation of care including admission/observation considered (Yes) Lab Data [facility] Lab Attestation statement: I reviewed the patient's lab results. 09/21/24 21:52 09/21/24 21:52 Labs: Lab Results 09/21/24 Range/Units 21:52 WBC 6.9 (4.8-10.8) X10*3/uL RBC 4.35 (4.20-5.50) X10*6/uL Hgb 10.2 L (12.0-16.0) g/dl Hct 32.5 L (37.0-47.0) % MCV 74.7 L (80.0-98.0) fL MCH 23.4 L (27.0-33.0) pg MCHC 31.4 (31.0-35.0) g/dl RDW 15.0 (11.0-16.0) % Plt Count 334 (160-400) X10*3/uL MPV 9.4 (9.4-12.3) fL Immature Gran % (Auto) 0.1 (0.0-0.4) % Neut % (Auto) 62.0 (45-73) % Lymph % (Auto) 27.1 (20-40) % [place] % (Auto) 7.3 (2-11) % Eos % (Auto) 3.1 (0-4) % Baso % (Auto) 0.4 (0-2) % Lymph # (Auto) 1.9 (1.2-4.9) X10*3/uL [place] # (Auto) 0.5 (0.1-1.2) X10*3/uL Eos # (Auto) 0.2 (0.0-0.4) X10*3/uL Baso # (Auto) 0.0 (0.0-0.2) X10*3/uL Abs Immat Gran (auto) 0.01 (0.00-0.03) X10*3/uL Absolute Neuts (auto) 4.3 (2.0-8.3) x10*3/uL Absolute Nucleated RBC 0.000 (0.0-0.012) X10*3/uL Nucleated RBC % (auto) 0.0 (0.0-0.2) /100WBC Sodium 142 (135-145) mmol/L Potassium 3.6 (3.3-5.1) mmol/L Chloride 107 (96-108) mmol/L Carbon Dioxide 24 (22-29) mmol/L Anion Gap 15 (12-20) BUN 14 (9-16) mg/dL Creatinine 0.75 (0.5-1.4) mg/dL Estim Creat Clear Calc 103.4 Estimated GFR > 60 Random Glucose 123 H (60-115) mg/dL Calcium 9.6 D (8.4-10.2) mg/dL Total Bilirubin 0.1 (0.0-1.0) mg/dL AST 20 (5-31) U/L ALT 18 (0-31) U/L Alkaline Phosphatase 52 (39-117) U/L Troponin I High Sens < 2.7 (<3.5-17.0) ng/L Total Protein 7.2 (6.5-8.0) g/dL Albumin 4.2 (3.5-5.0) g/dL Independent Interpretation I performed an independent interpretation of an: EKG and Plain X-Ray (Two-view chest x-ray) Interpretation: My independent interpretation patient's 12 lead you chest x-ray done on 09/21/2024 at 21:42 hours is as follows: Sinus rhythm with a rate of 88, normal TX interval, QRS duration QTC interval, no ST segment elevation, no ST segment depression. Compared to EKG dated 08/19/2024 at 09:15 hours there is no significant change My independent interpretation of the patient's chest x-ray is as follows: No acute disease Radiology Impression Discussion of test interpretation with radiology: I have reviewed the radiologist's reading. Radiologist Impression: 2 view chest x-ray Comparison: Chest x-ray from 03/31/2024 Findings: No consolidation, pneumothorax, or pleural effusion. Heart size is normal. Mild degenerative changes of the imaged AC joints. IMPRESSION: No consolidation. This document has been electronically signed by: Zain Leung MD on 09/21/2024 23:22:57 External Record Review External record reviewed: Office record (Dr. Lucero's office note 06/06/2024) Chronic Conditions Patient?s care impacted by: Diabetes and Hypertension Discharge Plan Discharge Clinical Impression: Acute chest wall pain Patient Disposition: Home, Self-Care Additional Instructions: Your blood work did revealed that you were mildly anemic. This is most likely caused by low iron in your blood secondary to your menstrual bleeding. Every month when you bleed you lose iron and sometimes it is hard to replace the amount of iron you need just by eating. I want you to increase your iron supplement to 1 pill daily for the next month and follow up with your doctor to check to see if this improves your anemia. Your chest x-ray was normal. Your EKG was unremarkable and unchanged from your previous EKG. Your high sensitive troponin I (marker of heart attack/heart damage) was below detectable limits which is reassuring. At this time I do not think that your chest pain is caused by your heart in his more related to the muscles or joints of your chest. Take ibuprofen 200 mg pills, 2 pills every 6 hours as needed for pain or fever. Take Tylenol (acetaminophen) 500 mg pills, 2 pills every 6 hours as needed for pain or fever. Follow-up with your doctor in 2 days. Please return to the emergency department if your symptoms get worse or if you develop any symptoms that are concerning to you. Prescriptions: No Action atorvastatin 80 mg tablet 80 mg PO DAILY paroxetine HCl 20 mg tablet 20 mg PO DAILY ferrous sulfate [FeroSul] 325 mg (65 mg iron) tablet 325 mg PO DAILY gabapentin 100 mg capsule 100 mg PO DAILY PRN ibuprofen 800 mg tablet 800 mg PO Q8H PRN insulin lispro [Humalog KwikPen Insulin] 100 unit/mL insulin pen 10 unit subcut TIDAC hydroxyzine HCl 25 mg tablet 50 mg PO TID PRN (Reason: anxiety) lisinopril-hydrochlorothiazide 20-12.5 mg tablet 2 tab PO DAILY omega 3-krp-hwj-fish oil [Fish Oil] 1,000 mg (120 mg-180 mg) Capsule 1 cap PO DAILY naproxen 500 mg tablet 500 mg PO BID 7 Days Qty: 14 0RF albuterol sulfate [Ventolin HFA] 90 mcg/actuation HFA aerosol inhaler 2 puff PO Q4-6H PRN (Reason: Shortness Of Breath Or Wheezing) Trulicity 1.5 mg/0.5 mL pen injector 3 mg subcut Rx Instructions: patient takes on Tuesdays aspirin [Adult Low Dose Aspirin] 81 mg tablet,delayed release (DR/EC) 81 mg PO DAILY isosorbide mononitrate 30 mg tablet extended release 24 hr 30 mg PO DAILY Qty: 90 3RF nitroglycerin 0.4 mg tablet, sublingual 0.4 mg sublingual Q5M PRN (Reason: chest pain) Qty: 30 5RF Rx Instructions: do not exceed 3 doses per episode metoprolol tartrate 100 mg tablet 100 mg PO DAILY Print Language: Malay
[2024-09-22 01:01] VITALS: BP 120/79; PULSE 88; RESP 18; TEMP 36.8; O2SAT 100
== END 2024-09-22 01:02 | disposition home or self-care (01) ==
PROVIDERS: Emergency Provider Emergency Medicine Emergency Medical Services; PCP Physician Assistant
DX: R07.89 Other chest pain (principal); E11.9 Type 2 diabetes mellitus without complications; I10 Essential (primary) hypertension; Z79.02 Long term (current) use of antithrombotics/antiplatelets; Z79.4 Long term (current) use of insulin; Z79.899 Other long term (current) drug therapy
CPT/HCPCS: 36415; 71046; 80053; 84484; 85025; 93005; 99283

== ENCOUNTER → 2024-09-21 21:42 | Outpatient (BNV) | payer MEDICARE, MEDICAID, SELFPAY | PROVIDERS: Emergency Provider Emergency Medicine Emergency Medical Services; PCP Physician Assistant; Visit Provider Internal Medicine Cardiovascular Disease | DX: R94.31 Abnormal electrocardiogram [ECG] [EKG] (principal); R07.9 Chest pain, unspecified | CPT/HCPCS: 93010 ==

== ENCOUNTER → 2024-09-21 22:45 | Outpatient (BNV) | payer MEDICARE, MEDICAID, SELFPAY | PROVIDERS: Emergency Provider Emergency Medicine Emergency Medical Services; PCP Physician Assistant; Visit Provider Radiology Neuroradiology | DX: R07.9 Chest pain, unspecified (principal) | CPT/HCPCS: 71046 ==

== ENCOUNTER → 2024-09-23 09:08 | Outpatient (REF) | payer MEDICARE, MEDICAID, SELFPAY ==
--- NOTE | 2024-09-23 09:14 | CA_ITS ---
Acquisition Time: 2024-09-23 09:35:27 Total Exercise Time: 00:06:36 Test Indications: CP Medications: SEE H&P Protocol: RAFAEL Max HR: 169 BPM 96% of Pred: 176 BPM Max BP: 164/80 mmHG Max Work Load: 7.9 METS Exercise stress test with exercise 6 mins 36 secs of Rafael Protocol, achieving 93% MPHR, with reports of 4/10 left sided chest tightness and SOB, without any arrythmias, with normotensive response to exercise. With borderline ST depression inferiorly and anterolaterally, meeting criteria for possible ischemia. In recovery, chest tightness and SOB resolved. ST segment improved. Will order nuclear test for further evaluation. Test reviewed with Dr. Ohara. Referred By: Brigida Hendricks Electronically Signed By: Wilfredo Tejada
== END ==
LOC: HO.CARD 09:08
PROVIDERS: PCP Physician Assistant; Visit Provider Physician Assistant
DX: R07.89 Other chest pain (principal)
CPT/HCPCS: 93017

== ENCOUNTER → 2024-09-23 09:14 | Outpatient (BNV) | payer MEDICARE, MEDICAID, SELFPAY | PROVIDERS: PCP Physician Assistant | DX: R07.2 Precordial pain (principal); R06.02 Shortness of breath | CPT/HCPCS: 93016; 93018 ==

== ENCOUNTER → 2024-11-24 07:46 | Outpatient (REF) | payer MEDICARE, MEDICAID, SELFPAY ==
--- NOTE | ~2024-11-24 | NM_ITS ---
EXERCISE MYOCARDIAL PERFUSION STUDY INDICATION: Precordial chest pain to evaluate for myocardial ischemia TECHNIQUE: The patient was brought in for an exercise perfusion study on November 24, 2024. Patient performed exercise as per Benjamin protocol and was injected 25 mCi of sestamibi once target heart rate was achieved. Images were obtained using the SPECT gamma camera interlaced with the gating device. Images were obtained in supine position. Resting perfusion study was performed on November 28, 2024. Patient was administered 25 mCi of sestamibi intravenously at rest. Images were then obtained in supine position. Images obtained without without CT attenuation. Total DLP 119 mGy-cm Images were processed with the software and compared side to side in short axis, horizontal long axis and vertical long axis views. FINDINGS: Raw images were reviewed The stress perfusion study showed nonattenuated images show normal uptake of radiotracer in all segments of the LV myocardium. Attenuated corrected images show mildly reduced uptake in the distal anterior and apical wall of the LV myocardium.. The gated study shows normal LV systolic function with yearly estimated LVEF of greater than 60%. LV cavity is normal in size. The gated study shows normal systolic wall thickening and contraction of segments. Resting study shows no change in perfusion pattern compared to stress perfusion study. Gating at rest reveals normal-sized colic wall motion with ejection fraction at greater than 60%. The findings are consistent with normal myocardial perfusion. NM/NM cardiolite stress test IMPRESSION: 1. Myocardial perfusion imaging study shows normal myocardial perfusion. 2. Gated LVEF is greater than 60%. 3. Transient ischemic dilatation not present. EKG revealed borderline positive for ischemia. Electronically signed by: Howard Pitt MD 11/28/2024 03:27 PM EDT
--- NOTE | 2024-11-24 07:48 | CA_ITS ---
Acquisition Time: 2024-11-24 07:59:40 Total Exercise Time: 00:06:11 Test Indications: CAD Medications: SEE H&P Protocol: RAFAEL Max HR: 155 BPM 88% of Pred: 176 BPM Max BP: 210/74 mmHG Max Work Load: 7.0 METS Exercise stress test with exercise 6 mins 11 secs of Rafael Protocol, achioeving 86% MPHR, with reports of SOB and 6/10 left sided chest tightness, without any arrythmias, with hypertensive response to exercise- max BP 210/74. With borderline ST changes inferiorly and anterolaterally; baseline nonspecific ST-T waves. In recovery, pt's breathing returned to baseline. Chest tightness gradually improved.ST segment imporved. Nuclear images pending. Test reviewed with Dr. Pitt. Referred By: Wilfredo Tejada Electronically Signed By: Wilfredo Tejada
== END ==
LOC: HO.CARD 07:46
PROVIDERS: PCP Physician Assistant
DX: R94.39 Abnormal result of other cardiovascular function study (principal); R07.2 Precordial pain
CPT/HCPCS: 78452; 93017; A9500

== ENCOUNTER → 2024-11-24 07:48 | Outpatient (BNV) | payer MEDICARE, MEDICAID, SELFPAY | PROVIDERS: PCP Physician Assistant | DX: R07.2 Precordial pain (principal) | CPT/HCPCS: 78452; 93016; 93018 ==

== ENCOUNTER 2024-12-13 08:35 | Outpatient (AMB) | payer MEDICARE, MEDICAID, SELFPAY ==
[2024-12-13 08:42] VITALS: BP 138/78; PULSE 93; BMI 25.6
--- NOTE | 2024-12-13 08:42 | A.OFFVIS_ITS ---
Vital Signs 12/13/24 08:42 Height 5 ft 10 in Weight 178 lb 9.191 oz BMI 25.6 BP 138/78 Blood Pressure Location Rt brachial Position Sitting Pulse 93 Pulse Source Monitor Intake Visit Reasons: 6m follow up Allergies No Known Allergies Allergy (Verified 09/21/24 21:47) Medication List - Last Reconciled 12/13/24 by Petar Lucero MD albuterol sulfate 90 mcg/actuation (Ventolin HFA) 2 puffs PO Q4-6H PRN aspirin (Adult Low Dose Aspirin) 81 mg PO DAILY atorvastatin 80 mg PO DAILY dulaglutide (Trulicity) 3 mg subcut TU ferrous sulfate (FeroSul) 325 mg PO DAILY hydroxyzine HCl 50 mg PO TID PRN ibuprofen 800 mg PO Q8H PRN insulin lispro (Humalog KwikPen (U-100) Insulin) 10 units subcut TIDAC isosorbide mononitrate ER 30 mg PO DAILY lisinopril-hydrochlorothiazide 20-12.5 mg 2 tabs PO DAILY metoprolol tartrate 100 mg PO DAILY naproxen 500 mg PO BID 7 days nitroglycerin 0.4 mg sublingual Q5M PRN omega 6-guj-ybq-fish oil 1,000 (120-180) mg (Fish Oil) 1 cap PO DAILY paroxetine HCl 20 mg PO DAILY HPI Comments Details: Christine returns for follow-up. In the past, she underwent cardiac workup with coronary CTA that showed mild CAD. She has diabetes and hypertension. In 2023, she was seen as an inpatient with chest pressure and EKG changes and that led to a diagnostic catheterization. However, no interventions performed. For the most part, she is doing fine. No clear-cut angina but she gets some rare, transient chest pains of uncertain nature. [facility] Medical History Atherosclerotic cardiovascular disease Depression Anxiety HTN (hypertension) Diabetes Surgical History History of Hx of cholecystectomy Family History Mother HTN (hypertension) Stroke Father HTN (hypertension) Cancer DM2 (diabetes mellitus, type 2) Social History Alcohol intake: never Patient Tobacco Use Status: Never used Tobacco Review of Systems Const Denies weakness ENT Denies dizziness Card Reports chest pain, Reports chest pain at rest, Reports chest pain with activity, Denies syncope, Denies rapid heart rate, Denies pedal edema, Denies edema, Denies leg edema, Denies lightheadedness, Reports palpitations, Denies dyspnea, Denies dyspnea on exertion and Denies orthopnea Resp Denies cough, Denies dyspnea and Denies dyspnea on exertion GI Denies hematochezia and Denies change in stool character Musc Denies abnormal gait, Denies muscle cramps, Denies muscle weakness, Denies numbness, Denies radiating pain into limb and Denies tingling Neuro Denies abnormal gait, Denies dizziness, Denies syncope, Denies numbness, Denies tingling and Denies weakness Endo Reports palpitations Physical Exam Vital Signs: Last Vital Signs Pulse 93 12/13/24 08:42 BP 138/78 12/13/24 08:42 BMI result Body Mass Index 25.6 Const General: comfortable and no acute distress Orientation/consciousness: patient oriented x3 HEENT Other: Unremarkable Head: Yes normal to inspection Neck Neck: Yes normal visual inspection Chest Chest palpation & inspection: normal inspection of the chest Resp Auscultation: clear to auscultation bilaterally Cardio Palpation: normal PMI Heart sounds: S1 normal heart sound present, S2 normal heart sound present, no gallops, no murmurs and no rubs GI Palpation (GI): Soft to palpation Back/Spine/Pelvis Other: unremarkable Skin General skin exam: no rashes or lesions noted Neuro General: patient oriented x3 Extrem General: Yes normal to inspection Psych Mental Status: mental status grossly normal Office Procedures EKG Details: EKG with underlying sinus rhythm at 93/Min; rightward axis; nonspecific ST-T changes; [place]. [address]-[id number], Complete Assessment & Plan Assessment & Plan (1) Atherosclerotic cardiovascular disease: Code(s): I25.10 - Atherosclerotic heart disease of [place] coronary artery without angina pectoris Category: Medical Plan: Cardiac studies reviewed. In the EKG, she had sinus tachycardia with diffuse ST depression. Slight elevation of troponins. Echocardiogram with preserved LVEF and no overt wall motion abnormalities. Cardiac catheterization from 12/2023-normal left main; LAD with minimal irregularities; circumflex with minimal irregularity; OM1-40-50% stenosis; RCA with minimal irregularities. Overall, symptoms could be related to microvascular disease. On ASA, beta blockers, long acting nitrates. Sublingual nitroglycerin as needed. (2) Type 2 diabetes mellitus with unspecified complications: Code(s): E11.8 - Type 2 diabetes mellitus with unspecified complications Category: Medical Plan: She is on insulin, Trulicity. Last hemoglobin A1c is 7.4%. (3) Essential hypertension: Code(s): I10 - Essential (primary) hypertension Category: Medical Plan: Stable. No changes. (4) Hyperlipidemia, unspecified: Code(s): E78.5 - Hyperlipidemia, unspecified Category: Medical Plan: Last LDL 134 mg/dL. Triglycerides 146 mg/dL. On high-dose statins. Add Zetia. If cholesterol is still high, probably needs Repatha or Praluent. Medications: New ezetimibe (Zetia) 10 mg PO DAILY 90 tabs 3RF Coding Level of Care Code Est Pt Level 4 (77997) Complex EM visit Add On G2211 Diagnoses Atherosclerotic cardiovascular disease I25.10 Type 2 diabetes mellitus with unspecified complications E11.8 Essential hypertension I10 Hyperlipidemia, unspecified E78.5 CPT Codes EKG - CPT: 81795-[id number], Complete ([id number])
--- OUTSIDE RECORDS SUMMARY | 2024-12-13 08:53 | XMS_ITS | Encounter Summary ---
Author Organization [facility] Address [address] [facility] [address] [place] [phone] Phone Care Team Providers Care Home Security Professional Name Role Phone Brigida Hendricks Primary Care Provider [phone] Encounter Details Date Type Department Care Team (Late st Contact Info) Description 08/22/2024 Transcribe Orders Virtual Department [address] [place] [address] Norma Ortiz NP [address] [place] [address] [email or web address] Breast screening (Primary Dx) Social History Tobacco Use Types Packs/Day Years Used Date Smoking Tobacco: Never Smokeless Tobacco: Never Alcohol Use Standard Drinks/Week Comments No 0 (1 standard drink = 0.6 oz pur e alcohol) Education Answer Date Recorded Are you interested in more education? Not on suhail e 09/19/2022 Are you concerned about learning? Not on file 09/19/2022 No 09/19/2022 No 09/19/2022 Digital Access Answer Date Recorded No 10/15/2022 No 10/15/2022 Reliable internet access at home? Not on file 10/15/2022 Device with a working camera? Not on file Intimate Partner Violence Answer Date R ecorded Are you denied basic needs s uch as food, clothing, or medical care? No 01/11/2024 In the past 12 months have y ou been in a relationship with a person who hurts, threatens, or tries to control you? No 01/11/2024 Are you denied basic needs s uch as food, clothing, or medical care? No 01/11/2024 In the past 12 months have y ou been in a relationship with a person who hurts, threatens, or tries to control you? No 01/11/2024 Comments No Sex and Gender Information Value Date Recorded Sex Assigned at Female 10/09/2017 10:55 AM EDT Legal Sex Female 9:22 PM EDT Gender Identity Female 10/09/2017 10:55 AM EDT Sexual Orientation Straight 10/09/2017 10 :55 AM EDT documented as of this encounter Plan of Treatment Upcoming Encounters Date Type Department Care Team (Late st Contact Info) Description 11/22/2024 Procedure Pass [address] [address] 01/17/2025 12:30 PM EDT Procedure visit [facility] [address] [place] [phone] Haylee Armstrong MD [address] [place] [address] [facility] [place] [address] 03/13/2025 11:00 AM EDT Office Visit [facility] [address] [place] [address] Talisha Larson MD [address] [place] [address] Orthopedics [facility], [place] [address] 07/03/2025 9:30 AM EST Appointment [address] [address] Norma Ortiz NP [address] [place] [id number] [email or web address] 07/25/2025 3:00 PM EST Office Visit [facility] Neurology at [address] [address] Gulshan Rizo MD, MPH [address] [facility], [address] [place] [address] [email or web address] documented as of this encounter Visit Diagnoses Diagnosis Breast screening- Primary Breast screening, unspecified documented in this encounter Care Teams Home Security Professional Relationship Specialty Start Date End Date Brigida Hendricks PA [address] [place] [id number] [email or web address] PCP - General Physician Claim Technician 10/14/22 documented as of this encounter Additional Source Comments The information contained in this document represents components of the legal health record. It is not the complete legal health record.[facility]
== END 2024-12-13 09:05 | disposition home or self-care (01) ==
LOC: HO.HCS 08:35
PROVIDERS: PCP Nurse Practitioner; Visit Provider Internal Medicine
DX: I25.10 Atherosclerotic heart disease of native coronary artery without angina pectoris (principal); E11.8 Type 2 diabetes mellitus with unspecified complications; I10 Essential (primary) hypertension; E78.5 Hyperlipidemia, unspecified
CPT/HCPCS: 93010; 99214; G2211

== ENCOUNTER → 2024-12-13 08:35 | Outpatient (BNVA) | payer MEDICARE, MEDICAID, SELFPAY | PROVIDERS: PCP Nurse Practitioner; Visit Provider Internal Medicine | DX: I25.10 Atherosclerotic heart disease of native coronary artery without angina pectoris (principal); I10 Essential (primary) hypertension; E11.8 Type 2 diabetes mellitus with unspecified complications; E78.5 Hyperlipidemia, unspecified; R94.31 Abnormal electrocardiogram [ECG] [EKG] | CPT/HCPCS: 93005; 99212 ==

== ENCOUNTER 2024-12-15 08:49 | Outpatient (AMB) | payer MEDICARE, MEDICAID, SELFPAY ==
--- NOTE | 2024-12-15 08:53 | MHC.OFFVIS ---
Intake Visit Reasons: bilateral renal cysts Intake Note: Patient is present for BILATERAL RENAL CYSTS Urology Medication:NONE Antibiotic Allergy:NONE Blood Thinner:ASPIRIN Undercover Cop Required: No Allergies No Known Allergies Allergy (Verified 12/15/24 08:54) HPI Comments Details: Christine is a pleasant 44-year-old female patient of Dr. Hendricks. She has a past medical history of ACD, depression, diabetes, anxiety, and hypertension. She presents to the office today as a new patient for renal cysts. In discussion with the patient today she reports a longstanding history of renal cysts however was recently told she should follow-up with Urology for further assessment evaluation. In review of patient's chart it appears patient with previous imaging over the last 4 years. These results were reviewed and communicated with the patient today CT 12/12 abdomen pelvis w con notes numerous bilateral simple appearing renal cysts. There is a 1 cm indeterminate density, complex renal cyst in the right lower renal pole. Consider follow-up with renal mass protocol MRI with and without contrast for more definitive characterization of this cysts on a nonemergent basis per radiology report. CT abdomen and pelvis without contrast 11/13 notes multiple bilateral renal cysts having simple appearance on this noncontrast examination. No imaging follow-up is recommended for simple cysts. Punctate stone at the lower pole of left kidney. No large renal calculi or hydroureteronephrosis. A mild pyelonephritis as possible. Most recent CT 07/19CT abdomen pelvis wo IV con notes several variable size renal cysts. No current obstructive uropathy or urinary calculus. She discusses her ongoing issues with her diabetes in his following up with her PCP as well as a dietitian to better manage her diabetes. She does report intermittent episodes of vaginal itching. In office urinalysis results reviewed with the patient today negative leukocytes negative nitrates 1+ glucosuria we did discussed correlation of Trulicity with urinary symptoms. She denies urinary urgency, urinary frequency, incontinence, nocturia, hematuria, dysuria, foul smelling urine, changes to urinary stream, flank pain, fever, and or chills. She is happy with her current voiding parameters. We discussed obtaining MRI renal mass protocol for further assessment evaluation. All questions were answered. She otherwise offers no other issues or concerns at this time. [facility] Medical History Atherosclerotic cardiovascular disease Depression Anxiety HTN (hypertension) Diabetes Surgical History History of Hx of cholecystectomy Family History Mother HTN (hypertension) Stroke Father HTN (hypertension) Cancer DM2 (diabetes mellitus, type 2) Social History Alcohol intake: never Patient Tobacco Use Status: Never used Tobacco Review of Systems Const All systems reviewed & are unremarkable except as noted in HPI and below Physical Exam Const General: cooperative, comfortable, no acute distress, well developed, alert and awake Orientation/consciousness: patient oriented x3 HEENT Head: Yes normal to inspection, Yes normocephalic and Yes atraumatic Ears: hearing grossly normal bilaterally Eyes General: appearance normal, both eyes and all related structures Neck Neck: Yes normal visual inspection and Yes trachea midline Chest Chest palpation & inspection: normal inspection of the chest Resp Effort & Inspection: normal respiratory effort and able to speak in complete sentences Cardio Rate: regular rate GI Inspection: Yes normal to inspection General: Yes no CVA tenderness Back/Spine/Pelvis Back: no CVA tenderness Skin General skin exam: no rashes or lesions noted Neuro General: patient oriented x3 Extrem General: Yes normal to inspection Psych Appearance: grossly normal and well kempt Mental Status: mental status grossly normal Speech and movement: Normal speech and movement present and Clear speech present Affect: normal affect Attitude: cooperative Thought process: Normal thought process present Thought content: Normal thought content present Insight: Fair insight present (Psych) Judgement: Fair judgement present (Psych) Results AMB Urinalysis, Automated UA Leukoctes 0 Plcaido/uL Last Edit by CHARANJIT Kahn on 12/15/24 09:08 UA Nitrite Negative Last Edit by CHARANJIT Kahn on 12/15/24 09:08 UA Urobilinogen 0.2 mg/dL Last Edit by CHARANJIT Kahn on 12/15/24 09:08 UA Protein 15 mg/dL Last Edit by CHARANJIT Kahn on 12/15/24 09:08 UA pH 6.0 Last Edit by CHARANJIT Kahn on 12/15/24 09:08 UA Blood 0 Kiran/uL Last Edit by CHARANJIT Kahn on 12/15/24 09:08 UA Specific [place] 1.030 Last Edit by CHARANJIT Kahn on 12/15/24 09:08 UA Ketone Negative Last Edit by CHARANJIT Kahn on 12/15/24 09:08 UA Bilirubin 0 mg/dL Last Edit by CHARANJIT Kahn on 12/15/24 09:08 UA Glucose 250 mg/dL Last Edit by CHARANJIT Kahn on 12/15/24 09:08 Results Reviewed Results Reviewed: Date of Service: 06/26/24 Procedure(s): CT abdomen pelvis wo IV con Findings: The lung bases are clear. The unenhanced liver, spleen, adrenal glands and pancreas are unremarkable. The gallbladder is surgically absent. Kidneys again demonstrates several variable sized cysts. The largest on the right measures 4.8 cm in the largest on the left measures 3.5 cm. There is no hydronephrosis or hydroureter. The bladder is partially distended without focal abnormality. No bowel obstruction. The appendix is normal. Mild fecal retention within the colon. Diverticulosis without evidence of diverticulitis. The uterus is enlarged with multiple fibroids suggested, the largest along the left uterine body measuring up to 5.6 cm. Septated left adnexal cysts. There is a small volume of free fluid within the cul-de-sac. Impression: Several variable sized renal cysts. No current obstructive uropathy or urinary calculus. Small volume free fluid within the cul-de-sac. Prominent uterine fibroid. Septated left adnexal cyst, similar to prior. Mild diffuse fecal retention. Diverticulosis without diverticulitis. Assessment & Plan Assessment & Plan (1) Renal cyst: Code(s): N28.1 - Cyst of kidney, acquired Category: Medical Plan In office urinalysis results reviewed with the patient today; as noted above; will send for urine culture; will await results for potential treatment. Previous CT results were reviewed with the patient today; as noted above. We did discussed further workup to include MRI renal mass protocol. We discussed correlation of Trulicity with vaginal itching as well as potential UTI like symptoms and or urinary tract infections; patient with upcoming appointment with PCP will discuss at that time. She currently denies any UTI like symptoms however is experiencing vaginal itching. All questions were answered. We discussed importance of management and diabetes for improvement overall health and well-being. Follow-up in 1-3 months with imaging to be completed prior; or sooner with any issues, concerns, and or questions. Orders: Orders AMB Urinalysis Automated Today Z13.9 - Encounter for screening, unspecified MR abdomen wo/w con Today N28.1 - Cyst of kidney, acquired Urine Culture Today E11.8 - Type 2 diabetes mellitus with unspecified complications Patient Instructions: The patient had an opportunity to ask questions regarding the treatment plan. All questions were answered. Physical exam, labs, and imaging were discussed and reviewed in detail. As well as risks, benefits, and discussion of treatment choices. No major barriers to understanding were identified. The patient expressed understanding and agreement with the above treatment plan. The patient was made aware they should contact our office by phone for worsening of their current condition, the appearance of new symptoms, or with any questions or concerns. Compliance is encouraged with any medications and follow up testing that is ordered. It is a privilege to be allowed the opportunity to participate in? your urological care.? Again, if you have any questions or concerns If you have any questions or concerns please do not hesitate to contact me. The office is [phone]. This note is constructed using voice recognition software. While every effort has been made to ensure accuracy seat joiner chainstitch errors may have been included. Yours sincerely, NOEL Bunn Coding Level of Care Code New Pt Level 3 (50648) Diagnoses Renal cyst N28.1
--- OUTSIDE RECORDS SUMMARY | 2024-12-15 09:16 | XMS_ITS | Encounter Summary ---
Author Organization [facility] Address [address] [place] [phone] Phone Care Team Providers Care Head Packager Name Role Phone Brigida Hendricks Primary Care Provider [phone] Encounter Details Date Type Department Care Team (Late st Contact Info) Description 08/22/2024 Transcribe Orders Virtual Department [address] [place] [address] Norma Ortiz NP [address] [place] [address] [email or web address] Breast screening (Primary Dx) Social History Tobacco [...] st Contact Info) Description 11/22/2024 Procedure Pass [address] [address] 01/17/2025 12:30 PM EDT Procedure visit [facility] [address] [place] [phone] Haylee Armstrong MD [address] [place] [address] [facility] [place] [address] 03/13/2025 11:00 AM EDT Office Visit [facility] [address] [place] [address] Talisha Larson MD [address] [place] [address] Orthopedics Sports [facility], [place] [address] 07/03/2025 9:30 AM EST Appointment [address] [address] Norma Ortiz NP [address] [place] [id number] [email or web address] 07/25/2025 3:00 PM EST Office Visit [facility] Neurology at [address] [address] Gulshan Rizo MD, MPH [address] [facility], [address] [place] [address] [email or web address] documented as of this encounter Visit Diagnoses Diagnosis Breast screening- Primary Breast screening, unspecified documented in this encounter Care Teams Head Packager Relationship Specialty Start Date End Date Brigida Hendricks PA [address] [place] [phone] [email or web address] PCP - General Physician [facility] Director 10/14/22 documented as of this encounter Additional Source Comments The information contained in this document represents components of the legal health record. It is not the complete legal health record.[facility]
== END 2024-12-15 09:26 | disposition home or self-care (01) ==
LOC: HO.HUSH 08:50
PROVIDERS: PCP Physician Assistant; Visit Provider Nurse Practitioner Family
DX: Z13.9 Encounter for screening, unspecified (principal); N28.1 Cyst of kidney, acquired
CPT/HCPCS: 99203

== ENCOUNTER 2024-12-15 08:49 | Outpatient (REF) | payer MEDICARE, MEDICAID, SELFPAY | END 2024-12-15 08:50 | disposition home or self-care (01) | LOC: HO.LAB 08:49 | PROVIDERS: PCP Physician Assistant; Visit Provider Nurse Practitioner Family | DX: N28.1 Cyst of kidney, acquired (principal); E11.8 Type 2 diabetes mellitus with unspecified complications; I10 Essential (primary) hypertension; L29.89 Other pruritus; Z13.9 Encounter for screening, unspecified | CPT/HCPCS: 81003; 87086; 87147; 99202 ==

== ENCOUNTER 2024-12-22 09:21 | Emergency (ER) | payer MEDICARE, MEDICAID, SELFPAY ==
--- NOTE | 2024-12-22 | ECG_ITS ---
Test Reason : chest palpatations Blood Pressure : */* mmHG Vent. Rate : 94 BPM Atrial Rate : 94 BPM P-R Int : 140 ms QRS Dur : 74 ms QT Int : 380 ms P-R-T Axes : 64 37 17 degrees QTcB Int : 475 ms Normal sinus rhythm Nonspecific ST abnormality Abnormal ECG When compared with ECG of 21-Sep-2024 21:42, No significant change was found Referred By: Generic ED Physician Electronically Signed By: ROSALINDA MEEHAN MD
[2024-12-22 09:28] VITALS: BP 164/90; PULSE 94; RESP 17; TEMP 36.4; O2SAT 100; BMI 25.9
[2024-12-22 09:42] LABS: Glucose, Whole Blood 210 mg/dL (60-115)
[2024-12-22 09:56] LABS: MANUAL DIFF FLAG NO
[2024-12-22 09:58] LABS: Hematocrit 37.2 % (37.0-47.0); Hemoglobin 12.4 g/dl (12.0-16.0); Imm Gran Abs Auto 0.02 X10*3/uL (0.00-0.03); Imm Gran Pct Auto 0.3 % (0.0-0.4); Lymphocytes Absolute Auto 1.2 X10*3/uL (1.2-4.9); Mean Corpuscular HGB Conc 33.3 g/dl (31.0-35.0); Mean Corpuscular Hemoglobin 27.0 pg (27.0-33.0); Mean Corpuscular Volume 80.9 fL (80.0-98.0); NRBC Abs Auto 0.000 X10*3/uL (0.0-0.012); NRBC Pct Auto 0.0 /100WBC (0.0-0.2); Platelet Count 285 X10*3/uL (160-400); Red Blood Count 4.60 X10*6/uL (4.20-5.50); White Blood Count 7.1 X10*3/uL (4.8-10.8)
[2024-12-22 10:03] LABS: Appearance Urine Clear; Glucose Urine UA 100 mg/dL (Negative); PH 5.0 (5.0-9.0); Specific Gravity - Urine 1.020 (1.005-1.025); UMIC TRIGGER UACC YES
[2024-12-22 10:12] LABS: Alanine Aminotransferase 22 U/L (0-31); Albumin Level 4.4 g/dL (3.5-5.0); Alkaline Phosphatase 51 U/L (39-117); Anion Gap 11 (12-20); Aspartate Amino Transferase 19 U/L (5-31); Blood Urea Nitrogen 10 mg/dL (9-16); Calcium 8.8 mg/dL (8.4-10.2); Carbon Dioxide 23 mmol/L (22-29); Chloride 108 mmol/L (96-108); Creatinine Clr Calc Pharmacy 115.9; Estimated Glomerular Filt Rate > 60; Magnesium 1.8 mg/dL (1.6-2.6); Potassium 4.1 mmol/L (3.3-5.1); Sodium 138 mmol/L (135-145); Total Protein 7.2 g/dL (6.5-8.0)
[2024-12-22 10:13] LABS: UACC Culture Trigger YES
[2024-12-22 10:23] LABS: Troponin-I High Sensitivity < 2.7 ng/L (<3.5-17.0)
[2024-12-22 10:27] VITALS: BP 143/87; PULSE 90; RESP 16; O2SAT 100
--- NOTE | 2024-12-22 10:37 | ED.GENADULT ---
HPI - General Adult General Chief complaint: General Medical Stated complaint: High blood sugar, lower back pain Time Seen by Provider: 12/22/24 10:32 Source: patient, RN notes reviewed and old records reviewed Mode of arrival: ambulatory Limitations: no limitations History of Present Illness ED Provider: Tiffany Quintana PA-C HPI narrative: 44-year-old female with a history of diabetes on insulin, NSTEMI, UTI, HTN, Who presents to the ER for evaluation of elevated blood sugar for the last 2 or 3 days. She reports she has had intermittent episodes of dizziness and lightheadedness as well. These are associated with some headaches. She was recently diagnosed with a UTI 4 days ago and has been taking an antibiotic. Her sugars have been reading higher than usual, as high as 400 at home. She has needed to increase her insulin. She has had some mild chest tightness on the left side that felt different than when she had her heart attack. It is now resolved. No associated shortness of breath. She has been worried that her sugars are running higher and has been under great stress lately. She denies any dysuria or hematuria. She reports new lower back pain and is wondering if the antibiotics are working. She denies any nausea or vomiting. She admits to not drinking enough water or staying hydrated in this high heat lately. MD complaint: Elevated blood sugar and multiple other medical complaints Onset (ago): day(s) Pain Consistency: intermittent Relieving factors: none Exacerbating factors: none Treatments prior to arrival: none Related Data Home Medications ?Medication ?Instructions ?Recorded ?Confirmed albuterol sulfate 90 mcg/actuation 2 puff PO Q4-6H PRN Shortness Of 04/17/21 12/13/24 aerosol inhaler (Ventolin HFA) Breath Or Wheezing hydroxyzine HCl 25 mg tablet 50 mg PO TID PRN anxiety 01/13/24 12/13/24 insulin lispro 100 unit/mL 10 unit subcut TIDAC 01/13/24 12/13/24 subcutaneous pen (Humalog KwikPen (U-100) Insulin) lisinopril 20 2 tab PO DAILY 01/13/24 12/13/24 mg-hydrochlorothiazide 12.5 mg tablet omega 7-wfr-dxp-fish oil 1,000 mg 1 cap PO DAILY 01/13/24 12/13/24 (120 mg-180 mg) capsule (Fish Oil) aspirin 81 mg tablet,delayed 81 mg PO DAILY 02/03/24 12/13/24 release (Adult Low Dose Aspirin) atorvastatin 80 mg tablet 80 mg PO DAILY 06/06/24 12/13/24 dulaglutide 1.5 mg/0.5 mL 3 mg subcut TU 06/06/24 12/13/24 subcutaneous pen injector (Trulicity) ferrous sulfate 325 mg (65 mg 325 mg PO DAILY 06/06/24 12/13/24 iron) tablet (FeroSul) ibuprofen 800 mg tablet 800 mg PO Q8H PRN 06/06/24 12/13/24 metoprolol tartrate 100 mg tablet 100 mg PO DAILY 06/06/24 12/13/24 Previous Rx's ?Medication ?Instructions ?Recorded isosorbide mononitrate 30 mg 30 mg PO DAILY #90 tabs 02/03/24 tablet,extended release 24 hr nitroglycerin 0.4 mg sublingual 0.4 mg sublingual Q5M PRN chest 02/03/24 tablet pain #30 tabs naproxen 500 mg tablet 500 mg PO BID 7 days #14 tabs 06/28/24 ampicillin 500 mg capsule 500 mg PO BID 7 days #14 caps 12/19/24 cefuroxime axetil 250 mg tablet 250 mg PO BID 7 days #14 tabs 12/22/24 Allergies Allergy/AdvReac Type Severity Reaction Status Date / Time No Known Allergies Allergy Verified 12/22/24 09:30 Review of Systems Review of Systems: Yes all other systems are reviewed and are negative [facility] Past Medical History Medical History Atherosclerotic cardiovascular disease Depression Anxiety HTN (hypertension) Diabetes Surgical History History of Hx of cholecystectomy Family History Family History Mother HTN (hypertension) Stroke Father HTN (hypertension) Cancer DM2 (diabetes mellitus, type 2) Social History Social History Alcohol intake: never Patient Tobacco Use Status: Never used Tobacco Advance Directives: No Advance Directives Information Provided: Yes Do you have a plan to hurt others: No Plan Physical Exam ED Exam Exam: Appearance: Alert. Oriented X3. No acute distress. Head: normocephalic, atraumatic. Eyes: Pupils equal, round and reactive to light. ENT: Pharynx normal. No tonsillar swelling or exudate. Neck: Normal inspection. Neck supple. CVS: Normal heart rate and rhythm. Pulses normal. Respiratory: No respiratory distress. Breath sounds normal. Abdomen: Soft and nontender. +BS x4 Skin: Skin warm and dry. Normal skin color. Normal skin turgor. No rashes. Extremities: No lower extremity edema. No joint swelling. Neuro/psych: Oriented X 3. No motor deficit. No sensory deficit. CN II-XII intact. Normal speech and cognition. Vital Signs: Vital Signs - 24 hr 12/22/24 09:28 12/22/24 10:27 12/22/24 11:34 Temperature 97.6 F Pulse Rate 94 90 83 Respiratory Rate 17 16 Blood Pressure 164/90 H 143/87 H 123/80 Pulse Oximetry 100 100 Oxygen Delivery Method Room Air Room Air 12/22/24 11:34 12/22/24 11:35 12/22/24 11:35 Temperature Pulse Rate 91 83 102 H Respiratory Rate 17 Blood Pressure 132/86 123/80 134/88 Pulse Oximetry 100 Oxygen Delivery Method Room Air 12/22/24 13:20 Temperature 97.6 F Pulse Rate 83 Respiratory Rate 17 Blood Pressure 123/80 Pulse Oximetry 100 Oxygen Delivery Method Room Air BMI result Body Mass Index 25.9 Medications Administered Discontinued Medications Generic Name Dose Route Start Last Admin Trade Name Freq PRN Reason Stop Dose Admin Sodium Chloride 1,000 mls @ 999 mls/hr 12/22/24 11:30 12/22/24 12:50 Ns IVCONT 12/22/24 12:30 Infused .Q1H1M GENEVA Infusion Medical Decision Making Medical Decision Making MDM Narrative: 44-year-old female with history of diabetes on insulin, history of UTI, history of NSTEMI for which she was at [facility] in the fall. She states she had a cardiac catheterization but no stents were placed. She is not on anticoagulation. She reports some dizziness, lightheadedness, chest tightness that have come and gone for the last couple of days. Her sugars have been elevated. She thought her sugar was low when she was feeling this way and her sugar was almost 400. She states it is usually in the 150 range. She has been diet compliant, insulin compliant and had to go up on her insulin recently. She is on antibiotics for UTI and is having going ongoing symptoms. Labs are reassuring with normal white blood cell count. Negative troponin. No anemia. Normal renal function. Her urinalysis is still positive for infection. Urine culture from December 15 is growing group B strep. She has been prescribed ampicillin which should work against this. She has a history of E coli UTI that was resistant to ampicillin. Will plan to change her to cefin. Ceftin she was given IV fluids with resolution of her headache and dizziness. She is feeling much better. Glucose here is 210 with no evidence of diabetic ketoacidosis. Her hyperglycemia is likely driven by her infection. Patient counseled and all questions answered. At this point she is stable for discharge home with changing her antibiotic, close insulin and glucose monitoring. She should follow up with her primary care doctor. Patient agrees with plan. Differential Diagnosis Differential Diagnoses: The differential diagnosis associated with the presentation includes Dehydration, UTI, orthostatic hypotension, ACS, DKA, poorly-controlled diabetes, stress reaction, pyelonephritis Admission/Observation Consideration of admission/observation: Escalation of care including admission/observation considered Lab Data MDM Lab Attestation statement: I reviewed the patient's lab results. 12/22/24 09:45 12/22/24 09:45 Labs: Lab Results 12/22/24 12/22/24 12/22/24 Range/Units 09:32 09:45 09:51 WBC 7.1 (4.8-10.8) X10*3/uL RBC 4.60 (4.20-5.50) X10*6/uL Hgb 12.4 D (12.0-16.0) g/dl Hct 37.2 (37.0-47.0) % MCV 80.9 (80.0-98.0) fL MCH 27.0 (27.0-33.0) pg MCHC 33.3 (31.0-35.0) g/dl RDW 15.9 (11.0-16.0) % Plt Count 285 (160-400) X10*3/uL MPV 9.6 (9.4-12.3) fL Immature Gran % (Auto) 0.3 (0.0-0.4) % Neut % (Auto) 73.4 H (45-73) % Lymph % (Auto) 17.4 L (20-40) % [place] % (Auto) 6.5 (2-11) % Eos % (Auto) 2.1 (0-4) % Baso % (Auto) 0.3 (0-2) % Lymph # (Auto) 1.2 (1.2-4.9) X10*3/uL [place] # (Auto) 0.5 (0.1-1.2) X10*3/uL Eos # (Auto) 0.2 (0.0-0.4) X10*3/uL Baso # (Auto) 0.0 (0.0-0.2) X10*3/uL Abs Immat Gran (auto) 0.02 (0.00-0.03) X10*3/uL Absolute Neuts (auto) 5.2 (2.0-8.3) x10*3/uL Absolute Nucleated RBC 0.000 (0.0-0.012) X10*3/uL Nucleated RBC % (auto) 0.0 (0.0-0.2) /100WBC Sodium 138 (135-145) mmol/L Potassium 4.1 (3.3-5.1) mmol/L Chloride 108 (96-108) mmol/L Carbon Dioxide 23 (22-29) mmol/L Anion Gap 11 L (12-20) BUN 10 (9-16) mg/dL Creatinine 0.67 (0.5-1.4) mg/dL Estim Creat Clear Calc 115.9 Estimated GFR > 60 POC Glucose 210 H (60-115) mg/dL Random Glucose 210 H (60-115) mg/dL Calcium 8.8 D (8.4-10.2) mg/dL Magnesium 1.8 (1.6-2.6) mg/dL Total Bilirubin 0.4 (0.0-1.0) mg/dL AST 19 (5-31) U/L ALT 22 (0-31) U/L Alkaline Phosphatase 51 (39-117) U/L Troponin I High Sens < 2.7 (<3.5-17.0) ng/L Total Protein 7.2 (6.5-8.0) g/dL Albumin 4.4 (3.5-5.0) g/dL Beta-Hydroxybutyrate 0.15 (0.02-0.27) mmol/L Urine Color Yellow Urine Appearance Clear Urine pH 5.0 (5.0-9.0) Ur Specific [place] 1.020 (1.005-1.025) Urine Protein Negative (Neg-Trace) mg/dL Urine Glucose (UA) 100 H (Negative) mg/dL Urine Ketones Negative (Negative) mg/dL Urine Blood Negative (Negative) Urine Nitrite Negative (Negative) Ur Leukocyte Esterase Moderate (2+) H (Negative) Urine RBC 0-2 (0-2) /HPF Urine WBC 11-20 H (0-5) /HPF Ur Squamous Epith Cells 11-20 (0-2) /HPF Urine Bacteria 1+ (None Seen) Hyaline Casts 3-5 (0-2) /LPF Urine Yeast Present Independent Interpretation I performed an independent interpretation of an: EKG Interpretation: EKG with normal sinus rhythm, ventricular rate 94 beats per minute, no change from August, normal QTC, normal VT interval, no ST segment elevations or depressions External Record Review External record reviewed: Outpatient record, Prior outpatient labs and Prior outpatient radiology Prescription Management I considered prescription management with: Antibiotic Chronic Conditions Patient?s care impacted by: Diabetes and Hypertension Critical Care Time Critical Care Time Critical Care Time: No Discharge Plan Discharge Clinical Impression: Hyperglycemia due to type 2 diabetes mellitus Qualifiers: Diabetes mellitus terminologist insulin use: with terminologist use Qualified Code(s): E11.65 - Type 2 diabetes mellitus with hyperglycemia UTI (urinary tract infection) Qualifiers: Urinary tract infection type: acute cystitis Hematuria presence: without hematuria Qualified Code(s): N30.00 - Acute cystitis without hematuria Patient Disposition: Home, Self-Care Instructions: Urinary Tract Infection in Women (DC), Diabetic Hyperglycemia (ED) Additional Instructions: your lab workup today was reassuring. It is important to drink plenty of fluids and stay hydrated. Start the newly prescribed antibiotic today,. The previously prescribed antibiotic for your urinary tract infection. Follow-up with your primary care doctor. If you develop new or worsening symptoms call 911 or come back to the ER for further evaluation. Prescriptions: New cefuroxime axetil 250 mg tablet 250 mg PO BID 7 Days Qty: 14 0RF No Action atorvastatin 80 mg tablet 80 mg PO DAILY ferrous sulfate [FeroSul] 325 mg (65 mg iron) tablet 325 mg PO DAILY ibuprofen 800 mg tablet 800 mg PO Q8H PRN ampicillin 500 mg capsule 500 mg PO BID 7 Days Qty: 14 0RF insulin lispro [Humalog KwikPen Insulin] 100 unit/mL insulin pen 10 unit subcut TIDAC hydroxyzine HCl 25 mg tablet 50 mg PO TID PRN (Reason: anxiety) lisinopril-hydrochlorothiazide 20-12.5 mg tablet 2 tab PO DAILY omega 8-lnm-lsq-fish oil [Fish Oil] 1,000 mg (120 mg-180 mg) Capsule 1 cap PO DAILY naproxen 500 mg tablet 500 mg PO BID 7 Days Qty: 14 0RF albuterol sulfate [Ventolin HFA] 90 mcg/actuation HFA aerosol inhaler 2 puff PO Q4-6H PRN (Reason: Shortness Of Breath Or Wheezing) Trulicity 1.5 mg/0.5 mL pen injector 3 mg subcut Rx Instructions: patient takes on Tuesdays aspirin [Adult Low Dose Aspirin] 81 mg tablet,delayed release (DR/EC) 81 mg PO DAILY isosorbide mononitrate 30 mg tablet extended release 24 hr 30 mg PO DAILY Qty: 90 3RF nitroglycerin 0.4 mg tablet, sublingual 0.4 mg sublingual Q5M PRN (Reason: chest pain) Qty: 30 5RF Rx Instructions: do not exceed 3 doses per episode metoprolol tartrate 100 mg tablet 100 mg PO DAILY Interventions: ED Discharge Assessment Last Done: 12/22/24 13:20 Discharge Date/Time: 12/22/24 13:21 Print Language: Beninese
--- OUTSIDE RECORDS SUMMARY | 2024-12-22 11:00 | XMS_ITS | Encounter Summary ---
Author Organization [facility] Address [address] [facility] [address] [place] [address] Phone Care Team Providers Care Survey Research Professor Name Role Phone Brigida Hendricks Primary Care Provider [phone] Encounter Details Date Type Department Care Team (Late st Contact Info) Description 08/22/2024 Transcribe Orders Virtual Department [address] [place] [address] Norma Ortiz NP [address] [place] [address] [email or web address] Breast screening (Primary Dx) Social History Tobacco [...] st Contact Info) Description 11/22/2024 Procedure Pass [address] [address] 01/17/2025 12:30 PM EDT Procedure visit [facility] Orth[facility]ics & Sports Medicine [address] [place] [address] Haylee Armstrong MD [address] [place] [address] Orthopedics & Sports [facility], [place] [address] 01/25/2025 10:00 AM EDT Office Visit [facility] Rehabilitation Services [address] [place] [address] Rick Cuevas MD [address] [place] [address] Orthopedics Sports [facility], [place], [place] [phone] Stephie Goodson OT [address] [place] [address] 02/01/2025 10:45 AM EDT Office Visit [facility] Services [address] [place] [address] [phone] Rick Cuevas MD [address] [place] [address] Orthopedics Sports [facility], [place] [address] Stephie Goodson OT [address] [place] [address] 02/08/2025 12:15 PM EDT Office Visit [address] [address] Rick Cuevas MD [address] [place] [address] Orthopedics Sports [facility], [place] [address] Stephie Goodson OT [address] [place] [address] 02/15/2025 10:00 AM EDT Office Visit [address] [address] Rick Cuevas MD [address] [place] [address], [place] [address] Stephie Goodson, OT [address] [place] [address] 02/22/2025 10:00 AM EDT Office Visit [address] [address] Rick Cuevas MD [address] [place] [address] Orthopedics Sports [facility], [place], [place] [phone] Stephie Goodson OT [address] [place] [phone] 03/13/2025 11:00 AM EDT Office Visit [facility] Orthopedics & Sports Medicine [address] [place] [address] [phone] Talisha Larson MD [address] [place] [address] Orthopedics & Sports [facility], [place], [place] [phone] 07/03/2025 9:30 AM EST Appointment [facility], Mammography- [facility] [address] [place] [address] Norma Ortiz NP [address] [place] [address] [email or web address] 07/25/2025 3:00 PM EST Office Visit [facility] Neurology at [place] [address] [facility] [address] [place] [address] Gulshan Rizo MD, MPH [address] [facility], [address] [place] [address] [email or web address] documented as of this encounter Visit Diagnoses Diagnosis Breast screening- Primary Breast screening, unspecified documented in this encounter Care Teams Survey Research Professor Relationship Specialty Start Date End Date Brigida Hendricks PA [address] [place] [address] [email or web address] PCP - General Physician Rate Clerk Passenger 10/14/22 documented as of this encounter Additional Source Comments The information contained in this document represents components of the legal health record. It is not the complete legal health record.[facility]
[2024-12-22 11:34] VITALS: BP 123/80; BP 132/86; PULSE 83; PULSE 91
[2024-12-22 11:35] VITALS: BP 123/80; BP 134/88; PULSE 102; PULSE 83; RESP 17; O2SAT 100
[2024-12-22 13:20] VITALS: BP 123/80; PULSE 83; RESP 17; TEMP 36.4; O2SAT 100
== END 2024-12-22 13:21 | disposition home or self-care (01) ==
PROVIDERS: Emergency Provider Emergency Medicine Emergency Medical Services; PCP Physician Assistant
DX: E11.65 Type 2 diabetes mellitus with hyperglycemia (principal); N30.00 Acute cystitis without hematuria; R42 Dizziness and giddiness; R00.2 Palpitations; I10 Essential (primary) hypertension; R51.9 Headache, unspecified; R11.0 Nausea; Z79.4 Long term (current) use of insulin; Z79.899 Other long term (current) drug therapy
CPT/HCPCS: 36415; 80053; 81001; 82010; 82947; 83735; 84484; 85025; 87086; 93005; 96360; 99284

== ENCOUNTER → 2024-12-22 09:37 | Outpatient (BNV) | payer MEDICARE, MEDICAID, SELFPAY | PROVIDERS: Emergency Provider Emergency Medicine Emergency Medical Services; PCP Physician Assistant; Visit Provider Internal Medicine Cardiovascular Disease | DX: R94.31 Abnormal electrocardiogram [ECG] [EKG] (principal); R00.2 Palpitations | CPT/HCPCS: 93010 ==

== ENCOUNTER 2025-02-21 12:24 | Outpatient (AMB) | payer MEDICARE, MEDICAID, SELFPAY ==
--- NOTE | 2025-02-21 12:43 | A.OFFVIS_ITS ---
Intake Visit Reasons: ENP-Chronic intractable headache Allergies No Known Allergies Allergy (Verified 12/22/24 09:30) Medication List - Last Reconciled 02/21/25 by Alicia Sawyer MD albuterol sulfate 90 mcg/actuation (Ventolin HFA) 2 puffs PO Q4-6H PRN aspirin (Adult Low Dose Aspirin) 81 mg PO DAILY atorvastatin 80 mg PO DAILY dulaglutide (Trulicity) 3 mg subcut TU ferrous sulfate (FeroSul) 325 mg PO DAILY hydroxyzine HCl 50 mg PO TID PRN ibuprofen 800 mg PO Q8H PRN insulin lispro (Humalog KwikPen (U-100) Insulin) 10 units subcut TIDAC isosorbide mononitrate ER 30 mg PO DAILY lisinopril-hydrochlorothiazide 20-12.5 mg 2 tabs PO DAILY metoprolol tartrate 100 mg PO DAILY naproxen 500 mg PO BID 7 days nitroglycerin 0.4 mg sublingual Q5M PRN omega 4-xld-ktg-fish oil 1,000 (120-180) mg (Fish Oil) 1 cap PO DAILY HPI Comments Details: This is a 45-year-old woman with a history of diabetes mellitus, hypertension, coronary artery disease with an RI in February 2024. Cardiac catheterization was negative. No stents were put in. comes in for evaluation of chronic headaches that started about 23 years ago on and off currently occurring 3-4 days a week. No triggers have been identified. There is no aura. Most of the headache is in the left frontal area and goes around to the left side of the head occasionally on the right. Sometimes when it is bad she gets some twitching of the left eyelid. She takes qfwu-uhy-zhydgdw medications for it. She has not been on any daily preventative medications. She had a CTA of the brain in July 2024 which was normal and an MRI of the brain on 09/18/2024 which was also unremarkable with a question of a mucosal cyst at the right petrous apex which is unrelated to her symptoms. Most nights she sleeps okay but sometimes the sleep is disrupted. She does not quite get 6-7 hours of sleep. Blood pressure and diabetes under control. She has had some depression as well. [facility] Medical History (Updated 02/21/25 @ 12:57 by Alicia Sawyer MD) Migraine Atherosclerotic cardiovascular disease Depression Anxiety HTN (hypertension) Diabetes Surgical History History of Hx of cholecystectomy Family History Mother HTN (hypertension) Stroke Father HTN (hypertension) Cancer DM2 (diabetes mellitus, type 2) Social History Alcohol intake: never Patient Tobacco Use Status: Never used Tobacco Review of Systems Const Reports headache(s) ENT Reports headache(s) and Reports neck pain Card Reports chest pain and Reports dyspnea Resp Reports dyspnea Musc Reports back pain, Reports neck pain and Reports numbness Neuro Reports headache(s), Reports memory loss and Reports numbness Psych Reports anxiety, Reports depression and Reports memory loss Physical Exam Neuro Other: ?Mini Mental Status Exam Level of Consciousness:?Alert.? Orientation:?Knows correct year, month, date, day and season.?Knows correct city, county and state. Knows correct location and floor.? Registration:?Able to register 3 objects.? Attention:?Serial 7's performed accurately.? Recall:?Able to recall 3 out of 3 objects.? Language:?Normal spontaneous speech, fluency, repetition, naming, comprehension, reading, and writing.? Total Score:?30/30.? Neurological Abnormal neurological findings:??none.? Mental Status:?Alert and oriented X 3.?Normal attention, orientation, memory, and affect.? Cranial Nerves:?Pupils are equal, round and reactive to light. Fundoscopy shows normal disc bilaterally. External occular muscles are intact. Visual price are full, no ptosis. Face is symmetrical, no facial weakness or droop. Facial sensations are normal. Tongue protrudes in midline. Palate elevates symmetrically. Shoulder shrugging is normal.? Motor Examination:?Normal muscle tone, bulk and strength.?No atrophy or fasciculations.?No drift of the extended upper extremities.?Deep tendon reflexes are 2+.?Plantars are flexor.? Motor Strength:? Proximal Muscles (out of 5):?5 Distal Muscles (out of 5):?5 Neck Flexors (out of 5):?5 Neck Extensors (out of 5):?5 Deltoid (out of 5):?5 Biceps (out of 5):?5 Triceps (out of 5):?5 Serratus Anterior (out of 5):?5 Wrist Extensors (out of 5):?5 APB (out of 5):?5 Finger Spread (out of 5):?5 Ileopsoas (out of 5):?5 Quadriceps (out of 5):?5 Hamstrings (out of 5):?5 Tibialis Anterior (out of 5):?5 Peronei (out of 5):?5 EDB (out of 5):?5 Gastrocnemius (out of 5):?5 Straight Leg Raising:?90 degrees.? Sensory Exam:?Normal light touch, temperature, pinprick, vibration and joint-position sensations.?Rhomberg sign is absent.? Coordination:?No ataxia,?no titubation,?qmfrff-xm-sfci, iuel-fuxr-lepd test, and rapid alternating movements were normal.? Gait Exam:?Within normal limits.? Cerebellar Signs:?Ydyrdp-cb-hxie and sbdd-iq-dckg is normal.?No dysdiadochokinesia.? Extrapyramidal System:?No tremor or?rigidity, normal facial expressions.?No bradykinesia. No bradyphrenia. Normal arm swing and posture. No propulsion or retropulsion.? Speech:?Normal,?no dysphasia or dysarthria.? General Examination GENERAL APPEARANCE:??normal,?in no acute distress?,?normal,?in no acute distress.? HEAD:??normocephalic,?atraumatic.? EYES:??sclera non-icteric,?conjunctiva clear.? EARS:??auditory canal clear,?tympanic membrane intact, clear.? NOSE:??no lesions.? ORAL CAVITY:??gums normal,?mucosa moist,?no lesions.? THROAT:??clear.? NECK/THYROID:??no cervical lymphadenopathy,?thyroid normal,?neck supple, full range of motion,?no carotid bruit.? SKIN:??no rashes,?no significant birthmarks.? HEART:??S1, S2 normal,?no murmurs?,?S1, S2 normal,?no murmurs.? LUNGS:??clear anteriorly and posteriorly?,?clear anteriorly and posteriorly.? CHEST:??no gross rib deformity,?clear to auscultation.? BACK:??normal exam of spine.? MUSCULOSKELETAL:??normal.? EXTREMITIES:??no edema?,?no edema.? PERIPHERAL PULSES:??normal.? PSYCH:??alert, oriented,?cognitive function intact,?cooperative with exam?,?alert, oriented,?cognitive function intact,?cooperative with exam.? Results Reviewed Results Reviewed: 08/19/24 CTA brain normal. 09/18/24 MRI brain: No enhancing mass/lesion.No acute brain abnormality.Questionable mucocele versus atypical cholesterol granuloma, right petrous apex. Assessment & Plan Assessment & Plan (1) Chronic headache: Code(s): R51.9 - Headache, unspecified; G89.29 - Other chronic pain Category: Medical (2) Migraine: Code(s): G43.909 - Migraine, unspecified, not intractable, without status migrainosus Category: Medical (3) Tension headache: Code(s): G44.209 - Tension-type headache, unspecified, not intractable Category: Medical Plan Will add amitriptyline 25 mg HS as a prophylactic. Follow-up with Melly in 6 weeks Medications: New amitriptyline 25 mg PO BEDTIME 30 tabs 5RF 30 days Coding Level of Care Code New Pt Level 5 (28475) Diagnoses Chronic headache R51.9; G89.29 Migraine G43.909 Tension headache G44.209
--- OUTSIDE RECORDS SUMMARY | 2025-02-21 13:33 | XMS_ITS | Encounter Summary ---
Author Organization [facility] Address [address] [facility] [address] [place] [address] Phone Care Team Providers Care Mason Helper Name Role Phone Brigida Hendricks Primary Care Provider [phone] Encounter Details Date Type Department Care Team (Late st Contact Info) Description 08/22/2024 Transcribe Orders Virtual Department [address] [place] [address] Norma Ortiz NP [address] [place] [address] [email or web address] Breast screening (Primary Dx) Social History Tobacco [...] st Contact Info) Description 11/22/2024 Procedure Pass [address] [address] 02/22/2025 10:00 AM EDT Office Visit [facility] Rehabilitation Services [address] [place] [address] Rick Cuevas MD [address] [place] [address] Orthopedics & Sports Medicine, [place] [address] Stephie Goodson OT [address] [place] [phone] 03/08/2025 12:15 PM EDT Office Visit [address] [address] Rick Cuevas MD [address] [place] [address] [facility] [place] [address] Stephie Goodson OT [address] [place] [address] 03/13/2025 11:00 AM EDT Office Visit [facility] Orthopedics & Sports Medicine [address] [place] [address] Talisha Larson MD [address] [place] [address] [facility] [place] [phone] 04/25/2025 2:00 PM EST Procedure visit [facility] Orthopedics & Sports Medicine [address] [place] [address] Haylee Armstrong MD [address] [place] [address] Orthopedics & Sports Medicine, [place] [address] 07/03/2025 9:30 AM EST Appointment [facility], [facility]- [address] [address] Norma Ortiz NP [address] [place] [address] [email or web address] 07/25/2025 3:00 PM EST Office Visit [facility] Neurology at [address] [address] Gulshan Rizo MD, MPH, CASA [address] [place] [address] [email or web address] documented as of this encounter Visit Diagnoses Diagnosis Breast screening- Primary Breast screening, unspecified documented in this encounter Care Teams Mason Helper Relationship Specialty Start Date End Date Brigida Hendricks PA [address] [place] [phone] [email or web address] PCP - General Physician Ehr Trainer 10/14/22 documented as of this encounter Additional Source Comments The information contained in this document represents components of the legal health record. It is not the complete legal health record.[facility]
--- OUTSIDE RECORDS SUMMARY | 2025-02-21 13:34 | XMS_ITS | Clinical Summary ---
Author Organization [facility] Address [address] [address] Phone Care Team Providers Care Station Cleaning Porter Name Role Phone Brigida Hendricks Primary Care Provider [phone] Allergies No known active allergies Medications citalopram (CELEXA) 20 MG tablet 20 mg daily. Active omega 6-rfi-rdf-fish oil (FISH OIL) 1,000 mg (120 mg-180 mg) Cap daily. Active lisinopril-hydroCH LOROthiazide (PRINZIDE,ZESTORET IC) 20-12.5 mg per tablet 1 tablet daily. Acti ve metFORMIN (GLUCOPHAGE) 1000 MG tablet 1,000 tablets daily. Active albuterol (PROAIR HFA) 90 mcg/actuation inhaler 2 puffs as needed Active beclomethasone (QVAR) 40 mcg/actuation inhaler 1 puff Active verapamil (CALAN SR) 240 MG CR tablet Take 240 mg by mouth daily. Active cholecalciferol (VITAMIN D3) 2,000 unit capsule Take 2,000 Units by mouth daily. Active glipiZIDE (GLUCOTROL) 5 MG 24 hr tablet Take 5 mg by mouth daily. Active atorvastatin (LIPITOR) 40 MG tablet Take 40 mg by mouth daily. Active ibuprofen (ADVIL,MOTRIN) 600 MG tablet Take 600 mg by mouth every 8 (eight) hours as needed for pain (specific location in comments). Active insulin aspart U-100 (NOVOLOG) 100 unit/mL (3 mL) injection pen Inject under the skin. Active diazePAM (VALIUM) 5 MG tablet Take 1 tablet (5 mg total) by mouth every 6 (six) hours as needed for anxiety. 2 tablet 07/25/20 21 Active Additional Information Patient not taking.Reported on 11/29/2024 dulaglutide (TRULICITY) 1.5 mg/0.5 mL subcutaneous injection Inject 1.5 mg under the skin every 7 days. Active ondansetron (ZOFRAN-ODT) 4 MG disintegrating tablet (To-Go) Take 1-2 tablet(s) by mouth every 8 hours as needed for nausea/vomiting 6 tablet 11/06/19 Active Additional Information Patient not taking.Reported on 11/29/2024 naproxen (NAPROSYN) 375 MG tablet Take 1 tablet (375 mg total) by mouth 2 (two) times a day with meals. 20 tablet 01/17/20 Active Additional Information Patient not taking.Reported on 11/29/2024 dulaglutide (TRULICITY) 0.75 mg/0.5 mL subcutaneous injection Inject 0.75 mg under the skin. 08/28/19 Active fluconazole (DIFLUCAN) 150 MG tablet Take 150 mg by mouth. 04/15/20 23 Active nitrofurantoin macrocrystaL (MACRODANTIN) 100 MG capsule See Instructions, 1 capsule By Mouth post coital as needed, # 30 capsule, 1 Refills, Maintenance, 04/10/23 13:41:00 EST, Capsule, [facility]/pharmacy #[id number], Partial fill upon patient request if the prescription is for a schedule II opioid drug., 72, kg, 03/25... 04/10/20 Active aspirin 81 MG EC tablet Take 81 mg by mouth. 01/15/20 24 Active ONETOUCH ULTRA TEST Strp strips 1 each. 09/20/19 25 Active FEROSUL 325 mg (65 mg iron) tablet Take 1 tablet by mouth every other day. 11/08/19 25 Active FREESTYLE HYACINTH 2 READER CHECK SUGAR EVERY 8 HOURS 10/09/19 25 Active isosorbide mononitrate (IMDUR) 30 MG 24 hr tablet Take 1 tablet by mouth every morning. 09/15/19 25 Active nitroglycerin (NITROSTAT) 0.[address] ONE TABLET UNDER TONGUE NEEDED FOR CHEST PAIN UP TO 3 TIMES 09/14/19 25 Active OLANZapine (ZYPREXA) 2.5 MG tablet Take 2.5 mg by mouth nightly at bedtime. 09/22/19 25 Active tranexamic acid (LYSTEDA) 650 mg Tab Take 1,300 mg by mouth. 08/03/19 25 Active Active Problems Problem Noted Date Diagnosed Date High cholesterol 01/11/2024 Depression 01/11/2024 Anxiety 01/11/2024 Cholecystitis 01/11/2024 Calculus of gallbladder with acute on chronic cholecystitis without obstruction 04/07/2017 Assessment & Plan (04/07/2017 12:03 PM EST): The patient is having right-sided abdominal pain. She has had a workup with GI. At this point I would be willing to remove her gallbladder as other abdominal issues have been ruled out, however, she understands this will be a diagnostic procedure. She is heading for a capsule endoscopy and we will hold off on surgery until after that has been completed. I had a conversation with the patient today with regard to gallbladder surgery. The risks and benefits of gallbladder surgery including but not limited to infection, bleeding, need for open surgery, failure to alleviate pain/symptoms, damage to common bile duct, damage to surrounding organs, need for other major reconstructive surgery as well as the heart/lung risks of general anesthesia have been explained to the patient. The patient understands and wishes to proceed. The patient is to follow a low-fat diet in the meantime. Hypertensive disorder 04/07/2017 Assessment & Plan (04/07/2017 11:57 AM EST): The patient's hypertension may affect the presenting issue of surgical procedure (s) and may increase the risk of slow healing wound (s), infection (s), kidney, lung and/or heart problems. Stable and/or controlled chronic conditions may reduce complications associated with your chronic condition (s). Migraines 04/07/2017 Assessment & Plan (04/07/2017 11:59 AM EST): The patient's migraines may affect the presenting issue of surgical procedure (s) and may increase the risk of slow healing wound (s), infection (s), kidney, lung and/or heart problems. Stable and/or controlled chronic conditions may reduce complications associated with your chronic condition (s). Asthma 04/07/2017 Overview (04/07/2017): infrequent Assessment & Plan (04/07/2017 12:00 PM EST): The patient's asthma may affect the presenting issue of surgical procedure (s) and may increase the risk of slow healing wound (s), infection (s), kidney, lung and/or heart problems. Stable and/or controlled chronic conditions may reduce complications associated with your chronic condition (s). Diabetes mellitus 04/07/2017 Encounters Date Type Department Care Team Description 02/15/2025 10:00 AM EDT Office Visit [address] [address] Rick Cuevas MD Chutkowski, Idalina, OT Hand dysfunction (Primary Dx) 02/01/2025 10:45 AM EDT Office Visit [address] [address] Rick Cuevas MD Chutkowski, Idalina, OT Hand dysfunction (Primary Dx) 01/25/2025 10:00 AM EDT Office Visit [address] [address] Rick Cuevas MD Chutkowski, Idalina, OT Hand dysfunction (Primary Dx) 01/25/2025 Plan of Care Documentation [address] [address] 11/29/2024 1:45 PM EDT Office Visit [facility] Orthopedics & Sports Medicine [address] [place] [address] Rick Cuevas MD Right carpal tunnel syndrome (Primary Dx); Right arm weakness; Cervical radiculopathy 11/22/2024 Transcribe Orders Virtual Department [address] [place] [address] Norma Ortiz NP Breast screening (Primary Dx) from Last 3 Months Immunizations Immunization Administration Dates Next Due Hepatitis B Adult 02/22/2014,07/30/2012 INFLUENZA, SPLIT VIRUS, TRIVALENT PF 06/03/2013, 03/04/2012 INFLUENZA, SPLIT VIRUS, TRIV ALENT W/ PRESERVATIVE IM 02/24/2014,03/06/2011,02/20/2010,07/13 Influenza Quadrivalent Prese rvative Free IM 04/07/2019 Novel [id number], Injectable 07/13/2009 Pneumococcal polysaccharide PPSV23 09/20/2015 Td (adult) 5 Lf Tetanus Toxo id, PF, Adsorbed 04/03/2009 Td (adult),2 Lf Tetanus Toxo id, PF, Adsorbed 12/18/2020 Family History Medical History Relation Comments Brain tumor Father Relation Status Comments Father Social History Tobacco Use Types Packs/Day Years Used Date Smoking Tobacco: Never Smokeless Tobacco: Never Tobacco Cessation:Counseling Given: Not Answered Alcohol Use Standard Drinks/Week Comments No 0 [...] Orientation Straight 10/09/2017 10 :55 AM EDT Last Filed Vital Signs Vital Sign Reading Time Taken Comments Blood Pressure 172/112 01/11/2024 5:45 PM EDT MD chung aware Pulse 109 01/11/2024 5:43 PM EDT RN notified Temperature 35.8 C (96.4 F) 01/11/2024 5:43 PM EDT Respiratory Rate 16 01/11/2024 5:43 PM EDT Oxygen Saturation 100% 01/11/2024 5:4 3 PM EDT Inhaled Oxygen Concentration - - Weight 79.4 kg (175 lb 0.7 oz) 11/29/2024 1:36 PM EDT Height 177.8 cm (5' 10 ) 10/26/2024 10: 22 AM EDT Body Mass Index 25.12 10/26/2024 10:22 AM EDT Plan of Treatment Upcoming Encounters Date Type Department Care Team (Late st Contact Info) Description 11/22/2024 Procedure Pass [facility], [address] [address] 02/22/2025 10:00 AM EDT Office Visit [facility] Rehabilitation Services [address] [place] [address] Rick Cuevas MD [address] [place] [address] Orthopedics & Sports Medicine, [place] [address] Stephie Goodson OT [address] [address] 03/08/2025 12:15 PM EDT Office Visit [facility] [address] [place] [address] Rick Cuevas MD [address] [place] [address] [facility] [place] [address] Stephie Goodson OT [address] [place] [address] 03/13/2025 11:00 AM EDT Office Visit [facility] Orthopedics & Sports Medicine [address] [place] [address] Talisha Larson MD [address] [place] [address] [facility] [address] 04/25/2025 2:00 PM EST Procedure visit [facility] Orthopedics & Sports Medicine [address] [place] [address] Haylee Armstrong MD 4 [facility] Orthopedics & Sports Medicine, [place] [address] 07/03/2025 9:30 AM EST Appointment [facility], [facility] [address] [place] [address] Norma Ortiz NP [address] [place] [address] [email or web address] 07/25/2025 3:00 PM EST Office Visit [facility] Neurology at [address] [address] Gulshan Rizo MD, MPH, CASA [address] [place] [address], [address] [address] [email or web address] Health Maintenance Due Date Last Done Comments HEMOGLOBIN A1C 1980 DEPRESSION SCREENING 1992 HEPATITIS C SCREENING 01/05/1998 HIV ONE-TIME SCREENING (18-65 YEARS) 01/05/1998 PNEUMOCOCCAL VACCINES (0-49 years) (2 of 2 - PCV) 09/19/2016 09/20/2015 DIABETIC EYE EXAM 04/03/2017 MAMMOGRAM 2020 BLOOD PRESSURE 07/13/2024 01/11/2024 INFLUENZA VACCINE (#1) 2024 9, 02/24/2014, 06/03/2013, Additional history exists COLOGUARD 01/05/2025 COLONOSCOPY 01/05/2025 COLORECTAL CANCER SCREENING 01/05/2025 FIT TEST 01/05/2025 FOBT 01/05/2025 SIGMOIDOSCOPY 01/05/2025 VIRTUAL COLONOSCOPY 01/05/2025 CREATININE LEVEL 01/10/2025 01/11/2024, , 11/04/2022, Additional history exists POTASSIUM LEVEL 01/10/2025 01/11/2024, 12/24, 11/04/2022, Additional history exists COVID-19 VACCINE ( season) 2025 08/17/2021, 07/26/2021 PAP SMEAR 09/09/2027 09/08/2024, 08/25/2018 Adult Td,Tdap Booster 12/18/2030 12/18/2020, 009 SMOKING STATUS SCREENING (Once After 26 Yrs) Completed 07/06/2024 HEPATITIS A VACCINES Aged Out No long er eligible based on patient's age to complete this topic HIB VACCINES Aged Out No longer eligi ble based on patient's age to complete this topic MENINGOCOCCAL VACCINES (ACWY) Aged Out No longer eligible based on patient's age to complete this topic MENINGOCOCCAL VACCINES (B) Aged Out N o longer eligible based on patient's age to complete this topic Medical Devices Not on file Procedures Procedure Name Priority Date/Time Associated Diagnosis Comments PAP TEST Routine 09/08/2024 12:00 AM EDT BASIC METABOLIC PANEL STAT 01/11/2024 11:25 AM EDT from Last 3 Months or Most Recently Relevant to Health Maintenance Results * Pap Test (09/08/2024 12:00 AM EDT) 09/08/2024 09/09/2024 9:4 4 AM EDT Narrative SEE NARRATIVE - 09/15/2024 1:49 PM EDT [address] [address] Manager Insurance: Drew Henry MD STUDENT FINANCIAL AID MANAGER Cytology Report FINAL DIAGNOSIS A. PAP SMEAR (THIN PREP) CE: SPECIMEN ADEQUACY: Satisfactory for evaluation; transformation zone absent/insufficient. INTERPRETATION: NEGATIVE FOR INTRAEPITHELIAL LESION OR MALIGNANCY. This specimen was analyzed by the automated ThinPrep Imaging System (tracx Cecilia.) and the selected price were reviewed by a inspector fibrous wallboard. Electronically Signed Out By: SUSAN Castelan(ASCP) The Pap test is a screening test primarily for squamous cancers and precursors and has associated false-negative and false-positive results. New technologies such as liquid-based preparations may decrease but will not eliminate all false-negative results. Regular sampling and follow-up of unexplained clinical signs and symptoms are recommended to minimize false negative results. CLINICAL HISTORY Date of Last Menstrual Period: 08-28-2024 Other Clinical Conditions: Screening Pap SPECIMEN SOURCE A: PAP SMEAR (THIN PREP) CE Patient Name: MAYE SHAH : 1980 (Age: 44) Sex: F Institution: [facility] Location: [facility] Date of Collection: 09/08/2024 Date of Reported: 09/15/2024 13:49 Results to: Brigida Singh Brigida DHILLON CYTOLOGY ORDERABLES Final Resu lt SEE NARRATIVE * (ABNORMAL) Basic metabolic panel (01/11/2024 11:25 AM EDT) SODIUM 137 133 - 146 mmol/L [facility] CHLORIDE 102 96 - 108 mmol/L [facility] POTASSIUM 4.1 3.3 - 5.1 mmol/L [facility] CO2 19(L) 21 - 35 mmol/L [facility] BUN 9 6 - 19 mg/dL [facility] CREATININE 0.70 0.5 - 1.5 mg/dL [facility] GLUCOSE 141(H) 70 - 99 mg/dL [facility] CALCIUM 9.4 8.4 - 10.3 mg/dL [facility] EGFR 109 >59 mL/min/1.7 3m2 [facility] Comment:Estimated glomerular filtration rate calculated using the CKD-EPI refit equation. ANION GAP 20 10 - 20 mmol/L [facility] Blood 01/11/2024 11:2 5 AM EDT 01/11/2024 11:33 AM EDT Eriberto Chung MD LAB BLOOD ORDERABL ES Final Result [address] [address] from Last 3 Months or Most Recently Relevant to Health Maintenance Insurance MEDICARE PART A & B [employer] MEDICARE PART A & B Member Subscriber Plan / Payer (Ef fective 2007-Present) Name:Maye Shah Member ID:[id number] Relation to Subscriber:Self Name:Maye Shah Subscriber ID:[id number] Payer ID:[id number] Group ID:Not on file Type:Medicare Address: [employer] [address] [place] MED[place] PART A & B [facility] B [facility] A & B [facility] A & B [place] B [facility] PART A & [place] BILL [id number] MEDICARE PART A & B [facility] BO BILL [id number] Advance Directives For more information, please contact: [phone] (9AM - 5PM Raquel/[facility], Thursday-Thursday) * Full Code (Presumed) (Latest Code Status on File) Date Activated Date Inactivated Comments 04/27/2017 7:09 AM 04/27/2017 2:16 PM Care Teams Station Cleaning Porter Relationship Specialty Start Date End Date Brigida Hendricks PA [address] [place] [phone] [email or web address] PCP - General Physician Warning Coordination Meteorologist 10/14/22 Additional Source Comments The information contained in this document represents components of the legal health record. It is not the complete legal health record.[facility]
--- OUTSIDE RECORDS SUMMARY | 2025-02-21 13:34 | XMS_ITS | Encounter Summary ---
Author Organization [facility] Address [address] [place] [address] Phone Care Team Providers Care Erp Project Manager Name Role Phone Bautista Rodriguez MD Unavailable [phone] Delma Barriga MD Unavailable [phone] Ravi Graham MD Unavailable Bautista Rodriguez MD Primary Care Provider Bautista Rodriguez MD Primary Care Provider [phone] Marly Mcdaniel NP Primary Care Provider [phone] Brigida Hendricks Primary Care Provider [phone] Encounter Details Date Type Department Care Team (Late st Contact Info) Description 04/30/2017 Procedure [facility], [address] [address] Social History Tobacco Use Types Packs/Day Years Used Date Smoking Tobacco: Never Smokeless Tobacco: Never Alcohol Use Standard Drinks/Week Comments No 0 (1 standard drink = 0.6 oz pur e alcohol) Comments Unknown Sex and Gender Information Value Date Recorded Sex Assigned at Female 10/09/2017 10:55 AM EDT Legal Sex Female 9:22 PM EDT Gender Identity Female 10/09/2017 10:55 AM EDT Sexual Orientation Straight 10/09/2017 10 :55 AM EDT documented as of this encounter Plan of Treatment Upcoming Encounters Date Type Department Care Team (Late st Contact Info) Description 11/22/2024 Procedure [facility], [address] [address] 02/22/2025 10:00 AM EDT Office Visit [address] [address] Rick Cuevas MD [address] [place] [address] Orthopedics [facility], [place] [address] Stephie Goodson OT [address] [place] [address] 03/08/2025 12:15 PM EDT Office Visit [address] [address] Rick Cuevas MD [address] [place] [address] [facility], [place] [address] Stephie Goodson OT [address] [place] [address] 03/13/2025 11:00 AM EDT Office Visit [facility] Orthopedics & Sports Medicine [address] [place] [address] Talisha Larson MD [address] [place] [address] [facility], [place], [place] [phone] 04/25/2025 2:00 PM EST Procedure visit [facility] Orthopedics & Sports [address] [address] Haylee Armstrong MD [address] [place] [address] [facility], [place], [place] [id number] 07/03/2025 9:30 AM EST Appointment [address] [address] Norma Ortiz, NEWS COPY EDITOR [address] [place] [address] [email or web address] 07/25/2025 3:00 PM EST Office Visit [facility] Neurology at [place] [address] [facility] [address] [place] [address] Gulshan Rizo MD, MPH, CASA [address] [place] [address] [email or web address] documented as of this encounter Visit Diagnoses Not on filedocumented in this encounter Additional Health Concerns Infection Onset Date Last Indicated Resolved Time CoV-Risk 10/19/2019 10/20/2019 11/02/2019 1:24 AM EDT CoV-Risk 06/22/2020 06/24/2020 07/02/2020 1:24 AM EST CoV-Exposed Comment:Recent close contact documented in the COVID-19 PCR/PRO order 06/22/2020 06/22/2020 07/06/2020 1:[address] CoV-Exposed Comment:Positive COVID-19 01/11/2021 01/11/2021 01/11/2021 7:3 6 AM EDT CoV-Risk 01/11/2021 01/11/2021 01/11/2021 7:36 AM EDT COVID-19 01/11/2021 01/11/2021 02/01/2021 1:23 AM EDT CoV-Risk 10/14/2022 10/14/2022 10/25/2022 1:21 AM EDT CoV-Risk 01/11/2024 01/11/2024 01/22/2024 1:22 AM EDT documented as of this encounter Care Teams Erp Project Manager Relationship Specialty Start Date End Date Bautista Rodriguez MD [address] [place] [phone] [email or web address] PCP - General 03/26/17 03/08/20 [place] [address] [place] [phone] [email or web address] PCP - General Family Medicine 03/09/20 06/21/20 Marly Mcdaniel NP [address] [place] [phone] PCP - General Nurse Practitioner 06/22/20 10/13/22 Brigida Hendricks PA [address] [place] [address] [email or web address] PCP - General Physician Executive Communications Manager 10/14/22 Bautista Rodriguez MD [address] [place] [address] [email or web address] Historical LMR Provider 03/15/17 06/01/21 Delma Barriga MD [address] [place] [address] [email or web address] Historical LMR Provider 03/15/17 Ravi Graham MD [address] [place] [phone] Historical LMR Provider 03/15/17 2 documented as of this encounter Additional Source Comments The information contained in this document represents components of the legal health record. It is not the complete legal health record.[facility]
--- OUTSIDE RECORDS SUMMARY | 2025-02-21 13:35 | XMS_ITS | Encounter Summary ---
Author Organization [facility] Address [address] [facility] [address] [place] [address] Phone Care Team Providers Care Yarn Weight And Strength Tester Name Role Phone Brigida Hendricks Primary Care Provider [phone] Encounter Details Date Type Department Care Team (Late st Contact Info) Description 11/22/2024 Transcribe Orders Virtual Department [address] [place] [address] Norma Ortiz NP [address] [place] [address] [email or web address] - Addiction Treatment Reviews & Information Breast screening (Primary Dx) Social History Tobacco [...] st Contact Info) Description 11/22/2024 Procedure Pass [address] [address] 02/22/2025 10:00 AM EDT Office Visit [facility] [address] [place] [address] Rick Cuevas MD [address] [place] [address] Orthopedics & Sports Medicine, [place] [address] Stephie Goodson OT [address] [place] [address] 03/08/2025 12:15 PM EDT Office Visit [address] [address] Rick Cuevas MD [address] [place] [address] [facility] [place] [address] Stephie Goodson OT [address] [place] [address] [email or web address] 03/13/2025 11:00 AM EDT Office Visit [facility] Orthopedics & Sports Medicine [address] [place] [address] Talisha Larson MD [address] [place] [address] [facility] [phone] 04/25/2025 2:00 PM EST Procedure visit [facility] Orthopedics & Sports Medicine [address] [place] [address] Haylee Armstrong MD 4 [facility] Orthopedics & Sports Medicine, [place] [address] 07/03/2025 9:30 AM EST Appointment [facility], [facility]- [address] [address] Norma Ortiz NP [address] [place] [address] [email or web address] Addiction Treatment Reviews & Information 07/25/2025 3:00 PM EST Office Visit [facility] Neurology at [address] [address] Gulshan Rizo MD, MPH, CASA [address] [place] [address] [email or web address] Scheduled Orders Name Type Priority Associated Diagnoses Orde r Schedule Mammogram Screening (Bilateral) Imaging Routine Breast screening Expected: 12/23/2024, Expires: 11/22/2025 documented as of this encounter Visit Diagnoses Diagnosis Breast screening- Primary Breast screening, unspecified documented in this encounter Care Teams Yarn Weight And Strength Tester Relationship Specialty Start Date End Date Brigida Hendricks PA [address] [place] [address] [email or web address] Treatment Reviews & Information PCP - General Physician Land Reclamation Specialist 10/14/22 documented as of this encounter Additional Source Comments The information contained in this document represents components of the legal health record. It is not the complete legal health record.[facility]
--- OUTSIDE RECORDS SUMMARY | 2025-02-21 13:35 | XMS_ITS | Encounter Summary ---
Author Organization [facility] Address [address] [place] [address] Phone Care Team Providers Care Technology Internship Name Role Phone Bautista Rodriguez MD Unavailable [phone] Delma Barriga MD Unavailable [phone] Ravi Graham MD Unavailable [phone] Marly Mcdaniel NP Primary Care Provider [phone] Brigida Hendricks Primary Care Provider [phone] Encounter Details Date Type Department Care Team (Latest Contact Info) Description 06/22/2020 Transcribe Orders Virtual Department 30 [place] [address] Sapphire Tay NP [address] [place] [address] [place] [phone] Cough (Primary Dx); SOB (shortness of breath) Social History Tobacco Use Types Packs/Day Years Used Date Smoking Tobacco: Never Smokeless Tobacco: Never Alcohol Use Standard Drinks/Week Comments No 0 (1 standard drink = 0.6 oz pur e alcohol) Comments No Sex and Gender Information Value Date Recorded Sex Assigned at Female 10/09/2017 10:55 AM EDT Legal Sex Female 9:22 PM EDT Gender Identity Female 10/09/2017 10:55 AM EDT Sexual Orientation Straight 10/09/2017 10 :55 AM EDT documented as of this encounter Plan of Treatment Upcoming Encounters Date Type Department Care Team (Late st Contact Info) Description 11/22/2024 Procedure Pass [address] [address] 02/22/2025 10:00 AM EDT Office Visit [address] [address] Rick Cuevas MD [address] [place] [address] Orthopedics Sports [facility], [place] [address] Stephie Goodson, OT [address] [place] [address] 03/08/2025 12:15 PM EDT Office Visit [address] [address] Rick Cuevas MD [address] [place] [address] Orthopedics Sports [facility], [place] [address] Stephie Goodson, OT [address] [place] [address] 03/13/2025 11:00 AM EDT Office Visit [facility] Orthopedics & Sports Medicine [address] [place] [address] Talisha Larson MD [address] [place] [address] Orthopedics & Sports [facility], [place], [place] [phone] 04/25/2025 2:00 PM EST Procedure visit [facility] Orthopedics & Sports [address] [address] Haylee Armstrong MD [address] [place] [address] Orthopedics & Sports [facility], [place], [place] [phone] 07/03/2025 9:30 AM EST Appointment [address] [place] [address] Norma Ortiz, EMILIANO [address] [place] [address] [email or web address] 07/25/2025 3:00 PM EST Office Visit [facility] Neurology at [place] 1153 [facility] [address] [place] [address] Gulshan Rizo MD, MPH, CASA [address] [place] [address], [address] [address] [email or web address] documented as of this encounter Results * COVID-19 PCR Order (06/24/2020 8:08 AM EST) COVID Testing Status Specimen received in analyzing lab. Results should be available within [address] [facility] Symptomatic? YES [facility] 06/24/2020 8:08 AM EST 06/24/2020 11:21 AM EST Sapphire Tay NP BODY FLUIDS AND STOOLS OR DERABLES Final Result [facility] [address] [place] [address] [facility] [address] [place] [address] documented in this encounter Visit Diagnoses Diagnosis Cough- Primary SOB (shortness of breath) Shortness of breath documented in this encounter Additional Health Concerns Infection Onset Date Last Indicated Resolved Time CoV-Risk 06/22/2020 06/24/2020 07/02/2020 1:24 AM EST [...] documented as of this encounter Care Teams Technology Internship Relationship Specialty Start Date End Date Marly Mcdaniel, ENTERTAINMENT MUSICIAN [address] [place] [address] PCP - General Nurse Practitioner 06/22/20 10/13/22 Brigida Hendricks PA [address] [place] [address] [email or web address] PCP - General Physician Facsimile Machine Operator 10/14/22 Bautista Rodriguez MD [address] [place] [address] Historical LMR Provider 03/15/17 06/01/21 Delma Barriga MD [address] [place] [address], [address] [place] [address] Historical LMR Provider 03/15/17 Ravi Graham MD [facility]3 [place] [phone] Historical LMR Provider 03/15/17 2 documented as of this encounter Additional Source Comments The information contained in this document represents components of the legal health record. It is not the complete legal health record.[facility]
--- OUTSIDE RECORDS SUMMARY | 2025-02-21 13:35 | XMS_ITS | Encounter Summary ---
Author Organization [facility] Address [address] [place] [address] Phone Care Team Providers Care Hollow Core Door Frame Assembler Name Role Phone Bautista Rodriguez MD Unavailable [phone] Delma Barriga MD Unavailable [phone] Ravi Graham MD Unavailable [phone] Marly Mcdaniel NP Primary Care Provider [phone] Brigida Hendricks Primary Care Provider [phone] Encounter Details Date Type Department Care Team (Late st Contact Info) Description 05/29/2021 Procedure Pass [place] Scan [address] [address] Social History Tobacco Use Types Packs/Day Years [...] st Contact Info) Description 11/22/2024 Procedure Pass [facility], Mammography- [address] [address] 02/22/2025 10:00 AM EDT Office Visit [facility] Rehabilitation Services [address] [place] [address] Rick Cuevas MD [address] [place] [address] Orthopedics & Sports [place], [place] [address] Yovanicarlos Alaniswellingtonmiles, OT [address] [place] [address] 03/08/2025 12:15 PM EDT Office Visit [facility] [address] [place] [address] Rick Cuevas MD [address] [place] [address] Orthopedics Sports [facility], [place] [address] Stephie Goodson, OT [address] [place] [address] 03/13/2025 11:00 AM EDT Office Visit [facility] Orthopedics & Sports Medicine [address] [place] [address] Talisha Larson MD [address] [place] [address] Orthopedics Sports Medicine, [place], [place] [phone] 04/25/2025 2:00 PM EST Procedure visit [facility] Orthopedics & Sports [address] [address] Haylee Armstrong MD [address] [place] [address] Orthopedics & Sports [facility], [place], [place] [phone] 07/03/2025 9:30 AM EST Appointment [facility] 30 [place] [address] Norma Ortiz NP [address] [place] [address] [email or web address] 07/25/2025 3:00 PM EST Office Visit [facility] Neurology at [place] 1153 [facility] [address] [place] [address] Gulshan Rizo MD, MPH, CASA 1153 [facility], [facility] [address] [place] [address] [email or web address] documented as of this encounter Visit Diagnoses Not on filedocumented in this encounter Additional Health Concerns Infection Onset Date Last Indicated Resolved Time CoV-Risk 10/14/2022 10/14/2022 10/25/2022 1:21 AM EDT CoV-Risk 01/11/2024 01/11/2024 01/22/2024 1:22 AM EDT documented as of this encounter Care Teams Hollow Core Door Frame Assembler Relationship Specialty Start Date End Date Marly Mcdaniel NP [address] [place] [address] PCP - General Nurse Practitioner 06/22/20 10/13/22 Brigida Hendricks PA [address] [place] [address] [email or web address] PCP - General Physician Finding Fastener 10/14/22 Bautista Rodriguez MD [address] [place] [address] [email or web address] Historical LMR Provider 03/15/17 06/01/21 Delma Barriga MD [address] [place] [address] Historical LMR Provider 03/15/17 Ravi Graham MD [address] [place] [address] [place] [phone] Historical LMR Provider 03/15/17 2 documented as of this encounter Additional Source Comments The information contained in this document represents components of the legal health record. It is not the complete legal health record.[facility]
--- OUTSIDE RECORDS SUMMARY | 2025-02-21 13:35 | XMS_ITS | Encounter Summary ---
Author Organization [facility] Address [address] [address] Phone Care Team Providers Care Promotions Coordinator Name Role Phone Brigida Hendricks Primary Care Provider Encounter Details Date Type Department Care Team (Late st Contact Info) Description 10/06/2024 Procedure Pass [facility], [address] [address] Social History Tobacco Use Types Packs/Day Years [...] st Contact Info) Description 11/22/2024 Procedure Pass [address] [address] 02/22/2025 10:00 AM EDT Office Visit [facility] Services [address] [place] [address] Rick Cuevas MD [address] [place] [address] Orthopedics & Sports [facility], [place] [address] Stephie Goodson OT [address] [place] [address] 03/08/2025 12:15 PM EDT Office Visit [address] [address] Rick Cuevas MD [address] [place] [address] Orthopedics Sports [facility], [place] [address] Stephie Goodson OT [address] [place] [address] 03/13/2025 11:00 AM EDT Office Visit [facility] Orthopedics & Sports Medicine [address] [place] [address] [phone] Talisha Larson MD [address] [place] [address] Orthopedics Sports [facility], [place], [place] [phone] 04/25/2025 2:00 PM EST Procedure visit [facility] Orthopedics & Sports [address] [place] [address] Haylee Armstrong MD [address] [place] [address] Orthopedics & Sports Medicine, [facility] [place] [address] 07/03/2025 9:30 AM EST Appointment [facility], [address] [address] Norma Ortiz, DESIGN PRINTING MACHINE SETTER [address] [place] [address] [email or web address] 07/25/2025 3:00 PM EST Office Visit [facility] Neurology at [address] [address] Gulshan Rizo MD, MPH, CASA [address] [place] [address] [email or web address] documented as of this encounter Visit Diagnoses Not on filedocumented in this encounter Care Teams Promotions Coordinator Relationship Specialty Start Date End Date Brigida Hendricks PA [address] [place] [address] [email or web address] PCP - General Physician Spanish Tutor 10/14/22 documented as of this encounter Additional Source Comments The information contained in this document represents components of the legal health record. It is not the complete legal health record.[facility]
--- OUTSIDE RECORDS SUMMARY | 2025-02-21 13:35 | XMS_ITS | Encounter Summary ---
Author Organization [facility] Address [address] [place] [address] Phone Care Team Providers Care Tobacco Feeder Catcher Name Role Phone Bautista Rodriguez MD Unavailable [phone] Delma Barriga MD Unavailable [phone] Ravi Graham MD Unavailable Bautista Rodriguez MD Primary Care Provider Bautista Rodriguez MD Primary Care Provider Marly Mcdaniel NP Primary Care Provider [phone] Brigida Hendricks Primary Care Provider [phone] Encounter Details Date Type Department Care Team (Late st Contact Info) Description 04/27/2017 Procedure Pass [place] Admitting Dept - [facility] Department [address] [place] [address] Social History Tobacco Use Types Packs/Day Years [...] st Contact Info) Description 11/22/2024 Procedure Pass [facility], [address] [place] [address] 02/22/2025 10:00 AM EDT Office Visit [address] [address] Rick Cuevas MD [address] [place] [address] Orthopedics Sports [facility], [place] [address] Stephie Goodson OT 4 [place] [address] 03/08/2025 12:15 PM EDT Office Visit [address] [address] Rick Cuevas MD [address] [place] [address] Orthopedics Sports [facility], [place] [address] Stephie Goodson OT [address] [place] [address] 03/13/2025 11:00 AM EDT Office Visit [facility] Orthopedics & Sports Medicine [address] [place] [address] Talisha Larson MD [address] [place] [address] Orthopedics Sports [facility], [place], [place] [phone] 04/25/2025 2:00 PM EST Procedure visit [facility] Orthopedics & Sports Medicine [address] [place] [address] Haylee Armstrong MD [address] [place] [address] Orthopedics Sports [facility], [place], [place] [phone] 07/03/2025 9:30 AM EST Appointment [address] [address] Norma Ortiz, ELECTRIC WIRER [address] [place] [address] [email or web address] 07/25/2025 3:00 PM EST Office Visit [facility] Neurology at [place] 1153 [facility] [address] [place] [address] Gulshan Rizo MD, MPH, CASA [address] [place] [address] [email or web address] documented as of this encounter Visit [...] documented as of this encounter Care Teams Tobacco Feeder Catcher Relationship Specialty Start Date End Date Bautista Rodriguez MD [facility]3 [place] [address] PCP - General 11/2/17 10/15/20 [place] [address] [place] [phone] [email or web address] PCP - General Family Medicine 03/09/20 06/21/20 Marly Mcdaniel ELECTRIC WIRER [address] [place] [address] PCP - General Nurse Practitioner 06/22/20 10/13/22 Brigida Hendricks PA [address] [place] [address] [phone] [email or web address] PCP - General Physician Security Field Supervisor 10/14/22 Bautista Rodriguez MD [address] [place] [address] [email or web address] Historical LMR Provider 03/15/17 06/01/21 Delma Brariga MD [address] [place] [address] [email or web address] Historical LMR Provider 03/15/17 Ravi Graham MD [address] [place] [address] Historical LMR Provider 03/15/17 2 documented as of this encounter Additional Source Comments The information contained in this document represents components of the legal health record. It is not the complete legal health record.[facility]
--- OUTSIDE RECORDS SUMMARY | 2025-02-21 13:35 | XMS_ITS | Encounter Summary ---
Author Organization [facility] Address [address] [place] [address] Phone Care Team Providers Care Risk Control Specialist Name Role Phone Bautista Rodriguez MD Unavailable Delma Barriga MD Unavailable [phone] Ravi Graham MD Unavailable Bautista Rodriguez MD Primary Care Provider Bautista Rodriguez MD Primary Care Provider Marly Mcdaniel NP Primary Care Provider [phone] Brigida Hendricks Primary Care Provider [phone] Encounter Details Date Type Department Care Team (Late st Contact Info) Description 04/03/2017 Ancillary Orders Virtual Department 30 [place] [address] Thiago Scott MD [address] [place] [address] [email or web address] Nausea; Bloating; Abdominal pain, unspecified abdominal location; Type 2 diabetes mellitus without complication, without long-term current use of insulin Social History Tobacco Use Types Packs/Day Years Used Date Smoking Tobacco: Never Assessed Comments Unknown Sex and Gender Information Value Date Recorded Sex Assigned at Female 10/09/2017 10:55 AM EDT Legal Sex Female 9:22 PM EDT Gender Identity Female 10/09/2017 10:55 AM EDT Sexual Orientation Straight 10/09/2017 10 :55 AM EDT documented as of this encounter Plan of Treatment Upcoming Encounters Date Type Department Care Team (Late st Contact Info) Description 11/22/2024 Procedure Pass [address] [address] 02/22/2025 10:00 AM EDT Office Visit [facility] [address] [place] [address] Rick Cuevas MD [address] [place] [address] Orthopedics & Sports [facility], [place] [address] Stephie Goodson OT [address] [place] [address] [email or web address] 03/08/2025 12:15 PM EDT Office Visit [address] [address] Rick Cuevas MD [address] [place] [address] Orthopedics Sports [facility], [place] [address] Stephie Goodson OT [address] [place] [address] [email or web address] 03/13/2025 11:00 AM EDT Office Visit [facility] Orthopedics & Sports Medicine [address] [place] [address] Talisha Larson MD [address] [place] [address] Orthopedics & Sports Medicine, [place], [place] [phone] 04/25/2025 2:00 PM EST Procedure visit [facility] Orthopedics & Sports [address] [phone] Haylee Armstrong MD [address] [place] [address] Orthopedics Sports [facility], [place], [place] [phone] 07/03/2025 9:30 AM EST Appointment [facility], [facility] [address] [place] [address] Norma Ortiz, EMILIANO [address] [place] [address] [email or web address] 07/25/2025 3:00 PM EST Office Visit [facility] Neurology at [address] [place] [address] Gulshan Rizo MD, MPH, CASA [address] [place] [address] [email or web address] documented as of this encounter Results * NM GASTRIC EMPTYING SOLID PHASE (04/14/2017 12:46 PM EST) Anatomical Region Laterality Modality Abdomen, Pelvis Nuclear Medicine 04/14/2017 12:5 5 PM EST Impressions 04/14/2017 12:58 PM EST Normal gastric emptying study POS - [id number] Narrative 04/14/2017 12:58 PM EST The patient is given an oral meal of 1 mCi mCi of Tc99m labeled sulfur colloid with egg whites, toast, jam and water. Evaluation of gastric emptying over four hours is obtained. At one hour there is 80% residual activity in the stomach which is well within the the normal range. At two hours there is 58% residual activity in the stomach which is within the the normal range. At four hours there is 9% residual activity in the stomach which is normal the normal range. No obvious gastroesophageal reflux is seen. NORMAL RANGE One hour 37-90% Two hours 30-60% Four hours 0-10% Procedure Note Eyal Quevedo MD - 04/14/2017 The patient is given an oral meal of 1 mCi mCi of Tc99m labeled sulfurcolloid with egg whites, toast, jam and water. Evaluation of gastricemptying over four hours is obtained. At one hour there is 80% residual activity in the stomach which is wellwithin the the normal range. At two hours there is 58% residual activity in the stomach which is withinthe the normal range. At four hours there is 9% residual activity in the stomach which is normalthe normal range. No obvious gastroesophageal reflux is seen. NORMAL RANGE One hour 37-90% Two hours 30-60% Four hours 0-10% IMPRESSION: Normal gastric emptying study POS - [id number] Thiago Scott MD IMG NM ABDOMEN Final Resu lt documented in this encounter Visit Diagnoses Diagnosis Nausea Nausea alone Bloating Flatulence, eructation, and gas pain Abdominal pain, unspecified abdominal location Type 2 diabetes mellitus without complication, without long-term current use of insulin Nausea Nausea alone Bloating Flatulence, eructation, and gas pain Abdominal pain, unspecified abdominal location Type 2 diabetes mellitus without complication, without long-term current use of insulin documented in this encounter Additional Health Concerns [...] documented as of this encounter Care Teams Risk Control Specialist Relationship Specialty Start Date End Date Bautista Rodriguez MD [facility]3 [place] [address] [email or web address] PCP - General 03/26/17 03/08/20 Bautista Rodriguez MD [address] [place] [phone] [email or web address] PCP - General Family Medicine 03/09/20 06/21/20 Marly Mcdaniel NP [address] [place] [address] PCP - General Nurse Practitioner 06/22/20 10/13/22 Brigida Hendricks PA [address] [place] [address] [email or web address] PCP - General Physician Box Turner 10/14/22 Bautista Rodriguez MD [address] [place] [address] [email or web address] Historical LMR Provider 03/15/17 06/01/21 Delma Barriga MD [address] [place] [address], [address] [place] [address] [email or web address] Historical LMR Provider 03/15/17 [place] [address] [place] [phone] Historical LMR Provider 03/15/17 2 documented as of this encounter Additional Source Comments The information contained in this document represents components of the legal health record. It is not the complete legal health record.[facility]
== END 2025-02-21 13:12 | disposition home or self-care (01) ==
LOC: HO.HSM 12:24
PROVIDERS: PCP Physician Assistant; Visit Provider Psychiatry & Neurology Neurology
DX: R51.9 Headache, unspecified (principal); G89.29 Other chronic pain; G43.909 Migraine, unspecified, not intractable, without status migrainosus; G44.209 Tension-type headache, unspecified, not intractable
CPT/HCPCS: 99204

== ENCOUNTER → 2025-02-21 12:24 | Outpatient (BNVA) | payer MEDICARE, MEDICAID, SELFPAY | PROVIDERS: PCP Physician Assistant; Visit Provider Psychiatry & Neurology Neurology | DX: G44.209 Tension-type headache, unspecified, not intractable (principal); G43.709 Chronic migraine without aura, not intractable, without status migrainosus | CPT/HCPCS: 99202 ==

== ENCOUNTER 2025-04-03 08:51 | Outpatient (AMB) | payer MEDICARE, MEDICAID, SELFPAY ==
[2025-04-03 08:54] VITALS: BP 130/68; PULSE 86; BMI 27.5
--- NOTE | 2025-04-03 08:54 | A.OFFVIS_ITS ---
Vital Signs 04/03/25 08:54 Height 5 ft 10 in Weight 191 lb 12.835 oz BMI 27.5 BP 130/68 Blood Pressure Location Lt brachial Position Sitting Pulse 86 Pulse Source Monitor Intake Visit Reasons: Chest discomfort Allergies No Known Allergies Allergy (Verified 12/22/24 09:30) Medication List - Last Reconciled 04/03/25 by Petar Lucero MD albuterol sulfate 90 mcg/actuation (Ventolin HFA) 2 puffs PO Q4-6H PRN amitriptyline 25 mg PO BEDTIME 30 days aspirin (Adult Low Dose Aspirin) 81 mg PO DAILY atorvastatin 80 mg PO DAILY dulaglutide (Trulicity) 3 mg subcut TU ferrous sulfate (FeroSul) 325 mg PO DAILY hydroxyzine HCl 50 mg PO TID PRN ibuprofen 800 mg PO Q8H PRN insulin lispro (Humalog KwikPen (U-100) Insulin) 10 units subcut TIDAC isosorbide mononitrate ER 30 mg PO DAILY lisinopril-hydrochlorothiazide 20-12.5 mg 2 tabs PO DAILY metoprolol tartrate 100 mg PO DAILY naproxen 500 mg PO BID 7 days nitroglycerin 0.4 mg sublingual Q5M PRN omega 4-tqa-iex-fish oil 1,000 (120-180) mg (Fish Oil) 1 cap PO DAILY HPI Comments Details: Christine returns for follow-up. In the past, she underwent cardiac workup with coronary CTA that showed mild CAD. She has diabetes and hypertension. In 2023, she was seen as an inpatient with chest pressure and EKG changes and that led to a diagnostic catheterization. However, no interventions performed. She still gets some random chest pains and lot of it seems rather musculoskeletal in nature. Recently, had ER visit but unremarkable findings and it was again thought to be rather musculoskeletal. Currently, she states she feels good. [facility] Medical History (Updated 02/21/25 @ 12:57 by Alicia Sawyer MD) Migraine Atherosclerotic cardiovascular disease Depression Anxiety HTN (hypertension) Diabetes Surgical History History of Hx of cholecystectomy Family History Mother HTN (hypertension) Stroke Father HTN (hypertension) Cancer DM2 (diabetes mellitus, type 2) Social History Alcohol intake: never Patient Tobacco Use Status: Never used Tobacco Review of Systems Const Denies weakness ENT Denies dizziness Card Reports chest pain, Reports chest pain with activity, Denies syncope, Denies rapid heart rate, Denies pedal edema, Denies edema, Denies leg edema, Denies lightheadedness, Denies palpitations, Denies dyspnea, Denies dyspnea on exertion and Denies orthopnea Resp Denies cough, Denies dyspnea and Denies dyspnea on exertion GI Denies hematochezia and Denies change in stool character Musc Denies abnormal gait, Denies muscle cramps, Denies muscle weakness, Denies numbness, Denies radiating pain into limb and Denies tingling Neuro Denies abnormal gait, Denies dizziness, Denies syncope, Denies numbness, Denies tingling and Denies weakness Endo Denies palpitations Physical Exam Vital Signs: Last Vital Signs Pulse 86 04/03/25 08:54 BP 130/68 04/03/25 08:54 BMI result Body Mass Index 27.5 Const General: comfortable and no acute distress Orientation/consciousness: patient oriented x3 HEENT Other: Unremarkable Head: Yes normal to inspection Neck Neck: Yes normal visual inspection Chest Chest palpation & inspection: normal inspection of the chest Resp Auscultation: clear to auscultation bilaterally Cardio Palpation: normal PMI Heart sounds: S1 normal heart sound present, S2 normal heart sound present, no gallops, no murmurs and no rubs GI Palpation (GI): Soft to palpation Back/Spine/Pelvis Other: unremarkable Skin General skin exam: no rashes or lesions noted Neuro General: patient oriented x3 Extrem General: Yes normal to inspection Psych Mental Status: mental status grossly normal Office Procedures EKG Details: EKG with underlying sinus rhythm at 86/Min; nonspecific ST-[place] changes; [place] [address]-[id number], Complete Assessment & Plan Assessment & Plan (1) Atherosclerotic cardiovascular disease: Code(s): I25.10 - Atherosclerotic heart disease of [place] coronary artery without angina pectoris Category: Medical Plan: Cardiac studies reviewed. Echocardiogram with preserved LVEF and no overt wall motion abnormalities. Cardiac catheterization from 12/2023-normal left main; LAD with minimal irregularities; circumflex with minimal irregularity; OM1-40-50% stenosis; RCA with minimal irregularities. Overall, some of her chest pains could be related to microvascular disease but the current description seems rather musculoskeletal. On ASA, beta blockers, long acting nitrates. Sublingual nitroglycerin as needed. (2) Type 2 diabetes mellitus with unspecified complications: Code(s): E11.8 - Type 2 diabetes mellitus with unspecified complications Category: Medical Plan: She is on insulin, Trulicity. Last hemoglobin A1c is 7.4%. (3) Essential hypertension: Code(s): I10 - Essential (primary) hypertension Category: Medical Plan: On metoprolol, lisinopril/HCTZ. (4) Hyperlipidemia, unspecified: Code(s): E78.5 - Hyperlipidemia, unspecified Category: Medical Plan: LDL 59 mg/dL. Triglycerides 125 mg/dL. On statins. Plan Discussion Notes I discussed with the patient that her chest discomfort is likely musculoskeletal in nature, given its association with movement and lack of significant exertional symptoms. I recommended using nitroglycerin spray if the discomfort changes or worsens, and we agreed on a follow-up in six months to monitor her condition. Patient was informed and verbally consented to the use of an ambient scribe for clinic note documentation during this visit. Coding Level of Care Code Est Pt Level 4 (38253) Complex EM visit Add On G2211 Diagnoses Atherosclerotic cardiovascular disease I25.10 Type 2 diabetes mellitus with unspecified complications E11.8 Essential hypertension I10 Hyperlipidemia, unspecified E78.5 CPT Codes EKG - CPT: 28743-Dsbvxxujypqqbippn, Complete ([id number])
--- OUTSIDE RECORDS SUMMARY | 2025-04-03 09:17 | XMS_ITS | Clinical Summary ---
Author Organization [facility] Address [address] [facility] [address] [place] [address] Phone Care Team Providers Care Real Estate Consultant Name Role Phone Brigida Hendricks Primary Care Provider Allergies No known active allergies Medications citalopram (CELEXA) 20 MG tablet 20 mg daily. Active omega 4-hbf-dxg-fish oil (FISH OIL) 1,000 mg (120 mg-180 [...] 1 Refills, Maintenance, 04/10/23 13:41:00 EST, Capsule, [facility]/pharmacy #[id number], Partial fill upon patient request if the [...] Encounters Date Type Department Care Team Description 03/07/2025 11:07 AM EDT - 03/07/2025 2:06 PM EDT Emergency [facility] [address] [place] [address] Discharge Disposition: Home or Self Care 02/15/2025 10:00 AM EDT Office Visit [address] [address] Rick Cuevas MD Chutkowski, Idalina, OT Hand dysfunction (Primary Dx) 02/01/2025 10:45 AM EDT Office Visit [address] [address] Rick Cuevas MD Chutkowski, Idalina, OT Hand dysfunction (Primary Dx) 01/25/2025 10:00 AM EDT Office Visit [address] [address] Rick Cuevas MD Chutkowski, Idalina, OT Hand dysfunction (Primary Dx) 01/25/2025 Plan of Care Documentation [address] [address] from Last 3 Months Immunizations Immunization Administration Dates Next Due Hepatitis B Adult 02/22/2014,07/30/2012 INFLUENZA, SPLIT VIRUS, TRIVALENT PF 06/03/2013, 03/04/2012 INFLUENZA, SPLIT VIRUS, TRIV ALENT W/ PRESERVATIVE IM 02/24/2014,03/06/2011,02/20/2010,07/13 Influenza Quadrivalent Prese rvative Free IM 04/07/2019 Novel [id number], Injectable 07/13/2009 Pneumococcal polysaccharide PPSV23 09/20/2015 Td [...] on file 09/19/2022 No 09/19/2022 No 09/19/2022 Food Answer Date Recorded Within the past 6 months we worried whether our food would run out before we got money to buy more. Never True 03/07/2025 Within the past 6 months the food we bought just didn't last and we didn't have enough money to get more. Never True Residential Stability Answer Date Recor ded What is your housing situation today? I have ena sing 03/07/2025 How many times have you move d in the past 12 months? Zero (I did not move) 03/07/2025 Paying for Meds Answer Date Recorded Do you have trouble paying for medicines? No 03/07/2025 Paying Utility Bills Answer Date Record ed Do you have trouble paying your heating or elect ricity bill? No 03/07/2025 Transportation Answer Date Recorded Has the lack of transportati on kept you from medical appointments or from getting medications? No 03/07/2025 Digital Access Answer Date Recorded No 03/07/2025 Yes 03/07/2025 Do you have reliable internet access at home? Ye s 03/07/2025 Do you have a device (e.g., phone, tablet, computer) with a working camera? Yes 03/07/2025 Intimate Partner Violence Answer Date R ecorded Are you denied basic needs s uch as food, clothing, or medical care? No 03/07/2025 In the past 12 months have y ou been in a relationship with a person who hurts, threatens, or tries to control you? No 03/07/2025 Are you denied basic needs s uch as food, clothing, or medical care? No 03/07/2025 In the past 12 months have y ou been in a relationship with a person who hurts, threatens, or tries to control you? No 03/07/2025 Comments No Sex and Gender Information Value Date Recorded Sex Assigned at Female 10/09/2017 10:55 AM EDT Legal Sex Female 9:22 PM EDT Gender Identity Female 10/09/2017 10:55 AM EDT Sexual Orientation Straight 10/09/2017 10 :55 AM EDT Last Filed Vital Signs Vital Sign Reading Time Taken Comments Blood Pressure 153/99 03/07/2025 1:01 PM EDT Pulse 88 03/07/2025 1:01 PM EDT Temperature 36.8 C (98.2 F) 03/07/2025 1:01 PM EDT Respiratory Rate 15 03/07/2025 1:01 PM EDT Oxygen Saturation 100% 03/07/2025 1:01 PM EDT Inhaled Oxygen Concentration - - Weight 85.3 kg (188 lb) 03/07/2025 10:45 AM EDT Height 177.8 cm (5' 10 ) 03/07/2025 10:45 AM EDT Body Mass Index 26.98 03/07/2025 10:45 AM EDT Plan of Treatment Upcoming Encounters Date Type Department Care Team (Late st Contact Info) Description 11/22/2024 Procedure Pass [address] [address] 04/25/2025 2:00 PM EST Procedure visit [facility] Orthopedics & Sports Medicine [address] [place] [address] Haylee Armstrong MD [address] [place] [address] Orthopedics & Sports Medicine, [place] [address] 07/03/2025 9:30 AM EST Appointment [address] [address] Norma Ortiz NP [address] [place] [address] [email or web address] 07/25/2025 3:00 PM EST Office Visit [facility] Neurology at [place] [address] [facility] [address] [place] [address] Gulshan Rizo MD, MPH, CASA [address] [facility], [address] [place], [place] [id number] [email or web address] Health Maintenance Due Date Last Done Comments [...] FOBT 01/05/2025 SIGMOIDOSCOPY 01/05/2025 VIRTUAL COLONOSCOPY 01/05/2025 COVID-19 VACCINE ( season) 2025 08/17/2021, 07/26/2021 CREATININE LEVEL 03/07/2026 03/07/2025, , 01/16/2023, Additional history exists POTASSIUM LEVEL 03/07/2026 03/07/2025, 12/23, 01/16/2023, Additional history exists PAP SMEAR 09/09/2027 09/08/2024, 08/25/2018 Adult Td,Tdap Booster 12/18/2030 12/18/2020, 009 SMOKING STATUS SCREENING (Once After 26 Yrs) Completed 07/06/2024 HEPATITIS A VACCINES Aged Out No long er eligible based on patient's age to complete this topic HIB VACCINES Aged Out No longer eligi ble based on patient's age to complete this topic IPV VACCINES Aged Out No longer eligi ble based on patient's age to complete this topic MENINGOCOCCAL VACCINES (ACWY) Aged Out No longer eligible based on patient's age to complete this topic MENINGOCOCCAL VACCINES (B) Aged Out N o longer eligible based on patient's age to complete this topic Medical Devices Not on file Procedures Procedure Name Priority Date/Time Associated Diagnosis Comments XR CHEST PA AND LATERAL 2 VIEWS Routine 03/07/2025 12:15 PM EDT TROPONIN STAT 03/07/2025 11:55 AM EDT TROPONIN STAT 03/07/2025 10:57 AM EDT BASIC METABOLIC PANEL (BMP) STAT 03/07/2025 10:57 AM EDT CBC AND DIFFERENTIAL STAT 03/07/2025 10:57 AM EDT ECG 12-LEAD STAT 03/07/2025 10:50 AM EDT PAP TEST Routine 09/08/2024 12:00 AM EDT from Last 3 Months or Most Recently Relevant to Health Maintenance Results * XR CHEST PA AND LATERAL 2 VIEWS (03/07/2025 12:15 PM EDT) Anatomical Region Laterality Modality Chest Computed Radiogr aphy 03/07/2025 1:36 PM EDT Impressions 03/07/2025 1:37 PM EDT No acute abnormality. Narrative 03/07/2025 1:37 PM EDT XR CHEST PA AND LATERAL 2 VIEWS Referring clinician's provided indication for this examination in Epic: Pain COMPARISON: XR CHEST PA AND LATERAL 2 VIEWS FINDINGS: Devices/Tubes/Lines: None. Lungs: No focal consolidation or pulmonary edema. Pleura: No pleural effusion or pneumothorax. Heart/Mediastinum: Normal heart and mediastinum. Bones/Soft Tissues: No significant abnormality. Procedure Note Geeta Reyes MD, PhD - 03/07/2025 XR CHEST PA AND LATERAL 2 VIEWS Referring clinician's provided indication for this examination in Epic:Pain COMPARISON: XR CHEST PA AND LATERAL 2 VIEWS FINDINGS: Devices/Tubes/Lines: None. Lungs: No focal consolidation or pulmonary edema. Pleura: No pleural effusion or pneumothorax. Heart/Mediastinum: Normal heart and mediastinum. Bones/Soft Tissues: No significant abnormality. IMPRESSION: No acute abnormality. Ivonne Santamaria PA-C IMG XR CHEST Final R esult * Troponin (03/07/2025 11:55 AM EDT) Only the most recent of2 resultswithin the time period is included. Pathologist [facility] Troponin-T, HS Gen5 <6 0 - 9 ng/L [facility] Blood 03/07/2025 11:5 5 AM EDT 03/07/2025 11:57 AM EDT Nazario THOMPSON, CASA LAB BLOOD BKR ORDERABLE S Final Result [address] [address] * (ABNORMAL) CBC and differential (03/07/2025 10:57 AM EDT) WBC 6.39 4.00 - 11.00 K/uL [facility] RBC 4.55 4.00 - 5.20 M/uL [facility] HGB 12.2 12.0 - 16.0 g/dL [facility] HCT 38.5 36.0 - 46.0 % [facility] PLT 319 150 - 450 K/uL [facility] MCV 84.6 80.0 - 100.0 fL [facility] MCH 26.8(L) 27.0 - 31.0 pg [facility] MCHC 31.7(L) 32.0 - 36.0 g/dL [facility] RDW 12.4 11.5 - 14.5 % [facility] MPV 9.8 8.4 - 12.0 fL [facility] NRBC 0.00 0.00 /100 WBCs [facility] ABSOLUTE NRBC 0.00 0.00 K/uL [facility] DIFF METHOD Auto [facility] NEUTS 67.9 48.0 - 76.0 % [facility] LYMPHS 22.1 18.0 - 41.0 % [facility] MONOS 6.3 4.0 - 11.0 % [facility] EOS 2.7 0.0 - 5.0 % [facility] BASOS 0.5 0.0 - 1.5 % [facility] Granulocytes, immature (%) 0.5 0.0 - 0.9 % [facility] ABSOLUTE NEUTS 4.35 1.92 - 7.60 K/uL [facility] ABSOLUTE LYMPHS 1.41 0.72 - 4.10 K/uL [facility] ABSOLUTE MONOS 0.40 0.16 - 1.10 K/uL [facility] ABSOLUTE EOS 0.17 0.00 - 0.50 K/uL [facility] ABSOLUTE BASOS 0.03 0.00 - 0.15 K/uL [facility] Granulocytes, immature 0.03 0.00 - 0.09 K/uL [facility] Blood 03/07/2025 10:5 7 AM EDT 03/07/2025 11:08 AM EDT Fortinoalvino Lange MD, CASA LAB BLOOD BKR ORDERABLE S Final Result [facility] [address] [place] [address] * (ABNORMAL) Basic metabolic panel (03/07/2025 10:57 AM EDT) SODIUM 136 133 - 146 mmol/L [facility] CHLORIDE 102 96 - 108 mmol/L [facility] POTASSIUM 4.0 3.3 - 5.1 mmol/L [facility] CO2 25 21 - 35 mmol/L [facility] BUN 11 6 - 19 mg/dL [facility] CREATININE 0.60 0.5 - 1.5 mg/dL [facility] GLUCOSE 218(H) 70 - 99 mg/dL [facility] CALCIUM 9.4 8.4 - 10.3 mg/dL [facility] EGFR 113 >59 mL/min/1.7 3m2 [facility] Comment:Estimated glomerular filtration rate calculated using the CKD-EPI refit equation. ANION GAP 13 10 - 20 mmol/L [facility] Blood 03/07/2025 10:5 7 AM EDT 03/07/2025 11:08 AM EDT Fortino Lange MD, MBA LAB BLOOD BKR ORDERABLE S Final Result Performing Organization Address [facility] Co de Phone Number [address] [address] * ECG 12-LEAD (03/07/2025 10:50 AM EDT) Ventricular Rate EKG/MIN 92 BPM [facility] Atrial Rate 92 BPM [facility] WA Interval 150 ms [facility] QRS Duration 74 ms [facility] QT Interval 386 ms [facility] QTC Interval 477 ms [facility] P [place] 63 degrees [facility] R Wave [place] 39 degrees [facility] T Wave [place] 20 degrees [facility] 03/07/2025 10:5 0 AM EDT 03/07/2025 1:50 PM EDT Narrative [facility] - 03/07/2025 1:50 PM EDT Normal sinus rhythm Normal ECG When compared with ECG of 11-Jan-2024 10:58, Nonspecific T wave abnormality now evident in Inferior leads Confirmed by Boby Lara ([id number]) on 03/07/2025 1:50:10 PM Fortino Lange MD, MBA ECG ORDERABLES Final R esult Performing Organization Address [facility] Co de Phone Number [facility] * Pap Test (09/08/2024 12:00 AM EDT) Report [address] [address] Bobtailer: Drew Henry MD EMAIL DEPLOYMENT SPECIALIST Cytology Report FINAL DIAGNOSIS A. PAP SMEAR (THIN PREP) CE: SPECIMEN ADEQUACY: Satisfactory for evaluation; transformation zone absent/insufficien t. INTERPRETATION: NEGATIVE FOR INTRAEPITHELIAL LESION OR MALIGNANCY. This specimen was analyzed by the automated ThinPrep Imaging System ([employer] and the selected price were reviewed by a battery technician. Electronically Signed Out By: SUSAN Castelan(ASCP) The [...] : 1980 (Age: 44) Sex: F Institution: [facility] Location: [facility] Date of Collection: 09/08/2024 Date of Reported: 09/15/2024 13:49 Results to: Brigida Singh [facility] Final Diagnosis A. PAP SMEAR (THIN PREP) CE: SPECIMEN ADEQUACY: Satisfactory for evaluation; transformation zone absent/insufficien t. INTERPRETATION: NEGATIVE FOR INTRAEPITHELIAL LESION OR MALIGNANCY. This specimen was analyzed by the automated ThinPrep Imaging System ([employer] and the selected price were reviewed by a battery technician. [facility] Conversion Type (Conversion Source) 09/08/2024 09/09/2024 9:44 AM EDT us Brigida DHILLON CYTOLOGY ORDERABLES Edited Res ult - Final [facility] [address] [place] [address] from Last 3 Months or Most Recently Relevant to Health Maintenance Insurance MEDICARE PART A & B [facility] PART A & B HEALTH MEDICARE PART A & B [facility] PART A & B Member Subscriber Plan / Payer (Ef fective 2007-Present) Name:Maye Shah Member ID:[id number] Relation to Subscriber:Self Name:Maye Shah Subscriber ID:[id number] Payer ID:[id number] Group ID:Not on file Type:Medicare Address: [place] [address] [facility] A & B Member Subscriber Plan / Payer (Ef fective 2007-) Name:Maye Shah Member ID:[id number] Relation to Subscriber:Self Name:Maye Shah Subscriber ID:[id number] Payer ID:[id number] Group ID:Not on file Type:Medicare Address: [employer] [address] [place] [phone] [facility] PART A & [place] [address] MEDICARE PART A & B [facility] PART A & [facility] [place] [address] Advance Directives For more information, please contact: [phone] (9AM - 5PM Raquel/[facility], Thursday-Thursday) * Full Code (Presumed) (Latest Code Status on File) Date Activated Date Inactivated Comments 04/27/2017 7:09 AM 04/27/2017 2:16 PM Care Teams Real Estate Consultant Relationship Specialty Start Date End Date Birgida Hendricks PA [address] [place] [address] [phone] [email or web address] PCP - General Physician Spanish Speaking Babysitter 10/14/22 Additional Source Comments The information contained in this document represents components of the legal health record. It is not the complete legal health record.[facility]
--- OUTSIDE RECORDS SUMMARY | 2025-04-03 09:17 | XMS_ITS | Encounter Summary ---
Author Organization [facility] Address [address] [facility] [address] [place] [address] Phone Care Team Providers Care Warping Machine Operator Name Role Phone Brigida [place]ricks Primary Care Provider Encounter Details Date Type Department Care Team (Late st Contact Info) Description 08/22/2024 Transcribe Orders Virtual Department [address] [place] [address] Norma Ortiz NP [address] [place] [address] [email or web address] Breast screening (Primary Dx) Social History Tobacco [...] st Contact Info) Description 11/22/2024 Procedure Pass [address] [address] 04/25/2025 2:00 PM EST Procedure visit [facility] Orthopedics & Sports Medicine [address] [place] [address] Haylee Armstrong MD [address] [place] [address] Orthopedics & Sports Medicine, [facility] [place] [address] 07/03/2025 9:30 AM EST Appointment [address] [address] Norma Ortiz, INSTRUMENT LENS INSPECTOR [address] [place] [address] [email or web address] 07/25/2025 3:00 PM EST Office Visit [facility] Neurology at [address] [place] [address] Gulshan Rizo MD, MPH, CASA [address] [place] [address], [address] [address] [email or web address] documented as of this encounter Visit Diagnoses Diagnosis Breast screening- Primary Breast screening, unspecified documented in this encounter Care Teams Warping Machine Operator Relationship Specialty Start Date End Date Brigida [place]ricks PA [address] [place] [address] [email or web address] PCP - General Physician Doctorate Of Chiropractic 10/14/22 documented as of this encounter Additional Source Comments The information contained in this document represents components of the legal health record. It is not the complete legal health record.[facility]
--- OUTSIDE RECORDS SUMMARY | 2025-04-03 09:18 | XMS_ITS | Encounter Summary ---
Author Organization [facility] Address [address] [place] [address] [place] [address] Phone Care Team Providers Care Hot Man Name Role Phone Bautista Rodriguez MD Unavailable [phone] Delma Barriga MD Unavailable [phone] Ravi Graham MD Unavailable Bautista Rodriguez MD Primary Care Provider [phone] Bautista Rodriguez MD Primary Care Provider Marly Mcdaniel NP Primary Care Provider [phone] Brigida Hendricks Primary Care Provider [phone] Encounter Details Date Type Department Care Team (Late st Contact Info) Description 04/27/2017 Procedure Pass OR Admitting Dept - [facility] Department [address] [place] [address] Social History Tobacco Use Types Packs/Day [...] st Contact Info) Description 11/22/2024 Procedure Pass [address] [place] [address] 04/25/2025 2:00 PM EST Procedure visit [facility] Orthopedics & Sports Medicine [address] [place] [address] Haylee Armstrong MD [address] [facility] Orthopedics & Sports Medicine, [facility] [place] [address] 07/03/2025 9:30 AM EST Appointment [facility], [facility]- [address] [address] Norma Ortiz NP [address] [place] [address] [email or web address] 07/25/2025 3:00 PM EST Office Visit [facility] Neurology at [address] [address] Gulshan Rizo MD, MPH, CASA [address] [place] [address], [address] [address] [email or web address] documented as of this [...] 01/11/2021 01/11/2021 7:36 AM EDT COVID-19 01/11/2021 01/11/202102/0102/01/2021 1:23 AM EDT CoV-Risk 10/14/2022 10/14/2022 10/25/2022 1:21 AM EDT CoV-Risk 01/11/2024 01/11/2024 01/22/2024 1:22 AM EDT documented as of this encounter Care Teams Hot Man Relationship Specialty Start Date End Date Bautista Rodriguez MD [address] [place] [phone] [email or web address] PCP - General 03/26/17 03/08/20 Bautista Rodriguez MD [facility]3 [place] [phone] [email or web address] PCP - General Family Medicine 03/09/20 06/21/20 Marly Mcdaniel DATA WAREHOUSE SPECIALIST [address] [place] [address] PCP - General Nurse Practitioner 06/22/20 10/13/22 Brigida Hendricks PA [address] [place] [address] [email or web address] PCP - General Physician Senior Technical Manager 10/14/22 Bautista Rodriguez MD [address] [place] [address] [email or web address] Historical LMR Provider 03/15/17 06/01/21 Delma Barriga MD [address] [place] [address], [address] [place] [address] [email or web address] Historical LMR Provider 03/15/17 Ravi Graham MD [address] [place] [address] Historical LMR Provider 03/15/17 2 documented as of this encounter Additional Source Comments The information contained in this document represents components of the legal health record. It is not the complete legal health record.[facility]
--- OUTSIDE RECORDS SUMMARY | 2025-04-03 09:18 | XMS_ITS | Encounter Summary ---
Author Organization [facility] Address [address] [facility] [address] [place] [address] Phone Care Team Providers Care Administrative Accountant Name Role Phone Brigida Hendricks Primary Care Provider [phone] Encounter Details Date Type Department Care Team (Late st Contact Info) Description 10/06/2024 Procedure Pass [facility], [address] [address] Social History Tobacco Use Types Packs/Day Years [...] st Contact Info) Description 11/22/2024 Procedure Pass [address] [address] 04/25/2025 2:00 PM EST Procedure visit [facility] Orthopedics & Sports Medicine [address] [place] [address] Haylee Armstrong MD [address] [place] [address] Orthopedics & Sports Medicine, [place] [address] 07/03/2025 9:30 AM EST Appointment [address] [address] Norma Ortiz, ONE PIECE EXPANSION MAKER HAND [address] [place] [address] [email or web address] 07/25/2025 3:00 PM EST Office Visit [facility] Neurology at [address] [place] [address] Gulshan Rizo MD, MPH, CASA [address] [place] [address] [email or web address] documented as of this encounter Visit Diagnoses Not on filedocumented in this encounter Care Teams Administrative Accountant Relationship Specialty Start Date End Date Brigida Hendricks PA [address] [place] [address] [email or web address] PCP - General Physician Furnace Worker 10/14/22 documented as of this encounter Additional Source Comments The information contained in this document represents components of the legal health record. It is not the complete legal health record.[facility]
--- OUTSIDE RECORDS SUMMARY | 2025-04-03 09:18 | XMS_ITS | Encounter Summary ---
Author Organization [facility] Address [address] [facility] [address] [place] [address] Phone Care Team Providers Care Computer Software Engineer Name Role Phone Bautista Rodriguez MD Unavailable [phone] Delma Barriga MD Unavailable [phone] Ravi Graham MD Unavailable [phone] Marly Mcdaniel NP Primary Care Provider [phone] Brigida Hendricks Primary Care Provider [phone] Encounter Details Date Type Department Care Team (Late st Contact Info) Description 05/29/2021 Procedure Pass [place] Ct Scan [address] [address] Social History Tobacco Use Types Packs/Day Years [...] st Contact Info) Description 11/22/2024 Procedure Pass [facility], Mammography- [address] [address] 04/25/2025 2:00 PM EST Procedure visit [facility] Orthopedics & Sports Medicine [address] [place] [address] Haylee Armstrong MD 4 [facility] Orthopedics & Sports Medicine, [facility] [place] [address] 07/03/2025 9:30 AM EST Appointment [facility] 30 [place] [address] Norma Ortiz NP [address] [place] [address] [email or web address] 07/25/2025 3:00 PM EST Office Visit [facility] Neurology at [address] [address] Gulshan Rizo MD, MPH, CASA [address] [place] [address] [email or web address] documented as of this encounter Visit Diagnoses Not on filedocumented in this encounter Additional Health Concerns Infection Onset Date Last Indicated Resolved Time CoV-Risk 10/14/2022 10/14/2022 10/25/2022 1:21 AM EDT CoV-Risk 01/11/2024 01/11/2024 01/22/2024 1:22 AM EDT documented as of this encounter Care Teams Computer Software Engineer Relationship Specialty Start Date End Date Marly Mcdaniel NP [address] [place] [address] PCP - General Nurse Practitioner 06/22/20 10/13/22 Brigida Hendricks PA [address] [place] [address] [email or web address] PCP - General Physician Guest Specialist 10/14/22 Bautista Rodriguez MD [address] [place] [address] [email or web address] Historical LMR Provider 03/15/17 06/01/21 Delma Barriga MD [address] [address] [email or web address] Historical LMR Provider 03/15/17 Ravi Graham MD [address] [place] [phone] Historical LMR Provider 03/15/17 2 documented as of this encounter Additional Source Comments The information contained in this document represents components of the legal health record. It is not the complete legal health record.[facility]
--- OUTSIDE RECORDS SUMMARY | 2025-04-03 09:18 | XMS_ITS | Encounter Summary ---
Author Organization [facility] Address [address] [place] [address] [place] [address] Phone Care Team Providers Care Boring Machine Set Up Operator Name Role Phone Bautista Rodriguez MD Unavailable [phone] Delma Barriga MD Unavailable [phone] Ravi Graham MD Unavailable Bautista Rodriguez MD Primary Care Provider Bautista Rodriguez MD Primary Care Provider [phone] Marly Mcdaniel NP Primary Care Provider [phone] Brigida Hendricks Primary Care Provider [phone] Encounter Details Date Type Department Care Team (Late st Contact Info) Description 04/30/2017 Procedure [facility], [address] [address] Social History Tobacco Use Types Packs/Day Years [...] (Late st Contact Info) Description 11/22/2024 Procedure [facility], [address] [address] 04/25/2025 2:00 PM EST Procedure visit [facility] Orthopedics & Sports Medicine [address] [place] [address] Haylee Armstrong MD 4 [facility] Orthopedics & Sports Medicine, [facility] [place] [address] 07/03/2025 9:30 AM EST Appointment [facility], [address] [address] Norma Ortiz NP [address] [place] [address] [email or web address] 07/25/2025 3:00 PM EST Office Visit [facility] Neurology at [address] [address] Gulshan Rizo MD, MPH, CASA [address] [place] [address], [address] [address] [email or web address] documented as of this encounter Visit [...] documented as of this encounter Care Teams Boring Machine Set Up Operator Relationship Specialty Start Date End Date Bautista Rodriguez MD [address] [place] [phone] [email or web address] PCP - General 03/26/17 03/08/20 Bautista Rodriguez MD [facility]3 [place] [phone] [email or web address] PCP - General Family Medicine 03/09/20 06/21/20 Marly Mcdaniel BOWLING BALL ASSEMBLER [address] [place] [address] PCP - General Nurse Practitioner 06/22/20 10/13/22 Brigida Hendricks PA [address] [place] [address] [email or web address] PCP - General Physician Energy Control Officer 10/14/22 Bautista Rodriguez MD [address] [place] [address] [email or web address] Historical LMR Provider 03/15/17 06/01/21 Delma Barriga MD [address] [place] [address], [address] [place] [address] [email or web address] Historical LMR Provider 03/15/17 Ravi Graham MD [address] [place] [address] Historical LMR Provider 03/15/17 2 documented as of this encounter Additional Source Comments The information contained in this document represents components of the legal health record. It is not the complete legal health record.[facility]
--- OUTSIDE RECORDS SUMMARY | 2025-04-03 09:19 | XMS_ITS | Encounter Summary ---
Author Organization [facility] Address [address] [place] [address] [place] [address] Phone Care Team Providers Care Commercial Credit Officer Name Role Phone Bautista Rodriguez MD Unavailable Delma Barriga MD Unavailable [phone] Ravi Graham MD Unavailable Bautista Rodriguez MD Primary Care Provider Bautsita Rodriguez MD Primary Care Provider [phone] Marly Mcdaniel NP Primary Care Provider Brigida Hendricks Primary Care Provider Encounter Details Date Type Department Care Team (Late st Contact Info) Description 04/03/2017 Ancillary Orders Virtual Department 30 [place] [address] Thiago Scott MD [address] [place] [address] [email or web address] Nausea; Bloating; Abdominal pain, unspecified abdominal location; [...] st Contact Info) Description 11/22/2024 Procedure Pass [address] [address] 04/25/2025 2:00 PM EST Procedure visit [facility] Orthopedics & Sports Medicine [address] [place] [address] Haylee Armstrong MD [address] [place] [address] Orthopedics & Sports Medicine, [facility] [place] [address] 07/03/2025 9:30 AM EST Appointment [address] [address] Norma Ortiz NP 179 [place] [address] [email or web address] 07/25/2025 3:00 PM EST Office Visit [facility] Neurology at [address] [place] [address] Gulshan Rizo MD, MPH, CASA [address] [place] [address], [address] [address] [email or web address] documented as of this encounter [...] POS - [id number] Thiago Scott MD IMG FL ABDOMEN Final Resu lt documented in this [...] documented as of this encounter Care Teams Commercial Credit Officer Relationship Specialty Start Date End Date Bautista Rodriguez MD [facility]3 [place] [phone] [email or web address] PCP - General 03/26/17 03/08/20 Bautista Rodriguez MD [address] [place] [phone] PCP - General Family Medicine 03/09/20 06/21/20 Marly Mcdaniel NP [address] [place] [phone] PCP - General Nurse Practitioner 06/22/20 10/13/22 Brigida Hendricks PA [address] [place] [address] [email or web address] PCP - General Physician Principal Product Manager 10/14/22 Bautista Rodriguez MD [address] [place] [address] [email or web address] Historical LMR Provider 03/15/17 06/01/21 Delma Barriga MD 15 [facility], 2nd [place] [address] [email or web address] Historical LMR Provider 03/15/17 Ravi Graham MD [address] [place] [phone] Historical LMR Provider 03/15/17 2 documented as of this encounter Additional Source Comments The information contained in this document represents components of the legal health record. It is not the complete legal health record.[facility]
--- OUTSIDE RECORDS SUMMARY | 2025-04-03 09:20 | XMS_ITS | Encounter Summary ---
Author Organization [facility] Address [address] [facility] [address] [place] [address] Phone Care Team Providers Care Concrete Inspector Name Role Phone Brigida Hendricks Primary Care Provider [phone] Encounter Details Date Type Department Care Team (Late st Contact Info) Description 11/22/2024 Transcribe Orders Virtual Department 30 [place] [address] Norma Ortiz NP 179 [place] [address] Breast screening (Primary Dx) Social History Tobacco [...] st Contact Info) Description 11/22/2024 Procedure Pass [address] [address] 04/25/2025 2:00 PM EST Procedure visit [facility] Orthopedics & Sports Medicine [address] [place] [address] Haylee Armstrong MD [address] [place] [address] Orthopedics & Sports Medicine, [facility] [place] [address] 07/03/2025 9:30 AM EST Appointment [address] [address] Norma Ortiz, EMILIANO [address] [place] [address] 07/25/2025 3:00 PM EST Office Visit [facility] Neurology at [address] [place] [address] Gulshan Rizo MD, MPH, CASA [address] [place] [address], [address] [address] [email or web address] Scheduled Orders Name Type Priority Associated Diagnoses Orde r Schedule Mammogram Screening (Bilateral) Imaging Routine Breast screening Expected: 12/23/2024, Expires: 11/22/2025 documented as of this encounter Visit Diagnoses Diagnosis Breast screening- Primary Breast screening, unspecified documented in this encounter Care Teams Concrete Inspector Relationship Specialty Start Date End Date Brigida Hendricks PA [address] [place] [address] PCP - General Physician Professor Of Anthropology 10/14/22 documented as of this encounter Additional Source Comments The information contained in this document represents components of the legal health record. It is not the complete legal health record.[facility]
--- OUTSIDE RECORDS SUMMARY | 2025-04-03 09:20 | XMS_ITS | Encounter Summary ---
Author Organization [facility] Address [address] [facility] [address] [place] [address] Phone Care Team Providers Care Bilingual Speech Language Pathologist Name Role Phone Bautisat Rodriguez MD Unavailable [phone] Delma Barriga MD Unavailable [phone] Ravi Graham MD Unavailable [phone] Marly Mcdaniel NP Primary Care Provider [phone] Brigida Hendricks Primary Care Provider [phone] Encounter Details Date Type Department Care Team (Latest Contact Info) Description 06/22/2020 Transcribe Orders Virtual Department 30 [place] [address] Sapphire Tay NP [address] [place] [phone] Cough (Primary Dx); SOB (shortness of breath) [...] st Contact Info) Description 11/22/2024 Procedure Pass [address] [address] 04/25/2025 2:00 PM EST Procedure visit [facility] Orthopedics & Sports Medicine [address] [place] [address] Haylee Armstrong MD 4 [facility] Orthopedics & Sports Medicine, [facility] [place] [address] 07/03/2025 9:30 AM EST Appointment [address] [address] Norma Ortiz NP [address] [place] [address] [email or web address] 07/25/2025 3:00 PM EST Office Visit [facility] Neurology at [address] [address] Gulshan Rizo MD, MPH, CASA [address] [place] [address] [email or web address] documented as of this encounter Results * COVID-19 PCR Order (06/24/2020 8:08 AM EST) COVID Testing Status Specimen received in analyzing lab. Results should be available within 24 to 48 hrs. [facility] Symptomatic? YES [facility] 06/24/2020 8:08 AM EST 06/24/2020 11:21 AM EST us Sapphire Tay NITRILES LAB TECHNICIAN LAB GENERAL ORDERABLES Fi nal Result [facility] [address] [place] [address] [facility] [address] [place] [address] documented in this encounter Visit Diagnoses Diagnosis [...] documented as of this encounter Care Teams Bilingual Speech Language Pathologist Relationship Specialty Start Date End Date Marly Mcdaniel NITRILES LAB TECHNICIAN [address] [place] [address] PCP - General Nurse Practitioner 06/22/20 10/13/22 Brigida Hendricks PA [address] [place] [address] [email or web address] PCP - General Physician Quantitative Software Engineer 10/14/22 Bautista Rodriguez MD [address] [place] [address] [email or web address] Historical LMR Provider 03/15/17 06/01/21 Delma Barriga MD [address] [place] [address], [address] [place] [address] [email or web address] Historical LMR Provider 03/15/17 Ravi Graham MD [facility]3 [place] [phone] Historical LMR Provider 03/15/17 2 documented as of this encounter Additional Source Comments The information contained in this document represents components of the legal health record. It is not the complete legal health record.[facility]
== END 2025-04-03 09:14 | disposition home or self-care (01) ==
LOC: HO.HCS 08:51
PROVIDERS: PCP Physician Assistant; Visit Provider Internal Medicine
DX: I25.10 Atherosclerotic heart disease of native coronary artery without angina pectoris (principal); E11.8 Type 2 diabetes mellitus with unspecified complications; I10 Essential (primary) hypertension; E78.5 Hyperlipidemia, unspecified
CPT/HCPCS: 93010; 99214; G2211

== ENCOUNTER → 2025-04-03 08:51 | Outpatient (BNVA) | payer MEDICARE, MEDICAID, SELFPAY | PROVIDERS: PCP Physician Assistant; Visit Provider Internal Medicine | DX: I25.10 Atherosclerotic heart disease of native coronary artery without angina pectoris (principal); E11.8 Type 2 diabetes mellitus with unspecified complications; I10 Essential (primary) hypertension; E78.5 Hyperlipidemia, unspecified; R07.89 Other chest pain | CPT/HCPCS: 93005; 99212 ==

== ENCOUNTER 2025-04-04 10:52 | Outpatient (AMB) | payer MEDICARE, MEDICAID, SELFPAY ==
--- NOTE | 2025-04-04 10:52 | A.OFFVIS_ITS ---
Vital Signs 04/04/25 11:00 Height 5 ft 10 in Weight 190 lb BMI 27.3 BP 140/90 H Blood Pressure Location Rt brachial Position Sitting Respiration 17 Pulse 91 Pulse Source Pulse Oximeter Pulse Oximetry (%) 100 Oxygen Delivery Method Room Air Intake Visit Reasons: 6 weeks Migraine Certified Master Locksmith Required: No Allergies No Known Allergies Allergy (Verified 04/04/25 11:02) HPI Comments Details: Christine is a 45-year-old female patient with a past medical history of diabetes, hypertension, coronary artery disease with IL in February of 2024 but with negative cardiac catheterization. She follows in the clinic for chronic headaches. Headaches started approximately 23 years ago and have waxed and waned over her lifetime. At current, she is experiencing headaches 5-7 days per week though headaches can vary in intensity. The majority of her headaches are left frontal and temporal and radiate to the occipital area. Occasionally headaches can be on the right side. They are accompanied by light sensitivity and sometimes nausea when they become more severe. She was having some associated twitching to the left eye though upon initiation of amitriptyline 25 mg at last visit, she has not had any further twitching of her left eye and headaches have become less severe. She has also noticed an improvement in her sleep quality which she feels does make a difference. Headache characteristics: Time of onset: 23 years ago Location: Left temporal and frontal area Radiation: Left occipital area Positional component: No Character: Pressure and stabbing Severity:Moderate to severe (improved in severity since starting the amitriptyline) Duration: A couple of hours up to half of a day Frequency:5-7 days per week Acute aggravating factors: Sometimes out of nowhere Acute relieving factors: Application of pressure to the areas of pain, darkness, and relaxation Associated symptoms: Light sensitivity, lethargy, difficulty with concentration, and nausea Aura:Sometimes sparkles in her vision before a migraine Headache triggers:Unknown Relation to menses: Periods are regular but she has not seen any relationship to her menses Other related background information: Sleep:Some improvement with the amitriptyline Hydration: Hydrates well Caffeine intake: 2 cups coffee per day Alcohol intake: None Substance use:None Tobacco use:None Last eye exam: Within the least year History of head injury:None Past medication trials: Amitriptyline 25 mg-currently taking for headaches with some minor improvement Metoprolol-currently taking for cardiovascular reasons Magnesium-taking magnesium 200 mg daily Prior workup: MRI of the brain 09/18/2024 normal aside from a mucosal cyst at the right petrous apex which is unrelated to her symptoms CTA of the brain in July of 2024 which was normal COUNT INCLUDES [facility] Medical History (Updated 04/04/25 @ 11:55 by Norma Powers CNP) Migraine Atherosclerotic cardiovascular disease Depression Anxiety HTN (hypertension) Diabetes Surgical History History of Hx of cholecystectomy Family History Mother HTN (hypertension) Stroke Father HTN (hypertension) Cancer DM2 (diabetes mellitus, type 2) Social History Alcohol intake: never Patient Tobacco Use Status: Never used Tobacco Review of Systems Const All systems reviewed & are unremarkable except as noted in HPI and below Physical Exam Vital Signs: Last Vital Signs Pulse 91 04/04/25 11:00 Resp 17 04/04/25 11:00 BP 140/90 H 04/04/25 11:00 Pulse Ox 100 04/04/25 11:00 Oxygen Delivery Method Room Air 04/04/25 11:00 BMI result Body Mass Index 27.3 Const General: cooperative, healthy appearing, comfortable and no acute distress Nutritional Appearance: well nourished Orientation/consciousness: patient oriented x3 Limitations: no limitations HEENT Head: Yes normal to inspection and Yes normocephalic Eyes General: appearance normal, both eyes and all related structures Visual Cruz: normal visual cruz by confrontation Alignment and Position: alignment normal Periorbital: periorbital findings normal Eyelids: Yes eyelids normal Conjunctivae: conjunctivae normal Sclerae: sclerae normal Neck Neck: Yes normal visual inspection and Yes full ROM General: Yes no CVA tenderness Back/Spine/Pelvis Back: no CVA tenderness Cervical Spine: normal cervical lordosis Thoracic/Lumbar Spine: thoracic and lumbar spine normal to inspection Neuro General: patient oriented x3 Cranial nerves: Yes CN's II-XII intact bilaterally and Yes Facial sensation intact/muscles of mastication intact Cognition (Neuro): normal cognition Gait exam (Neuro): Normal gait present Motor exam (neuro): no tremor noted Romberg Test: Negative Pupils: Normal pupillary reactivity/response: bilateral Psych Appearance: grossly normal Mental Status: mental status grossly normal Speech and movement: Normal speech and movement present and Clear speech present Affect: normal affect Attitude: cooperative Thought process: Normal thought process present Thought content: Normal thought content present Insight: Good insight present (Psych) Judgement: Good judgement present (Psych) Assessment & Plan Assessment & Plan (1) Chronic migraine without aura without status migrainosus, not intractable: Code(s): G43.709 - Chronic migraine without aura, not intractable, without status migrainosus Category: Medical Plan Christine is a 45-year-old female patient with a past medical history of diabetes, hypertension, coronary artery disease with IL in February of 2024 but with negati ve cardiac catheterization. She follows in the clinic for chronic headaches. We reviewed her extensive headache history today. She does have a significant medical history making it challenging to find an appropriate preventive medication. She is currently on amitriptyline 25 mg which she tolerates well though I do have some concerns regarding her cardiac history. She is already on beta-blockers which have not been helpful for her migraines. In terms of antiepileptics, she has not tried them in the past however topiramate is associated with significant brain fog and difficulty concentrating which she already has with her migraines. I would like to try her on a once monthly injectable for her migraines. She does endorse a history of constipation with use of iron for treatment of iron- deficiency anemia. We will avoid Aimovig for this reason. -trial of Ajovy 225 mg subcutaneous monthly -at next visit, discuss acute options which might include GPANTS given her significant cardiovascular history -follow up in 3 months or sooner if needed Medications: New fremanezumab-vfrm (Ajovy) 225 mg (1.5 mL) subcut QMONTH 1.5 mL 5RF Coding Level of Care Code Est Pt Level 4 (74632) Diagnoses Chronic migraine without aura without status migrainosus, not intractable G43.709
[2025-04-04 11:00] VITALS: BP 140/90; PULSE 91; RESP 17; O2SAT 100; BMI 27.3
--- OUTSIDE RECORDS SUMMARY | 2025-04-04 13:01 | XMS_ITS | Encounter Summary ---
Author Organization [facility] Address [address] [facility] [place] [address] Phone Care Team Providers Care Oil Lease Buyer Name Role Phone Brigida Hendricks Primary Care Provider [phone] Encounter Details Date Type Department Care Team (Late st Contact Info) Description 10/06/2024 Procedure Pass [facility], [address] [address] Social History Tobacco Use Types Packs/Day Years [...] st Contact Info) Description 11/22/2024 Procedure Pass [address] [address] 04/25/2025 2:00 PM EST Procedure visit [facility] Orthopedics & Sports Medicine [address] [place] [address] Haylee Armstrong MD [address] [place] [address] Orthopedics & Sports [place], [place] [address] 07/03/2025 9:30 AM EST Appointment [address] [address] Norma Ortiz, PASTEURIZER [address] [place] [address] [email or web address] 07/25/2025 3:00 PM EST Office Visit [facility] Neurology at [address] [place] [address] Gulshan Rizo MD, MPH, CASA [address] [place] [address] [email or web address] documented as of this encounter Visit Diagnoses Not on filedocumented in this encounter Care Teams Oil Lease Buyer Relationship Specialty Start Date End Date Brigida Hendricks PA [address] [place] [address] [email or web address] PCP - General Physician Enrolled Nurse 10/14/22 documented as of this encounter Additional Source Comments The information contained in this document represents components of the legal health record. It is not the complete legal health record.[facility]
--- OUTSIDE RECORDS SUMMARY | 2025-04-04 13:01 | XMS_ITS | Encounter Summary ---
Author Organization [facility] Address [address] [facility] [address] [place] [address] Phone Care Team Providers Care Cut Off Machine Unloader Name Role Phone Brigida Hendricks Primary Care Provider [phone] Encounter Details Date Type Department Care Team (Late st Contact Info) Description 08/22/2024 Transcribe Orders Virtual Department 30 [place] [address] Norma Ortiz NP [address] [place] [address] [email or web address] Breast screening (Primary Dx) Social History Tobacco [...] st Contact Info) Description 11/22/2024 Procedure Pass [address] [address] 04/25/2025 2:00 PM EST Procedure visit [facility] Orthopedics & Sports Medicine [address] [place] [address] Haylee Armstrong MD [address] [place] [address] Orthopedics & Sports Medicine, [facility] [place] [address] 07/03/2025 9:30 AM EST Appointment [address] [address] Norma Ortiz, BUSINESS LINE CONTROLLER [address] [place] [address] [email or web address] 07/25/2025 3:00 PM EST Office Visit [facility] Neurology at [address] [place] [address] Gulshan Rizo MD, MPH, CASA [address] [place] [address], [address] [address] [email or web address] documented as of this encounter Visit Diagnoses Diagnosis Breast screening- Primary Breast screening, unspecified documented in this encounter Care Teams Cut Off Machine Unloader Relationship Specialty Start Date End Date Brigida Hendricks PA [address] [place] [address] [email or web address] PCP - General Physician Birthing Nurse 10/14/22 documented as of this encounter Additional Source Comments The information contained in this document represents components of the legal health record. It is not the complete legal health record.[facility]
--- OUTSIDE RECORDS SUMMARY | 2025-04-04 13:01 | XMS_ITS | Encounter Summary ---
Author Organization [facility] Address [address] [place] [address] [place] [address] Phone Care Team Providers Care Physical Fitness Trainer Name Role Phone Bautista Rodriguez MD Unavailable Delma Barriga MD Unavailable [phone] Ravi Graham MD Unavailable Bautista Rodriguez MD Primary Care Provider Bautista Rodriguez MD Primary Care Provider Marly Mcdaniel NP Primary Care Provider Brigida Hendricks Primary Care Provider Encounter Details Date Type Department Care Team (Late st Contact Info) Description 04/03/2017 Ancillary Orders Virtual Department 30 [place] [address] Thiago Scott MD [address] [place] [address] [email or web address] Nausea; Bloating; Abdominal pain, unspecified abdominal location; [...] st Contact Info) Description 11/22/2024 Procedure Pass [address] [address] 04/25/2025 2:00 PM EST Procedure visit [facility] Orthopedics & Sports Medicine [address] [place] [address] Haylee Armstrong MD [address] [place] [address] Orthopedics & Sports Medicine, [facility] [place] [address] 07/03/2025 9:30 AM EST Appointment [address] [address] Norma Ortiz NP [address] [place] [address] [email or web address] 07/25/2025 3:00 PM EST Office Visit [facility] Neurology at [address] [place] [address] Gulshan Rizo MD, MPH, CASA [address] [place] [address], [address] [address] [email or web address] documented as of this encounter Results [...] POS - [id number] Thiago Scott MD IMG SC ABDOMEN Final Resu lt documented in this [...] documented as of this encounter Care Teams Physical Fitness Trainer Relationship Specialty Start Date End Date Bautista Rodriguez MD [facility]3 [place] [phone] [email or web address] PCP - General 03/26/17 03/08/20 Bautista Rodriguez MD [address] [place] [phone] PCP - General Family Medicine 03/09/20 06/21/20 Marly Mcdaniel NP [address] [place] [address] [phone] PCP - General Nurse Practitioner 06/22/20 10/13/22 Brigida Hendricks PA [address] [place] [address] [email or web address] PCP - General Physician Portrait Artist 10/14/22 Bautista Rodriguez MD [address] [place] [address] [email or web address] Historical LMR Provider 03/15/17 06/01/21 Delma Barriga MD [address] [facility], [address]nd [place] [address] [email or web address] Historical LMR Provider 03/15/17 Ravi Graham MD [address] [place] [phone] Historical LMR Provider 03/15/17 2 documented as of this encounter Additional Source Comments The information contained in this document represents components of the legal health record. It is not the complete legal health record.[facility]
--- OUTSIDE RECORDS SUMMARY | 2025-04-04 13:01 | XMS_ITS | Encounter Summary ---
Author Organization [facility] Address [address] [place] [address] [place] [address] Phone Care Team Providers Care Food Preparer Name Role Phone Bautista Rodriguez MD Unavailable [phone] Delma Barriga MD Unavailable [phone] Ravi Graham MD Unavailable Bautista Rodriguez MD Primary Care Provider Bautista Rodriguez MD Primary Care Provider Marly Mcdaniel NP Primary Care Provider [phone] Brigida Hendricks Primary Care Provider [phone] Encounter Details Date Type Department Care Team (Late st Contact Info) Description 04/27/2017 Procedure Pass OR Admitting Dept - [facility] Department [address] [place] [address] Social History Tobacco Use Types Packs/Day [...] st Contact Info) Description 11/22/2024 Procedure Pass [address] [place] [address] 04/25/2025 2:00 PM EST Procedure visit [facility] Orthopedics & Sports Medicine [address] [place] [address] Haylee Armstrong MD [address] [facility] Orthopedics & Sports Medicine, [facility] [place] [address] 07/03/2025 9:30 AM EST Appointment [facility], [facility]- [address] [address] Norma Ortiz NP [address] [place] [address] [email or web address] 07/25/2025 3:00 PM EST Office Visit [facility] Neurology at [address] [address] Gulshan Rizo MD, MPH, CASA [address] [place] [address], [address] [address] [email or web address] documented as of this encounter [...] documented as of this encounter Care Teams Food Preparer Relationship Specialty Start Date End Date Bautista Rodriguez MD [address] [place] [phone] [email or web address] PCP - General 03/26/17 03/08/20 Bautista Rodriguez MD [facility] [place] [phone] [email or web address] PCP - General Family Medicine 03/09/20 06/21/20 Marly Mcdaniel SPANISH MOSS PICKER [address] [place] [address] PCP - General Nurse Practitioner 06/22/20 10/13/22 Brigida Hendricks PA [address] [place] [phone] [email or web address] PCP - General Physician Cloth Bleaching Range Operator Chief 10/14/22 Bautista Rodriguez MD [address] [place] [address] [email or web address] Historical LMR Provider 03/15/17 06/01/21 Delma Barriga MD [address] [place] [address], [address] [place] [address] [email or web address] Historical LMR Provider 03/15/17 Ravi Graham MD [address] [place] [address] Historical LMR Provider 03/15/17 2 documented as of this encounter Additional Source Comments The information contained in this document represents components of the legal health record. It is not the complete legal health record.[facility]
--- OUTSIDE RECORDS SUMMARY | 2025-04-04 13:01 | XMS_ITS | Encounter Summary ---
Author Organization [facility] Address [address] [facility] [address] [place] [address] Phone Care Team Providers Care Psychiatric Attendant Name Role Phone Bautista Rodriguez MD Unavailable [phone] Delma Barriga MD Unavailable [phone] Ravi Graham MD Unavailable [phone] Marly Mcdaniel NP Primary Care Provider [phone] Brigida Hendricks Primary Care Provider [phone] Encounter Details Date Type Department Care Team (Latest Contact Info) Description 06/22/2020 Transcribe Orders Virtual Department 30 [place] [address] Sapphire Tay NP [address] [place] [phone] Cough (Primary Dx); SOB (shortness of breath) [...] Contact Info) Description 11/22/2024 Procedure Pass [address] [address] 04/25/2025 2:00 PM EST Procedure visit [facility] Orthopedics & Sports Medicine [address] [place] [address] Haylee Armstrong MD 4 [facility] Orthopedics & Sports Medicine, [facility] [place] [address] 07/03/2025 9:30 AM EST Appointment [address] [address] Norma Ortiz NP [address] [place] [address] [email or web address] 07/25/2025 3:00 PM EST Office Visit [facility] Neurology at [address] [address] Gulshan Rizo MD, MPH, CASA [address] [place] [address] [email or web address] documented as of this encounter Results * COVID-19 PCR Order (06/24/2020 8:08 AM EST) COVID Testing Status Specimen received in analyzing lab. Results should be available within 24 to 48 hrs. [facility] Symptomatic? YES [facility] 06/24/2020 8:08 AM EST 06/24/2020 11:21 AM EST us Sapphire Tay FOOD AND BEVERAGE SERVER LAB GENERAL ORDERABLES Fi nal Result [facility] [address] [place] [address] [facility] [address] [place] [address] documented in this encounter Visit Diagnoses Diagnosis [...] documented as of this encounter Care Teams Psychiatric Attendant Relationship Specialty Start Date End Date Marly Mcdaniel FOOD AND BEVERAGE SERVER [address] [place] [address] PCP - General Nurse Practitioner 06/22/20 10/13/22 Brigida Hendricks PA [address] [place] [address] [email or web address] PCP - General Physician [employer]ox Machine Mechanic 10/14/22 Bautista Rodriguez MD [address] [place] [address] Historical LMR Provider 03/15/17 06/01/21 Delma Barriga MD [address] [place] [address], [address] [place] [address] Historical LMR Provider 03/15/17 Ravi Graham MD [facility]3 [place] [phone] Historical LMR Provider 03/15/17 2 documented as of this encounter Additional Source Comments The information contained in this document represents components of the legal health record. It is not the complete legal health record.[facility]
--- OUTSIDE RECORDS SUMMARY | 2025-04-04 13:01 | XMS_ITS | Encounter Summary ---
Author Organization [facility] Address [address] [place] [address] [place] [address] Phone Care Team Providers Care Capacity Planning Engineer Name Role Phone Bautista Rodriguez MD Unavailable [phone] Delma Barriga MD Unavailable [phone] Ravi Graham MD Unavailable Bautista Rodriguez MD Primary Care Provider Bautista Rodriguez MD Primary Care Provider Marly Mcdaniel NP Primary Care Provider [phone] Brigida Hendricks Primary Care Provider [phone] Encounter Details Date Type Department Care Team (Late st Contact Info) Description 04/30/2017 Procedure [facility], [address] [address] Social History Tobacco Use Types Packs/Day Years [...] (Late st Contact Info) Description 11/22/2024 Procedure [facility], [address] [address] 04/25/2025 2:00 PM EST Procedure visit [facility] Orthopedics & Sports Medicine [address] [place] [address] Haylee Armstrong MD 4 [facility] Orthopedics & Sports Medicine, [place] [address] 07/03/2025 9:30 AM EST Appointment [facility], [address] [address] Norma Ortiz NP [address] [place] [address] [email or web address] 07/25/2025 3:00 PM EST Office Visit [facility] Neurology at [address] [address] Gulshan Rizo MD, MPH, CASA [address] [place] [address], [address] [address] [email or web address] documented as of this encounter Visit [...] documented as of this encounter Care Teams Capacity Planning Engineer Relationship Specialty Start Date End Date Bautista Rodriguez MD [address] [place] [phone] [email or web address] PCP - General 03/26/17 03/08/20 Bautista Rodriguez MD [facility]3 [place] [phone] [email or web address] PCP - General Family Medicine 03/09/20 06/21/20 Marly Mcdaniel CORPORATE QUALITY ASSURANCE MANAGER [address] [place] [address] PCP - General Nurse Practitioner 06/22/20 10/13/22 Brigida Hendricks PA [address] [place] [address] [email or web address] PCP - General Physician Campaign Fundraiser 10/14/22 Bautista Rodriguez MD [address] [place] [address] [email or web address] Historical LMR Provider 03/15/17 06/01/21 Delma Barriga MD [address] [place] [address], [address] [place] [address] [email or web address] Historical LMR Provider 03/15/17 Ravi Graham MD [address] [place] [phone] Historical LMR Provider 03/15/17 2 documented as of this encounter Additional Source Comments The information contained in this document represents components of the legal health record. It is not the complete legal health record.[facility]
--- OUTSIDE RECORDS SUMMARY | 2025-04-04 13:01 | XMS_ITS | Clinical Summary ---
Author Organization [facility] Address [address] [facility] [address] [place] [address] Phone Care Team Providers Care Can Dragger Name Role Phone Brigida Hendricks Primary Care Provider [phone] Allergies No known active allergies Medications citalopram (CELEXA) 20 MG tablet 20 mg daily. Active omega 4-pmz-mwz-fish oil (FISH OIL) 1,000 mg (120 mg-180 [...] 1 Refills, Maintenance, 04/10/23 13:41:00 EST, Capsule, [facility]/pharmacy #[id number], Partial fill upon patient request if the [...] 2:06 PM EDT Emergency [facility] [address] [place] [address] Discharge Disposition: Home or Self Care 02/15/2025 10:00 AM EDT Office Visit [address] [address] Rick Cuevas MD Chutkowski, Idalina, OT Hand dysfunction (Primary Dx) 02/01/2025 10:45 AM EDT Office Visit [address] [address] Rick Cuevas MD Chutkowski, Idalina, OT Hand dysfunction (Primary Dx) 01/25/2025 10:00 AM EDT Office Visit [address] [address] Rick Cuevas MD Chutkowski, Idalina, OT Hand dysfunction (Primary Dx) 01/25/2025 Plan of Care Documentation [address] [address] from Last 3 Months Immunizations Immunization Administration Dates Next Due Hepatitis B Adult 02/22/2014,07/30/2012 INFLUENZA, SPLIT VIRUS, TRIVALENT PF 06/03/2013, 03/04/2012 INFLUENZA, SPLIT VIRUS, TRIV ALENT W/ PRESERVATIVE IM 02/24/2014,03/06/2011,02/20/2010,07/13 Influenza Quadrivalent Prese rvative Free IM 04/07/2019 Novel [id number], Injectable 07/13/2009 Pneumococcal polysaccharide PPSV23 09/20/2015 Td [...] Contact Info) Description 11/22/2024 Procedure Pass [address] [address] 04/25/2025 2:00 PM EST Procedure visit [facility] & [facility] Medicine [address] [place] [address] Haylee Armstrong MD [address] [place] [address] Orthopedics & Sports Medicine, [place] [address] 07/03/2025 9:30 AM EST Appointment [address] [address] Norma Ortiz NP [address] [place] [address] [email or web address] 07/25/2025 3:00 PM EST Office Visit [facility] Neurology at [place] [address] [facility] [address] [place] [address] Gulshan Rizo MD, MPH, CASA [address] [facility], [address] [place], [place] [id number] [email or web address] Maintenance Due Date Last Done Comments [...] resultswithin the time period is included. Pathologist [facility] Troponin-T, HS Gen5 <6 0 - 9 ng/L [facility] Blood 03/07/2025 11:5 5 AM EDT 03/07/2025 11:57 AM EDT Nazario THOMPSON, CASA LAB BLOOD BKR ORDERABLE S Final Result [address] [address] * (ABNORMAL) CBC and differential (03/07/2025 10:57 AM EDT) WBC 6.39 4.00 - 11.00 K/uL [facility] RBC 4.55 4.00 - 5.20 M/uL [facility] HGB 12.2 12.0 - 16.0 g/dL [facility] HCT 38.5 36.0 - 46.0 % [facility] PLT 319 150 - 450 K/uL [facility] MCV 84.6 80.0 - 100.0 fL [facility] MCH 26.8(L) 27.0 - 31.0 pg [facility] MCHC 31.7(L) 32.0 - 36.0 g/dL [facility] RDW 12.4 11.5 - 14.5 % [facility] MPV 9.8 8.4 - 12.0 fL [facility] NRBC 0.00 0.00 /100 WBCs [facility] ABSOLUTE NRBC 0.00 0.00 K/uL [facility] DIFF METHOD Auto [facility] NEUTS 67.9 48.0 - 76.0 % [facility] LYMPHS 22.1 18.0 - 41.0 % [facility] MONOS 6.3 4.0 - 11.0 % [facility] EOS 2.7 0.0 - 5.0 % [facility] BASOS 0.5 0.0 - 1.5 % [facility] Granulocytes, immature (%) 0.5 0.0 - 0.9 % [facility] ABSOLUTE NEUTS 4.35 1.92 - 7.60 K/uL [facility] ABSOLUTE LYMPHS 1.41 0.72 - 4.10 K/uL [facility] ABSOLUTE MONOS 0.40 0.16 - 1.10 K/uL [facility] ABSOLUTE EOS 0.17 0.00 - 0.50 K/uL [facility] ABSOLUTE BASOS 0.03 0.00 - 0.15 K/uL [facility] Granulocytes, immature 0.03 0.00 - 0.09 K/uL [facility] Blood 03/07/2025 10:5 7 AM EDT 03/07/2025 11:08 AM EDT Fortinoalvino Lange MD, CASA LAB BLOOD BKR ORDERABLE S Final Result [facility] [address] [place] [address] * (ABNORMAL) Basic metabolic panel (03/07/2025 10:57 AM EDT) SODIUM 136 133 - 146 mmol/L [facility] CHLORIDE 102 96 - 108 mmol/L [facility] POTASSIUM 4.0 3.3 - 5.1 mmol/L [facility] CO2 25 21 - 35 mmol/L [facility] BUN 11 6 - 19 mg/dL [facility] CREATININE 0.60 0.5 - 1.5 mg/dL [facility] GLUCOSE 218(H) 70 - 99 mg/dL [facility] CALCIUM 9.4 8.4 - 10.3 mg/dL [facility] EGFR 113 >59 mL/min/1.7 3m2 [facility] Comment:Estimated glomerular filtration rate calculated using the CKD-EPI refit equation. ANION GAP 13 10 - 20 mmol/L [facility] Blood 03/07/2025 10:5 7 AM EDT 03/07/2025 11:08 AM EDT Fortino Lange MD, MBA LAB BLOOD BKR ORDERABLE S Final Result Performing Organization Address [facility] Co de Phone Number [address] [address] * ECG 12-LEAD (03/07/2025 10:50 AM EDT) Ventricular Rate EKG/MIN 92 BPM [facility] Atrial Rate 92 BPM [facility] FL Interval 150 ms [facility] QRS Duration 74 ms [facility] QT Interval 386 ms [facility] QTC Interval 477 ms [facility] P [place] 63 degrees [facility] R Wave [place] 39 degrees [facility] T Wave [place] 20 degrees [facility] 03/07/2025 10:5 0 AM EDT 03/07/2025 1:50 PM EDT Narrative [facility] - 03/07/2025 1:50 PM EDT Normal sinus rhythm Normal ECG When compared with ECG of 11-Jan-2024 10:58, Nonspecific T wave abnormality now evident in Inferior leads Confirmed by Boby Lara ([id number]) on 03/07/2025 1:50:10 PM Fortino Lange MD, MBA ECG ORDERABLES Final R esult Performing Organization Address [facility] Co de Phone Number [email or web address] * Pap Test (09/08/2024 12:00 AM EDT) Report [address] [address] Clerk To Justice: Drew Henry MD PAPER BALER Cytology Report FINAL DIAGNOSIS A. PAP SMEAR (THIN PREP) CE: SPECIMEN ADEQUACY: Satisfactory for evaluation; transformation zone absent/insufficien t. INTERPRETATION: NEGATIVE FOR INTRAEPITHELIAL LESION OR MALIGNANCY. This specimen was analyzed by the automated ThinPrep Imaging System (ieCrowd.) and the selected price were reviewed by a can closing machine operator. Electronically Signed Out By: SUSAN Castelan(ASCP) The [...] : 1980 (Age: 44) Sex: F Institution: [facility] Location: [facility] Date of Collection: 09/08/2024 Date of Reported: 09/15/2024 13:49 Results to: Brigida Singh [facility] Final Diagnosis A. PAP SMEAR (THIN PREP) CE: SPECIMEN ADEQUACY: Satisfactory for evaluation; transformation zone absent/insufficien t. INTERPRETATION: NEGATIVE FOR INTRAEPITHELIAL LESION OR MALIGNANCY. This specimen was analyzed by the automated ThinPrep Imaging System ([employer] Cecilia.) and the selected price were reviewed by a can closing machine operator. [facility] Conversion Type (Conversion Source) 09/08/2024 09/09/2024 9:44 AM EDT us Brigida DHILLON CYTOLOGY ORDERABLES Edited Res ult - Final [facility] [address] [place] [address] from Last 3 Months or Most Recently Relevant to Health Maintenance Insurance MEDICARE PART A & B [facility] PART A & B HEALTH MEDICARE [facility] A & B [facility] A & B [facility] MED[facility] PART A & B [facility] MEDICARE PART A & [place] [address] [place] [address] MEDICARE PART A & B [facility] MEDICARE PART A & B [facility] [place] [place] [address] Advance Directives For more information, please contact: [phone] (9AM - 5PM Raquel/[facility], Thursday-Thursday) * Full Code (Presumed) (Latest Code Status on File) Date Activated Date Inactivated Comments 04/27/2017 7:09 AM 04/27/2017 2:16 PM Care Teams Can Dragger Relationship Specialty Start Date End Date Brigida Hendricks PA [address] [place] [address] [phone] [email or web address] PCP - General Physician Hr Manager 10/14/22 Additional Source Comments The information contained in this document represents components of the legal health record. It is not the complete legal health record.[facility]
--- OUTSIDE RECORDS SUMMARY | 2025-04-04 13:01 | XMS_ITS | Encounter Summary ---
Author Organization [facility] Address [address] [facility] [address] [place] [address] Phone Care Team Providers Care Passenger Interline Clerk Name Role Phone Bautista Rodriguez MD Unavailable [phone] Delma Barriga MD Unavailable [phone] Ravi Graham MD Unavailable [phone] Marly Mcdaniel NP Primary Care Provider [phone] Brigida Hendricks Primary Care Provider [phone] Encounter Details Date Type Department Care Team (Late st Contact Info) Description 05/29/2021 Procedure Pass [place], Ct Scan [address] [address] Social History Tobacco Use Types Packs/Day Years [...] st Contact Info) Description 11/22/2024 Procedure Pass [facility], Mammography- [address] [address] 04/25/2025 2:00 PM EST Procedure visit [facility] Orthopedics & Sports Medicine [address] [place] [address] Haylee Armstrong MD [address] [facility] Orthopedics & Sports Medicine, [facility] [place] [address] 07/03/2025 9:30 AM EST Appointment [facility] [address] [place] [address] Norma Ortiz NP [address] [place] [address] [email or web address] 07/25/2025 3:00 PM EST Office Visit [facility] Neurology at [address] [address] Gulshan Rizo MD, MPH, CASA [address] [place] [address] [email or web address] documented as of this encounter Visit Diagnoses Not on filedocumented in this encounter Additional Health Concerns Infection Onset Date Last Indicated Resolved Time CoV-Risk 10/14/2022 10/14/2022 10/25/2022 1:21 AM EDT CoV-Risk 01/11/2024 01/11/2024 01/22/2024 1:22 AM EDT documented as of this encounter Care Teams Passenger Interline Clerk Relationship Specialty Start Date End Date Marly Mcdaniel NP [address] [place] [address] PCP - General Nurse Practitioner 06/22/20 10/13/22 Brigida Hendricks PA [address] [place] [address] [email or web address] PCP - General Physician Paralegal Supervisor 10/14/22 Bautista Rodriguez MD [address] [place] [address] [email or web address] Historical LMR Provider 03/15/17 06/01/21 Delma Barriga MD [address] [address] [email or web address] Historical LMR Provider 03/15/17 Ravi Graham MD [address] [place] [phone] Historical LMR Provider 03/15/17 2 documented as of this encounter Additional Source Comments The information contained in this document represents components of the legal health record. It is not the complete legal health record.[facility]
--- OUTSIDE RECORDS SUMMARY | 2025-04-04 13:02 | XMS_ITS | Encounter Summary ---
Author Organization [facility] Address [address] [facility] [address] [place] [address] Phone Care Team Providers Care Wired Sweatband Cutter Name Role Phone Brigida Hendricks Primary Care Provider [phone] Encounter Details Date Type Department Care Team (Late st Contact Info) Description 11/22/2024 Transcribe Orders Virtual Department [address] [place] [address] Norma Ortiz NP [address] [place] [address] [email or web address] Breast screening (Primary Dx) Social History Tobacco [...] Contact Info) Description 11/22/2024 Procedure Pass [address] [address] 04/25/2025 2:00 PM EST Procedure visit [facility] Orthopedics & Sports Medicine [address] [place] [address] Haylee Armstrong MD [address] [place] [address] Orthopedics & Sports Medicine, [place] [address] 07/03/2025 9:30 AM EST Appointment [address] [address] Norma Ortiz, EMILIANO [address] [place] [address] [email or web address] 07/25/2025 3:00 PM EST Office Visit [facility] Neurology at [address] [place] [address] Gulshan Rizo MD, MPH, CASA [address] [place] [address], [address] [address] [email or web address] Scheduled Orders Name Type Priority Associated Diagnoses Orde r Schedule Mammogram Screening (Bilateral) Imaging Routine Breast screening Expected: 12/23/2024, Expires: 11/22/2025 documented as of this encounter Visit Diagnoses Diagnosis Breast screening- Primary Breast screening, unspecified documented in this encounter Care Teams Wired Sweatband Cutter Relationship Specialty Start Date End Date Brigida Hendricks PA [address] [place] [phone] [email or web address] PCP - General Physician Manager Pediatric 10/14/22 documented as of this encounter Additional Source Comments The information contained in this document represents components of the legal health record. It is not the complete legal health record.[facility]
== END 2025-04-04 11:27 | disposition home or self-care (01) ==
LOC: HO.HSM 10:53
PROVIDERS: PCP Physician Assistant; Visit Provider Nurse Practitioner
DX: G43.709 Chronic migraine without aura, not intractable, without status migrainosus (principal)
CPT/HCPCS: 99214

== ENCOUNTER → 2025-04-04 10:52 | Outpatient (BNVA) | payer MEDICARE, MEDICAID, SELFPAY | PROVIDERS: PCP Physician Assistant; Visit Provider Nurse Practitioner | DX: G43.709 Chronic migraine without aura, not intractable, without status migrainosus (principal) | CPT/HCPCS: 99212 ==

== ENCOUNTER → 2025-04-12 13:33 | Outpatient (BNV) | payer MEDICARE, MEDICAID, SELFPAY | PROVIDERS: PCP Physician Assistant; Visit Provider Radiology Diagnostic Radiology | DX: N28.1 Cyst of kidney, acquired (principal); K76.0 Fatty (change of) liver, not elsewhere classified | CPT/HCPCS: 74183 ==

== ENCOUNTER 2025-04-12 13:37 | Outpatient (REF) | payer MEDICARE, MEDICAID, SELFPAY ==
--- NOTE | ~2025-04-12 | MR_ITS ---
EXAMINATION: MR ABDOMEN WITHOUT THEN WITH IV CONTRAST HISTORY: N28.1 - Cyst of kidney, acquired COMPARISON: Correlation is made with an unenhanced CT of the abdomen dated 06/26/2024. TECHNIQUE: Axial in and out of phase T1-weighted gradient echo, axial diffusion weighted, and axial and coronal HASTE T2 with fat saturation images were obtained through the abdomen. Subsequently, fat suppressed axial and coronal T1-weighted images were obtained after the intravenous administration of 9 mL Gadavist. FINDINGS: Liver: There is diffuse loss of signal intensity in the liver on opposed phase imaging, consistent with steatosis. A 7 mm cyst is seen in the right lobe. There is no enhancing liver mass. The hepatic and portal veins are patent. There is no intrahepatic biliary dilatation. Gallbladder/biliary tree: The patient is status post cholecystectomy. The common bile duct is normal in caliber. No intraluminal filling defects are identified to suggest choledocholithiasis. Spleen: The spleen is unremarkable. Pancreas: The pancreas is unremarkable. There is no enhancing pancreatic mass. The pancreatic duct is normal in caliber. Adrenals: The adrenal glands are unremarkable. Kidneys: Numerous bilateral renal cysts are noted measuring up to 5.2 cm the lower pole of the right kidney and 6.2 cm the upper pole of the left kidney. Several of the cysts demonstrate thin nonenhancing septations. No suspicious lesion is identified.. There is no hydronephrosis. Lymph nodes: There is no retroperitoneal lymphadenopathy in the upper abdomen. Fluid: There is no ascites in the upper abdomen. Visualized bowel: The visualized small and large bowel loops are unremarkable in appearance. Visualized bones: The visualized bones demonstrate normal marrow signal intensity. MR/MR abdomen wo/w con IMPRESSION: 1. Bilateral renal cysts as described. No suspicious lesion is identified. 2. Hepatic steatosis. Electronically signed by: Jean-Claude Guardado MD 04/12/2025 02:49 PM EST
--- OUTSIDE RECORDS SUMMARY | 2025-04-13 01:38 | XMS_ITS | Encounter Summary ---
Author Organization [facility] Address [address] [facility] [address] [place] [address] Phone Care Team Providers Care Records Manager Name Role Phone Brigida Hendricks Primary Care Provider [phone] Encounter Details Date Type Department Care Team (Late st Contact Info) Description 10/06/2024 Procedure Pass [facility], [address] [address] Social History Tobacco Use Types Packs/Day Years [...] st Contact Info) Description 11/22/2024 Procedure Pass [address] [address] 04/25/2025 2:00 PM EST Procedure visit [facility] Orthopedics & Sports Medicine [address] [place] [address] Haylee Armstrong MD [address] [place] [address] Orthopedics & Sports Medicine, [place] [address] 07/03/2025 9:30 AM EST Appointment [address] [address] Norma Ortiz, MANAGER OF MERCHANDISING [address] [place] [address] [email or web address] 07/25/2025 3:00 PM EST Office Visit [facility] Neurology at [address] [place] [address] Gulshan Rizo MD, MPH, CASA [address] [place] [address] [email or web address] documented as of this encounter Visit Diagnoses Not on filedocumented in this encounter Care Teams Records Manager Relationship Specialty Start Date End Date Brigida Hendricks PA [address] [place] [address] [email or web address] PCP - General Physician Gas Operations Analyst 10/14/22 documented as of this encounter Additional Source Comments The information contained in this document represents components of the legal health record. It is not the complete legal health record.[facility]
--- OUTSIDE RECORDS SUMMARY | 2025-04-13 01:38 | XMS_ITS | Clinical Summary ---
Author Organization [facility] Address [address] [facility] [address] [place] [address] Phone Care Team Providers Care Dramatic Art Teacher Name Role Phone Brigida Hendricks Primary Care Provider [phone] Allergies No known active allergies Medications citalopram (CELEXA) 20 MG tablet 20 mg daily. Active omega 4-ahi-wdh-fish oil (FISH OIL) 1,000 mg (120 mg-180 [...] 1 Refills, Maintenance, 04/10/23 13:41:00 EST, Capsule, [facility]/pharmacy #[id number], Partial fill upon patient request if the [...] 2:06 PM EDT Emergency [facility] Emergency [address] [place] [address] Discharge Disposition: Home or Self Care 02/15/2025 10:00 AM EDT Office Visit [address] [address] Rick Cuevas MD Chutkowski, Idalina, OT Hand dysfunction (Primary Dx) 02/01/2025 10:45 AM EDT Office Visit [address] [address] Rick Cuevas MD Chutkowski, Idalina, OT Hand dysfunction (Primary Dx) 01/25/2025 10:00 AM EDT Office Visit [address] [address] Rick Cuevas MD Chutkowski, Idalina, OT Hand dysfunction (Primary Dx) 01/25/2025 Plan of Care Documentation [address] [address] from Last 3 Months Immunizations Immunization Administration Dates Next Due Hepatitis B Adult 02/22/2014,07/30/2012 INFLUENZA, SPLIT VIRUS, TRIVALENT PF 06/03/2013, 03/04/2012 INFLUENZA, SPLIT VIRUS, TRIV ALENT W/ PRESERVATIVE IM 02/24/2014,03/06/2011,02/20/2010,07/13 Influenza Quadrivalent Prese rvative Free IM 04/07/2019 Novel [id number], Injectable 07/13/2009 Pneumococcal polysaccharide PPSV23 09/20/2015 Td [...] Contact Info) Description 11/22/2024 Procedure Pass [address] [address] 04/25/2025 2:00 PM EST Procedure visit [facility] Orthopedics & Sports Medicine [address] [place] [address] Haylee Armstrong MD [address] [place] [address] Orthopedics & Sports Medicine, [place] [address] 07/03/2025 9:30 AM EST Appointment [address] [address] Norma Ortiz NP [address] [place] [address] [email or web address] 07/25/2025 3:00 PM EST Office Visit [facility] Neurology at [place] [address] [facility] [address] [place] [address] Gulshan Rizo MD, MPH, CASA [address] [facility], [address] [place], [place] [phone] [email or web address] Health Maintenance Due Date Last Done [...] No significant abnormality. IMPRESSION: No acute abnormality. us Ivonne Santamaria PA-C IMG XR CHEST Final R esult * Troponin (03/07/2025 11:55 AM EDT) Only the most recent of2 resultswithin the time period is included. Pathologist [facility] Troponin-T, HS Gen5 <6 0 - 9 ng/L [facility] Blood 03/07/2025 11:5 5 AM EDT 03/07/2025 11:57 AM EDT Nazario THOMPSON, CASA LAB BLOOD BKR ORDERABLE S Final Result [address] [address] * (ABNORMAL) CBC and differential (03/07/2025 10:57 AM EDT) Pathologist [facility] WBC 6.39 4.00 - 11.00 K/uL [facility] RBC 4.55 4.00 - 5.20 M/uL [facility] HGB 12.2 12.0 - 16.0 g/dL [facility] HCT 38.5 36.0 - 46.0 % [facility] PLT 319 150 - 450 K/uL [facility] MCV 84.6 80.0 - 100.0 fL [facility] MCH 26.8(L) 27.0 - 31.0 pg [facility] MCHC 31.7(L) 32.0 - 36.0 g/dL [facility] RDW 12.4 11.5 - 14.5 % [facility] MPV 9.8 8.4 - 12.0 fL [facility] NRBC 0.00 0.00 /100 WBCs [facility] ABSOLUTE NRBC 0.00 0.00 K/uL [facility] DIFF METHOD Auto [facility] NEUTS 67.9 48.0 - 76.0 % [facility] LYMPHS 22.1 18.0 - 41.0 % [facility] MONOS 6.3 4.0 - 11.0 % [facility] EOS 2.7 0.0 - 5.0 % [facility] BASOS 0.5 0.0 - 1.5 % [facility] Granulocytes, immature (%) 0.5 0.0 - 0.9 % [facility] ABSOLUTE NEUTS 4.35 1.92 - 7.60 K/uL [facility] ABSOLUTE LYMPHS 1.41 0.72 - 4.10 K/uL [facility] ABSOLUTE MONOS 0.40 0.16 - 1.10 K/uL [facility] ABSOLUTE EOS 0.17 0.00 - 0.50 K/uL [facility] ABSOLUTE BASOS 0.03 0.00 - 0.15 K/uL [facility] Granulocytes, immature 0.03 0.00 - 0.09 K/uL [facility] Blood 03/07/2025 10:5 7 AM EDT 03/07/2025 11:08 AM EDT Nazario THOMPSON, CASA LAB BLOOD BKR ORDERABLE S Final Result [address] [address] * (ABNORMAL) Basic metabolic panel (03/07/2025 10:57 AM EDT) SODIUM 136 133 - 146 mmol/L [facility] CHLORIDE 102 96 - 108 mmol/L [facility] POTASSIUM 4.0 3.3 - 5.1 mmol/L [facility] CO2 25 21 - 35 mmol/L [facility] BUN 11 6 - 19 mg/dL [facility] CREATININE 0.60 0.5 - 1.5 mg/dL [facility] GLUCOSE 218(H) 70 - 99 mg/dL [facility] CALCIUM 9.4 8.4 - 10.3 mg/dL [facility] EGFR 113 >59 mL/min/1.7 3m2 [facility] Comment:Estimated glomerular filtration rate calculated using the CKD-EPI refit equation. ANION GAP 13 10 - 20 mmol/L [facility] Blood 03/07/2025 10:5 7 AM EDT 03/07/2025 11:08 AM EDT Fortino Lange MD, CASA LAB BLOOD BKR ORDERABLE S Final Result Performing Organization Address [facility] Co de Phone Number [address] [phone] * ECG 12-LEAD (03/07/2025 10:50 AM EDT) Ventricular Rate EKG/MIN 92 BPM [facility] Atrial Rate 92 BPM [facility] DE Interval 150 ms [facility] QRS Duration 74 ms [facility] QT Interval 386 ms [facility] QTC Interval 477 ms [facility] P Republic 63 degrees [facility] R Wave Republic 39 degrees [facility] T Wave Republic 20 degrees [facility] 03/07/2025 10:5 0 AM EDT 03/07/2025 1:50 PM EDT Narrative [facility] - 03/07/2025 1:50 PM EDT Normal sinus rhythm Normal ECG When compared with ECG of 11-Jan-2024 10:58, Nonspecific T wave abnormality now evident in Inferior leads Confirmed by Boby Lara ([id number]) on 03/07/2025 1:50:10 PM Fortino Lange MD, CASA ECG ORDERABLES Final R esult Performing Organization Address City/[facility]/ZIP Co de Phone Number [facility] * Pap Test (09/08/2024 12:00 AM EDT) Report [address] [address] Marine Extension Agent: Drew Henry MD HR MANAGER Cytology Report FINAL DIAGNOSIS A. PAP SMEAR (THIN PREP) CE: SPECIMEN ADEQUACY: Satisfactory for evaluation; transformation zone absent/insufficien t. INTERPRETATION: NEGATIVE FOR INTRAEPITHELIAL LESION OR MALIGNANCY. This specimen was analyzed by the automated ThinPrep Imaging System ([employer].) and the selected price were reviewed by a metalsmith helper. Electronically Signed Out By: SUSAN Castelan(ASCP) The [...] PAP SMEAR (THIN PREP) CE Patient Name: PABLOCHAPINMAYE : 1980 (Age: 44) Sex: F [facility] Location: [facility] Date of Collection: 09/08/2024 Date of Reported: 09/15/2024 13:49 Results to: Brigida Singh [facility] Final Diagnosis A. PAP SMEAR (THIN PREP) CE: SPECIMEN ADEQUACY: Satisfactory for evaluation; transformation zone absent/insufficien t. INTERPRETATION: NEGATIVE FOR INTRAEPITHELIAL LESION OR MALIGNANCY. This specimen was analyzed by the automated ThinPrep Imaging System ([employer] Cec[employer].) and the selected price were reviewed by a metalsmith helper. [facility] Conversion Type (Conversion Source) 09/08/2024 09/09/2024 9:44 AM EDT us Brigida DHILLON CYTOLOGY ORDERABLES Edited Res ult - Final [facility] [address] [place] [address] from Last 3 Months or Most Recently Relevant to Health Maintenance Insurance MEDICARE PART A & [place] [facility] PART [facility] [place] [facility] & [place] & B [facility] Advance Directives For more information, please contact: [phone] (9AM - 5PM [facility]/[place], Thursday-Thursday) * Full Code (Presumed) (Latest Code Status on File) Date Activated Date Inactivated Comments 04/27/2017 7:09 AM 04/27/2017 2:16 PM Care Teams Dramatic Art Teacher Relationship Specialty Start Date End Date Brigida Hendricks PA [address] [place] [phone] [email or web address] PCP - General Physician Auto Parts Handler 5/23/23 Additional Source Comments The information contained in this document represents components of the legal health record. It is not the complete legal health record.[facility]
--- OUTSIDE RECORDS SUMMARY | 2025-04-13 01:38 | XMS_ITS | Encounter Summary ---
Author Organization [facility] Address [address] [place] [address] [place] [address] Phone Care Team Providers Care Entry Level Manufacturing Engineer Name Role Phone Bautista Rodriguez MD Unavailable Delma Barriga MD Unavailable [phone] Ravi Graham MD Unavailable Bautista Rodriguez MD Primary Care Provider Bautista Rodriguez MD Primary Care Provider Marly Mcdaniel NP Primary Care Provider Brigida Hendricks Primary Care Provider Encounter Details Date Type Department Care Team (Late st Contact Info) Description 04/03/2017 Ancillary Orders Virtual Department [address] [place] [address] Thiago Scott MD [address] [place] [address] [email or web address] Nausea; Bloating; Abdominal pain, unspecified abdominal location; [...] st Contact Info) Description 11/22/2024 Procedure Pass [address] [address] 04/25/2025 2:00 PM EST Procedure visit [facility] Orthopedics & Sports Medicine [address] [place] [address] Haylee Armstrong MD [address] [place] [address] Orthopedics & Sports Medicine, [facility] [place] [address] 07/03/2025 9:30 AM EST Appointment [address] [address] Norma Ortiz NP [address] [place] [address] [email or web address] 07/25/2025 3:00 PM EST Office Visit [facility] Neurology at [address] [place] [address] Gulshan Rizo MD, MPH, CASA [address] [place] [address], [address] [address] [email or web address] documented as of this encounter [...] Normal gastric emptying study POS - [id number] Tihago Scott MD IMG OK ABDOMEN Final Resu lt documented in this [...] documented as of this encounter Care Teams Entry Level Manufacturing Engineer Relationship Specialty Start Date End Date Bautista Rodriguez MD [facility] [place] [phone] [email or web address] PCP - General 03/26/17 03/08/20 Bautista Rodriguez MD [address] [place] [phone] PCP - General Family Medicine 03/09/20 06/21/20 Marly Mcdaniel NP [address] [place] [id number] PCP - General Nurse Practitioner 06/22/20 10/13/22 Brigida Hendricks PA [address] [place] [phone] [email or web address] PCP - General Physician Ordnance Mechanic 10/14/22 Bautista Rodriguez MD [address] [place] [address] [email or web address] Historical LMR Provider 03/15/17 06/01/21 Delma Barriga MD [address] [facility], [address]nd [place] [address] [email or web address] Historical LMR Provider 03/15/17 Ravi Graham MD [address] [place] [phone] Historical LMR Provider 03/15/17 2 documented as of this encounter Additional Source Comments The information contained in this document represents components of the legal health record. It is not the complete legal health record.[facility]
--- OUTSIDE RECORDS SUMMARY | 2025-04-13 01:38 | XMS_ITS | Encounter Summary ---
Author Organization [facility] Address [address] [facility] [address] [place] [address] Phone Care Team Providers Care Contestant Coordinator Name Role Phone Brigida Hendricks Primary Care Provider [phone] Encounter Details Date Type Department Care Team (Late st Contact Info) Description 11/22/2024 Transcribe Orders Virtual Department [address] [place] [address] Norma Ortiz NP [address] [place] [address] [email or web address] Breast screening (Primary Dx) Social History Tobacco [...] st Contact Info) Description 11/22/2024 Procedure Pass [address] [address] 04/25/2025 2:00 PM EST Procedure visit [facility] Orthopedics & Sports Medicine [address] [place] [address] Haylee Armstrong MD [address] [place] [address] Orthopedics & Sports Medicine, [facility] [place] [address] 07/03/2025 9:30 AM EST Appointment [address] [address] Norma Ortiz, EMILIANO [address] [place] [address] [email or web address] 07/25/2025 3:00 PM EST Office Visit [facility] Neurology at [address] [place] [address] Gulshan Rizo MD, MPH, CASA [address] [place] [address], [address] [address] [email or web address] Scheduled Orders Name Type Priority Associated Diagnoses Orde r Schedule Mammogram Screening (Bilateral) Imaging Routine Breast screening Expected: 12/23/2024, Expires: 11/22/2025 documented as of this encounter Visit Diagnoses Diagnosis Breast screening- Primary Breast screening, unspecified documented in this encounter Care Teams Contestant Coordinator Relationship Specialty Start Date End Date Brigida Hendricks PA [address] [place] [phone] [email or web address] PCP - General Physician Adjunct Latin Professor 10/14/22 documented as of this encounter Additional Source Comments The information contained in this document represents components of the legal health record. It is not the complete legal health record.[facility]
--- OUTSIDE RECORDS SUMMARY | 2025-04-13 01:38 | XMS_ITS | Encounter Summary ---
Author Organization [facility] Address [address] [place] [address] [place] [address] Phone Care Team Providers Care Final Inspector Movement Assembly Name Role Phone Bautista Rodriguez MD Unavailable [phone] Delma Barriga MD Unavailable [phone] Ravi Graham MD Unavailable Bautista Rodriguez MD Primary Care Provider Bautista Rodriguez MD Primary Care Provider [phone] Marly Mcdaniel NP Primary Care Provider [phone] Brigida Hendricks Primary Care Provider [phone] Encounter Details Date Type Department Care Team (Late st Contact Info) Description 04/30/2017 Procedure [facility], [address] [address] Social History Tobacco Use Types Packs/Day Years [...] (Late st Contact Info) Description 11/22/2024 Procedure [facility], [address] [address] 04/25/2025 2:00 PM EST Procedure visit [facility] Orthopedics & Sports Medicine [address] [place] [address] Haylee Armstrong MD 4 [facility] Orthopedics & Sports Medicine, [facility] [place] [address] 07/03/2025 9:30 AM EST Appointment [facility], [address] [address] Norma Ortiz NP [address] [place] [address] [email or web address] 07/25/2025 3:00 PM EST Office Visit [facility] Neurology at [address] [address] Gulshan Rizo MD, MPH, CASA [address] [place] [address], [address] [place] [address] [address] [email or web address] documented as of this encounter Visit Diagnoses [...] documented as of this encounter Care Teams Final Inspector Movement Assembly Relationship Specialty Start Date End Date Bautista Rodriguez MD [address] [place] [phone] [email or web address] PCP - General 03/26/17 03/08/20 Bautista Rodriguez MD [facility]3 [place] [phone] [email or web address] PCP - General Family Medicine 03/09/20 06/21/20 Marly Mcdaniel HOSE TENDER [address] [place] [address] PCP - General Nurse Practitioner 06/22/20 10/13/22 Brigida Hendricks PA [address] [place] [phone] [email or web address] PCP - General Physician Clinical Systems Educator 10/14/22 Bautista Rodriguez MD [address] [place] [address] [email or web address] Historical LMR Provider 03/15/17 06/01/21 Delma Barriga MD [address] [place] [address], [address] [place] [address] [email or web address] Historical LMR Provider 03/15/17 Ravi Graham MD [address] [place] [address] Historical LMR Provider 03/15/17 2 documented as of this encounter Additional Source Comments The information contained in this document represents components of the legal health record. It is not the complete legal health record.[facility]
--- OUTSIDE RECORDS SUMMARY | 2025-04-13 01:38 | XMS_ITS | Encounter Summary ---
Author Organization [facility] Address [address] [facility] [address] [place] [address] Phone Care Team Providers Care Histologist Technologist Name Role Phone Bautista Rodriguez MD Unavailable [phone] Delma Barriga MD Unavailable [phone] Ravi Graham MD Unavailable [phone] Marly Mcdaniel NP Primary Care Provider [phone] Brigida Hendricks Primary Care Provider [phone] Encounter Details Date Type Department Care Team (Latest Contact Info) Description 06/22/2020 Transcribe Orders Virtual Department 30 [place] [address] Sapphire Tay NP [address] [place] [phone] Cough (Primary Dx); SOB (shortness of breath) [...] st Contact Info) Description 11/22/2024 Procedure Pass [address] [address] 04/25/2025 2:00 PM EST Procedure visit [facility] Orthopedics & Sports Medicine [address] [place] [address] Haylee Armstrong MD 4 [facility] Orthopedics & Sports Medicine, [facility] [place] [address] 07/03/2025 9:30 AM EST Appointment [address] [address] Norma Ortiz NP [address] [place] [address] [email or web address] 07/25/2025 3:00 PM EST Office Visit [facility] Neurology at [address] [address] Gulshan Rizo MD, MPH, CASA [address] [place] [address] [email or web address] documented as of this encounter Results * COVID-19 PCR Order (06/24/2020 8:08 AM EST) COVID Testing Status Specimen received in analyzing lab. Results should be available within 24 to 48 hrs. [facility] Symptomatic? YES [facility] 06/24/2020 8:08 AM EST 06/24/2020 11:21 AM EST us Sapphire Tay SUPERVISORY IT SPECIALIST LAB GENERAL ORDERABLES Fi nal Result [facility] 30 [place] [address] [facility] [address] [place] [address] documented in this encounter Visit Diagnoses Diagnosis Cough- Primary SOB (shortness of breath) Shortness of breath documented in this encounter Additional Health Concerns Infection Onset Date Last Indicated Resolved Time CoV-Risk 06/22/2020 06/24/2020 07/02/2020 1:24 AM EST CoV-Exposed Comment:Recent close contact documented in the COVID-19 PCR/PRO order 06/22/2020 06/22/2020 07/06/2020 1:24 AM EST CoV-Exposed Comment:Positive COVID-19 01/11/2021 01/11/2021 01/11/2021 7:3 6 AM EDT CoV-Risk 01/11/2021 01/11/2021 01/11/2021 7:36 AM EDT COVID-19 01/11/2021 01/11/2021 02/01/2021 1:23 AM EDT CoV-Risk 10/14/2022 10/14/2022 10/25/2022 1:21 AM EDT CoV-Risk 01/11/2024 01/11/2024 01/22/2024 1:22 AM EDT documented as of this encounter Care Teams Histologist Technologist Relationship Specialty Start Date End Date Marly Mcdaniel NP [address] [place] [address] PCP - General Nurse Practitioner 06/22/20 10/13/22 Brigida Hendricks PA [address] [place] [address] [email or web address] PCP - General Physician Butadiene Converter Utility Operator 10/14/22 Bautista Rodriguez MD [address] [place] [address] [email or web address] Historical LMR Provider 03/15/17 06/01/21 Delma Barriga MD [address] [place] [address], 2nd [place] [address] [email or web address] Historical LMR Provider 03/15/17 Ravi Graham MD [facility]3 [place] [address] Historical LMR Provider 03/15/17 2 documented as of this encounter Additional Source Comments The information contained in this document represents components of the legal health record. It is not the complete legal health record.[facility]
--- OUTSIDE RECORDS SUMMARY | 2025-04-13 01:38 | XMS_ITS | Encounter Summary ---
Author Organization [facility] Address [address] [facility] [address] [place] [address] Phone Care Team Providers Care Lawn Technician Name Role Phone Brigida Hendricks Primary Care Provider [phone] Encounter Details Date Type Department Care Team (Late st Contact Info) Description 08/22/2024 Transcribe Orders Virtual Department 30 [place] [address] Norma Ortiz NP [address] [place] [address] [email or web address] Breast screening (Primary Dx) Social History Tobacco [...] Contact Info) Description 11/22/2024 Procedure Pass [address] [address] 04/25/2025 2:00 PM EST Procedure visit [facility] Orthopedics & Sports Medicine [address] [place] [address] Haylee Armstrong MD [address] [place] [address] Orthopedics & Sports Medicine, [facility] [place] [address] 07/03/2025 9:30 AM EST Appointment [address] [address] Norma Ortiz, GENERAL CLEANER [address] [place] [address] [email or web address] 07/25/2025 3:00 PM EST Office Visit [facility] Neurology at [address] [place] [address] Gulshan Rizo MD, MPH, CASA [address] [place] [address], [address] [address] [email or web address] documented as of this encounter Visit Diagnoses Diagnosis Breast screening- Primary Breast screening, unspecified documented in this encounter Care Teams Lawn Technician Relationship Specialty Start Date End Date Brigida Hendricks PA [address] [place] [address] [email or web address] PCP - General Physician Web Press Operator 10/14/22 documented as of this encounter Additional Source Comments The information contained in this document represents components of the legal health record. It is not the complete legal health record.[facility]
--- OUTSIDE RECORDS SUMMARY | 2025-04-13 01:38 | XMS_ITS | Encounter Summary ---
Author Organization Formerly [facility] Address [address] [place] [address] [place] [phone] Phone Care Team Providers Care Sales Representative Sales Manager Name Role Phone Bautista Rodriguez MD Unavailable [phone] Delma Barriga MD Unavailable [phone] Ravi Graham MD Unavailable Bautista Rodriguez MD Primary Care Provider Bautista Rodriguez MD Primary Care Provider Marly Mcdaniel NP Primary Care Provider [phone] Brigida Hendricks Primary Care Provider [phone] Encounter Details Date Type Department Care Team (Late st Contact Info) Description 04/27/2017 Procedure Pass [place] Admitting Dept - [facility] Department [address] [place] [address] Social History Tobacco Use Types Packs/Day [...] st Contact Info) Description 11/22/2024 Procedure Pass [address] [place] [address] 04/25/2025 2:00 PM EST Procedure visit [facility] [address] [place] [address] Haylee Armstrong MD 4 [facility] Orth[facility] Medicine, [place] [address] 07/03/2025 9:30 AM EST Appointment [facility], [facility]- [address] [address] Norma Ortiz NP [address] [place] [phone] [email or web address] 07/25/2025 3:00 PM EST Office Visit [facility] Neurology at [address] [address] Gulshan Rizo MD, MPH, CASA [address] [place] [address], [address] [address] [email or web address] documented as of this encounter Visit Diagnoses [...] documented as of this encounter Care Teams Sales Representative Sales Manager Relationship Specialty Start Date End Date Bautista Rodriguez MD [address] [place] [phone] [email or web address] PCP - General 03/26/17 03/08/20 Bautista Rodriguez MD [facility] [place] [phone] [email or web address] PCP - General Family Medicine 03/09/20 06/21/20 Marly Mcdaniel SLASHER SAWYER [address] [place] [phone] PCP - General Nurse Practitioner 06/22/20 10/13/22 Brigida Hendricks PA [address] [place] [phone] [email or web address] PCP - General Physician Director Speech And Hearing 10/14/22 Bautista Rodriguez MD [address] [place] [address] [email or web address] Historical LMR Provider 03/15/17 06/01/21 Delma Barriga MD [address] [place] [address], [address] [place] [phone] [email or web address] Historical LMR Provider 03/15/17 Ravi Graham MD [address] [place] [phone] Historical LMR Provider 03/15/17 2 documented as of this encounter Additional Source Comments The information contained in this document represents components of the legal health record. It is not the complete legal health record.[facility]
--- OUTSIDE RECORDS SUMMARY | 2025-04-13 01:38 | XMS_ITS | Encounter Summary ---
Author Organization [facility] Address [address] [facility] [address] [place] [phone] Phone Care Team Providers Care Wire Stripping Machine Operator Name Role Phone Bautista Rodriguez MD Unavailable [phone] Delma Barriga MD Unavailable [phone] Ravi Graham MD Unavailable [phone] Marly Mcdaniel NP Primary Care Provider [phone] Brigida Hendricks Primary Care Provider [phone] Encounter Details Date Type Department Care Team (Late st Contact Info) Description 05/29/2021 Procedure Pass [place], [facility] Scan [address] [address] Social History Tobacco Use Types Packs/Day Years [...] st Contact Info) Description 11/22/2024 Procedure Pass [facility], Mammography- [address] [address] 04/25/2025 2:00 PM EST Procedure visit [facility] [address] [place] [phone] Haylee Armstrong MD 4 [facility] Orth[facility], [facility] [place] [address] 07/03/2025 9:30 AM EST Appointment [facility] [address] [place] [address] Norma Ortiz NP [address] [place] [address] [email or web address] 07/25/2025 3:00 PM EST Office Visit [facility] Neurology at [address] [address] Gulshan Rizo MD, MPH, CASA [address] [place] [phone] [email or web address] documented as of this encounter Visit Diagnoses Not on filedocumented in this encounter Additional Health Concerns Infection Onset Date Last Indicated Resolved Time CoV-Risk 10/14/2022 10/14/2022 10/25/2022 1:21 AM EDT CoV-Risk 01/11/2024 01/11/2024 01/22/2024 1:22 AM EDT documented as of this encounter Care Teams Wire Stripping Machine Operator Relationship Specialty Start Date End Date Marly Mcdaniel NP [address] [place] [phone] PCP - General Nurse Practitioner 06/22/20 10/13/22 Brigida Hendricks PA [address] [place] [phone] [email or web address] PCP - General Physician Senior Game Designer 10/14/22 Bautista Rodriguez MD [address] [place] [address] [email or web address] Historical LMR Provider 03/15/17 06/01/21 Delma Barriga MD [address] [address] [email or web address] Historical LMR Provider 03/15/17 Ravi Graham MD [address] [place] [phone] Historical LMR Provider 03/15/17 2 documented as of this encounter Additional Source Comments The information contained in this document represents components of the legal health record. It is not the complete legal health record.[facility]
== END 2025-04-12 13:38 | disposition home or self-care (01) ==
LOC: HO.MRI 13:37
PROVIDERS: PCP Physician Assistant; Visit Provider Nurse Practitioner Family
DX: N28.1 Cyst of kidney, acquired (principal)
CPT/HCPCS: 74183; A9585